=== PATIENT | male | born 1950 | race Two or more races ===

== ENCOUNTER 2017-09-12 08:19 | Inpatient (IN) | payer MEDICAID ==
[~2017-09-12] VITALS: Ht 172.7 cm; Wt 79.4 kg
[~2017-09-12 08:19] MED LIST: ATO40T; HYDR12.56 PO; LISI10TA6; METF-370 PO
[2017-09-12 09:20] LABS: Basophils # (auto) 0 uL; Eosinophils # (auto) 0 uL; Hematocrit 20.3 % (41.0-53.0); Mean Corpuscular Hgb Conc. 33.1 g/dL (32.0-36.0); Monocytes # (auto) 0.3 uL; Red Blood Cells 2.27 10^6/uL (4.5-5.90)
[2017-09-12 09:22] LABS: Basophils % (auto) 0.2 % (0.0-2.0); Lymphocytes # (auto) 0.4 uL; Lymphocytes % (auto) 6.1 % (10.0-50.0); Mean Corpuscular Hemoglobin 29.6 pg (28.0-32.0); Mean Corpuscular Volume 89.5 fL (80.0-100.0); Monocytes % (auto) 4.7 % (0.0-12.0); Neutrophils # (auto) 6.5 uL; Platelet Count (auto) 272 10^3/uL (140-450); Red Cell Distribution Width 15.9 % (11.8-14.3); White Blood Cell 7.3 10^3/uL (4.4-10.8)
[2017-09-12 09:43] LABS: Hemoglobin 6.7 g/dL (13.5-17.5)
[2017-09-12 09:50] LABS: Albumin 1.8 g/dL (3.4-5.0); BUN/Creatinine Ratio 17.2; Bilirubin, Total 0.2 mg/dL (0.2-1.0); Calcium 7.7 mg/dL (8.5-10.1); Magnesium 2.4 mg/dL (1.6-2.6); Potassium 3.9 mmol/L (3.5-5.1); Total Protein 6.3 g/dL (6.4-8.2)
[2017-09-12] MEDS ORDERED: ENOXAPARIN SOD 80 MG/0.8ML SYRINGE SC ONE (11:45)
[2017-09-12] MEDS ORDERED: AZITHROMYCIN 500MG/ 250ML 250 ML IV ONE (11:45)
[2017-09-12] MEDS ORDERED: cefTRIAXone 1GM/10ml IVPUSH 10 ML IV ONE (11:45)
[2017-09-12] MEDS ORDERED: DEXTROSE (50%) 50ML SYRG IV PRN (12:30)
[2017-09-12] MEDS ORDERED: FUROSEMIDE 40 MG TAB PO ONE (12:30)
[2017-09-12] MEDS ORDERED: MORPHINE SULFATE 10 MG/ML INJ 1ML SDV IV PRN ×2 (12:30)
[2017-09-12] MEDS ORDERED: LOSARTAN POTASSIUM 50 MG TAB PO ONE (12:30)
[2017-09-12] MEDS ORDERED: DOCUSATE SOD 100 MG CAP PO PRN (12:30)
[2017-09-12] MEDS ORDERED: NITROGLYCERIN 0.4 MG SL TAB SL PRN (12:30)
[2017-09-12] MEDS ORDERED: HCTZ 25 MG TAB PO ONE (12:30)
[2017-09-12] MEDS ORDERED: ONDANSETRON HCL 4 MG/2 ML VIAL IV PRN (12:30)
[2017-09-12] MEDS ORDERED: B-COMPLEX W/ C & FOLIC ACID(NEPHROVITE TAB) PO ONE (12:30)
[2017-09-12] MEDS ORDERED: ACETAMINOPHEN 325 MG TAB PO PRN (12:30)
[2017-09-12] MEDS ORDERED: OSELTAMIVIR 75 MG CAP PO ONE (12:30)
[2017-09-12] MEDS ORDERED: TEMAZEPAM 15 MG CAP PO PRN (12:30)
[2017-09-12] MEDS: SODIUM CHLORIDE 0.9% 1,000 ML IV SCH (13:10)
[2017-09-12 13:13] LABS: INR 1.02 (0.9-1.15); Prothrombin Time 11.1 sec (9.37-12.3)
[2017-09-12 13:40] VITALS: BP 142/72
[2017-09-12 13:48] LABS: Urine Bacteria FEW /hpf (None Seen); Urine Blood 2+ /uL (Negative); Urine Mucus FEW (None Seen); Urine Specific Gravity 1.014 (1.001-1.035); Urine WBC 1 /hpf (0 - 3)
[2017-09-12 13:55] VITALS: BP 136/79
[2017-09-12 14:30] VITALS: BP 108/65
[2017-09-12 15:14] VITALS: BP 137/83
[2017-09-12 15:30] VITALS: BP 121/68
[2017-09-12 15:55] LABS: Protein, Urine 726.6 mg/dL (0.0-11.9)
[2017-09-12] MEDS: FAMOTIDINE 20 MG TAB PO SCH (15:59)
[2017-09-12] MEDS: InsuLIN REG 1unit/0.01ml Soln (100units/ml) SC SCH ×2 (17:00→22:00)
[2017-09-12] MEDS: ACCU-CHEK COMFORT CURVE STRIP VI SCH ×2 (17:15→22:00)
[2017-09-12] MEDS: Boost Glucose Control 8 Ounces PO SCH ×2 (18:00→22:49)
[2017-09-12] MEDS: FERROUS SULFATE 325 MG TAB PO SCH (18:41)
[2017-09-12 22:00] VITALS: BP 133/73
[2017-09-12] MEDS: ATORVASTATIN 20 MG TAB PO SCH (22:49)
[2017-09-13] VITALS (9 sets, daily range): BP systolic 90–136; BP diastolic 50–65
[2017-09-13] MEDS ORDERED: LOSA50TA6 PO (03:24)
[2017-09-13] MEDS ORDERED: FURO40TA4 PO (03:24)
[2017-09-13] MEDS: SODIUM CHLORIDE 0.9% 1,000 ML IV SCH (05:03)
[2017-09-13] MEDS: HYDROcodone-ACET 5/325MG TAB PO PRN ×2 (06:04→16:28)
[2017-09-13] MEDS: Boost Glucose Control 8 Ounces PO SCH ×3 (06:10→18:14)
[2017-09-13 06:42] LABS: White Blood Cell 5.1 10^3/uL (4.4-10.8)
[2017-09-13 06:44] LABS: Hematocrit 19.9 % (41.0-53.0); Mean Corpuscular Hemoglobin 30.1 pg (28.0-32.0); Mean Corpuscular Hgb Conc. 34.3 g/dL (32.0-36.0); Platelet Count (auto) 192 10^3/uL (140-450); Red Blood Cells 2.27 10^6/uL (4.5-5.90); Red Cell Distribution Width 15.3 % (11.8-14.3)
[2017-09-13] MEDS: ACCU-CHEK COMFORT CURVE STRIP VI SCH ×4 (06:50→22:15)
[2017-09-13] MEDS: InsuLIN REG 1unit/0.01ml Soln (100units/ml) SC SCH ×4 (06:50→22:00)
[2017-09-13 06:53] LABS: Hemoglobin 6.8 g/dL (13.5-17.5)
[2017-09-13 06:55] LABS: Band Neutrophils % (manual) 0; Basophils % (manual) 0 (0.0-2.0); Blast Cells 0; Eosinophils % (manual) 0 (0-7); Metamyelocytes % 0; Myelocytes % 0; Promyelocytes % 0; Reactive Lymphocytes 0
[2017-09-13 07:06] LABS: Lymphocytes % (manual) 6 (10.0-50.0); Monocytes % (manual) 3 (0-12)
[2017-09-13 07:21] LABS: Albumin 1.3 g/dL (3.4-5.0); BUN/Creatinine Ratio 17.2; Bilirubin, Total 0.2 mg/dL (0.2-1.0); Calcium 7.2 mg/dL (8.5-10.1); Potassium 3.4 mmol/L (3.5-5.1); Total Protein 5.1 g/dL (6.4-8.2)
[2017-09-13] MEDS: FERROUS SULFATE 325 MG TAB PO SCH ×2 (08:21→18:14)
[2017-09-13] MEDS ORDERED: HCTZ 25 MG TAB PO SCH (10:00)
[2017-09-13] MEDS: LOSARTAN POTASSIUM 50 MG TAB PO SCH (10:00)
[2017-09-13] MEDS: FUROSEMIDE 40 MG TAB PO SCH (10:00)
[2017-09-13] MEDS ORDERED: OSELTAMIVIR 30 MG CAP PO SCH (10:00)
[2017-09-13] MEDS: MULTIPLE VITAMIN TAB PO SCH (10:04)
[2017-09-13] MEDS: FAMOTIDINE 20 MG TAB PO SCH (10:04)
[2017-09-13] MEDS: cefTRIAXone 1GM/10ml IVPUSH 10 ML IV SCH (10:04)
[2017-09-13] MEDS: B-COMPLEX W/ C & FOLIC ACID(NEPHROVITE TAB) PO SCH (10:05)
[2017-09-13] MEDS: AZITHROMYCIN 500MG/ 250ML 250 ML IV SCH (10:05)
[2017-09-13] MEDS ORDERED: LORazepam 2MG/ML-1ML VIAL IV PRN (19:00)
[2017-09-13] MEDS: ATORVASTATIN 20 MG TAB PO SCH (22:15)
[2017-09-13 22:17] LABS: Basophils # (auto) 0 uL; Eosinophils # (auto) 0 uL; Monocytes # (auto) 0.2 uL; Neutrophils # (auto) 2.7 uL; Red Cell Distribution Width 15.2 % (11.8-14.3); White Blood Cell 3.3 10^3/uL (4.4-10.8)
[2017-09-13 22:18] LABS: Basophils % (auto) 0.4 % (0.0-2.0); Eosinophils % (auto) 0.6 % (0.0-7.0); Hematocrit 18.3 % (41.0-53.0); Lymphocytes # (auto) 0.4 uL; Lymphocytes % (auto) 12.7 % (10.0-50.0); Mean Corpuscular Hemoglobin 30.2 pg (28.0-32.0); Mean Corpuscular Hgb Conc. 34.3 g/dL (32.0-36.0); Mean Corpuscular Volume 88.2 fL (80.0-100.0); Monocytes % (auto) 5.6 % (0.0-12.0); Neutrophils % (auto) 80.7 % (37.0-80.0); Nucleated Red Blood Cells % 0.1 %; Platelet Count (auto) 161 10^3/uL (140-450); Red Blood Cells 2.07 10^6/uL (4.5-5.90)
[2017-09-13 22:25] LABS: Hemoglobin 6.3 g/dL (13.5-17.5)
[2017-09-14] VITALS (14 sets, daily range): BP systolic 96–127; BP diastolic 53–62
[2017-09-14] MEDS: Boost Glucose Control 8 Ounces PO SCH ×5 (00:03→21:51)
[2017-09-14] MEDS: ACCU-CHEK COMFORT CURVE STRIP VI SCH ×4 (06:12→21:50)
[2017-09-14] MEDS: InsuLIN REG 1unit/0.01ml Soln (100units/ml) SC SCH ×4 (06:12→21:50)
[2017-09-14] MEDS: FERROUS SULFATE 325 MG TAB PO SCH ×2 (08:00→18:21)
[2017-09-14 09:10] LABS: Basophils # (auto) 0 uL; Basophils % (auto) 0.4 % (0.0-2.0); Eosinophils # (auto) 0.1 uL; Hematocrit 25.8 % (41.0-53.0); Hemoglobin 8.6 g/dL (13.5-17.5); Lymphocytes # (auto) 0.4 uL; Lymphocytes % (auto) 9.5 % (10.0-50.0); Mean Corpuscular Hemoglobin 29.4 pg (28.0-32.0); Mean Corpuscular Hgb Conc. 33.5 g/dL (32.0-36.0); Mean Corpuscular Volume 87.9 fL (80.0-100.0); Monocytes # (auto) 0.2 uL; Monocytes % (auto) 5.4 % (0.0-12.0); Neutrophils # (auto) 3.8 uL; Neutrophils % (auto) 82.7 % (37.0-80.0); Nucleated Red Blood Cells % 0.1 %; Platelet Count (auto) 168 10^3/uL (140-450); Red Blood Cells 2.93 10^6/uL (4.5-5.90); Red Cell Distribution Width 14.9 % (11.8-14.3); White Blood Cell 4.6 10^3/uL (4.4-10.8)
[2017-09-14 09:12] LABS: BUN/Creatinine Ratio 16.9; Calcium 7.3 mg/dL (8.5-10.1); Phosphorus 4.5 mg/dL (2.5-4.90); Potassium 3.2 mmol/L (3.5-5.1)
[2017-09-14] MEDS: cefTRIAXone 1GM/10ml IVPUSH 10 ML IV SCH (09:58)
[2017-09-14] MEDS: MULTIPLE VITAMIN TAB PO SCH (09:58)
[2017-09-14] MEDS: AZITHROMYCIN 500MG/ 250ML 250 ML IV SCH (09:58)
[2017-09-14] MEDS: FAMOTIDINE 20 MG TAB PO SCH (09:59)
[2017-09-14] MEDS: FUROSEMIDE 40 MG TAB PO SCH (09:59)
[2017-09-14] MEDS: LOSARTAN POTASSIUM 50 MG TAB PO SCH (09:59)
[2017-09-14] MEDS ORDERED: PANTOPRAZOLE 40 MG/10 ML VIAL IV ONE (10:15)
[2017-09-14] MEDS ORDERED: PROMETHAZINE-DM 5 ML ORAL SYRUP PO PRN (10:15)
[2017-09-14] MEDS: B-COMPLEX W/ C & FOLIC ACID(NEPHROVITE TAB) PO SCH (10:21)
[2017-09-14] MEDS ORDERED: SODIUM BICARBONATE 650 MG TAB PO ONE (14:15)
[2017-09-14] MEDS ORDERED: POTASSIUM CHL 20 Meq TABLET PO ONE (14:15)
[2017-09-14] MEDS: SODIUM BICARBONATE 650 MG TAB PO SCH (21:49)
[2017-09-14] MEDS: ATORVASTATIN 20 MG TAB PO SCH (21:49)
[2017-09-15 05:00] VITALS: BP 135/63
[2017-09-15] MEDS: InsuLIN REG 1unit/0.01ml Soln (100units/ml) SC SCH ×4 (06:40→21:35)
[2017-09-15] MEDS: ACCU-CHEK COMFORT CURVE STRIP VI SCH ×4 (06:41→21:35)
[2017-09-15 07:07] LABS: BUN/Creatinine Ratio 19.4; Calcium 8.1 mg/dL (8.5-10.1); Potassium 3.7 mmol/L (3.5-5.1)
[2017-09-15] MEDS: FERROUS SULFATE 325 MG TAB PO SCH ×2 (08:00→17:36)
[2017-09-15 08:01] VITALS: BP 130/60
[2017-09-15] MEDS ORDERED: PANTOPRAZOLE 40 MG/10 ML VIAL IV SCH (10:00)
[2017-09-15] MEDS ORDERED: ADENOSINE 69 MG in GIVE UN-DILUTED 0 ML IV ONE (11:00)
[2017-09-15 11:20] VITALS: BP 109/58
[2017-09-15 13:30] VITALS: BP 129/64
[2017-09-15] MEDS: cefTRIAXone 1GM/10ml IVPUSH 10 ML IV SCH (13:31)
[2017-09-15] MEDS: SODIUM BICARBONATE 650 MG TAB PO SCH ×2 (13:31→21:34)
[2017-09-15] MEDS: FUROSEMIDE 40 MG TAB PO SCH (13:32)
[2017-09-15] MEDS: B-COMPLEX W/ C & FOLIC ACID(NEPHROVITE TAB) PO SCH (13:33)
[2017-09-15] MEDS: MULTIPLE VITAMIN TAB PO SCH (13:33)
[2017-09-15] MEDS: Boost Glucose Control 8 Ounces PO SCH ×4 (13:33→21:36)
[2017-09-15 16:04] VITALS: BP 131/64
[2017-09-15] MEDS ORDERED: GOLYTELY 4L KIT PO ONE (16:45)
[2017-09-15] MEDS: ATORVASTATIN 20 MG TAB PO SCH (21:34)
[2017-09-15 22:00] VITALS: BP 128/84
[2017-09-16 05:00] VITALS: BP 120/66
[2017-09-16] MEDS: ACCU-CHEK COMFORT CURVE STRIP VI SCH ×3 (06:57→17:00)
[2017-09-16] MEDS: InsuLIN REG 1unit/0.01ml Soln (100units/ml) SC SCH ×3 (07:00→17:00)
[2017-09-16] MEDS: FERROUS SULFATE 325 MG TAB PO SCH ×2 (08:00→18:00)
[2017-09-16] MEDS ORDERED: diphenhdrAMINE HCL 50 MG/1 ML VL ONE (08:04)
[2017-09-16] MEDS ORDERED: SODIUM CHLORIDE LOCK 10 ML ONE (08:04)
[2017-09-16] MEDS ORDERED: LIDOCAINE VISCOUS 2% 15ML UD ONE (08:04)
[2017-09-16] MEDS ORDERED: MIDAZOLAM HCL 5 MG/ML-1ML VIAL ONE (08:04)
[2017-09-16 08:46] VITALS: BP 88/54
[2017-09-16] MEDS: cefTRIAXone 1GM/10ml IVPUSH 10 ML IV SCH (09:00)
[2017-09-16] MEDS: MULTIPLE VITAMIN TAB PO SCH (10:00)
[2017-09-16] MEDS ORDERED: AZITHROMYCIN 250 MG TAB PO SCH (10:00)
[2017-09-16] MEDS: SODIUM BICARBONATE 650 MG TAB PO SCH (10:00)
[2017-09-16] MEDS: B-COMPLEX W/ C & FOLIC ACID(NEPHROVITE TAB) PO SCH (10:00)
[2017-09-16] MEDS: FUROSEMIDE 40 MG TAB PO SCH (10:00)
[2017-09-16 10:11] LABS: Hematocrit 31.2 % (41.0-53.0); Hemoglobin 10.5 g/dL (13.5-17.5); Mean Corpuscular Hemoglobin 29.3 pg (28.0-32.0); Mean Corpuscular Hgb Conc. 33.5 g/dL (32.0-36.0); Mean Corpuscular Volume 87.6 fL (80.0-100.0); Platelet Count (auto) 235 10^3/uL (140-450); Red Blood Cells 3.57 10^6/uL (4.5-5.90); White Blood Cell 4.4 10^3/uL (4.4-10.8)
[2017-09-16 10:20] LABS: Basophils % (manual) 0 (0.0-2.0); Blast Cells 0; Metamyelocytes % 0; Myelocytes % 0; Promyelocytes % 0; Reactive Lymphocytes 0
[2017-09-16 10:31] LABS: Band Neutrophils % (manual) 1; Lymphocytes % (manual) 11 (10.0-50.0); Monocytes % (manual) 4 (0-12)
[2017-09-16 10:32] LABS: Eosinophils % (manual) 19 (0-7)
[2017-09-16] MEDS: fentaNYL CITRATE 100 MCG/2 ML VL ONE ×2 (11:38→11:47)
[2017-09-16] MEDS: Boost Glucose Control 8 Ounces PO SCH ×2 (16:18→18:00)
[2017-09-16 16:59] VITALS: BP 115/62
== END 2017-09-16 19:00 | disposition home or self-care (01) | DRG 720 ==
LOC: ER 08:19 → TELE 08:20 → TELE-WESTW 21:49
PROVIDERS: ADMIT Internal Medicine; ATTEND Internal Medicine
PROC: 30233N1 Transfusion of Nonautologous Red Blood Cells into Peripheral Vein, Percutaneous Approach (ICD-10-PCS; principal; 2017-09-12)
PROC: 0DJ08ZZ Inspection of Upper Intestinal Tract, Via Natural or Artificial Opening Endoscopic (ICD-10-PCS; 2017-09-16)
PROC: 0DJD8ZZ Inspection of Lower Intestinal Tract, Via Natural or Artificial Opening Endoscopic (ICD-10-PCS; 2017-09-16 11:35)
DX: A41.9 Sepsis, unspecified organism (principal); E43 Unspecified severe protein-calorie malnutrition; N17.9 Acute kidney failure, unspecified; I13.2 Hypertensive heart and chronic kidney disease with heart failure and with stage 5 chronic kidney disease, or end stage renal disease; E87.2 Acidosis; J18.9 Pneumonia, unspecified organism; N18.5 Chronic kidney disease, stage 5; J45.901 Unspecified asthma with (acute) exacerbation; I08.1 Rheumatic disorders of both mitral and tricuspid valves; E11.21 Type 2 diabetes mellitus with diabetic nephropathy; E11.51 Type 2 diabetes mellitus with diabetic peripheral angiopathy without gangrene; I50.9 Heart failure, unspecified; E87.1 Hypo-osmolality and hyponatremia; E83.51 Hypocalcemia; D63.8 Anemia in other chronic diseases classified elsewhere; E11.22 Type 2 diabetes mellitus with diabetic chronic kidney disease; E78.5 Hyperlipidemia, unspecified; I25.10 Atherosclerotic heart disease of native coronary artery without angina pectoris; K08.9 Disorder of teeth and supporting structures, unspecified; K40.90 Unilateral inguinal hernia, without obstruction or gangrene, not specified as recurrent; N13.30 Unspecified hydronephrosis; N28.1 Cyst of kidney, acquired; N40.0 Benign prostatic hyperplasia without lower urinary tract symptoms; Z82.3 Family history of stroke; Z82.49 Family history of ischemic heart disease and other diseases of the circulatory system; Z83.3 Family history of diabetes mellitus; Z79.899 Other long term (current) drug therapy; Z68.26 Body mass index [BMI] 26.0-26.9, adult
CPT/HCPCS: 36415; 36430; 43235; 45378; 70450; 70551; 71046; 74176; 76775; 80048; 80053; 81001; 82570; 82962; 83036; 83605; 83735; 84100; 84156; 84484; 85007; 85025; 85027; 85610; 86850; 86900; 86901; 86920; 87040; 87400; 93005; 93017; 93306; 96372; 96374; 96375; 97116; 97163; 97530; 99291; C9113; G9035; J0153; J1815; J2250

== ENCOUNTER 2017-09-28 01:33 | Emergency (ER) | payer MEDICAID ==
[~2017-09-28] VITALS: Ht 177.8 cm; Wt 81.6 kg
[~2017-09-28 01:33] MED LIST changes: +FURO40TA4 PO; +LOSA50TA6 PO
[2017-09-28] MEDS ORDERED: SODIUM CHLORIDE 0.9% 1,000 ML IV ONE (07:47)
[2017-09-28 08:09] LABS: Basophils # (auto) 0.1 uL; Basophils % (auto) 0.8 % (0.0-2.0); Eosinophils # (auto) 0.5 uL; Eosinophils % (auto) 5.4 % (0.0-7.0); Hematocrit 27.3 % (41.0-53.0); Lymphocytes # (auto) 0.9 uL; Lymphocytes % (auto) 9.1 % (10.0-50.0); Mean Corpuscular Hemoglobin 29.1 pg (28.0-32.0); Mean Corpuscular Hgb Conc. 32.9 g/dL (32.0-36.0); Mean Corpuscular Volume 88.3 fL (80.0-100.0); Monocytes # (auto) 0.5 uL; Monocytes % (auto) 4.8 % (0.0-12.0); Neutrophils # (auto) 7.6 uL; Neutrophils % (auto) 79.9 % (37.0-80.0); Nucleated Red Blood Cells % 0.1 %; Platelet Count (auto) 263 10^3/uL (140-450); Red Blood Cells 3.09 10^6/uL (4.5-5.90); Red Cell Distribution Width 15.4 % (11.8-14.3); White Blood Cell 9.6 10^3/uL (4.4-10.8)
[2017-09-28 08:23] LABS: Calcium 8.8 mg/dL (8.5-10.1); Magnesium 2.6 mg/dL (1.6-2.6)
[2017-09-28 08:27] LABS: BUN/Creatinine Ratio 19.5; Bilirubin, Total 0.2 mg/dL (0.2-1.0)
[2017-09-28 08:28] LABS: INR 1.02 (0.9-1.15); Partial Thromboplastin Time 27.1 sec (22.64-33.71); Prothrombin Time 11.1 sec (9.37-12.3)
[2017-09-28] MEDS ORDERED: DEXTROSE 50% SYRINGE 50 ML IV ONE (08:37)
[2017-09-28] MEDS ORDERED: DEXTROSE (50%) 50ML SYRG IV ONE (08:45)
[2017-09-28] MEDS ORDERED: DEXAMETHASONE SOD PHOS 4 MG/1ML SDV INJ IV ONE (13:15)
[2017-09-28 15:21] VITALS: BP 189/70
== END 2017-09-28 15:31 | disposition short-term general hospital (02) ==
LOC: EDBD 01:33 → ER 01:33
DX: S00.83XA Contusion of other part of head, initial encounter (principal); S40.011A Contusion of right shoulder, initial encounter; S14.126A Central cord syndrome at C6 level of cervical spinal cord, initial encounter; R55 Syncope and collapse; E11.65 Type 2 diabetes mellitus with hyperglycemia; E03.9 Hypothyroidism, unspecified; E46 Unspecified protein-calorie malnutrition; R41.82 Altered mental status, unspecified; I12.9 Hypertensive chronic kidney disease with stage 1 through stage 4 chronic kidney disease, or unspecified chronic kidney disease; E11.22 Type 2 diabetes mellitus with diabetic chronic kidney disease; N18.9 Chronic kidney disease, unspecified; E78.5 Hyperlipidemia, unspecified; W19.XXXA Unspecified fall, initial encounter; Y93.89 Activity, other specified; Y99.8 Other external cause status; Y92.89 Other specified places as the place of occurrence of the external cause
CPT/HCPCS: 36415; 70450; 70486; 71045; 72125; 73030; 80053; 82962; 83735; 84443; 84484; 85025; 85379; 85610; 85730; 93005; 94761; 96361; 96374; 99285; J7030; J7042; L0120

== ENCOUNTER 2017-11-03 21:21 | Inpatient (IN) | payer MEDICAID ==
[~2017-11-03] VITALS: Ht 172.7 cm; Wt 73.5 kg
[2017-11-03 22:28] LABS: Hemoglobin 8.1 g/dL (13.5-17.5); White Blood Cell 8.7 10^3/uL (4.4-10.8)
[2017-11-03 22:30] LABS: Hematocrit 24.2 % (41.0-53.0); Mean Corpuscular Hemoglobin 31.3 pg (28.0-32.0); Mean Corpuscular Hgb Conc. 33.4 g/dL (32.0-36.0); Mean Corpuscular Volume 93.6 fL (80.0-100.0); Platelet Count (auto) 182 10^3/uL (140-450); Red Blood Cells 2.59 10^6/uL (4.5-5.90)
[2017-11-03 22:35] LABS: Albumin 2.4 g/dL (3.4-5.0); BUN/Creatinine Ratio 28.6; Calcium 8.6 mg/dL (8.5-10.1); Potassium 5.5 mmol/L (3.5-5.1)
[2017-11-03 22:37] LABS: Bilirubin, Total 0.2 mg/dL (0.2-1.0); Red Cell Distribution Width 20.5 % (11.8-14.3); Total Protein 6.3 g/dL (6.4-8.2)
[2017-11-03 22:41] LABS: Basophils % (manual) 0 (0.0-2.0)
[2017-11-03 22:42] LABS: Blast Cells 0; Metamyelocytes % 0; Myelocytes % 0; Promyelocytes % 0; Reactive Lymphocytes 0
[2017-11-03 23:39] LABS: Band Neutrophils % (manual) 1; Eosinophils % (manual) 15 (0-7); Lymphocytes % (manual) 9 (10.0-50.0); Monocytes % (manual) 1 (0-12)
[2017-11-03 23:44] LABS: Magnesium 2.6 mg/dL (1.6-2.6)
[2017-11-04] MEDS ORDERED: SODIUM BICARBONATE 8.4 % INJ 50ML VIAL IV ONE (00:30)
[2017-11-04] MEDS ORDERED: DEXTROSE (50%) 50ML SYRG IV ONE (00:30)
[2017-11-04] MEDS ORDERED: InsuLIN REG 1unit/0.01ml Soln (100units/ml) IV ONE (00:30)
[2017-11-04] MEDS ORDERED: SODIUM CHLORIDE 0.9% 1,000 ML IV ONE (00:30)
[2017-11-04] MEDS ORDERED: CALCIUM GLUC 4.65meq/50ml D5AE 50 ML IV ONE (00:30)
[2017-11-04] MEDS ORDERED: SODIUM CHLORIDE 0.9% 1,000 ML IV SCH (03:45)
[2017-11-04] MEDS ORDERED: ACETAMINOPHEN 325 MG TAB PO PRN (03:45)
[2017-11-04] MEDS ORDERED: DEXTROSE (50%) 50ML SYRG IV PRN (03:45)
[2017-11-04] MEDS ORDERED: NITROGLYCERIN 0.4 MG SL TAB SL PRN (03:45)
[2017-11-04] MEDS ORDERED: PANTOPRAZOLE 40 MG/10 ML VIAL IV ONE (03:45)
[2017-11-04] MEDS ORDERED: TEMAZEPAM 15 MG CAP PO PRN (03:45)
[2017-11-04] MEDS ORDERED: ONDANSETRON HCL 4 MG/2 ML VIAL IV PRN (03:45)
[2017-11-04] MEDS ORDERED: MORPHINE SULFATE 4 MG/ML SYR/VIAL IV PRN (03:45)
[2017-11-04] MEDS ORDERED: HYDROcodone-ACET 5/325MG TAB PO PRN (03:45)
[2017-11-04] MEDS ORDERED: SODIUM CHLORIDE 0.9% 500 ML IV ONE (03:45)
[2017-11-04 04:13] LABS: Hematocrit 23.8 % (41.0-53.0)
[2017-11-04] MEDS: metroNIDAZOLE 500MG/100ML 100 ML IV SCH ×3 (05:31→21:57)
[2017-11-04] MEDS: InsuLIN REG 1unit/0.01ml Soln (100units/ml) SC SCH ×3 (06:00→18:00)
[2017-11-04] MEDS: ACCU-CHEK COMFORT CURVE STRIP VI SCH ×3 (06:20→18:02)
[2017-11-04] MEDS: PANTOPRAZOLE 40 MG/10 ML VIAL IV SCH ×2 (09:54→21:56)
[2017-11-04] MEDS ORDERED: FUROSEMIDE 40 MG TAB PO SCH (10:00)
[2017-11-04] MEDS ORDERED: LISINOPRIL 10 MG TAB PO SCH (10:00)
[2017-11-04 12:00] VITALS: BP 146/65
[2017-11-04] MEDS: SODIUM BICARBONATE 50ML VIAL 50 ML in SOD CHL 0.45% 1,000 ML IV SCH ×2 (12:03→20:36)
[2017-11-04 12:35] LABS: Protein, Urine 406.2 mg/dL (0.0-11.9)
[2017-11-04 12:38] LABS: % Iron Saturation 12.5 % (20-55)
[2017-11-04 12:53] LABS: Urine Amorphous Crystal FEW /hpf (None Seen); Urine Bacteria FEW /hpf (None Seen); Urine Blood TRACE /uL (Negative); Urine Mucus FEW (None Seen); Urine Specific Gravity 1.012 (1.001-1.035); Urine WBC 1 /hpf (0 - 3)
[2017-11-04 14:21] VITALS: BP 146/65
[2017-11-04 16:00] VITALS: BP 130/64
[2017-11-04 18:30] LABS: Hemoglobin 7.3 g/dL (13.5-17.5)
[2017-11-04 18:32] LABS: Hematocrit 21.9 % (41.0-53.0)
[2017-11-04 20:00] VITALS: BP 135/61
[2017-11-04 21:56] VITALS: BP 135/61
[2017-11-04] MEDS: ATORVASTATIN 20 MG TAB PO SCH (21:57)
[2017-11-04 23:47] VITALS: BP 132/62
[2017-11-05] VITALS (17 sets, daily range): BP systolic 126–151; BP diastolic 60–77
[2017-11-05] MEDS: ACCU-CHEK COMFORT CURVE STRIP VI SCH ×5 (00:25→23:42)
[2017-11-05] MEDS: SODIUM BICARBONATE 50ML VIAL 50 ML in SOD CHL 0.45% 1,000 ML IV SCH ×3 (04:07→21:06)
[2017-11-05] MEDS: InsuLIN REG 1unit/0.01ml Soln (100units/ml) SC SCH ×5 (05:44→23:42)
[2017-11-05] MEDS: metroNIDAZOLE 500MG/100ML 100 ML IV SCH ×3 (06:00→21:38)
[2017-11-05 09:56] LABS: Hematocrit 26.1 % (41.0-53.0); Hemoglobin 8.8 g/dL (13.5-17.5); Mean Corpuscular Hemoglobin 31.4 pg (28.0-32.0); Mean Corpuscular Hgb Conc. 33.6 g/dL (32.0-36.0); Mean Corpuscular Volume 93.6 fL (80.0-100.0); Platelet Count (auto) 148 10^3/uL (140-450); Red Blood Cells 2.79 10^6/uL (4.5-5.90); Red Cell Distribution Width 18.9 % (11.8-14.3); White Blood Cell 6.5 10^3/uL (4.4-10.8)
[2017-11-05 10:07] LABS: Band Neutrophils % (manual) 0
[2017-11-05 10:08] LABS: Basophils % (manual) 0 (0.0-2.0); Blast Cells 0; Metamyelocytes % 0; Myelocytes % 0; Promyelocytes % 0; Reactive Lymphocytes 0
[2017-11-05 10:11] LABS: Albumin 2.2 g/dL (3.4-5.0); Calcium 8.7 mg/dL (8.5-10.1); Potassium 4.4 mmol/L (3.5-5.1)
[2017-11-05 10:16] LABS: BUN/Creatinine Ratio 27.9; Bilirubin, Total 0.3 mg/dL (0.2-1.0); Phosphorus 3.6 mg/dL (2.5-4.90); Total Protein 5.6 g/dL (6.4-8.2)
[2017-11-05] MEDS: amLODIPine BESYLATE 5 MG TAB PO SCH (10:34)
[2017-11-05] MEDS: PANTOPRAZOLE 40 MG/10 ML VIAL IV SCH ×2 (10:35→21:37)
[2017-11-05 14:53] LABS: Eosinophils % (manual) 36 (0-7); Lymphocytes % (manual) 13 (10.0-50.0); Monocytes % (manual) 1 (0-12)
[2017-11-05] MEDS: TAMSULOSIN HYDROCHLORIDE 0.4 MG CAP PO SCH (17:44)
[2017-11-05 20:37] LABS: Urine Bacteria NONE SEEN /hpf (None Seen); Urine Blood Negative /uL (Negative); Urine Specific Gravity 1.011 (1.001-1.035); Urine WBC 1 /hpf (0 - 3)
[2017-11-05] MEDS: ATORVASTATIN 20 MG TAB PO SCH (21:38)
[2017-11-06] MEDS: SODIUM BICARBONATE 50ML VIAL 50 ML in SOD CHL 0.45% 1,000 ML IV SCH ×3 (04:10→22:18)
[2017-11-06] MEDS: metroNIDAZOLE 500MG/100ML 100 ML IV SCH ×3 (04:11→22:13)
[2017-11-06 05:00] VITALS: BP 114/60
[2017-11-06] MEDS: InsuLIN REG 1unit/0.01ml Soln (100units/ml) SC SCH ×3 (06:00→17:46)
[2017-11-06] MEDS: ACCU-CHEK COMFORT CURVE STRIP VI SCH ×3 (06:00→17:47)
[2017-11-06 08:00] VITALS: BP 101/54
[2017-11-06 09:00] VITALS: BP 101/54
[2017-11-06] MEDS: PANTOPRAZOLE 40 MG/10 ML VIAL IV SCH ×2 (10:35→22:13)
[2017-11-06] MEDS: amLODIPine BESYLATE 5 MG TAB PO SCH (10:36)
[2017-11-06 10:58] LABS: INR 1.07 (0.9-1.15); Prothrombin Time 11.7 sec (9.37-12.3)
[2017-11-06 13:00] VITALS: BP 130/63
[2017-11-06 17:00] VITALS: BP 123/78
[2017-11-06] MEDS: TAMSULOSIN HYDROCHLORIDE 0.4 MG CAP PO SCH (17:46)
[2017-11-06 21:57] VITALS: BP 142/76
[2017-11-06] MEDS: ATORVASTATIN 20 MG TAB PO SCH (22:13)
[2017-11-07] MEDS: InsuLIN REG 1unit/0.01ml Soln (100units/ml) SC SCH ×4 (00:05→17:44)
[2017-11-07] MEDS: ACCU-CHEK COMFORT CURVE STRIP VI SCH ×4 (00:05→17:43)
[2017-11-07 05:38] VITALS: BP 143/60
[2017-11-07] MEDS: metroNIDAZOLE 500MG/100ML 100 ML IV SCH ×2 (06:00→14:24)
[2017-11-07 07:03] LABS: INR 1.09 (0.9-1.15); Partial Thromboplastin Time 28.7 sec (22.64-33.71); Prothrombin Time 11.9 sec (9.37-12.3)
[2017-11-07] MEDS ORDERED: MIDAZOLAM HCL 5 MG/ML-1ML VIAL ONE (07:53)
[2017-11-07] MEDS ORDERED: diphenhdrAMINE HCL 50 MG/1 ML VL ONE (07:53)
[2017-11-07] MEDS ORDERED: LIDOCAINE VISCOUS 2% 15ML UD ONE (07:53)
[2017-11-07] MEDS ORDERED: fentaNYL CITRATE 100 MCG/2 ML VL ONE (07:54)
[2017-11-07 08:00] VITALS: BP 140/74
[2017-11-07 09:00] VITALS: BP 140/74
[2017-11-07] MEDS ORDERED: SODIUM BICARBONATE 50ML VIAL 50 ML in SOD CHL 0.45% 1,000 ML IV SCH (09:30)
[2017-11-07] MEDS ORDERED: FLUDROCORTISONE ACETATE 0.1 MG TAB PO SCH (10:00)
[2017-11-07] MEDS ORDERED: EPOETIN ALFA 10,000 UNIT/1 ML VIAL SC ONE (10:00)
[2017-11-07] MEDS: amLODIPine BESYLATE 5 MG TAB PO SCH (10:00)
[2017-11-07 17:00] VITALS: BP 130/69
[2017-11-07] MEDS: TAMSULOSIN HYDROCHLORIDE 0.4 MG CAP PO SCH (17:43)
[2017-11-07 18:35] VITALS: BP 130/69
== END 2017-11-07 18:35 | disposition home or self-care (01) | DRG 469 ==
LOC: EDBD 21:21 → ER 21:26 → TELE 21:27 → TELE-WESTW 11-04 12:31
PROVIDERS: ADMIT Nurse Practitioner; ATTEND Internal Medicine
PROC: 30233N1 Transfusion of Nonautologous Red Blood Cells into Peripheral Vein, Percutaneous Approach (ICD-10-PCS; 2017-11-04)
PROC: 0DB68ZZ Excision of Stomach, Via Natural or Artificial Opening Endoscopic (ICD-10-PCS; principal; 2017-11-07 10:43)
DX: N17.0 Acute kidney failure with tubular necrosis (principal); E43 Unspecified severe protein-calorie malnutrition; I13.2 Hypertensive heart and chronic kidney disease with heart failure and with stage 5 chronic kidney disease, or end stage renal disease; E87.2 Acidosis; E11.22 Type 2 diabetes mellitus with diabetic chronic kidney disease; E11.51 Type 2 diabetes mellitus with diabetic peripheral angiopathy without gangrene; E86.0 Dehydration; K52.9 Noninfective gastroenteritis and colitis, unspecified; N18.6 End stage renal disease; D63.8 Anemia in other chronic diseases classified elsewhere; E78.5 Hyperlipidemia, unspecified; D50.0 Iron deficiency anemia secondary to blood loss (chronic); R00.1 Bradycardia, unspecified; R41.3 Other amnesia; E78.00 Pure hypercholesterolemia, unspecified; E87.5 Hyperkalemia; G47.00 Insomnia, unspecified; N13.30 Unspecified hydronephrosis; I25.119 Atherosclerotic heart disease of native coronary artery with unspecified angina pectoris; I50.9 Heart failure, unspecified; K31.7 Polyp of stomach and duodenum; N40.0 Benign prostatic hyperplasia without lower urinary tract symptoms; Z82.3 Family history of stroke; Z82.49 Family history of ischemic heart disease and other diseases of the circulatory system; Z83.3 Family history of diabetes mellitus; Z89.422 Acquired absence of other left toe(s); Z88.6 Allergy status to analgesic agent; Z88.0 Allergy status to penicillin; Z79.899 Other long term (current) drug therapy; Z71.89 Other specified counseling
CPT/HCPCS: 36415; 43250; 51702; 70450; 71045; 73020; 74176; 76775; 80053; 81001; 82570; 82728; 82962; 83540; 83550; 83735; 83880; 84100; 84132; 84154; 84156; 84300; 84484; 85007; 85014; 85018; 85025; 85027; 85610; 85730; 86850; 86900; 86901; 86920; 87493; 93005; 94761; 96361; 96365; 96375; C9113; J0610; J0885; J1815; J2250; J3490

== ENCOUNTER 2021-10-16 13:52 | Emergency (ER) | payer MEDICAID ==
[~2021-10-16] VITALS: Ht 175.3 cm; Wt 68.0 kg
[~2021-10-16 13:52] MED LIST changes: +B CO PO; -HYDR12.56 PO; +LEV50T PO; -LISI10TA6; -LOSA50TA6 PO; -METF-370 PO; +SODIGRA3 OR; +SODIPOW
[2021-10-16] MEDS ORDERED: ONDANSETRON HCL 4 MG/2 ML VIAL IV ONE (14:15)
[2021-10-16] MEDS ORDERED: SODIUM CHLORIDE 0.9% 500 ML IV ONE ×2 (14:15→15:30)
[2021-10-16] MEDS ORDERED: ACETAMINOPHEN 325 MG TAB PO ONE (14:15)
[2021-10-16] MEDS ORDERED: FAMOTIDINE (10MG/ML) 2ML VL IV ONE (14:15)
[2021-10-16 14:37] LABS: Basophils # (auto) 0 10 ^3/uL (0-0.2); Basophils % (auto) 0.1 % (0.0-2.0); Eosinophils # (auto) 0 10 ^3/uL (0-0.8); Monocytes # (auto) 0.1 10 ^3/uL (0-1.3); Monocytes % (auto) 0.8 % (0.0-12.0); Nucleated Red Blood Cells % 0.1 %
[2021-10-16 14:39] LABS: Hematocrit 35.5 % (41.0-53.0); Hemoglobin 12.4 g/dL (13.5-17.5); Lymphocytes # (auto) 0.1 10 ^3/uL (0.4-5.4); Lymphocytes % (auto) 0.6 % (10.0-50.0); Mean Corpuscular Hemoglobin 36.5 pg (28.0-32.0); Mean Corpuscular Hgb Conc. 34.9 g/dL (32.0-36.0); Mean Corpuscular Volume 104.6 fL (80.0-100.0); Neutrophils # (auto) 9.2 10 ^3/uL (1.6-8.6); Neutrophils % (auto) 98.5 % (37.0-80.0); Red Blood Cells 3.39 10^6/uL (4.5-5.90); Red Cell Distribution Width 13.9 % (11.8-14.3); White Blood Cell 9.3 10^3/uL (4.4-10.8)
[2021-10-16 15:06] LABS: Albumin 3.7 g/dL (3.4-5.0); BUN/Creatinine Ratio 11.2; Calcium 9.1 mg/dL (8.5-10.1); Magnesium 2.2 mg/dL (1.6-2.6); Potassium 3.3 mmol/L (3.5-5.1)
[2021-10-16 15:08] LABS: Bilirubin, Total 0.8 mg/dL (0.2-1.0); Total Protein 7.8 g/dL (6.4-8.2)
[2021-10-16 15:11] LABS: Lactic Acid w/Reflex 10.9 mmol/L (0.4-2.0)
[2021-10-16] MEDS ORDERED: VANCOMYCIN 1,500 MG in D5W 5% 250 ML IV STA (16:01)
[2021-10-16] MEDS ORDERED: metroNIDAZOLE 500MG/100ML 100 ML IV ONE (16:15)
[2021-10-16] MEDS ORDERED: CEFEPIME 2 GM in SODIUM CHL 0.9% 50 ML IV ONE ×2 (16:15→22:30)
[2021-10-16] MEDS ORDERED: D5W/SOD CHLO 0.9% 1,000 ML IV ONE (16:45)
[2021-10-16] MEDS ORDERED: HYDROCORTISONE SOD SUCC 100 MG/2ML INJ VIAL ONE (16:54)
[2021-10-16] MEDS ORDERED: CLINDAMYCIN 600MG IV 50 ML IV ONE (17:00)
[2021-10-16] MEDS ORDERED: SODIUM CHLORIDE 0.9% 1,000 ML IV ONE (17:00)
[2021-10-16] MEDS ORDERED: HYDROCORTISONE SOD SUCC 100 MG/2ML INJ VIAL IV ONE (17:00)
[2021-10-16 17:48] LABS: Urine Bacteria FEW /hpf (None Seen); Urine Blood 1+ /uL (Negative); Urine Budding Yeast MODERATE /hpf (None Seen); Urine Specific Gravity 1.016 (1.001-1.035); Urine WBC 11 /hpf (0 - 3)
[2021-10-16] MEDS ORDERED: D5W/LACTATED RINGERS 1,000 ML IV ONE (18:00)
[2021-10-16] MEDS: NOREPINEPHRINE 8 MG/250ML KIT 250 ML IV SCH (21:07)
[2021-10-16] MEDS ORDERED: MORPHINE SULFATE INJECTION 2 MG/ML SYRG IV ONE (21:30)
[2021-10-16] MEDS ORDERED: HYDROmorphone HCL 2 MG/ML VL IV ONE (21:45)
[2021-10-16] MEDS ORDERED: LORazepam 2MG/ML-1ML VIAL IV ONE (21:45)
[2021-10-16] MEDS: POTASSIUM CHL 10MEQ/50ML 50 ML IV SCH (22:38)
[2021-10-17] MEDS ORDERED: MORPHINE SULFATE INJECTION 2 MG/ML SYRG IV PRN (00:30)
[2021-10-17] MEDS: POTASSIUM CHL 10MEQ/50ML 50 ML IV SCH (00:45)
[2021-10-17 01:35] LABS: CSF White Blood Cells 2.78 CUMM (0-5)
[2021-10-17] MEDS ORDERED: ONDANSETRON HCL 4 MG/2 ML VIAL IV PRN (05:45)
[2021-10-17] MEDS ORDERED: ACETAMINOPHEN 650 MG RECT SUPP PR PRN (05:45)
[2021-10-17] MEDS ORDERED: metroNIDAZOLE 500MG/100ML 100 ML IV SCH (06:00)
[2021-10-17] MEDS ORDERED: ONDANSETRON HCL 4 MG/2 ML VIAL IV SCH (06:00)
[2021-10-17] MEDS: SODIUM CHLORIDE 0.9% 1,000 ML IV SCH ×2 (06:47→19:05)
[2021-10-17 06:53] LABS: Basophils # (auto) 0 10 ^3/uL (0-0.2); Eosinophils # (auto) 0 10 ^3/uL (0-0.8); Hemoglobin 11.4 g/dL (13.5-17.5); Lymphocytes # (auto) 0.1 10 ^3/uL (0.4-5.4); Lymphocytes % (auto) 0.7 % (10.0-50.0); Monocytes # (auto) 0.2 10 ^3/uL (0-1.3)
[2021-10-17 06:56] LABS: Basophils % (auto) 0.3 % (0.0-2.0); Eosinophils % (auto) 0.1 % (0.0-7.0); Hematocrit 31.8 % (41.0-53.0); Mean Corpuscular Hemoglobin 37.1 pg (28.0-32.0); Mean Corpuscular Hgb Conc. 35.8 g/dL (32.0-36.0); Mean Corpuscular Volume 103.8 fL (80.0-100.0); Monocytes % (auto) 2.1 % (0.0-12.0); Neutrophils # (auto) 10.6 10 ^3/uL (1.6-8.6); Neutrophils % (auto) 96.8 % (37.0-80.0); Red Blood Cells 3.06 10^6/uL (4.5-5.90); Red Cell Distribution Width 13.9 % (11.8-14.3); White Blood Cell 10.9 10^3/uL (4.4-10.8)
[2021-10-17 07:07] LABS: BUN/Creatinine Ratio 12.3; Calcium 7.9 mg/dL (8.5-10.1); Potassium 3.9 mmol/L (3.5-5.1)
[2021-10-17 07:09] LABS: Lactic Acid w/Reflex 3.1 mmol/L (0.4-2.0)
[2021-10-17 07:23] LABS: Protein, CSF 71.2 mg/dL (15-45)
[2021-10-17] MEDS: NOREPINEPHRINE 8 MG/250ML KIT 250 ML IV SCH ×2 (09:11→18:40)
[2021-10-17 09:17] LABS: INR 1.69 (0.9-1.15); Partial Thromboplastin Time 45.7 sec (23.6-33.0)
[2021-10-17] MEDS ORDERED: levoFLOXacin 250MG 50 ML IV SCH (10:00)
[2021-10-17] MEDS ORDERED: SODIUM CHL 0.9% 1000 ML BAG XX ONE (10:30)
[2021-10-17] MEDS ORDERED: LEVOTHYROXINE SODIUM 100 MCG/5 ML INJ IV SCH (11:45)
[2021-10-17] MEDS ORDERED: VANCOMYCIN PER PHARMACY 0 MG IV SCH (11:45)
[2021-10-17] MEDS ORDERED: IOHEXOL 300 MG/ML 100ML BOTTLE IJ ONE (12:04)
[2021-10-17] MEDS ORDERED: SEVE800T8 PO (12:51)
[2021-10-17 15:26] LABS: Amylase 134 U/L (25-115); Lipase 69 U/L (73-393)
[2021-10-17] MEDS ORDERED: VANCOMYCIN 500 MG in D5W 5% 100 ML IV ONE (17:00)
[2021-10-17 21:19] VITALS: BP 114/60
[2021-10-18] MEDS ORDERED: CEFEPIME 0.5 GM in SODIUM CHL 0.9% 50 ML IV SCH (10:00)
== END 2021-10-17 22:10 | disposition short-term general hospital (02) ==
LOC: EDBD 13:52 → EDUNIT# 13:52 → ER 13:52
DX: A41.9 Sepsis, unspecified organism (principal); I95.9 Hypotension, unspecified; I27.20 Pulmonary hypertension, unspecified; D69.6 Thrombocytopenia, unspecified; E11.22 Type 2 diabetes mellitus with diabetic chronic kidney disease; I12.0 Hypertensive chronic kidney disease with stage 5 chronic kidney disease or end stage renal disease; N18.6 End stage renal disease; J10.1 Influenza due to other identified influenza virus with other respiratory manifestations; K29.80 Duodenitis without bleeding; K83.09 Other cholangitis; K82.9 Disease of gallbladder, unspecified; Z95.0 Presence of cardiac pacemaker; Z20.822 Contact with and (suspected) exposure to COVID-19
CPT/HCPCS: 36415; 36556; 62270; 71045; 71250; 74176; 80048; 80053; 81001; 82150; 82945; 82962; 83605; 83690; 83735; 84157; 84484; 85025; 85610; 85730; 87040; 87070; 87077; 87086; 87186; 87205; 87426; 87804; 89051; 93005; 96361; 96365; 96366; 96367; 96368; 96375; 99291; C9803; J0692; J1170; J1720; J2060; J2405; J3370; J3480; J3490; J7060; U0003

== ENCOUNTER 2022-06-07 16:57 | Emergency (ER) | payer MEDICAID ==
[~2022-06-07] VITALS: Ht 172.7 cm; Wt 64.5 kg
[~2022-06-07 16:57] MED LIST changes: -FURO40TA4 PO; +SEVE800T8 PO; -SODIPOW
[2022-06-07 20:40] LABS: Basophils # (auto) 0 10 ^3/uL (0-0.2); Eosinophils # (auto) 0.1 10 ^3/uL (0-0.8); Hematocrit 34.4 % (41.0-53.0); Lymphocytes # (auto) 0.6 10 ^3/uL (0.4-5.4); Monocytes # (auto) 0.5 10 ^3/uL (0-1.3); Neutrophils # (auto) 3.7 10 ^3/uL (1.6-8.6); White Blood Cell 4.9 10^3/uL (4.4-10.8)
[2022-06-07 20:41] LABS: Basophils % (auto) 0.4 % (0.0-2.0); Eosinophils % (auto) 2.3 % (0.0-7.0); Hemoglobin 11.3 g/dL (13.5-17.5); Lymphocytes % (auto) 12.9 % (10.0-50.0); Mean Corpuscular Hemoglobin 34.2 pg (28.0-32.0); Mean Corpuscular Hgb Conc. 32.7 g/dL (32.0-36.0); Mean Corpuscular Volume 104.5 fL (80.0-100.0); Monocytes % (auto) 9.8 % (0.0-12.0); Neutrophils % (auto) 74.6 % (37.0-80.0); Red Cell Distribution Width 14.4 % (11.8-14.3)
[2022-06-07 20:57] LABS: BUN/Creatinine Ratio 10.5; Calcium 8.6 mg/dL (8.5-10.1); Magnesium 3.2 mg/dL (1.6-2.6)
[2022-06-07 21:00] LABS: Total Protein 8.1 g/dL (6.4-8.2)
[2022-06-07 21:08] LABS: Potassium 4.6 mmol/L (3.5-5.1)
[2022-06-08 01:55] LABS: Urine Bacteria MANY /hpf (None Seen); Urine Blood 2+ /uL (Negative); Urine Specific Gravity 1.014 (1.001-1.035); Urine Sperm PRESENT /hpf (None Seen); Urine WBC 356 /hpf (0 - 3); Urine WBC Clumps PRESENT /hpf (None Seen)
[2022-06-08 02:01] VITALS: BP 159/59
[2022-06-08] MEDS ORDERED: LACT10SO70 PO (02:05)
== END 2022-06-08 02:30 | disposition home or self-care (01) ==
LOC: EDUNIT# 16:57 → ER 16:57 → EDBD 16:57 → ER 06-08 02:29
DX: N32.0 Bladder-neck obstruction (principal)
CPT/HCPCS: 36415; 51702; 71045; 71250; 74176; 80053; 81001; 83735; 84484; 85025; 93005

== ENCOUNTER 2023-08-04 11:19 | Inpatient (IN) | payer MEDICAID ==
[~2023-08-04] VITALS: Ht 170.2 cm; Wt 69.3 kg
[~2023-08-04 11:19] MED LIST changes: +LACT10SO70 PO
[2023-08-04 12:22] LABS: Basophils # (auto) 0 10 ^3/uL (0-0.2); Basophils % (auto) 0.1 % (0.0-2.0); Eosinophils # (auto) 0 10 ^3/uL (0-0.8); Eosinophils % (auto) 0.2 % (0.0-7.0); Hemoglobin 9.6 g/dL (13.5-17.5); Lymphocytes # (auto) 0.2 10 ^3/uL (0.4-5.4); Monocytes # (auto) 0.2 10 ^3/uL (0-1.3); Nucleated Red Blood Cells % 0.1 %; White Blood Cell 5.2 10^3/uL (4.4-10.8)
[2023-08-04 12:24] LABS: Lymphocytes % (auto) 2.9 % (10.0-50.0); Mean Corpuscular Hemoglobin 35.6 pg (28.0-32.0); Mean Corpuscular Hgb Conc. 34.3 g/dL (32.0-36.0); Mean Corpuscular Volume 103.8 fL (80.0-100.0); Monocytes % (auto) 3.9 % (0.0-12.0); Neutrophils # (auto) 4.8 10 ^3/uL (1.6-8.6); Neutrophils % (auto) 92.9 % (37.0-80.0); Red Cell Distribution Width 14.9 % (11.8-14.3)
[2023-08-04 12:52] LABS: Alanine Aminotransferase 31 U/L (7-40); Albumin 4.4 g/dL (3.2-4.8); Alkaline Phosphatase 81 U/L (46-116); Anion Gap 16 (5-15); Aspartate Aminotransferase 51 U/L (13-40); BUN/Creatinine Ratio 18.6 (10.0-20.0); Calcium 10.1 mg/dL (8.5-10.1); Carbon Dioxide 21 mmol/L (20-30); Chloride 101 mmol/L (98-107); Glucose 118 mg/dL (74-106); Potassium 3.5 mmol/L (3.5-5.1); Sodium 138 mmol/L (136-145)
[2023-08-04 12:53] LABS: Bilirubin, Total 0.6 mg/dL (0.2-1.0); Total Protein 7.3 g/dL (5.7-8.2)
[2023-08-04 13:39] LABS: Blood Urea Nitrogen 117 mg/dL (9-23)
[2023-08-04] MEDS ORDERED: ONDANSETRON HCL 4 MG/2 ML VIAL IV PRN (17:30)
[2023-08-04] MEDS ORDERED: NITROGLYCERIN 0.4 MG SL TAB SL PRN (17:30)
[2023-08-04] MEDS ORDERED: ACETAMINOPHEN 325 MG TAB PO PRN (17:30)
[2023-08-04] MEDS ORDERED: MORPHINE SULFATE INJ 2 MG/ml SYRG IV PRN (17:30)
[2023-08-04] MEDS ORDERED: DOCUSATE SOD 100 MG CAP PO PRN (17:30)
[2023-08-04] MEDS ORDERED: DEXTROSE (50%) 50ML SYRG IV PRN (18:00)
[2023-08-04] MEDS ORDERED: TAMS0.4C36 PO (18:05)
[2023-08-04] MEDS ORDERED: FIN5T PO (18:05)
[2023-08-04] MEDS ORDERED: cefTRIAXone 1GM/50ML D5W 50 ML IV ONE ×3 (18:30→20:17)
[2023-08-04 19:40] VITALS: PULSE 60; RESP 11; O2SAT 99
[2023-08-04] MEDS ORDERED: hydrALAZINE HCL 20 MG/ML VL ONE (19:53)
[2023-08-04] MEDS: hydrALAZINE HCL 20 MG/ML VL IV PRN (19:55)
[2023-08-04] MEDS ORDERED: FUROSEMIDE 40 MG/4 ML VIAL ONE (20:10)
[2023-08-04] MEDS ORDERED: ASPirin-EC 325mg tab PO ONE ×2 (20:10→20:15)
[2023-08-04] MEDS ORDERED: SEVELAMER 800 MG TAB PO ONE (20:14)
[2023-08-04] MEDS ORDERED: FUROSEMIDE 40 MG/4 ML VIAL IV ONE (20:15)
[2023-08-04] MEDS: SEVELAMER 800 MG TAB PO SCH (20:15)
[2023-08-04] MEDS ORDERED: ONDANSETRON HCL 4 MG/2 ML VIAL ONE (20:20)
[2023-08-04] MEDS: ACCU-CHEK COMFORT CURVE STRIP VI SCH (22:30)
[2023-08-04] MEDS: InsuLIN REG 1unit/0.01ml Soln (100units/ml) SC SCH (22:30)
[2023-08-04] MEDS ORDERED: InsuLIN REG 1unit/0.01ml Soln (100units/ml) ONE (22:34)
[2023-08-04] MEDS: HEPARIN SODIUM (PORCINE) 5000 UNITS/ML 1ML VIAL SC SCH (22:35)
[2023-08-04] MEDS: ATORVASTATIN 20 MG TAB PO SCH (22:35)
[2023-08-05] VITALS (9 sets, daily range): BP systolic 118–170; BP diastolic 45–85; PULSE 60–75; RESP 14–22; TEMP 98–99.1; O2SAT 98–100
[2023-08-05 04:54] LABS: COVID19 ANTIGEN SOFIA FIA NEGATIVE (NEGATIVE)
[2023-08-05] MEDS: LEVOTHYROXINE SODIUM 50 MCG TAB PO SCH (05:41)
[2023-08-05] MEDS: ACCU-CHEK COMFORT CURVE STRIP VI SCH ×4 (05:44→22:00)
[2023-08-05] MEDS: InsuLIN REG 1unit/0.01ml Soln (100units/ml) SC SCH ×4 (05:44→22:00)
[2023-08-05 06:07] LABS: Basophils # (auto) 0 10 ^3/uL (0-0.2); Hemoglobin 8.9 g/dL (13.5-17.5); Lymphocytes # (auto) 0.6 10 ^3/uL (0.4-5.4); Monocytes # (auto) 0.3 10 ^3/uL (0-1.3)
[2023-08-05 06:10] LABS: Basophils % (auto) 0.1 % (0.0-2.0); Eosinophils # (auto) 0 10 ^3/uL (0-0.8); Hematocrit 25.7 % (41.0-53.0); Mean Corpuscular Hemoglobin 35.7 pg (28.0-32.0); Mean Corpuscular Hgb Conc. 34.8 g/dL (32.0-36.0); Mean Corpuscular Volume 102.6 fL (80.0-100.0); Monocytes % (auto) 6.6 % (0.0-12.0); Neutrophils # (auto) 3.7 10 ^3/uL (1.6-8.6); Neutrophils % (auto) 80.3 % (37.0-80.0); Nucleated Red Blood Cells % 0.1 %; Red Cell Distribution Width 14.7 % (11.8-14.3); White Blood Cell 4.6 10^3/uL (4.4-10.8)
[2023-08-05 06:26] LABS: Alanine Aminotransferase 21 U/L (7-40); Albumin 4.1 g/dL (3.2-4.8); Alkaline Phosphatase 74 U/L (46-116); Anion Gap 16 (5-15); Aspartate Aminotransferase 35 U/L (13-40); BUN/Creatinine Ratio 12.8 (10.0-20.0); Calcium 10.2 mg/dL (8.5-10.1); Carbon Dioxide 21 mmol/L (20-30); Chloride 102 mmol/L (98-107); Glucose 75 mg/dL (74-106); Potassium 3.4 mmol/L (3.5-5.1); Sodium 139 mmol/L (136-145)
[2023-08-05 06:27] LABS: Bilirubin, Total 0.7 mg/dL (0.2-1.0)
[2023-08-05 06:37] LABS: Blood Urea Nitrogen 105 mg/dL (9-23)
[2023-08-05] MEDS: SEVELAMER 800 MG TAB PO SCH ×3 (08:09→19:37)
[2023-08-05 08:15] LABS: Hemoglobin 9.1 g/dL (13.5-17.5)
[2023-08-05 08:17] LABS: Hematocrit 26.3 % (41.0-53.0)
[2023-08-05] MEDS ORDERED: cefTRIAXone 1GM/50ML D5W 50 ML IV SCH (09:00)
[2023-08-05] MEDS: FINASTERIDE 5 MG TAB PO SCH (09:03)
[2023-08-05] MEDS: HEPARIN SODIUM (PORCINE) 5000 UNITS/ML 1ML VIAL SC SCH ×2 (09:03→22:00)
[2023-08-05] MEDS: B-COMPLEX W/ C & FOLIC ACID(NEPHROVITE TAB) PO SCH (09:03)
[2023-08-05] MEDS: FUROSEMIDE 20 MG/2 ML VIAL IV SCH (09:03)
[2023-08-05] MEDS ORDERED: POTASSIUM EFFERVESENT TAB 25 MEQ PO ONE (10:45)
[2023-08-05 11:19] LABS: Urine Amorphous Crystal FEW /hpf (None Seen); Urine Bacteria NONE SEEN /hpf (None Seen); Urine Blood 1+ /uL (Negative); Urine Clarity Clear (Clear); Urine Color Yellow (Yellow); Urine Hyaline Cast FEW /lpf (0 - 2); Urine Protein, UAD 2+ (Negative); Urine Specific Gravity 1.012 (1.001-1.035); Urine Urobilinogen Normal (Negative); Urine WBC 4 /hpf (0 - 3); Urine pH 5.5 (5.0-8.0)
[2023-08-05] MEDS ORDERED: POTASSIUM EFFERVESENT TAB 25 MEQ ONE (11:33)
[2023-08-05 11:45] LABS: INR 1.19 (0.9-1.15); Prothrombin Time 12.4 sec (9.3-11.8)
[2023-08-05] MEDS: hydrALAZINE HCL 20 MG/ML VL IV PRN (16:46)
[2023-08-05] MEDS: TAMSULOSIN HYDROCHLORIDE 0.4 MG CAP PO SCH (19:37)
[2023-08-05] MEDS: ATORVASTATIN 20 MG TAB PO SCH (21:40)
[2023-08-06] VITALS (8 sets, daily range): BP systolic 145–207; BP diastolic 55–106; PULSE 60; RESP 16–20; TEMP 97.8–99; O2SAT 98–99
[2023-08-06] MEDS: hydrALAZINE HCL 20 MG/ML VL IV PRN (01:56)
[2023-08-06] MEDS ORDERED: SODIUM CHL 0.9% 1000 ML BAG XX ONE (07:00)
[2023-08-06] MEDS: InsuLIN REG 1unit/0.01ml Soln (100units/ml) SC SCH ×4 (07:00→22:00)
[2023-08-06] MEDS ORDERED: LEVOTHYROXINE SODIUM 25 MCG TAB ONE (07:00)
[2023-08-06] MEDS ORDERED: LEVOTHYROXINE SODIUM 50 MCG TAB ONE (07:01)
[2023-08-06] MEDS: LEVOTHYROXINE SODIUM 50 MCG TAB PO SCH (07:02)
[2023-08-06] MEDS: ACCU-CHEK COMFORT CURVE STRIP VI SCH ×4 (07:02→23:00)
[2023-08-06 07:17] LABS: Basophils # (auto) 0 10 ^3/uL (0-0.2); Eosinophils # (auto) 0.1 10 ^3/uL (0-0.8); Hemoglobin 8.5 g/dL (13.5-17.5); Lymphocytes # (auto) 0.7 10 ^3/uL (0.4-5.4); Mean Corpuscular Hemoglobin 35.5 pg (28.0-32.0); Monocytes # (auto) 0.3 10 ^3/uL (0-1.3); White Blood Cell 3.8 10^3/uL (4.4-10.8)
[2023-08-06 07:19] LABS: Basophils % (auto) 0.3 % (0.0-2.0); Eosinophils % (auto) 2.1 % (0.0-7.0); Hematocrit 24.7 % (41.0-53.0); Lymphocytes % (auto) 18.3 % (10.0-50.0); Mean Corpuscular Hgb Conc. 34.5 g/dL (32.0-36.0); Mean Corpuscular Volume 103.2 fL (80.0-100.0); Monocytes % (auto) 7.5 % (0.0-12.0); Neutrophils # (auto) 2.8 10 ^3/uL (1.6-8.6); Neutrophils % (auto) 71.8 % (37.0-80.0); Red Blood Cells 2.39 10^6/uL (4.5-5.90); Red Cell Distribution Width 14.5 % (11.8-14.3)
[2023-08-06 07:35] LABS: Alanine Aminotransferase 22 U/L (7-40); Albumin 4.2 g/dL (3.2-4.8); Alkaline Phosphatase 72 U/L (46-116); Anion Gap 13 (5-15); Aspartate Aminotransferase 31 U/L (13-40); Bilirubin, Total 0.5 mg/dL (0.2-1.0); CRP High Sensitivity 0.46 mg/dL (<1.0); Calcium 10.2 mg/dL (8.5-10.1); Carbon Dioxide 23 mmol/L (20-30); Chloride 102 mmol/L (98-107); Cholesterol 58 mg/dL (< 200); Glucose 95 mg/dL (74-106); HDL Cholesterol 34 mg/dL (40-59); LDL Cholesterol 9 mg/dL (< 100); Potassium 4.1 mmol/L (3.5-5.1); Sodium 138 mmol/L (136-145); Triglycerides 80 mg/dL (< 150)
[2023-08-06 07:42] LABS: Blood Urea Nitrogen 124 mg/dL (9-23)
[2023-08-06 07:51] LABS: % Iron Saturation 84.3 % (20-55)
[2023-08-06 07:53] LABS: Magnesium 2.3 mg/dL (1.6-2.6)
[2023-08-06] MEDS ORDERED: SEVELAMER 800 MG TAB PO ONE (09:43)
[2023-08-06] MEDS: FUROSEMIDE 20 MG/2 ML VIAL IV SCH (09:46)
[2023-08-06] MEDS: FINASTERIDE 5 MG TAB PO SCH (09:47)
[2023-08-06] MEDS: SEVELAMER 800 MG TAB PO SCH ×3 (09:47→19:00)
[2023-08-06] MEDS: B-COMPLEX W/ C & FOLIC ACID(NEPHROVITE TAB) PO SCH (09:47)
[2023-08-06] MEDS: TAMSULOSIN HYDROCHLORIDE 0.4 MG CAP PO SCH (19:01)
[2023-08-06] MEDS ORDERED: EPOETIN ALFA-EPBX 10,000 UNIT/1ML VIAL SC ONE (21:00)
[2023-08-06] MEDS: HEPARIN SODIUM (PORCINE) 5000 UNITS/ML 1ML VIAL SC SCH (22:00)
[2023-08-06] MEDS: ATORVASTATIN 20 MG TAB PO SCH (22:55)
[2023-08-07] MEDS: hydrALAZINE HCL 20 MG/ML VL IV PRN (00:34)
[2023-08-07] MEDS: HEPARIN SODIUM (PORCINE) 5000 UNITS/ML 1ML VIAL SC SCH ×2 (00:37→09:38)
[2023-08-07 05:00] VITALS: BP 105/54; PULSE 60; RESP 16; TEMP 98.2; O2SAT 99
[2023-08-07] MEDS: ACCU-CHEK COMFORT CURVE STRIP VI SCH ×2 (06:08→11:30)
[2023-08-07] MEDS: InsuLIN REG 1unit/0.01ml Soln (100units/ml) SC SCH ×2 (06:09→11:30)
[2023-08-07] MEDS ORDERED: SODIUM CHL 0.9% 1000 ML BAG XX ONE (07:00)
[2023-08-07] MEDS: LEVOTHYROXINE SODIUM 50 MCG TAB PO SCH (07:00)
[2023-08-07 07:39] LABS: Basophils # (auto) 0 10 ^3/uL (0-0.2); Eosinophils # (auto) 0.1 10 ^3/uL (0-0.8); Hematocrit 22.4 % (41.0-53.0); Hemoglobin 7.7 g/dL (13.5-17.5); Monocytes # (auto) 0.3 10 ^3/uL (0-1.3); White Blood Cell 3.5 10^3/uL (4.4-10.8)
[2023-08-07 07:41] LABS: Basophils % (auto) 0.4 % (0.0-2.0); Eosinophils % (auto) 3.1 % (0.0-7.0); Lymphocytes # (auto) 0.6 10 ^3/uL (0.4-5.4); Lymphocytes % (auto) 18.2 % (10.0-50.0); Mean Corpuscular Hemoglobin 35.4 pg (28.0-32.0); Mean Corpuscular Hgb Conc. 34.2 g/dL (32.0-36.0); Mean Corpuscular Volume 103.5 fL (80.0-100.0); Monocytes % (auto) 8.6 % (0.0-12.0); Neutrophils # (auto) 2.5 10 ^3/uL (1.6-8.6); Neutrophils % (auto) 69.7 % (37.0-80.0); Red Blood Cells 2.16 10^6/uL (4.5-5.90); Red Cell Distribution Width 14.4 % (11.8-14.3)
[2023-08-07 07:53] LABS: Alanine Aminotransferase 17 U/L (7-40); Albumin 3.8 g/dL (3.2-4.8); Alkaline Phosphatase 68 U/L (46-116); Anion Gap 14 (5-15); Aspartate Aminotransferase 26 U/L (13-40); BUN/Creatinine Ratio 11.9 (10.0-20.0); Calcium 9.7 mg/dL (8.5-10.1); Carbon Dioxide 23 mmol/L (20-30); Chloride 102 mmol/L (98-107); Glucose 98 mg/dL (74-106); Potassium 3.9 mmol/L (3.5-5.1); Sodium 139 mmol/L (136-145)
[2023-08-07 07:54] LABS: Bilirubin, Total 0.5 mg/dL (0.2-1.0); Total Protein 6.4 g/dL (5.7-8.2)
[2023-08-07 08:00] LABS: Blood Urea Nitrogen 127 mg/dL (9-23)
[2023-08-07 09:00] VITALS: BP 126/54; PULSE 59; RESP 17; TEMP 97.5; O2SAT 96
[2023-08-07] MEDS: SEVELAMER 800 MG TAB PO SCH ×2 (09:37→12:00)
[2023-08-07] MEDS: FINASTERIDE 5 MG TAB PO SCH (09:37)
[2023-08-07] MEDS: B-COMPLEX W/ C & FOLIC ACID(NEPHROVITE TAB) PO SCH (09:37)
[2023-08-07] MEDS: FUROSEMIDE 20 MG/2 ML VIAL IV SCH (09:38)
[2023-08-07 13:00] VITALS: BP_SYST 145; BP_SYST 163; BP_DIAS 70; BP_DIAS 87; PULSE 60; RESP 17; TEMP 98.9; O2SAT 96
[2023-08-07 13:10] VITALS: BP 126/54
[2023-08-08 10:25] LABS: Folate (Folic Acid) 16.73 ng/mL (>5.38)
== END 2023-08-07 13:57 | disposition home or self-care (01) | DRG 194 ==
LOC: EDBD 11:19 → EDUNIT# 11:19 → ER 11:19 → TELE 17:52 → TELE-EAST 23:52
PROVIDERS: ADMIT Internal Medicine Pulmonary Disease; ATTEND Internal Medicine Pulmonary Disease
PROC: 5A1D70Z Performance of Urinary Filtration, Intermittent, Less than 6 Hours Per Day (ICD-10-PCS; principal; 2023-08-07)
DX: I13.2 Hypertensive heart and chronic kidney disease with heart failure and with stage 5 chronic kidney disease, or end stage renal disease (principal); I21.A1 Myocardial infarction type 2; N18.6 End stage renal disease; I95.9 Hypotension, unspecified; D63.1 Anemia in chronic kidney disease; D63.8 Anemia in other chronic diseases classified elsewhere; D72.0 Genetic anomalies of leukocytes; E11.22 Type 2 diabetes mellitus with diabetic chronic kidney disease; I50.23 Acute on chronic systolic (congestive) heart failure; N25.81 Secondary hyperparathyroidism of renal origin; K52.9 Noninfective gastroenteritis and colitis, unspecified; E87.6 Hypokalemia; E78.5 Hyperlipidemia, unspecified; R55 Syncope and collapse; E03.9 Hypothyroidism, unspecified; Z20.822 Contact with and (suspected) exposure to COVID-19; Z95.0 Presence of cardiac pacemaker; Z99.2 Dependence on renal dialysis; Z82.3 Family history of stroke; Z82.49 Family history of ischemic heart disease and other diseases of the circulatory system; Z83.3 Family history of diabetes mellitus; Z88.0 Allergy status to penicillin; Z88.6 Allergy status to analgesic agent; Z90.49 Acquired absence of other specified parts of digestive tract
CPT/HCPCS: 36415; 70450; 71045; 80053; 80061; 81001; 82533; 82607; 82746; 82962; 83540; 83550; 83735; 83880; 84443; 84484; 85014; 85018; 85025; 85610; 86141; 87040; 87070; 87081; 87205; 87340; 87426; 90935; 93005; 93306; 93886; G0378; J1642; J1815; J2405

== ENCOUNTER 2023-09-27 09:26 | Inpatient (IN) | payer MEDICAID ==
[~2023-09-27] VITALS: Ht 170.2 cm; Wt 68.3 kg
[~2023-09-27 09:26] MED LIST changes: -ATO40T; +ATO40T PO; +FIN5T PO; +TAMS0.4C36 PO
[2023-09-27 09:30] VITALS: PULSE 79; RESP 15; O2SAT 100
[2023-09-27] MEDS: ETOMIDATE (2MG/ML) 20ML VIAL IV ONE ×2 (09:56→09:57)
[2023-09-27] MEDS: ROCURONIUM 10MG/ML 10ML VIAL IV ONE ×2 (09:57→10:01)
[2023-09-27] MEDS: SUCCINYLCHOLINE CHLORIDE 20 MG/ML 10ML VIAL IV ONE (10:00)
[2023-09-27] MEDS: CALCIUM GLUC 1,000mg/50ml-NS 50 ML IV ONE ×2 (10:00→11:49)
[2023-09-27] MEDS: MIDAZOLAM DRIP 50 mg/50mL 50 ML IV ONE (10:00)
[2023-09-27] MEDS: SODIUM BICARB 8.4% 50Meq/50ml SYR INJ ONE (10:01)
[2023-09-27 10:13] LABS: Basophils # (auto) 0 10 ^3/uL (0-0.2); Eosinophils # (auto) 0 10 ^3/uL (0-0.8); Hemoglobin 9.9 g/dL (13.5-17.5); Monocytes # (auto) 0.2 10 ^3/uL (0-1.3); Neutrophils # (auto) 1.9 10 ^3/uL (1.6-8.6); White Blood Cell 4.2 10^3/uL (4.4-10.8)
[2023-09-27 10:15] LABS: Basophils % (auto) 0.5 % (0.0-2.0); Eosinophils % (auto) 0.9 % (0.0-7.0); Hematocrit 28.2 % (41.0-53.0); Lymphocytes # (auto) 2.1 10 ^3/uL (0.4-5.4); Lymphocytes % (auto) 49.2 % (10.0-50.0); Mean Corpuscular Hemoglobin 36.7 pg (28.0-32.0); Mean Corpuscular Hgb Conc. 35.2 g/dL (32.0-36.0); Mean Corpuscular Volume 104.4 fL (80.0-100.0); Monocytes % (auto) 4.3 % (0.0-12.0); Neutrophils % (auto) 45.1 % (37.0-80.0); Nucleated Red Blood Cells % 0.2 %; Red Cell Distribution Width 12.8 % (11.8-14.3)
[2023-09-27 10:20] LABS: Albumin 4.2 g/dL (3.2-4.8); Alkaline Phosphatase 101 U/L (46-116); Anion Gap 12 (5-15); Aspartate Aminotransferase 556 U/L (13-40); BUN/Creatinine Ratio 10.3 (10.0-20.0); Blood Alcohol < 3.0 mg/dL (<10); Blood Urea Nitrogen 59 mg/dL (9-23); Calcium 9.5 mg/dL (8.5-10.1); Carbon Dioxide 24 mmol/L (20-30); Chloride 101 mmol/L (98-107); Glucose 136 mg/dL (74-106); Sodium 137 mmol/L (136-145)
[2023-09-27 10:21] LABS: Bilirubin, Total 1.2 mg/dL (0.2-1.0)
[2023-09-27] MEDS: MIDAZOLAM DRIP 50 mg/50mL 50 ML IV SCH (11:43)
[2023-09-27] MEDS: SODIUM BICARB 8.4% 50Meq/50ml SYR Vial IV ONE (11:49)
[2023-09-27 11:50] LABS: Urine Bacteria NONE SEEN /hpf (None Seen); Urine Blood 3+ /uL (Negative); Urine Clarity Clear (Clear); Urine Color Colorless (Yellow); Urine Hyaline Cast FEW /lpf (0 - 2); Urine Protein, UAD 2+ (Negative); Urine Specific Gravity 1.011 (1.001-1.035); Urine Urobilinogen Normal (Negative); Urine WBC 4 /hpf (0 - 3)
[2023-09-27 11:56] LABS: Base Excess -4.1 mmol/L (-2.0-2.0)
[2023-09-27 11:58] LABS: Alanine Aminotransferase 483 U/L (7-40)
[2023-09-27] MEDS: ENOXAPARIN SOD 80 MG/0.8ML SYRINGE SC ONE (12:47)
[2023-09-27] MEDS ORDERED: ONDANSETRON HCL 4 MG/2 ML VIAL IV PRN (14:30)
[2023-09-27] MEDS: POTASSIUM CHL 20MEQ/100ML 100 ML IV ONE (15:33)
[2023-09-27] MEDS: AMIODARONE HCL (50 MG/ ML) 3 ML VIAL IV ONE (15:33)
[2023-09-27 15:40] LABS: INR 1.18 (0.9-1.15); Magnesium 2.1 mg/dL (1.6-2.6); Prothrombin Time 12.3 sec (9.3-11.8)
[2023-09-27 15:42] LABS: Free T3 2.61 pg/mL (2.3-4.2); Free T4 (Free Thyroxine) 1.02 ng/dL (0.89-1.76); Phosphorus 4.6 mg/dL (2.4-5.1)
[2023-09-27] MEDS: AMIODARONE 450mg/250ml AE 250 ML IV SCH ×2 (15:45→21:45)
[2023-09-27] MEDS: AMIODARONE BOLUS KIT 100 ML IV ONE (15:45)
[2023-09-27] MEDS: EPINEPHrine HCL 250 ML IV ONE (16:24)
[2023-09-27] MEDS: EPINEPHrine HCL 250 ML IV SCH (16:30)
[2023-09-27] MEDS: NOREPINEPHRINE 8 MG/250ML KIT 250 ML IV SCH (17:12)
[2023-09-27] MEDS: ACCU-CHEK COMFORT CURVE STRIP VI SCH (18:00)
[2023-09-27] MEDS: InsuLIN REG 1unit/0.01ml Soln (100units/ml) SC SCH (18:00)
[2023-09-27 19:30] VITALS: PULSE 60; RESP 20; O2SAT 100
[2023-09-27 22:10] VITALS: BP 96/35; PULSE 67; RESP 24; O2SAT 100
[2023-09-28] VITALS (34 sets, daily range): BP systolic 96–142; BP diastolic 44–68; PULSE 56–60; RESP 18–28; TEMP 97.4–100.2; O2SAT 100
[2023-09-28 06:08] LABS: Cholesterol 61 mg/dL (< 200); Triglycerides 80 mg/dL (< 150)
[2023-09-28 06:09] LABS: LDL Cholesterol 7 mg/dL (< 100)
[2023-09-28 06:10] LABS: HDL Cholesterol 39 mg/dL (40-59)
[2023-09-28 07:03] LABS: Base Excess 3.2 mmol/L (-2.0-2.0)
[2023-09-28 07:11] LABS: Basophils # (auto) 0 10 ^3/uL (0-0.2); Eosinophils # (auto) 0 10 ^3/uL (0-0.8); Eosinophils % (auto) 0.2 % (0.0-7.0); Hemoglobin 9.4 g/dL (13.5-17.5); Monocytes # (auto) 0.4 10 ^3/uL (0-1.3); Nucleated Red Blood Cells % 0.1 %; White Blood Cell 6.4 10^3/uL (4.4-10.8)
[2023-09-28 07:13] LABS: Basophils % (auto) 0.3 % (0.0-2.0); Hematocrit 27.4 % (41.0-53.0); Lymphocytes # (auto) 0.7 10 ^3/uL (0.4-5.4); Lymphocytes % (auto) 11.6 % (10.0-50.0); Mean Corpuscular Hemoglobin 36.1 pg (28.0-32.0); Mean Corpuscular Hgb Conc. 34.3 g/dL (32.0-36.0); Mean Corpuscular Volume 105.3 fL (80.0-100.0); Neutrophils # (auto) 5.2 10 ^3/uL (1.6-8.6); Neutrophils % (auto) 80.9 % (37.0-80.0); Red Blood Cells 2.61 10^6/uL (4.5-5.90); Red Cell Distribution Width 13.2 % (11.8-14.3)
[2023-09-28 07:42] LABS: Alanine Aminotransferase 384 U/L (7-40); Albumin 3.9 g/dL (3.2-4.8); Alkaline Phosphatase 109 U/L (46-116); Anion Gap 13 (5-15); Aspartate Aminotransferase 437 U/L (13-40); BUN/Creatinine Ratio 9.1 (10.0-20.0); Calcium 9.3 mg/dL (8.7-10.4); Carbon Dioxide 25 mmol/L (20-30); Chloride 100 mmol/L (98-107); Glucose 133 mg/dL (74-106); Potassium 3.8 mmol/L (3.5-5.1); Sodium 138 mmol/L (136-145)
[2023-09-28 07:43] LABS: Bilirubin, Total 0.9 mg/dL (0.2-1.0); Total Protein 6.5 g/dL (5.7-8.2)
[2023-09-28 08:09] LABS: Blood Urea Nitrogen 71 mg/dL (9-23)
[2023-09-28] MEDS: ASPirin 81 mg TAB NG SCH (10:54)
[2023-09-28] MEDS: LEVOTHYROXINE SODIUM 100 MCG/5 ML INJ IV SCH (10:55)
[2023-09-28] MEDS ORDERED: AMIODARONE HCL (50 MG/ ML) 3 ML VIAL IV ONE (12:37)
[2023-09-28] MEDS ORDERED: CALCIUM CHLOR(10%) 100MG/ML 10ML SYRINGE IV ONE (12:38)
[2023-09-28] MEDS: PANTOPRAZOLE 40 MG/10 ML VIAL INJ IV ONE (15:04)
[2023-09-28] MEDS ORDERED: VANCOMYCIN PER PHARMACY 0 MG IV SCH (15:15)
[2023-09-28] MEDS: ENOXAPARIN SOD 30 MG/0.3 ML SYRINGE SC SCH (15:45)
[2023-09-28] MEDS: VANCOMYCIN 1GM/200ML 200 ML IV ONE (16:14)
[2023-09-29] VITALS (77 sets, daily range): BP systolic 91–151; BP diastolic 37–69; PULSE 60; RESP 13–23; TEMP 96.6–97.7; O2SAT 99–100
[2023-09-29 05:03] LABS: Basophils # (auto) 0 10 ^3/uL (0-0.2); Eosinophils # (auto) 0 10 ^3/uL (0-0.8); Eosinophils % (auto) 0.1 % (0.0-7.0); Lymphocytes # (auto) 0.3 10 ^3/uL (0.4-5.4); Mean Corpuscular Volume 106.8 fL (80.0-100.0); Monocytes # (auto) 0.2 10 ^3/uL (0-1.3)
[2023-09-29 05:06] LABS: Basophils % (auto) 0.2 % (0.0-2.0); Hematocrit 24.3 % (41.0-53.0); Hemoglobin 8.4 g/dL (13.5-17.5); Mean Corpuscular Hemoglobin 36.8 pg (28.0-32.0); Mean Corpuscular Hgb Conc. 34.4 g/dL (32.0-36.0); Monocytes % (auto) 5.7 % (0.0-12.0); Neutrophils # (auto) 3.5 10 ^3/uL (1.6-8.6); Red Blood Cells 2.28 10^6/uL (4.5-5.90); Red Cell Distribution Width 12.9 % (11.8-14.3)
[2023-09-29 05:13] LABS: Anion Gap 13 (5-15); Carbon Dioxide 23 mmol/L (20-30); Chloride 100 mmol/L (98-107); Sodium 136 mmol/L (136-145)
[2023-09-29 05:14] LABS: Calcium 9.1 mg/dL (8.7-10.4)
[2023-09-29 05:19] LABS: BUN/Creatinine Ratio 10.3 (10.0-20.0); Glucose 125 mg/dL (74-106)
[2023-09-29 05:46] LABS: Blood Urea Nitrogen 97 mg/dL (9-23)
[2023-09-29] MEDS: SODIUM CHL 0.9% 1000 ML BAG XX ONE (07:00)
[2023-09-29 07:12] LABS: Macrocytosis Moderate; Platelet Estimate Decreased
[2023-09-29 07:23] LABS: Base Excess -3.3 mmol/L (-2.0-2.0)
[2023-09-29 08:48] LABS: Hepatitis B Surface Antigen Negative (Negative)
[2023-09-29 09:08] LABS: Hepatitis A Ab IgM Negative
[2023-09-29 09:09] LABS: Hepatitis B Core IgM Negative; Hepatitis C Antibody Negative (Negative)
[2023-09-29] MEDS: cefTRIAXone 1GM/50ML D5W 50 ML IV SCH (11:18)
[2023-09-29] MEDS: PANTOPRAZOLE 40 MG/10 ML VIAL INJ IV SCH (11:18)
[2023-09-29] MEDS: prednisoLONE ACETATE 1% OPTH SUSP 5ML RIGHTEYE SCH (12:40)
[2023-09-29] MEDS: KETOROLAC OPTH 0.5% RIGHTEYE SCH (12:45)
[2023-09-29] MEDS ORDERED: KETO0.5S31 RIGHTEYE (15:24)
[2023-09-29] MEDS ORDERED: PRED1SUS4 RIGHTEYE (15:24)
[2023-09-29] MEDS ORDERED: FURO40TA4 PO (15:24)
[2023-09-29] MEDS ORDERED: FOLI-119 PO (15:24)
[2023-09-29] MEDS: VANCOMYCIN 1GM/200ML 200 ML IV ONE (17:38)
[2023-09-29] MEDS: ALBUMIN 25% 100 ML IV ONE (19:00)
[2023-09-29] MEDS: EPOETIN ALFA-EPBX 4,000 UNIT/ML VIAL SC ONE (22:08)
[2023-09-30] VITALS (101 sets, daily range): BP systolic 92–158; BP diastolic 41–71; PULSE 60–61; RESP 12–29; TEMP 97.2–99.1; O2SAT 98–100
[2023-09-30 04:26] LABS: Basophils # (auto) 0 10 ^3/uL (0-0.2); Hemoglobin 7.8 g/dL (13.5-17.5); Lymphocytes # (auto) 0.1 10 ^3/uL (0.4-5.4); Lymphocytes % (auto) 5.3 % (10.0-50.0); Neutrophils # (auto) 2.4 10 ^3/uL (1.6-8.6); Red Cell Distribution Width 13.1 % (11.8-14.3); White Blood Cell 2.8 10^3/uL (4.4-10.8)
[2023-09-30 04:30] LABS: Basophils % (auto) 0.2 % (0.0-2.0); Eosinophils # (auto) 0 10 ^3/uL (0-0.8); Eosinophils % (auto) 1.5 % (0.0-7.0); Hematocrit 22.8 % (41.0-53.0); Mean Corpuscular Hemoglobin 36.4 pg (28.0-32.0); Mean Corpuscular Hgb Conc. 34.3 g/dL (32.0-36.0); Monocytes # (auto) 0.2 10 ^3/uL (0-1.3); Monocytes % (auto) 5.9 % (0.0-12.0); Neutrophils % (auto) 87.1 % (37.0-80.0); Nucleated Red Blood Cells % 0.1 %; Red Blood Cells 2.15 10^6/uL (4.5-5.90)
[2023-09-30 04:33] LABS: Alanine Aminotransferase 202 U/L (7-40); Albumin 4.4 g/dL (3.2-4.8); Alkaline Phosphatase 81 U/L (46-116); Anion Gap 12 (5-15); Aspartate Aminotransferase 220 U/L (13-40); BUN/Creatinine Ratio 8.3 (10.0-20.0); Calcium 9.5 mg/dL (8.7-10.4); Carbon Dioxide 27 mmol/L (20-30); Chloride 99 mmol/L (98-107); Glucose 106 mg/dL (74-106); Potassium 3.9 mmol/L (3.5-5.1); Sodium 138 mmol/L (136-145)
[2023-09-30 04:34] LABS: Bilirubin, Total 0.9 mg/dL (0.2-1.0)
[2023-09-30 05:11] LABS: Blood Urea Nitrogen 53 mg/dL (9-23)
[2023-09-30 09:21] LABS: Base Excess 1.6 mmol/L (-2.0-2.0)
[2023-09-30] MEDS: CEFEPIME 1GM/ 50ML 50 ML IV ONE (13:15)
[2023-09-30] MEDS: PROPOFOL 100 ML IV SCH (13:30)
[2023-09-30] MEDS: fentaNYL Drip 2500mCg/250mlNS 250 ML IV ONE (14:11)
[2023-09-30] MEDS: fentaNYL Drip 2500mCg/250mlNS 250 ML IV SCH (14:14)
[2023-10-01] VITALS (103 sets, daily range): BP systolic 82–141; BP diastolic 37–69; PULSE 60; RESP 13–25; TEMP 97.9–100.6; O2SAT 90–100
[2023-10-01 04:29] LABS: Basophils # (auto) 0 10 ^3/uL (0-0.2); Basophils % (auto) 0.5 % (0.0-2.0); Eosinophils # (auto) 0.1 10 ^3/uL (0-0.8); Lymphocytes # (auto) 0.3 10 ^3/uL (0.4-5.4); Monocytes # (auto) 0.2 10 ^3/uL (0-1.3); Neutrophils # (auto) 2.1 10 ^3/uL (1.6-8.6)
[2023-10-01 04:32] LABS: Eosinophils % (auto) 2.5 % (0.0-7.0); Hematocrit 21.4 % (41.0-53.0); Hemoglobin 7.3 g/dL (13.5-17.5); Lymphocytes % (auto) 12.5 % (10.0-50.0); Mean Corpuscular Hemoglobin 36.7 pg (28.0-32.0); Mean Corpuscular Volume 107.9 fL (80.0-100.0); Monocytes % (auto) 7.4 % (0.0-12.0); Neutrophils % (auto) 77.1 % (37.0-80.0); Red Blood Cells 1.98 10^6/uL (4.5-5.90); Red Cell Distribution Width 13.2 % (11.8-14.3); White Blood Cell 2.8 10^3/uL (4.4-10.8)
[2023-10-01 04:50] LABS: Anion Gap 12 (5-15); Calcium 9.2 mg/dL (8.7-10.4); Carbon Dioxide 26 mmol/L (20-30); Chloride 98 mmol/L (98-107); Potassium 4.5 mmol/L (3.5-5.1); Sodium 136 mmol/L (136-145)
[2023-10-01 04:56] LABS: BUN/Creatinine Ratio 9.4 (10.0-20.0); Glucose 86 mg/dL (74-106)
[2023-10-01 05:12] LABS: Blood Urea Nitrogen 76 mg/dL (9-23)
[2023-10-01] MEDS: CEFEPIME 1GM/ 50ML 50 ML IV SCH (09:59)
[2023-10-01] MEDS ORDERED: VANCOMYCIN PER PHARMACY 0 MG IV SCH (12:00)
[2023-10-01] MEDS: SODIUM CHL 0.9% 1000 ML BAG XX ONE (13:02)
[2023-10-01 15:15] LABS: Base Excess 1.8 mmol/L (-2.0-2.0)
[2023-10-01] MEDS: LACTULOSE 20Gm/30ML SOLN PO PRN (17:26)
[2023-10-01] MEDS ORDERED: MORPHINE SULFATE INJ 2 MG/ml SYRG IV PRN (18:00)
[2023-10-01] MEDS: EPOETIN ALFA-EPBX 10,000 UNIT/1ML VIAL SC ONE (23:13)
[2023-10-01] MEDS: AMIODARONE HCL 200 MG TAB PO SCH (23:14)
[2023-10-02] VITALS (105 sets, daily range): BP systolic 77–142; BP diastolic 32–55; PULSE 60–66; RESP 10–25; TEMP 98.2–99.7; O2SAT 95–100
[2023-10-02 04:15] LABS: Basophils # (auto) 0 10 ^3/uL (0-0.2); Basophils % (auto) 0.4 % (0.0-2.0); Eosinophils # (auto) 0.1 10 ^3/uL (0-0.8); Hemoglobin 8.2 g/dL (13.5-17.5); Lymphocytes # (auto) 0.5 10 ^3/uL (0.4-5.4); Monocytes # (auto) 0.5 10 ^3/uL (0-1.3); Neutrophils # (auto) 3.7 10 ^3/uL (1.6-8.6); Nucleated Red Blood Cells % 0.1 %; White Blood Cell 4.8 10^3/uL (4.4-10.8)
[2023-10-02 04:18] LABS: Eosinophils % (auto) 1.5 % (0.0-7.0); Hematocrit 24.2 % (41.0-53.0); Mean Corpuscular Hemoglobin 36.3 pg (28.0-32.0); Mean Corpuscular Hgb Conc. 33.9 g/dL (32.0-36.0); Mean Corpuscular Volume 107.1 fL (80.0-100.0); Monocytes % (auto) 11.1 % (0.0-12.0); Red Blood Cells 2.26 10^6/uL (4.5-5.90); Red Cell Distribution Width 13.2 % (11.8-14.3)
[2023-10-02 04:32] LABS: Anion Gap 11 (5-15); Calcium 9.4 mg/dL (8.7-10.4); Carbon Dioxide 27 mmol/L (20-30); Chloride 99 mmol/L (98-107); Potassium 4.2 mmol/L (3.5-5.1); Sodium 137 mmol/L (136-145)
[2023-10-02 04:38] LABS: BUN/Creatinine Ratio 8.6 (10.0-20.0); Glucose 76 mg/dL (74-106)
[2023-10-02 04:47] LABS: Blood Urea Nitrogen 60 mg/dL (9-23)
[2023-10-02] MEDS: VANCOMYCIN 500 MG in D5W 5% 100 ML IV ONE (12:45)
[2023-10-02] MEDS: NOREPINEPHRINE 8 MG/250ML KIT 250 ML IV SCH (17:00)
[2023-10-03] VITALS (100 sets, daily range): BP systolic 79–159; BP diastolic 32–61; PULSE 60; RESP 11–29; TEMP 97.2–99.5; O2SAT 75–100
[2023-10-03 04:32] LABS: Basophils # (auto) 0 10 ^3/uL (0-0.2); Eosinophils # (auto) 0.1 10 ^3/uL (0-0.8); Eosinophils % (auto) 1.7 % (0.0-7.0); Lymphocytes # (auto) 0.4 10 ^3/uL (0.4-5.4); Monocytes # (auto) 0.5 10 ^3/uL (0-1.3); Neutrophils # (auto) 3.7 10 ^3/uL (1.6-8.6); Red Blood Cells 2.21 10^6/uL (4.5-5.90)
[2023-10-03 04:34] LABS: Basophils % (auto) 0.3 % (0.0-2.0); Hematocrit 23.5 % (41.0-53.0); Hemoglobin 7.8 g/dL (13.5-17.5); Lymphocytes % (auto) 8.3 % (10.0-50.0); Mean Corpuscular Hemoglobin 35.5 pg (28.0-32.0); Mean Corpuscular Hgb Conc. 33.3 g/dL (32.0-36.0); Mean Corpuscular Volume 106.5 fL (80.0-100.0); Monocytes % (auto) 10.3 % (0.0-12.0); Neutrophils % (auto) 79.4 % (37.0-80.0); Nucleated Red Blood Cells % 0.1 %; Red Cell Distribution Width 13.3 % (11.8-14.3); White Blood Cell 4.6 10^3/uL (4.4-10.8)
[2023-10-03 04:35] LABS: Chloride 99 mmol/L (98-107); Potassium 4.1 mmol/L (3.5-5.1); Sodium 137 mmol/L (136-145)
[2023-10-03 04:36] LABS: Anion Gap 15 (5-15); Carbon Dioxide 23 mmol/L (20-30)
[2023-10-03 04:37] LABS: Calcium 9.4 mg/dL (8.7-10.4)
[2023-10-03 04:42] LABS: Albumin 3.9 g/dL (3.2-4.8); BUN/Creatinine Ratio 9.8 (10.0-20.0); Glucose 68 mg/dL (74-106)
[2023-10-03 04:44] LABS: Phosphorus 6.4 mg/dL (2.4-5.1)
[2023-10-03 04:58] LABS: Blood Urea Nitrogen 84 mg/dL (9-23)
[2023-10-03] MEDS: SODIUM CHL 0.9% 1000 ML BAG XX ONE (07:00)
[2023-10-03] MEDS: DEXTROSE (50%) 50ML SYRG IV PRN (07:21)
[2023-10-03] MEDS: LIDOCAINE 2%HCL (LOCAL ANESTH.) INJ 10ml MDV ONE (07:52)
[2023-10-03] MEDS: IOHEXOL 350 MG/ML 100ML IJ ONE (07:53)
[2023-10-03] MEDS: IODIXANOL 320MG/ML 100ML BTL IV ONE (08:00)
[2023-10-03] MEDS: VERAPAMIL 2.5MG/ML INJ 2ML VIAL IV ONE (08:02)
[2023-10-03] MEDS: SODIUM CHL 0.9% 0 ML ONE (08:02)
[2023-10-03] MEDS: ANGIOMAX 250 MG VIAL IV ONE (08:02)
[2023-10-03] MEDS: MIDAZOLAM HCL 2MG/2ML 2ml VIAL (1mg/ml) ONE (08:42)
[2023-10-03] MEDS: fentaNYL CITRATE 100 MCG/2 ML VL ONE (08:42)
[2023-10-03 10:23] LABS: Base Excess -3.4 mmol/L (-2.0-2.0)
[2023-10-03] MEDS: HEPARIN 1,000 UNITS/ml 1ML VIAL IV ONE ×2 (14:30→14:45)
[2023-10-03] MEDS: VANCOMYCIN 1GM/200ML 200 ML IV ONE (16:47)
[2023-10-03] MEDS: EPOETIN ALFA-EPBX 10,000 UNIT/1ML VIAL SC ONE (20:58)
[2023-10-04] VITALS (108 sets, daily range): BP systolic 74–147; BP diastolic 29–57; PULSE 60; RESP 18; TEMP 99.7–100.2; O2SAT 97–100
[2023-10-04 04:15] LABS: Basophils # (auto) 0 10 ^3/uL (0-0.2); Eosinophils # (auto) 0.1 10 ^3/uL (0-0.8); Eosinophils % (auto) 1.2 % (0.0-7.0); Lymphocytes # (auto) 0.3 10 ^3/uL (0.4-5.4); Monocytes # (auto) 0.6 10 ^3/uL (0-1.3)
[2023-10-04 04:18] LABS: Basophils % (auto) 0.4 % (0.0-2.0); Hematocrit 25.4 % (41.0-53.0); Hemoglobin 8.7 g/dL (13.5-17.5); Lymphocytes % (auto) 5.8 % (10.0-50.0); Mean Corpuscular Hemoglobin 36.7 pg (28.0-32.0); Mean Corpuscular Hgb Conc. 34.4 g/dL (32.0-36.0); Mean Corpuscular Volume 106.7 fL (80.0-100.0); Monocytes % (auto) 11.8 % (0.0-12.0); Neutrophils # (auto) 3.9 10 ^3/uL (1.6-8.6); Neutrophils % (auto) 80.8 % (37.0-80.0); Nucleated Red Blood Cells % 0.1 %; Red Blood Cells 2.38 10^6/uL (4.5-5.90); White Blood Cell 4.8 10^3/uL (4.4-10.8)
[2023-10-04 04:22] LABS: Chloride 99 mmol/L (98-107); Potassium 3.8 mmol/L (3.5-5.1); Sodium 139 mmol/L (136-145)
[2023-10-04 04:23] LABS: Anion Gap 12 (5-15); Carbon Dioxide 28 mmol/L (20-30)
[2023-10-04 04:24] LABS: Calcium 9.9 mg/dL (8.5-10.1)
[2023-10-04 04:28] LABS: BUN/Creatinine Ratio 8.5 (10.0-20.0); Glucose 119 mg/dL (74-106)
[2023-10-04 04:50] LABS: Blood Urea Nitrogen 49 mg/dL (9-23)
[2023-10-04 06:23] LABS: Base Excess 1.3 mmol/L (-2.0-2.0)
[2023-10-04] MEDS: ACETAMINOPHEN 325 MG TAB PO PRN (17:19)
[2023-10-05] VITALS (105 sets, daily range): BP systolic 71–161; BP diastolic 31–123; PULSE 60–62; RESP 10–26; TEMP 87–99.7; O2SAT 98–100
[2023-10-05 04:25] LABS: Basophils # (auto) 0 10 ^3/uL (0-0.2); Basophils % (auto) 0.5 % (0.0-2.0); Eosinophils # (auto) 0.1 10 ^3/uL (0-0.8); Hematocrit 25.2 % (41.0-53.0); Hemoglobin 8.5 g/dL (13.5-17.5); Lymphocytes # (auto) 0.4 10 ^3/uL (0.4-5.4); Monocytes # (auto) 0.5 10 ^3/uL (0-1.3); Neutrophils # (auto) 3.2 10 ^3/uL (1.6-8.6); Red Cell Distribution Width 12.9 % (11.8-14.3); White Blood Cell 4.3 10^3/uL (4.4-10.8)
[2023-10-05 04:27] LABS: Eosinophils % (auto) 2.5 % (0.0-7.0); Lymphocytes % (auto) 9.9 % (10.0-50.0); Mean Corpuscular Hemoglobin 35.7 pg (28.0-32.0); Mean Corpuscular Hgb Conc. 33.6 g/dL (32.0-36.0); Mean Corpuscular Volume 106.2 fL (80.0-100.0); Monocytes % (auto) 12.6 % (0.0-12.0); Neutrophils % (auto) 74.5 % (37.0-80.0); Nucleated Red Blood Cells % 0.1 %; Red Blood Cells 2.37 10^6/uL (4.5-5.90)
[2023-10-05 04:46] LABS: Alanine Aminotransferase 64 U/L (7-40); Albumin 3.8 g/dL (3.2-4.8); Alkaline Phosphatase 89 U/L (46-116); Anion Gap 11 (5-15); Aspartate Aminotransferase 40 U/L (13-40); BUN/Creatinine Ratio 9.2 (10.0-20.0); Bilirubin, Total 0.6 mg/dL (0.2-1.0); Calcium 9.7 mg/dL (8.7-10.4); Carbon Dioxide 26 mmol/L (20-30); Chloride 101 mmol/L (98-107); Glucose 93 mg/dL (74-106); Potassium 3.9 mmol/L (3.5-5.1); Sodium 138 mmol/L (136-145); Total Protein 6.7 g/dL (5.7-8.2)
[2023-10-05 04:57] LABS: Blood Urea Nitrogen 70 mg/dL (9-23)
[2023-10-05] MEDS: Nepro With Carb Steady 1 Liter Bottle GT SCH (05:53)
[2023-10-05] MEDS: ALBUMIN 25% 100 ML IV ONE (10:42)
[2023-10-05] MEDS: SODIUM CHL 0.9% 1000 ML BAG XX ONE (10:55)
[2023-10-05] MEDS: HEPARIN SODIUM (PORCINE) 5000 UNITS/ML 1ML VIAL SC SCH (14:01)
[2023-10-05 15:08] LABS: Base Excess 3.1 mmol/L (-2.0-2.0)
[2023-10-05] MEDS ORDERED: [UNRECOGNIZED DRUG - OTHER] NEB PRN (15:45)
[2023-10-05] MEDS ORDERED: EPINEPHrine HCL 0.5 ML NEB NEB PRN (17:45)
[2023-10-05] MEDS: EPOETIN ALFA-EPBX 10,000 UNIT/1ML VIAL SC ONE (20:58)
[2023-10-06] VITALS (101 sets, daily range): BP systolic 74–147; BP diastolic 24–77; PULSE 60–62; RESP 7–25; TEMP 98.2–99.9; O2SAT 60–100
[2023-10-06 03:57] LABS: Basophils # (auto) 0 10 ^3/uL (0-0.2); Eosinophils # (auto) 0.1 10 ^3/uL (0-0.8); Hemoglobin 8.6 g/dL (13.5-17.5); Lymphocytes # (auto) 0.4 10 ^3/uL (0.4-5.4); Neutrophils # (auto) 3.3 10 ^3/uL (1.6-8.6)
[2023-10-06 04:00] LABS: Basophils % (auto) 0.7 % (0.0-2.0); Eosinophils % (auto) 2.4 % (0.0-7.0); Lymphocytes % (auto) 9.2 % (10.0-50.0); Mean Corpuscular Hemoglobin 36.4 pg (28.0-32.0); Mean Corpuscular Hgb Conc. 34.4 g/dL (32.0-36.0); Mean Corpuscular Volume 105.9 fL (80.0-100.0); Monocytes # (auto) 0.4 10 ^3/uL (0-1.3); Monocytes % (auto) 10.2 % (0.0-12.0); Neutrophils % (auto) 77.5 % (37.0-80.0); Nucleated Red Blood Cells % 0.5 %; Red Blood Cells 2.36 10^6/uL (4.5-5.90); Red Cell Distribution Width 12.8 % (11.8-14.3); White Blood Cell 4.3 10^3/uL (4.4-10.8)
[2023-10-06 04:17] LABS: Chloride 98 mmol/L (98-107); Potassium 4.3 mmol/L (3.5-5.1); Sodium 139 mmol/L (136-145)
[2023-10-06 04:18] LABS: Anion Gap 12 (5-15); Carbon Dioxide 29 mmol/L (20-30)
[2023-10-06 04:23] LABS: BUN/Creatinine Ratio 7.9 (10.0-20.0); Glucose 86 mg/dL (74-106)
[2023-10-06 04:32] LABS: Blood Urea Nitrogen 48 mg/dL (9-23)
[2023-10-07] VITALS (94 sets, daily range): BP systolic 72–130; BP diastolic 24–60; PULSE 54–61; RESP 4–23; TEMP 98.3–99; O2SAT 86–100
[2023-10-07 04:04] LABS: Eosinophils # (auto) 0.1 10 ^3/uL (0-0.8); Hemoglobin 8.1 g/dL (13.5-17.5); Lymphocytes # (auto) 0.7 10 ^3/uL (0.4-5.4); Neutrophils # (auto) 3.4 10 ^3/uL (1.6-8.6); Nucleated Red Blood Cells % 0.3 %; White Blood Cell 4.8 10^3/uL (4.4-10.8)
[2023-10-07 04:07] LABS: Basophils # (auto) 0 10 ^3/uL (0-0.2); Basophils % (auto) 0.5 % (0.0-2.0); Eosinophils % (auto) 2.8 % (0.0-7.0); Hematocrit 23.7 % (41.0-53.0); Lymphocytes % (auto) 14.1 % (10.0-50.0); Mean Corpuscular Hemoglobin 35.9 pg (28.0-32.0); Mean Corpuscular Hgb Conc. 34.1 g/dL (32.0-36.0); Mean Corpuscular Volume 105.2 fL (80.0-100.0); Monocytes # (auto) 0.5 10 ^3/uL (0-1.3); Neutrophils % (auto) 71.6 % (37.0-80.0); Red Blood Cells 2.26 10^6/uL (4.5-5.90); Red Cell Distribution Width 12.8 % (11.8-14.3)
[2023-10-07 04:17] LABS: Anion Gap 9 (5-15); Carbon Dioxide 29 mmol/L (20-30); Chloride 97 mmol/L (98-107); Potassium 4.1 mmol/L (3.5-5.1); Sodium 135 mmol/L (136-145)
[2023-10-07 04:19] LABS: Calcium 9.1 mg/dL (8.7-10.4)
[2023-10-07 04:23] LABS: BUN/Creatinine Ratio 8.8 (10.0-20.0); Glucose 90 mg/dL (74-106)
[2023-10-07 04:29] LABS: Blood Urea Nitrogen 66 mg/dL (9-23)
[2023-10-07] MEDS: SODIUM CHL 0.9% 1000 ML BAG XX ONE (07:00)
[2023-10-07] MEDS: MIDODRINE HCL 10 MG TAB PO SCH (18:48)
[2023-10-07] MEDS: VANCOMYCIN 500 MG in D5W 5% 100 ML IV ONE (19:01)
[2023-10-07] MEDS: EPOETIN ALFA-EPBX 10,000 UNIT/1ML VIAL SC ONE (21:22)
[2023-10-08] VITALS (84 sets, daily range): BP systolic 75–178; BP diastolic 27–80; PULSE 57–62; RESP 6–25; TEMP 97–98.3; O2SAT 96–100
[2023-10-08 03:58] LABS: Basophils # (auto) 0 10 ^3/uL (0-0.2); Basophils % (auto) 0.5 % (0.0-2.0); Eosinophils # (auto) 0.1 10 ^3/uL (0-0.8); Eosinophils % (auto) 1.8 % (0.0-7.0); Lymphocytes # (auto) 0.7 10 ^3/uL (0.4-5.4); Lymphocytes % (auto) 14.9 % (10.0-50.0); Mean Corpuscular Hemoglobin 35.1 pg (28.0-32.0); Mean Corpuscular Hgb Conc. 33.2 g/dL (32.0-36.0); Mean Corpuscular Volume 105.9 fL (80.0-100.0); Monocytes # (auto) 0.5 10 ^3/uL (0-1.3); Monocytes % (auto) 9.8 % (0.0-12.0); Neutrophils # (auto) 3.4 10 ^3/uL (1.6-8.6); Nucleated Red Blood Cells % 0.4 %; Red Blood Cells 2.26 10^6/uL (4.5-5.90); Red Cell Distribution Width 12.6 % (11.8-14.3); White Blood Cell 4.7 10^3/uL (4.4-10.8)
[2023-10-08 04:04] LABS: Anion Gap 7 (5-15); Carbon Dioxide 30 mmol/L (20-30); Chloride 98 mmol/L (98-107); Potassium 4.6 mmol/L (3.5-5.1); Sodium 135 mmol/L (136-145)
[2023-10-08 04:10] LABS: BUN/Creatinine Ratio 7.2 (10.0-20.0); Glucose 104 mg/dL (74-106)
[2023-10-08 04:17] LABS: Blood Urea Nitrogen 39 mg/dL (9-23)
[2023-10-08] MEDS: MIDODRINE HCL 10 MG TAB PO SCH (10:00)
[2023-10-08] MEDS: NOREPINEPHRINE 8 MG/250ML KIT 250 ML IV SCH (16:00)
[2023-10-09] VITALS (25 sets, daily range): BP systolic 82–136; BP diastolic 36–65; PULSE 59–62; RESP 12–19; TEMP 97.8–98.6; O2SAT 96–100
[2023-10-09 04:29] LABS: Alanine Aminotransferase 32 U/L (7-40); Albumin 3.4 g/dL (3.2-4.8); Alkaline Phosphatase 77 U/L (46-116); Anion Gap 10 (5-15); Aspartate Aminotransferase 22 U/L (13-40); BUN/Creatinine Ratio 8.1 (10.0-20.0); Bilirubin, Total 0.4 mg/dL (0.2-1.0); Calcium 8.7 mg/dL (8.7-10.4); Carbon Dioxide 27 mmol/L (20-30); Chloride 94 mmol/L (98-107); Glucose 86 mg/dL (74-106); Potassium 4.8 mmol/L (3.5-5.1); Sodium 131 mmol/L (136-145); Total Protein 6.1 g/dL (5.7-8.2)
[2023-10-09 04:40] LABS: Basophils # (auto) 0 10 ^3/uL (0-0.2); Eosinophils # (auto) 0.1 10 ^3/uL (0-0.8); Hemoglobin 7.4 g/dL (13.5-17.5); Lymphocytes # (auto) 0.8 10 ^3/uL (0.4-5.4); Neutrophils # (auto) 3.3 10 ^3/uL (1.6-8.6); White Blood Cell 4.7 10^3/uL (4.4-10.8)
[2023-10-09 04:42] LABS: Basophils % (auto) 0.7 % (0.0-2.0); Eosinophils % (auto) 1.9 % (0.0-7.0); Hematocrit 21.7 % (41.0-53.0); Lymphocytes % (auto) 16.7 % (10.0-50.0); Mean Corpuscular Hemoglobin 36.2 pg (28.0-32.0); Mean Corpuscular Hgb Conc. 34.1 g/dL (32.0-36.0); Mean Corpuscular Volume 106.1 fL (80.0-100.0); Monocytes # (auto) 0.5 10 ^3/uL (0-1.3); Monocytes % (auto) 9.7 % (0.0-12.0); Nucleated Red Blood Cells % 0.2 %; Red Blood Cells 2.05 10^6/uL (4.5-5.90); Red Cell Distribution Width 13.2 % (11.8-14.3)
[2023-10-09 05:08] LABS: Blood Urea Nitrogen 54 mg/dL (9-23)
[2023-10-09 10:56] LABS: Hematocrit 22.9 % (41.0-53.0); Hemoglobin 7.7 g/dL (13.5-17.5)
[2023-10-09] MEDS: MIDODRINE HCL 10 MG TAB PO SCH (18:19)
[2023-10-10] VITALS (7 sets, daily range): BP systolic 91–129; BP diastolic 50–81; PULSE 60–78; RESP 16–18; TEMP 98.3–98.7; O2SAT 95–100
[2023-10-10] MEDS ORDERED: SODIUM CHL 0.9% 1000 ML BAG XX ONE (07:00)
[2023-10-10] MEDS: AMIODARONE HCL 200 MG TAB PO SCH (10:00)
[2023-10-10] MEDS: LEVOTHYROXINE SODIUM 100 MCG/5 ML INJ IV SCH (12:03)
[2023-10-10] MEDS ORDERED: ALBUMIN 25% 100 ML IV SCH ×2 (14:00)
[2023-10-10 14:03] LABS: Potassium 4.9 mmol/L (3.5-5.1)
[2023-10-10 14:05] LABS: Calcium 8.7 mg/dL (8.5-10.1)
[2023-10-10 14:09] LABS: BUN/Creatinine Ratio 7.7 (10.0-20.0)
[2023-10-10 14:11] LABS: Albumin 3.5 g/dL (3.2-4.8)
[2023-10-10 14:12] LABS: Phosphorus 2.9 mg/dL (2.4-5.1)
[2023-10-10] MEDS: EPOETIN ALFA-EPBX 10,000 UNIT/1ML VIAL SC ONE (21:55)
[2023-10-11 05:00] VITALS: BP 113/48; PULSE 60; RESP 17; TEMP 98.2; O2SAT 96
[2023-10-11 08:00] VITALS: PULSE 60; RESP 17; O2SAT 98
[2023-10-11 09:00] VITALS: BP 123/53; PULSE 60; RESP 17; TEMP 98.5; O2SAT 99
[2023-10-11 13:00] VITALS: BP 148/54; PULSE 60; RESP 16; TEMP 97.8; O2SAT 100
[2023-10-11] MEDS ORDERED: AMIO200T33 PO (14:23)
[2023-10-11 16:51] VITALS: BP 113/48; PULSE 62; RESP 18; TEMP 36.6; O2SAT 100
[2023-10-11 17:00] VITALS: BP 113/36; PULSE 60; RESP 20; TEMP 97.9; O2SAT 100
== END 2023-10-11 19:00 | disposition home health service (06) | DRG 720 ==
LOC: ER 09:26 → EDBD 09:26 → TELE 14:49 → ICU WEST 09-29 14:53 → TELE-EAST 10-09 18:45
PROVIDERS: ADMIT Nurse Practitioner Family; ATTEND Nurse Practitioner Acute Care
PROC: 5A1955Z Respiratory Ventilation, Greater than 96 Consecutive Hours (ICD-10-PCS; principal; 2023-09-27)
PROC: 0BH17EZ Insertion of Endotracheal Airway into Trachea, Via Natural or Artificial Opening (ICD-10-PCS; 2023-09-27)
PROC: 5A12012 Performance of Cardiac Output, Single, Manual (ICD-10-PCS; 2023-09-27)
PROC: 4A023N7 Measurement of Cardiac Sampling and Pressure, Left Heart, Percutaneous Approach (ICD-10-PCS; 2023-10-03)
PROC: B211YZZ Fluoroscopy of Multiple Coronary Arteries using Other Contrast (ICD-10-PCS; 2023-10-03)
PROC: B215YZZ Fluoroscopy of Left Heart using Other Contrast (ICD-10-PCS; 2023-10-03)
PROC: B41GYZZ Fluoroscopy of Left Lower Extremity Arteries using Other Contrast (ICD-10-PCS; 2023-10-03)
DX: A41.1 Sepsis due to other specified staphylococcus (principal); J96.01 Acute respiratory failure with hypoxia; I46.2 Cardiac arrest due to underlying cardiac condition; K72.00 Acute and subacute hepatic failure without coma; R65.21 Severe sepsis with septic shock; J15.61 Pneumonia due to Acinetobacter baumannii; E87.20 Acidosis, unspecified; D69.6 Thrombocytopenia, unspecified; D63.1 Anemia in chronic kidney disease; N18.6 End stage renal disease; E78.5 Hyperlipidemia, unspecified; I13.2 Hypertensive heart and chronic kidney disease with heart failure and with stage 5 chronic kidney disease, or end stage renal disease; E11.51 Type 2 diabetes mellitus with diabetic peripheral angiopathy without gangrene; E87.6 Hypokalemia; N32.0 Bladder-neck obstruction; E03.9 Hypothyroidism, unspecified; K83.09 Other cholangitis; E11.65 Type 2 diabetes mellitus with hyperglycemia; G93.89 Other specified disorders of brain; E11.22 Type 2 diabetes mellitus with diabetic chronic kidney disease; I50.9 Heart failure, unspecified; I95.3 Hypotension of hemodialysis; I47.20 Ventricular tachycardia, unspecified; G93.1 Anoxic brain damage, not elsewhere classified; Z98.49 Cataract extraction status, unspecified eye; Z95.0 Presence of cardiac pacemaker; Z88.0 Allergy status to penicillin; Z88.6 Allergy status to analgesic agent; Z99.2 Dependence on renal dialysis; Z82.3 Family history of stroke; Z83.3 Family history of diabetes mellitus; Z82.49 Family history of ischemic heart disease and other diseases of the circulatory system; Z79.82 Long term (current) use of aspirin; Z79.899 Other long term (current) drug therapy
CPT/HCPCS: 36415; 36600; 70450; 71045; 75710; 80048; 80053; 80061; 80069; 80074; 80202; 80320; 81001; 82040; 82805; 82962; 83735; 84100; 84132; 84439; 84443; 84481; 84484; 85014; 85018; 85025; 85610; 87040; 87070; 87077; 87081; 87086; 87186; 87205; 90935; 92610; 93005; 93306; 93458; 93971; 94002; 94003; 94640; 95819; 97110; 97116; 97163; 99152; 99291; C9113; G0378; J0171; J0330; J1642; J1815; J2001; J2250; J3480; J3490; J7060; P9047; Q9967

== ENCOUNTER 2024-07-24 14:05 | Inpatient (IN) | payer MEDICAID ==
[~2024-07-24] VITALS: Ht 177.8 cm; Wt 69.5 kg
[~2024-07-24 14:05] MED LIST changes: +AMIO200T33 PO; -ATO40T PO; +ATOR-507 PO; +FOLI-119 PO; +FURO40TA4 PO; +KETO0.5S31 RIGHTEYE; -LEV50T PO; +LEVO-848 PO; +PRED1SUS4 RIGHTEYE; -TAMS0.4C36 PO; +TAMS0.4C39 PO
--- NOTE | 2024-07-24 14:30 | ED.PDOC ---
Altered Mental Status HPI Comments 73 year old male URSULA presents to the ED with chief complaint of ALOC and weakness. EMS reports patient came home from Dialysis today around 1pm, noted by family to start to act different with noted confusion and generalized weakness. EMS relays that the patient's BG was 105 and HR in the 80s. Patient states he d oes not remember why he is here today and is not able to recall the date or location where he is right now. Patient denies any N/V/D, chest pain, SOB, dizziness, headache, or fever. Chief Complaint: ALOC Time Seen by MD: 14:25 Primary Care Provider: UNKNOWN Reviewed Notes: Nurses Notes, Fire Control Technician Notes, Medications, Allergies Allergies: Coded Allergies: Ibuprofen (Verified Allergy, Unknown, 09/12/17) Penicillins (Verified Allergy, Unknown, 04/13/16) Home Meds Active Scripts Amiodarone Hcl (Amiodarone Hcl) 200 Mg Tab, 1 TAB PO DAILY for 60 Days, #60 TAB 1 Refill Prov:MARYBETH NASSAR NP 10/11/23 Lactulose (Lactulose) 10 Gm/15 Ml Daya, 10 GM PO DAILY for 5 Days, #75 ML Prov:CM BOUDREAUX MD 06/08/22 Reported Medications Ketorolac Tromethamine (Ophth) (Ketorolac Tromethamine) 0.5 % Daya, 1 DROP RIGHTEYE QID 09/29/23 Prednisolone Acetate (Ophth) (Pred Forte) 1 % Quynh, 1 DROP RIGHTEYE QID 09/29/23 Folic Acid (Folic Acid) 1 Mg Tab, 1 TAB PO DAILY, MG 09/29/23 Furosemide (Furosemide) 40 Mg Tab, 1 TAB PO DAILY 09/29/23 Finasteride (Finasteride) 5 Mg Tab, 1 TAB PO DAILY 08/04/23 Tamsulosin Hcl (Tamsulosin Hcl) 0.4 Mg Cap, 1 CAP PO DAILY 08/04/23 Sevelamer Carbonate (Renvela) 800 Mg Tab, 3 TAB PO TID, #810 TAB 3 Refills 10/17/21 Levothyroxine Sodium (SYNTHROID TABLET) 50 Mcg Tb, 1 TAB PO DAILY, TAB 07/28/18 Sodium Bicarb-Citric Acid W/ S (E-Z-Gas Ii) Gra, 1 OR, GRA 07/28/18 B-Complex W/ C & Folic Acid (Aircraft General Repair Mechanic-Natanael Rx 1 mg) 1 Tab Tab, 1 TAB PO, TAB 07/28/18 Atorvastatin Calcium (Lipitor) 40 Mg Tab, 1 TAB PO DAILY 02/18/16 Information Source: Patient, Emergency Med Personnel Mode of Arrival: EMS Severity: Moderate Timing: Hours Duration: Since onset Prehospital treatment: None Quality: None Recent: None History of: None Associated Signs and Symptoms: None Past Medical History PAST MEDICAL HISTORY: DM, ESRD, High Lipids, HTN, ME, PAD Surgical History: Denies all surgeries Family History Family History: No family hx of DM, No family hx of HTN, Unobtainable Social History Smoker: Non-Smoker Alcohol: Denies ETOH Use Drugs: Denies Drug Use Lives In: Home Constitutional: reports: weakness; denies: chills, diaphoresis, fatigue, fever, malaise, sweats, others EENTM: denies: blurred vision, double vision, ear bleeding, ear discharge, ear drainage, ear pain, ear ringing, eye pain, eye redness, hearing loss, mouth pain, mouth swelling, nasal discharge, nose bleeding, nose congestion, nose pain, photophobia, tearing, throat pain, throat swelling, voice changes, others Respiratory: denies: cough, hemoptysis, orthopnea, SOB at rest, shortness of b reath, SOB with excertion, stridor, wheezing, others Cardiovascular: denies: chest pain, dizzy spells, diaphoresis, Dyspnea on exertion, edema, irregular heart beat, left arm pain, lightheadedness, palpitations, PND, syncope, others Gastrointestinal: denies: abdomen distended, abdominal pain, blood streaked bowels, constipated, diarrhea, dysphagia, difficulty swallowing, hematemesis, melena, nausea, poor appetite, poor fluid intake, rectal bleeding, rectal pain, vomiting, others Genitourinary: denies: burning, dysuria, flank pain, frequency, hematuria, incontinence, penile discharge, penile sore, pain, testicle pain, testicle swelling, urgency, others Neurological: denies: dizziness, fainting, headache, left sided numbness, left sided weakness, numbness, paresthesia, pre-existing deficit, right sided numbness, right sided weakness, seizure, speech problems, tingling, tremors, weakness, others Musculoskeletal: denies: back pain, gout, joint pain, joint swelling, muscle pain, muscle stiffness, neck pain, others Integumetry: denies: bruises, change in color, change in hair/nails, dryness, laceration, lesions, lumps, rash, wounds, others Allergic/Immunocompromised: denies: Difficulty Healing, Frequent Infections, Hives, Itching, others Hematologic/Lymphatic: denies: anemia, blood clots, easy bleeding, easy bruising, swollen glands, others Endocrine: denies: excessive hunger, excessive sweating, excessive thirst, excessive urination, flushing, intolerance to cold, intolerance to heat, unexplained weight gain, unexplained weight loss, others Psychiatric: denies: anxiety, bipolar disorder, depression, hopeless, panic disorder, schizophrenia, sleepless, suicidal, others Unable to Obtain due to: Altered Mental Status All Other Systems: Reviewed and Negative Physical Exam General Appearance: No Apparent Distress, Normal, Other (Patient follows commands and is able to respond.) HEENT: Normal ENT Inspection, PERRL/EOMI Neck: Full Range of Motion, Non-Tender, Normal, Normal Inspection Respiratory: Chest Non-Tender, Lungs Clear, No Accessory Muscle Use, No Respiratory Distress, Normal Breath Sounds Cardiovascular: No Edema, No JVD, No Murmur, No Gallop, Normal Peripheral Pulses, Regular Rate/Rhythm Breast Exam: Deferred Gastrointestinal: No Organomegaly, Non Tender, No Pulsatile Mass, Normal Bowel Sounds, Soft Genitalia: Deferred Pelvic: Deferred Rectal: Deferred Extremities: No calf tenderness, Normal capillary refill, Normal inspection, Normal range of motion, Non-tender, No pedal edema Musculoskeletal : Apperance: Normal Neurologic: Alert, flying shear operator II-XII nml as Tested, No Motor Deficits, Normal Affect, Normal Mood, No Sensory Deficits Cerebellar Function: Normal Reflexes: Normal Skin: Dry, Normal Color, Warm Lymphatic: No Adenopathy Was a procedure done? Was a procedure done?: No Differential Diagnosis (ALOC) Differential Diagnosis: Dehydration, Hypoglycemia, Sepsis, Renal Failure X-Ray, Labs, Meds, VS Vital Signs Date Time Temp Pulse Resp B/P (MAP) Pulse Ox O2 Delivery O2 Flow Rate FiO2 07/24/24 16:34 67 19 98 Room Air* 0 21 07/24/24 16:00 67 07/24/24 16:00 67 18 129/46 (73) 98 07/24/24 14:17 68 07/24/24 14:10 98.9 80 18 123/55 (77) 97 Lab Test 07/24/24 16:52 07/24/24 16:45 07/24/24 15:37 07/24/24 15:31 Range/Units Troponin I High Sensitivity Pending 202 *H </=54 ng/L POC Glucose 129 H 70-106 mg/dl White Blood Count 5.5 4.4-10.8 10^3/uL Red Blood Count 3.49 L 4.5-5.90 10^6/uL Hemoglobin 11.1 L 13.5-17.5 g/dL Hematocrit 33.1 L 41.0-53.0 % Mean Corpuscular Volume 94.7 80.0-100.0 fL Mean Corpuscular Hemoglobin 31.7 28.0-32.0 pg Mean Corpuscular Hemoglobin Concent 33.5 32.0-36.0 g/dL Red Cell Distribution Width 14.5 H 11.8-14.3 % Platelet Count 56 L 140-450 10^3/uL Mean Platelet Volume 8.8 6.9-10.8 fL Neutrophils (%) (Auto) 88.3 H 37.0-80.0 % Lymphocytes (%) (Auto) 3.1 L 10.0-50.0 % Monocytes (%) (Auto) 8.2 0.0-12.0 % Eosinophils (%) (Auto) 0.1 0.0-7.0 % Basophils (%) (Auto) 0.3 0.0-2.0 % Neutrophils # (Auto) 4.8 1.6-8.6 10 ^3/uL Lymphocytes # (Auto) 0.2 L 0.4-5.4 10 ^3/uL Monocytes # (Auto) 0.4 0-1.3 10 ^3/uL Eosinophils # (Auto) 0 0-0.8 10 ^3/uL Basophils # (Auto) 0 0-0.2 10 ^3/uL Nucleated Red Blood Cells 0.0 % Platelet Estimate Pending Sodium Level 138 136-145 mmol/L Potassium Level 3.5 3.5-5.1 mmol/L Chloride Level 98 98-107 mmol/L Carbon Dioxide Level 31 20-31 mmol/L Anion Gap 9 5-15 Blood Urea Nitrogen 56 H 9-23 mg/dL Creatinine 5.13 H 0.700-1.30 mg/dL Glomerular Filtration Rate Calc 11 >90 mL/min BUN/Creatinine Ratio 10.9 10.0-20.0 Serum Glucose 119 H 74-106 mg/dL Calcium Level 10.2 8.7-10.4 mg/dL Total Bilirubin 0.8 0.2-1.0 mg/dL Aspartate Amino Transferase (AST) 43 H 13-40 U/L Alanine Aminotransferase (ALT) 18 7-40 U/L Alkaline Phosphatase 97 46-116 U/L Ammonia 10 L 11-32 umol/L Total Protein 6.8 5.7-8.2 g/dL Albumin 3.9 3.2-4.8 g/dL Current Medications Medications (Trade) Dose Ordered Sig/Melva Route Start Time Stop Time Status Last Admin Aspirin 325 mg ONCE ONCE PO 07/24/24 17:00 07/24/24 17:02 DC 07/24/24 17:05 Chest XR: FINDINGS: Lines and tubes: There is a cardiac pacer. Cardiomediastinal silhouette: normal Pulmonary vasculature: Prominent Lung expansion: normal Lung airspace: normal Lung interstitium: normal Pleura: normal Pneumothorax: no Bones: Unremarkable Other: A vascular stent is visualized. IMPRESSION: Mild pulmonary congestion. CT Head: Findings: Moderate diffuse brain atrophy. Mild chronic small vessel ischemic changes. No hemorrhages, masses, mass effect, midline shift, herniation or cytotoxic edema following a large vascular territory. No intra-axial or extra-axial fluid collections. No evidence of hydrocephalus. The basal cisterns are patent. The pituitary gland, sella and parasellar regions are unremarkable. The cerebellar tonsils are in normal position. The cerebellum is unremarkable. The orbits and globes are unremarkable. There is pansinus mucoperiosteal thickening. The mastoids are clear. There are no worrisome calvarial lesions. Impression: No evidence of acute intracranial abnormality. Pansinus disease. X-Ray, Labs, Meds, VS Comment Pt is here with gen weakness and elevated troponin. Pt does not have chest pain Pt was treated with full dose aspirin. Images Reviewed?: Images reviewed and evaluated by me Time of 1ST Reevaluation: 15:25 Reevaluation 1ST: Unchanged Patient Education/Counseling: Diagnosis, Treatment Family Education/Counseling: No Family Present Departure 1 Departure Time of Disposition: 17:21 Impression: Primary Impression: Generalized weakness Additional Impression: Elevated troponin Disposition: 30 STILL A PATIENT Admit to: Tele Condition: Guarded Critical Care Note Critical Care Time?: Yes (35 min-critical care time only) Critical care comment: CRITICAL CARE TIME: *35 minutes Treatments/Evaluations: Close monitoring and treatment of unstable vital signs, cardiorespiratory, and neurologic status, while maintaining tight balance of fluid, respiratory, and cardiac interventions. This time includes discussing the case with the patient and the patients family. This time does not include all procedures stated elsewhere in this record. This time also includes reviewing old records, labs and radiological studies. This time includes examining and re- examining the patient. Additionally, this time also includes arranging care with admitting and consulting physicians. Stability Stability form required: No Heart Score Heart Score: Heart Score Response (Comments) Value History N/A 0 EKG N/A 0 Age N/A 0 Risk Factors N/A 0 Troponin N/A 0 Total 0 I personally scribed for LULA RICO MD ([email or web address]) on 07/24/24 at 14:30. Electronically submitted by Josh Pederson ([email or web address]). I personally scribed for LULA RICO MD ([email or web address]) on 07/24/24 at 15:25. Electronically submitted by Josh Pederson ([email or web address]). I personally scribed for LULA RICO MD ([email or web address]) on 07/24/24 at 15:33. Electronically submitted by Josh Pederson ([email or web address]). LULA RICO MD Jul 24, 2024 14:30
--- NOTE | 2024-07-24 15:07 | DVH ---
XY CHEST PORTABLE, HISTORY: cp COMPARISON: XY CHEST PORTABLE on DOS: 10/09/23, XY CHEST PORTABLE on DOS: 10/06/23, XY CHEST PORTABLE o n DOS: 10/04/23 XY CHEST PORTABLE on DOS: 10/09/23, XY CHEST PORTABLE on DOS: 10/06/23, XY CHEST PORTABLE on DOS: TECHNICAL DATA: 1 view of the chest was obtained. FINDINGS: Lines and tubes: There is a cardiac pacer. Cardiomediastinal silhouette: normal Pulmonary vasculature: Prominent Lung expansion: normal Lung airspace: normal Lung interstitium: normal Pleura: normal Pneumothorax: no Bones: Unremarkable Other: A vascular stent is visualized. IMPRESSION: Mild pulmonary congestion.
--- NOTE | 2024-07-24 15:30 | DVH ---
Procedure: CT HEAD WITHOUT CONTRAST Study Date and Requested Time: 07/24/2024 02:57 PM History: ams Comparison: CT HEAD WITHOUT CONTRAST on DOS: 09/27/23, CT HEAD WITHOUT CONTRAST on DOS: 08/04/23, CT CH EST ABD PELVIS WO CONTRAS on DOS: 06/07/22 Dose: CTDI: 64.86 mGy DLP: 1277.89 mGycm Technique: Multiplanar images obtained through the brain without intravenous contrast. Findings: Moderate diffuse brain atrophy. Mild chronic small vessel ischemic changes. No hemorrhages, masses, mass effect, midline shift, herniation or cytotoxic edema following a large v ascular territory. No intra-axial or extra-axial fluid collections. No evidence of hydrocephalus. The basal cisterns are patent. The pituitary gland, sella and parasellar regions are unremarkable. The cerebellar tonsils are in nor mal position. The cerebellum is unremarkable. The orbits and globes are unremarkable. There is pansinus mucoperiosteal thickening. The mastoids ar e clear. There are no worrisome calvarial lesions. Impression: No evidence of acute intracranial abnormality. Pansinus disease.
[2024-07-24] MEDS ORDERED: LACTULOSE 20Gm/30ML SOLN PO ONE (16:00)
[2024-07-24 16:03] LABS: Basophils # (auto) 0 10 ^3/uL (0-0.2); Basophils % (auto) 0.3 % (0.0-2.0); Eosinophils # (auto) 0 10 ^3/uL (0-0.8); Eosinophils % (auto) 0.1 % (0.0-7.0); Hematocrit 33.1 % (41.0-53.0); Hemoglobin 11.1 g/dL (13.5-17.5); Lymphocytes # (auto) 0.2 10 ^3/uL (0.4-5.4); Lymphocytes % (auto) 3.1 % (10.0-50.0); Mean Corpuscular Hemoglobin 31.7 pg (28.0-32.0); Mean Corpuscular Hgb Conc. 33.5 g/dL (32.0-36.0); Mean Corpuscular Volume 94.7 fL (80.0-100.0); Monocytes # (auto) 0.4 10 ^3/uL (0-1.3); Monocytes % (auto) 8.2 % (0.0-12.0); Neutrophils # (auto) 4.8 10 ^3/uL (1.6-8.6); Neutrophils % (auto) 88.3 % (37.0-80.0); Red Blood Cells 3.49 10^6/uL (4.5-5.90); Red Cell Distribution Width 14.5 % (11.8-14.3); White Blood Cell 5.5 10^3/uL (4.4-10.8)
[2024-07-24 16:20] LABS: Alanine Aminotransferase 18 U/L (7-40); Albumin 3.9 g/dL (3.2-4.8); Alkaline Phosphatase 97 U/L (46-116); Anion Gap 9 (5-15); BUN/Creatinine Ratio 10.9 (10.0-20.0); Calcium 10.2 mg/dL (8.7-10.4); Carbon Dioxide 31 mmol/L (20-31); Chloride 98 mmol/L (98-107); Sodium 138 mmol/L (136-145)
[2024-07-24 16:21] LABS: Bilirubin, Total 0.8 mg/dL (0.2-1.0); Total Protein 6.8 g/dL (5.7-8.2)
[2024-07-24 16:22] LABS: Aspartate Aminotransferase 43 U/L (13-40); Blood Urea Nitrogen 56 mg/dL (9-23); Glucose 119 mg/dL (74-106); Potassium 3.5 mmol/L (3.5-5.1)
[2024-07-24 16:34] VITALS: PULSE 67; RESP 19; O2SAT 98
[2024-07-24 16:58] LABS: Platelet Count (auto) 56 10^3/uL (140-450)
[2024-07-24] MEDS: ASPirin 325 MG TAB PO ONE (17:05)
--- NOTE | 2024-07-24 18:08 | ECG ---
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
[2024-07-24 18:16] LABS: Platelet Estimate Decreased
[2024-07-24 19:30] VITALS: PULSE 61; RESP 17; O2SAT 97
[2024-07-24] MEDS ORDERED: ONDANSETRON HCL 4 MG/2 ML VIAL IV PRN (19:45)
[2024-07-24] MEDS ORDERED: NITROGLYCERIN 0.4 MG SL TAB SL PRN (19:45)
[2024-07-24] MEDS: APIXABAN 5 MG TAB PO SCH (22:30)
[2024-07-24] MEDS: ATORVASTATIN 20 MG TAB PO SCH (22:30)
--- NOTE | 2024-07-25 04:39 | DVHHP2 ---
History of Present Illness Reason for Visit: Altered mental status History of Present Illness 73-year-old male presents for evaluation of altered mental status. Patient presents with a one day history of altered mental status. Patient started acting differently/confused after his dialysis session today. Currently he is lethargic A&O x2. No focal deficits noted. No complaints of chest pain or shortness for breath. Past Medical History Dyslipidemia, hypertension,, end-stage renal disease, diabetes mellitus Past Surgical History Dialysis access Family History Noncontributory Smoke: No ALCOHOL: none Drugs: None Lives: with Family Review of Systems Review of Systems Review of systems are currently negative otherwise addressed in HPI. Allergies: Coded Allergies: Ibuprofen (Verified Allergy, Unknown, 09/12/17) Penicillins (Verified Allergy, Unknown, 04/13/16) Medications Current Medications Medications Dose Ordered Sig/Melva Route Start Time Stop Time Status Last Admin Dose Admin Atorvastatin Calcium 40 mg HS PO 07/24/24 22:00 Apixaban 5 mg BID PO 07/24/24 22:00 Furosemide 40 mg DAILY PO 07/25/24 10:00 Sevelamer HCl 800 mg TIDWM PO 07/25/24 08:00 Levothyroxine Sodium 50 mcg QAM@0600 PO 07/25/24 06:00 Amiodarone HCl 200 mg DAILY PO 07/25/24 10:00 Amlodipine Besylate 10 mg DAILY PO 07/25/24 10:00 Tamsulosin HCl 0.4 mg QPM PO 07/25/24 18:00 Aspirin 162 mg DAILY PO 07/25/24 10:00 Ondansetron HCl 4 mg Q4HP PRN IV 07/24/24 19:45 Acetaminophen 650 mg Q6HP PRN PO 07/24/24 19:45 Nitroglycerin 0.4 mg Q5MINP PRN SL 07/24/24 19:45 Morphine Sulfate 2 mg Q30M PRN IV 07/24/24 19:45 Exam Vital Signs Vital Signs Date Time Temp Pulse Resp B/P (MAP) Pulse Ox O2 Delivery O2 Flow Rate FiO2 07/25/24 04:00 60 07/24/24 18:00 13 138/53 (81) 93 07/24/24 16:34 Room Air* 0 21 07/24/24 14:10 98.9 Exam Gen: 73-year-old male in mild distress Skin: Warm, dry, normal color and texture, no rash. HEENT: Normocephalic atraumatic, mucous membranes moist and pink. Neck: Cervical and supraclavicular nodes normal without enlargement, trachea is midline, thyroid gland is normal without masses. Pulmonary: Clear to auscultation and percussion bilaterally. Cardiac: Regular rate and rhythm. No murmur Abdomen: Soft, nontender, nondistended, bowel sounds present all 4 quadrants, no guarding, no rigidity, no organomegaly. Extremities: No cyanosis, clubbing, no edema Neuro: Cranial nerves II through XII grossly intact, normal affect and speech, no focal motor deficits. Labs/Xrays ORDERING PHYSICIAN: OLGA ROWLAND DNP PROCEDURE(s): ECIDC - ECHO 2D MODE CARDIAC DOP REASON: cardiac arrest eval for heart function and ef ORDER NUMBER(s): [id number], ACCESSION NUMBER(s): [id number] APPROVED REPORT EXAM: LIMITED Two-dimensional and M-mode echocardiogram with Doppler and color Doppler. Blood Pressure: 159/74 mmHg INDICATION cardiac arrest Surgery/Intervention Pacemaker: RISK FACTORS Height: 5'7, Weight: 143 DIMENSIONS LVDd 5.2 (3.8-5.7cm) LA (2D) 3.3 (1.9-4.0cm) Aortic Root (2.0-3. 7cm) LVDs 4.3 (2.5-4.0cm) LA (MM) (1.9-4.0cm) Aortic Cusp Exc (1.5- 2.0cm) EF (%) 33.7 (55-70%) Rt. Atrium 5.1 (1.9-4.0cm) Asc. Aorta cm IVSd 1.2 (0.7-1.1cm) RV (D) (1.8-2.4cm) PWd 1.7 (0.7-1.1cm) Mitral Valve Mitral Mitral Stenosis E wave 0.78m/s MV Mean GR. mmHg A wave 0.66m/s MV Peak GR. mmHg E/A ratio 1.2 2D MVA cm2 DECEL Time 245ms PRESS 1/2 Time ms Aortic Valve Aortic Valve Aortic Stenosis LVOT Diameter 2.3 (1.8-2.4cm) Doppler BLAYNE cm2 Tricuspid Valve TR Velocity 1.97m/s RVSP 15mmHg Other Information Quality : Fair Rhythm : Technically limited study due to on vent, and patient coded during exam unable to complete. Conclusion Mildly reduced left ventricular systolic function with estimated ejection fraction of 45% in a global fashion. There is a grade 1 diastolic dysfunction. Normal right ventricular size and dimension. Normal right ventricular systolic function. Normal right ventricular systolic pressure 24 mmHg. Normal biatrial size and dimension. The aortic valve appears normal in structure and function. The mitral valve appears normal in structure and function. The tricuspid valve appears normal in structure and function. The pulmonary valve is grossly normal. No pericardial effusion. ORDERING PHYSICIAN: LULA RICO MD PROCEDURE(s): CXRP - CHEST PORTABLE REASON: cp ORDER NUMBER(s): [id number], ACCESSION NUMBER(s): [id number] XY CHEST PORTABLE, HISTORY: cp COMPARISON: XY CHEST PORTABLE on DOS: 10/09/23, XY CHEST PORTABLE on DOS: 10/06/23, XY CHEST PORTABLE on DOS: 10/04/23 XY CHEST PORTABLE on DOS: 10/09/23, XY CHEST PORTABLE on DOS: 10/06/23, XY CHEST PORTABLE on DOS: 10/04/23 TECHNICAL DATA: 1 view of the chest was obtained. FINDINGS: Lines and tubes: There is a cardiac pacer. Cardiomediastinal silhouette: normal Pulmonary vasculature: Prominent Lung expansion: normal Lung airspace: normal Lung interstitium: normal Pleura: normal Pneumothorax: no Bones: Unremarkable Other: A vascular stent is visualized. IMPRESSION: Mild pulmonary congestion. RING PHYSICIAN: LULA RICO MD PROCEDURE(s): HWOCT - HEAD WITHOUT CONTRAST REASON: ams ORDER NUMBER(s): [id number], ACCESSION NUMBER(s): [id number] Procedure: CT HEAD WITHOUT CONTRAST Study Date and Requested Time: 07/24/2024 02:57 PM History: ams Comparison: CT HEAD WITHOUT CONTRAST on DOS: 09/27/23, CT HEAD WITHOUT CONTRAST on DOS: 08/04/23, CT CHEST ABD PELVIS WO CONTRAS on DOS: 06/07/22 Dose: CTDI: 64.86 mGy DLP: 1277.89 mGycm Technique: Multiplanar images obtained through the brain without intravenous contrast. Findings: Moderate diffuse brain atrophy. Mild chronic small vessel ischemic changes. No hemorrhages, masses, mass effect, midline shift, herniation or cytotoxic edema following a large vascular territory. No intra-axial or extra-axial fluid collections. No evidence of hydrocephalus. The basal cisterns are patent. The pituitary gland, sella and parasellar regions are unremarkable. The cerebellar tonsils are in normal position. The cerebellum is unremarkable. The orbits and globes are unremarkable. There is pansinus mucoperiosteal thickening. The mastoids are clear. There are no worrisome calvarial lesions. Impression: No evidence of acute intracranial abnormality. Pansinus disease. Labs Test 07/24/24 18:01 07/24/24 16:45 07/24/24 15:37 07/24/24 15:31 Range/Units Troponin I High Sensitivity 229 *H </=54 ng/L POC Glucose 129 H 70-106 mg/dl White Blood Count 5.5 4.4-10.8 10^3/uL Red Blood Count 3.49 L 4.5-5.90 10^6/uL Hemoglobin 11.1 L 13.5-17.5 g/dL Hematocrit 33.1 L 41.0-53.0 % Mean Corpuscular Volume 94.7 80.0-100.0 fL Mean Corpuscular Hemoglobin 31.7 28.0-32.0 pg Mean Corpuscular Hemoglobin Concent 33.5 32.0-36.0 g/dL Red Cell Distribution Width 14.5 H 11.8-14.3 % Platelet Count 56 L 140-450 10^3/uL Mean Platelet Volume 8.8 6.9-10.8 fL Neutrophils (%) (Auto) 88.3 H 37.0-80.0 % Lymphocytes (%) (Auto) 3.1 L 10.0-50.0 % Monocytes (%) (Auto) 8.2 0.0-12.0 % Eosinophils (%) (Auto) 0.1 0.0-7.0 % Basophils (%) (Auto) 0.3 0.0-2.0 % Neutrophils # (Auto) 4.8 1.6-8.6 10 ^3/uL Lymphocytes # (Auto) 0.2 L 0.4-5.4 10 ^3/uL Monocytes # (Auto) 0.4 0-1.3 10 ^3/uL Eosinophils # (Auto) 0 0-0.8 10 ^3/uL Basophils # (Auto) 0 0-0.2 10 ^3/uL Nucleated Red Blood Cells 0.0 % Platelet Estimate Decreased Sodium Level 138 136-145 mmol/L Potassium Level 3.5 3.5-5.1 mmol/L Chloride Level 98 98-107 mmol/L Carbon Dioxide Level 31 20-31 mmol/L Anion Gap 9 5-15 Blood Urea Nitrogen 56 H 9-23 mg/dL Creatinine 5.13 H 0.700-1.30 mg/dL Glomerular Filtration Rate Calc 11 >90 mL/min BUN/Creatinine Ratio 10.9 10.0-20.0 Serum Glucose 119 H 74-106 mg/dL Calcium Level 10.2 8.7-10.4 mg/dL Total Bilirubin 0.8 0.2-1.0 mg/dL Aspartate Amino Transferase (AST) 43 H 13-40 U/L Alanine Aminotransferase (ALT) 18 7-40 U/L Alkaline Phosphatase 97 46-116 U/L Ammonia 10 L 11-32 umol/L Total Protein 6.8 5.7-8.2 g/dL Albumin 3.9 3.2-4.8 g/dL Assessment/Plan Assessment/Plan Assessment Elevated troponin rule out NSTEMI Acute encephalopathy End-stage renal disease, dialysis dependent Diabetes mellitus Hypertension Chronic anemia Plan Admit the patient to telemetry to the hospitalist Nephrology consultation Cardiology consult Resume home medications Continue treatment per orders. Plan discussed with: Patient My Orders Orders - KAMERON NICHOLSON Procedure Category Date Status Time * Cardiology Consult CONS 07/24/24 Transmitted 19:39 Atorvastatin (Lipitor) PHA 07/24/24 In Process 22:00 Apixaban (Eliquis) PHA 07/24/24 In Process 22:00 Furosemide Tablet PHA 07/25/24 In Process (Lasix Tablet) 10:00 Sevelamer (Renagel) PHA 07/25/24 In Process 08:00 Amlodipine Tablet PHA 12/4/24 In Process (Norvasc Tablet) 10:00 Tamsulosin PHA 07/25/24 In Process Hydrochloride (Flomax) 18:00 Aspirin Tablet PHA 07/25/24 In Process 10:00 Basic Metabolic Panel LAB 07/25/24 Logged 04:00 Admit ADMIT 07/24/24 Transmitted 19:39 Ondansetron Hcl PHA 07/24/24 In Process (Zofran) 19:45 Complete Blood Count LAB 07/25/24 Logged 04:00 Cardiac DIET 07/25/24 Transmitted Diet-2gna,Lofat,Lochol Breakfast Condition: Fair ALANNA 07/24/24 In Process 19:39 Acetaminophen Tablet PHA 07/24/24 In Process (Tylenol Tablet) 19:45 Bedrest With Bathroom ALANNA 07/24/24 In Process Privileg 19:39 Nitroglycerin PHA 07/24/24 In Process Sublingual (Ntrostat 19:45 Morphine Sulfate PHA 07/24/24 In Process Injection 19:45 Stat Ekg For Chest ALANNA 07/24/24 In Process Pain 19:39 Notify Md Of Changes ALANNA 07/24/24 In Process From Base 19:39 Nutritional Yeast Supervisor For ALANNA 07/24/24 In Process 24 Hours 19:39 Emergency Dysrhythmia ALANNA 07/24/24 In Process Protocol 19:39 Rhythm Strips Once ALANNA 07/24/24 In Process Every Shift 19:39 Oxygen By Nasal RT 07/24/24 Transmitted Cannula 19:39 Levothyroxine Tablet PHA 07/25/24 In Process (Synthroid Tablet) 06:00 Amiodarone Tablet PHA 07/25/24 In Process (Cordarone Tablet) 10:00 Date of Service: Jul 24, 2024 Billing Provider: KAMERON NICHOLSON Common Visit Codes: [id number] INP/OBS CARE (HIGH) KAMERON NICHOLSON Jul 25, 2024 04:39
[2024-07-25 05:32] LABS: Basophils # (auto) 0 10 ^3/uL (0-0.2); Basophils % (auto) 0.1 % (0.0-2.0); Eosinophils # (auto) 0 10 ^3/uL (0-0.8); Eosinophils % (auto) 0.1 % (0.0-7.0); Hematocrit 29.2 % (41.0-53.0); Hemoglobin 9.8 g/dL (13.5-17.5); Lymphocytes # (auto) 0.3 10 ^3/uL (0.4-5.4); Mean Corpuscular Hemoglobin 31.9 pg (28.0-32.0); Mean Corpuscular Hgb Conc. 33.6 g/dL (32.0-36.0); Mean Corpuscular Volume 95.2 fL (80.0-100.0); Monocytes # (auto) 0.5 10 ^3/uL (0-1.3); Monocytes % (auto) 9.7 % (0.0-12.0); Neutrophils # (auto) 4.3 10 ^3/uL (1.6-8.6); Neutrophils % (auto) 84.1 % (37.0-80.0); Platelet Count (auto) 54 10^3/uL (140-450); Red Blood Cells 3.06 10^6/uL (4.5-5.90); Red Cell Distribution Width 14.7 % (11.8-14.3); White Blood Cell 5.1 10^3/uL (4.4-10.8)
[2024-07-25 05:45] LABS: Anion Gap 10 (5-15); Carbon Dioxide 29 mmol/L (20-31); Chloride 99 mmol/L (98-107); Potassium 4.1 mmol/L (3.5-5.1); Sodium 138 mmol/L (136-145)
[2024-07-25 05:47] LABS: Calcium 10.1 mg/dL (8.7-10.4)
[2024-07-25 05:51] LABS: BUN/Creatinine Ratio 10.8 (10.0-20.0); Glucose 88 mg/dL (74-106)
[2024-07-25] MEDS: LEVOTHYROXINE SODIUM 50 MCG TAB PO SCH (06:00)
[2024-07-25 06:16] LABS: Blood Urea Nitrogen 64 mg/dL (9-23)
[2024-07-25 08:45] VITALS: PULSE 65; RESP 19; O2SAT 96
[2024-07-25] MEDS: AMIODARONE HCL 200 MG TAB PO SCH (08:52)
[2024-07-25] MEDS: SEVELAMER 800 MG TAB PO SCH (08:52)
[2024-07-25] MEDS: FUROSEMIDE 40 MG TAB PO SCH (08:53)
[2024-07-25] MEDS: ASPirin 81 mg TAB PO SCH (08:53)
[2024-07-25] MEDS: amLODIPine BESYLATE 5 MG TAB PO SCH (08:54)
[2024-07-25 13:04] LABS: Urine Bacteria None Seen /hpf (None Seen)
[2024-07-25 13:28] LABS: Urine Blood 2+ /uL (Negative); Urine Clarity Turbid (Clear); Urine Color Light-Yellow (Yellow); Urine Protein, UAD 2+ (Negative); Urine Specific Gravity 1.013 (1.001-1.035); Urine Urobilinogen Normal (Negative); Urine WBC 8 /hpf (0 - 3); Urine pH 6.5 (5.0-9.0)
--- NOTE | 2024-07-25 15:09 | DVHPN2 ---
Reviewed: Care Plan, H&P, Labs, Medications, Previous Orders, Radiology Changes from previous H/P or p: No Changes Objective Vitals Vital Signs Date Time Temp Pulse Resp B/P (MAP) Pulse Ox O2 Delivery O2 Flow Rate FiO2 07/25/24 14:00 98.2 63 17 113/54 (73) 100 98.2 07/25/24 08:45 Room Air* 0 21 Medications Current Medications Medications Dose Ordered Sig/Melva Route Start Time Stop Time Status Last Admin Dose Admin Atorvastatin Calcium 40 mg HS PO 07/24/24 22:00 Apixaban 5 mg BID PO 07/24/24 22:00 07/25/24 08:53 5 MG Furosemide 40 mg DAILY PO 07/25/24 10:00 07/25/24 08:53 40 MG Sevelamer HCl 800 mg TIDWM PO 07/25/24 08:00 07/25/24 12:47 800 MG Levothyroxine Sodium 50 mcg QAM@0600 PO 07/25/24 06:00 Amiodarone HCl 200 mg DAILY PO 07/25/24 10:00 07/25/24 08:52 200 MG Amlodipine Besylate 10 mg DAILY PO 07/25/24 10:00 07/25/24 08:54 10 MG Tamsulosin HCl 0.4 mg QPM PO 07/25/24 18:00 Aspirin 162 mg DAILY PO 07/25/24 10:00 07/25/24 08:53 162 MG Ondansetron HCl 4 mg Q4HP PRN IV 07/24/24 19:45 Acetaminophen 650 mg Q6HP PRN PO 07/24/24 19:45 Nitroglycerin 0.4 mg Q5MINP PRN SL 07/24/24 19:45 Morphine Sulfate 2 mg Q30M PRN IV 07/24/24 19:45 Laboratory Results Laboratory Tests 07/25/24 04:06 Chemistry Test 07/24/24 15:31 07/25/24 04:06 Albumin 3.9 g/dL (3.2-4.8) Calcium Level 10.2 mg/dL (8.7-10.4) 10.1 mg/dL (8.7-10.4) Total Protein 6.8 g/dL (5.7-8.2) LFT Test 07/24/24 15:31 Alanine Aminotransferase (ALT) 18 U/L (7-40) Alkaline Phosphatase 97 U/L (46-116) Aspartate Amino Transferase (AST) 43 U/L (13-40) H Total Bilirubin 0.8 mg/dL (0.2-1.0) Urinalysis Test 07/25/24 12:40 Urine Color Light-yellow (Yellow) Urine Clarity Turbid (Clear) H Urine pH 6.5 (5.0-9.0) Urine Specific [place] 1.013 (1.001-1.035) Urine Protein 2+ (Negative) H Urine Ketones Negative (Negative) Urine Blood 2+ /uL (Negative) H Urine Nitrite Negative (Negative) Urine Bilirubin Negative (Negative) Urine Urobilinogen Normal mg/dL (Negative) Urine Leukocyte Esterase Trace /uL (Negative) Urine RBC 1 /hpf (0 - 3) Urine WBC 8 /hpf (0 - 3) Urine Squamous Epithelial Cells None seen /hpf (<5) Urine Bacteria None seen /hpf (None Seen) Urine Glucose 1+ mg/dL (Normal) H Labs and/or images reviewed: Labs reviewed by me, Image(s) reviewed by me Assessment/Plan Assessment/Plan Elevated troponin rule out NSTEMI cardiology consult for Dr. Cano Acute encephalopathy End-stage renal disease, dialysis dependent nephrology consult Diabetes mellitus Hypertension Chronic anemia Time spent 55 minutes Patient is full code Plan discussed with: Patient Date of Service: Jul 25, 2024 Billing Provider: EKATERINA ROBERTSON MD Common Visit Codes: [id number] INP/OBS CARE(HIGH) EKATERINA ROBERTSON MD Jul 25, 2024 15:09
--- NOTE | 2024-07-25 17:50 | DVHINCON2 ---
Date of service: Jul 25, 2024 Referring Physician Piper Reason for Consultation Elevated troponin History of Present Illness This is a 73 year old male with a PMH of DM, ESRD, High Lipids, HTN, [place], PAD who was brought in by EMS due to ALOC and generalized weakness since yesterday afternoon. EMS reports patient came home from Dialysis yesterday around 1pm when the patient's family noticed the patient start to act different with noted confusion and generalized weakness. Chest x-ray showed mild pulmonary congestion. CT head shows no evidence of acute intracranial abnormality. Ammonia 10. Troponin 202 > 206 > 229. Patient was admitted to the hospital. I am asked to consult on this patient. Family History: Cardiovascular disease G8 FATHER Cerebrovascular accident (CVA) G8 FATHER Family history: Diabetes in Family history: Diabetes mellitus G8 MOTHER, Onset:Unknown G8 FATHER, Onset:Unknown Family history: Hypertension G8 MOTHER, Onset:Unknown G8 FATHER, Onset:Unknown Allergies: Coded Allergies: Ibuprofen (Verified Allergy, Unknown, 09/12/17) Penicillins (Verified Allergy, Unknown, 04/13/16) Home Meds Active Scripts Amiodarone Hcl (Amiodarone Hcl) 200 Mg Tab, 1 TAB PO DAILY for 60 Days, #60 TAB 1 Refill Prov:MARYBETH NASSAR NP 10/11/23 Lactulose (Lactulose) 10 Gm/15 Ml Daya, 10 GM PO DAILY for 5 Days, #75 ML Prov:CM BOUDREAUX MD 06/08/22 Reported Medications Ketorolac Tromethamine (Ophth) (Ketorolac Tromethamine) 0.5 % Daya, 1 DROP RIGHTEYE QID 09/29/23 Prednisolone Acetate (Ophth) (Pred Forte) 1 % Quynh, 1 DROP RIGHTEYE QID 09/29/23 Folic Acid (Folic Acid) 1 Mg Tab, 1 TAB PO DAILY, MG 09/29/23 Furosemide (Furosemide) 40 Mg Tab, 1 TAB PO DAILY 09/29/23 Finasteride (Finasteride) 5 Mg Tab, 1 TAB PO DAILY 08/04/23 Tamsulosin Hcl (Tamsulosin Hcl) 0.4 Mg Cap, 1 CAP PO DAILY 08/04/23 Sevelamer Carbonate (Renvela) 800 Mg Tab, 3 TAB PO TID, #810 TAB 3 Refills 10/17/21 Levothyroxine Sodium (SYNTHROID TABLET) 50 Mcg Tb, 1 TAB PO DAILY, TAB 07/28/18 Sodium Bicarb-Citric Acid W/ S (E-Z-Gas Ii) Gra, 1 OR, GRA 07/28/18 B-Complex W/ C & Folic Acid ([employer]-Natanael Rx 1 mg) 1 Tab Tab, 1 TAB PO, TAB 07/28/18 Atorvastatin Calcium (Lipitor) 40 Mg Tab, 1 TAB PO DAILY 02/18/16 Current Medications Current Medications Medications (Trade) Dose Ordered Sig/Melva Route PRN Reason Start Time Stop Time Status Last Admin Atorvastatin Calcium (Lipitor) 40 mg HS PO 07/24/24 22:00 Apixaban (Eliquis) 5 mg BID PO 07/24/24 22:00 07/25/24 08:53 Furosemide (Lasix Tablet) 40 mg DAILY PO 07/25/24 10:00 07/25/24 08:53 Sevelamer HCl (Renagel) 800 mg TIDWM PO 07/25/24 08:00 07/25/24 12:47 Levothyroxine Sodium (Synthroid Tablet) 50 mcg QAM@0600 PO 07/25/24 06:00 Amiodarone HCl (Cordarone Tablet) 200 mg DAILY PO 07/25/24 10:00 07/25/24 08:52 Amlodipine Besylate (Norvasc Tablet) 10 mg DAILY PO 07/25/24 10:00 07/25/24 08:54 Tamsulosin HCl (Flomax) 0.4 mg QPM PO 07/25/24 18:00 Aspirin 162 mg DAILY PO 07/25/24 10:00 07/25/24 08:53 Ondansetron HCl (Zofran) 4 mg Q4HP PRN IV NAUSEA / VOMITING 07/24/24 19:45 Acetaminophen (Tylenol Tablet) 650 mg Q6HP PRN PO PAIN SCALE 1-3 OR TEMP>100.4 07/24/24 19:45 Nitroglycerin (Ntrostat Sublingual) 0.4 mg Q5MINP PRN SL FOR CHEST PAIN 07/24/24 19:45 Morphine Sulfate 2 mg Q30M PRN IV FOR CHEST PAIN 07/24/24 19:45 Review of Systems Constitutional: reports: weakness; denies: chills, diaphoresis, fatigue, fever, malaise, sweats, others EENTM: denies: blurred vision, double vision, ear bleeding, ear discharge, ear drainage, ear pain, ear ringing, eye pain, eye redness, hearing loss, mouth pain, mouth swelling, nasal discharge, nose bleeding, nose congestion, nose pain, photophobia, tearing, throat pain, throat swelling, voice changes, others Respiratory: denies: cough, hemoptysis, orthopnea, SOB at rest, shortness of breath, SOB with excertion, stridor, wheezing, others Cardiovascular: denies: chest pain, dizzy spells, diaphoresis, Dyspnea on exertion, edema, irregular heart beat, left arm pain, lightheadedness, palpitations, PND, syncope, others Gastrointestinal: denies: abdomen distended, abdominal pain, blood streaked bowels, constipated, diarrhea, dysphagia, difficulty swallowing, hematemesis, melena, nausea, poor appetite, poor fluid intake, rectal bleeding, rectal pain, vomiting, others Genitourinary: denies: burning, dysuria, flank pain, frequency, hematuria, incontinence, penile discharge, penile sore, pain, testicle pain, testicle swelling, urgency, others Neurological: denies: dizziness, fainting, headache, left sided numbness, left sided weakness, numbness, paresthesia, pre-existing deficit, right sided numbness, right sided weakness, seizure, speech problems, tingling, tremors, weakness, others Musculoskeletal: denies: back pain, gout, joint pain, joint swelling, muscle pain, muscle stiffness, neck pain, others Integumetry: denies: bruises, change in color, change in hair/nails, dryness, laceration, lesions, lumps, rash, wounds, others Allergic/Immunocompromised: denies: Difficulty Healing, Frequent Infections, Hives, Itching, others Hematologic/Lymphatic: denies: anemia, blood clots, easy bleeding, easy bruising, swollen glands, others Endocrine: denies: excessive hunger, excessive sweating, excessive thirst, excessive urination, flushing, intolerance to cold, intolerance to heat, unexplained weight gain, unexplained weight loss, others Psychiatric: denies: anxiety, bipolar disorder, depression, hopeless, panic disorder, schizophrenia, sleepless, suicidal, others Unable to Obtain due to: Altered Mental Status All Other Systems: Reviewed and Negative Vital Signs Vital Signs Date Time Temp Pulse Resp B/P (MAP) Pulse Ox O2 Delivery O2 Flow Rate FiO2 07/25/24 14:00 98.2 63 17 113/54 (73) 100 98.2 07/25/24 08:45 Room Air* 0 21 Physical Exam GENERAL: Awake, alert, oriented. LUNGS: Clear. CARDIOVASCULAR: Heart sounds are good. ABDOMEN: Soft. Labs/Diagnostic Data Labs Test 07/25/24 12:40 07/25/24 04:06 07/24/24 18:01 07/24/24 16:45 Range/Units Urine Color Light-yellow Yellow Urine Clarity Turbid H Clear Urine pH 6.5 5.0-9.0 Urine Specific [place] 1.013 1.001-1.035 Urine Protein 2+ H Negative Urine Ketones Negative Negative Urine Blood 2+ H Negative /uL Urine Nitrite Negative Negative Urine Bilirubin Negative Negative Urine Urobilinogen Normal Negative mg/dL Urine Leukocyte Esterase Trace Negative /uL Urine RBC 1 0 - 3 /hpf Urine WBC 8 0 - 3 /hpf Urine Squamous Epithelial Cells None seen <5 /hpf Urine Bacteria None seen None Seen /hpf Urine Glucose 1+ H Normal mg/dL White Blood Count 5.1 4.4-10.8 10^3/uL Red Blood Count 3.06 L 4.5-5.90 10^6/uL Hemoglobin 9.8 L 13.5-17.5 g/dL Hematocrit 29.2 #L 41.0-53.0 % Mean Corpuscular Volume 95.2 80.0-100.0 fL Mean Corpuscular Hemoglobin 31.9 28.0-32.0 pg Mean Corpuscular Hemoglobin Concent 33.6 32.0-36.0 g/dL Red Cell Distribution Width 14.7 H 11.8-14.3 % Platelet Count 54 L 140-450 10^3/uL Mean Platelet Volume 9.0 6.9-10.8 fL Neutrophils (%) (Auto) 84.1 H 37.0-80.0 % Lymphocytes (%) (Auto) 6.0 L 10.0-50.0 % Monocytes (%) (Auto) 9.7 0.0-12.0 % Eosinophils (%) (Auto) 0.1 0.0-7.0 % Basophils (%) (Auto) 0.1 0.0-2.0 % Neutrophils # (Auto) 4.3 1.6-8.6 10 ^3/uL Lymphocytes # (Auto) 0.3 L 0.4-5.4 10 ^3/uL Monocytes # (Auto) 0.5 0-1.3 10 ^3/uL Eosinophils # (Auto) 0 0-0.8 10 ^3/uL Basophils # (Auto) 0 0-0.2 10 ^3/uL Nucleated Red Blood Cells 0.0 % Sodium Level 138 136-145 mmol/L Potassium Level 4.1 3.5-5.1 mmol/L Chloride Level 99 98-107 mmol/L Carbon Dioxide Level 29 20-31 mmol/L Anion Gap 10 5-15 Blood Urea Nitrogen 64 H 9-23 mg/dL Creatinine 5.93 H 0.700-1.30 mg/dL Glomerular Filtration Rate Calc 9 >90 mL/min BUN/Creatinine Ratio 10.8 10.0-20.0 Serum Glucose 88 74-106 mg/dL Calcium Level 10.1 8.7-10.4 mg/dL Troponin I High Sensitivity 229 *H </=54 ng/L POC Glucose 129 H 70-106 mg/dl Test 07/24/24 15:37 07/24/24 15:31 Range/Units Platelet Estimate Decreased Total Bilirubin 0.8 0.2-1.0 mg/dL Aspartate Amino Transferase (AST) 43 H 13-40 U/L Alanine Aminotransferase (ALT) 18 7-40 U/L Alkaline Phosphatase 97 46-116 U/L Ammonia 10 L 11-32 umol/L Total Protein 6.8 5.7-8.2 g/dL Albumin 3.9 3.2-4.8 g/dL Assessment Elevated troponin. Acute encephalopathy. End-stage renal disease, dialysis dependent. Diabetes mellitus. Hypertension. Chronic anemia. Plan/Recommendation I agree with your ongoing assessment and care of plan. Amiodarone. Amlodipine. Eliquis. Aspirin, Lipitor. Diuretics with Lasix. Morphine for pain management. Additional plan as per the hospital course. A total of 45 minutes was spent reviewing the patient record, examining the patient, making a diagnostic and therapeutic plan, discussing this plan with medical personnel, following up on diagnostic studies and following the patient for clinical stability excluding any and all procedures. At least 50% of this ti me was spent in direct, [id number] contact. Plan discussed with: Patient ROSARIO BRAUN MD Jul 25, 2024 15:09
[2024-07-25] MEDS: TAMSULOSIN HYDROCHLORIDE 0.4 MG CAP PO SCH (18:12)
[2024-07-25 19:30] VITALS: PULSE 61; RESP 15; O2SAT 98
--- NOTE | 2024-07-25 19:30 | DVHINCON2 ---
Date of service: Jul 25, [address] Jennings Reason for Consultation Dialysis History of Present Illness 73-year-old male with history of ESRD on HD via right forearm AV graft, diabetes, hypertension, hyperlipidemia, hypophosphatemia presented he was found to be confused by his family members. Yesterday patient was at the [facility] for his scheduled dialysis, he was found to have fever, and chills. Apparently his AV graft was warmth to touch when palpated thigh dialysis nurses. Therefore blood cultures were obtained which is now growing Gram-positive cocci in clusters. 1 g vancomycin IV was given at the end dialysis treatment [facility] on 07/24/2024. In the ER patient was hemodynamically stable, afebrile, and no leukocytosis on labs. In the ER patient was troponin is elevated, repeat is about the same. Cardiology has been consulted. Labs from this morning shows potassium of 4.1 mmol/l. with the most per L. Past Medical History End-stage renal disease on hemodialysis Diabetes Hypertension Hyperlipidemia Hypophosphatemia Past Surgical History AV graft insertion Allergies: Coded Allergies: Ibuprofen (Verified Allergy, Unknown, 09/12/17) Penicillins (Verified Allergy, Unknown, 04/13/16) Home Meds Active Scripts Amiodarone Hcl (Amiodarone Hcl) 200 Mg Tab, 1 TAB PO DAILY for 60 Days, #60 TAB 1 Refill Prov:MARYBETH NASSAR NP 10/11/23 Lactulose (Lactulose) 10 Gm/15 Ml Daya, 10 GM PO DAILY for 5 Days, #75 ML Prov:CM BOUDREAUX MD 06/08/22 Reported Medications Ketorolac Tromethamine (Ophth) (Ketorolac Tromethamine) 0.5 % Daya, 1 DROP RIGHTEYE QID 09/29/23 Prednisolone Acetate (Ophth) (Pred Forte) 1 % Quynh, 1 DROP RIGHTEYE QID 09/29/23 Folic Acid (Folic Acid) 1 Mg Tab, 1 TAB PO DAILY, MG 09/29/23 Furosemide (Furosemide) 40 Mg Tab, 1 TAB PO DAILY 09/29/23 Finasteride (Finasteride) 5 Mg Tab, 1 TAB PO DAILY 08/04/23 Tamsulosin Hcl (Tamsulosin Hcl) 0.4 Mg Cap, 1 CAP PO DAILY 08/04/23 Sevelamer Carbonate (Renvela) 800 Mg Tab, 3 TAB PO TID, #810 TAB 3 Refills 10/17/21 Levothyroxine Sodium (SYNTHROID TABLET) 50 Mcg Tb, 1 TAB PO DAILY, TAB 07/28/18 Sodium Bicarb-Citric Acid W/ S (E-Z-Gas Ii) Gra, 1 OR, GRA 07/28/18 B-Complex W/ C & Folic Acid ([employer] Programmer-Natanael Rx 1 mg) 1 Tab Tab, 1 TAB PO, TAB 07/28/18 Atorvastatin Calcium (Lipitor) 40 Mg Tab, 1 TAB PO DAILY 02/18/16 Current Medications Current Medications Medications (Trade) Dose Ordered Sig/Melva Route PRN Reason Start Time Stop Time Status Last Admin Atorvastatin Calcium (Lipitor) 40 mg HS PO 07/24/24 22:00 Apixaban (Eliquis) 5 mg BID PO 07/24/24 22:00 07/25/24 08:53 Furosemide (Lasix Tablet) 40 mg DAILY PO 07/25/24 10:00 07/25/24 08:53 Sevelamer HCl (Renagel) 800 mg TIDWM PO 07/25/24 08:00 07/25/24 18:12 Levothyroxine Sodium (Synthroid Tablet) 50 mcg QAM@0600 PO 07/25/24 06:00 Amiodarone HCl (Cordarone Tablet) 200 mg DAILY PO 07/25/24 10:00 07/25/24 08:52 Amlodipine Besylate (Norvasc Tablet) 10 mg DAILY PO 07/25/24 10:00 07/25/24 08:54 Tamsulosin HCl (Flomax) 0.4 mg QPM PO 07/25/24 18:00 07/25/24 18:12 Aspirin 162 mg DAILY PO 07/25/24 10:00 07/25/24 08:53 Family History: Cardiovascular disease G8 FATHER Cerebrovascular accident (CVA) G8 FATHER Family history: Diabetes in Family history: Diabetes mellitus G8 MOTHER, Onset:Unknown G8 FATHER, Onset:Unknown Family history: Hypertension G8 MOTHER, Onset:Unknown G8 FATHER, Onset:Unknown Review of Systems As per HPI all other symptoms were reviewed and are negative. H&P Exam Vital Signs/I&O Vital Sign Date Time Temp Pulse Resp B/P (MAP) Pulse Ox O2 Delivery O2 Flow Rate FiO2 12/4/24 18:00 81 15 132/60 (84) 99 07/25/24 14:00 98.2 98.2 07/25/24 08:45 Room Air* 0 21 Physical Exam General: No acute distress HEENT: Normocephalic, atraumatic Lungs: Clear to auscultation bilaterally Cardiac: RRR, no murmur Abdomen: Soft, no tenderness Extremities: No edema + Right forearm AVG Labs/Diagnostic Data Labs/Diagnostic Data Laboratory Tests Test 07/25/24 12:40 07/25/24 04:06 07/24/24 18:01 07/24/24 16:52 Range/Units Urine Color Light-yellow Yellow Urine Clarity Turbid H Clear Urine pH 6.5 5.0-9.0 Urine Specific [place] 1.013 1.001-1.035 Urine Protein 2+ H Negative Urine Ketones Negative Negative Urine Blood 2+ H Negative /uL Urine Nitrite Negative Negative Urine Bilirubin Negative Negative Urine Urobilinogen Normal Negative mg/dL Urine Leukocyte Esterase Trace Negative /uL Urine RBC 1 0 - 3 /hpf Urine WBC 8 0 - 3 /hpf Urine Squamous Epithelial Cells None seen <5 /hpf Urine Bacteria None seen None Seen /hpf Urine Glucose 1+ H Normal mg/dL White Blood Count 5.1 4.4-10.8 10^3/uL Red Blood Count 3.06 L 4.5-5.90 10^6/uL Hemoglobin 9.8 L 13.5-17.5 g/dL Hematocrit 29.2 #L 41.0-53.0 % Mean Corpuscular Volume 95.2 80.0-100.0 fL Mean Corpuscular Hemoglobin 31.9 28.0-32.0 pg Mean Corpuscular Hemoglobin Concent 33.6 32.0-36.0 g/dL Red Cell Distribution Width 14.7 H 11.8-14.3 % Platelet Count 54 L 140-450 10^3/uL Mean Platelet Volume 9.0 6.9-10.8 fL Neutrophils (%) (Auto) 84.1 H 37.0-80.0 % Lymphocytes (%) (Auto) 6.0 L 10.0-50.0 % Monocytes (%) (Auto) 9.7 0.0-12.0 % Eosinophils (%) (Auto) 0.1 0.0-7.0 % Basophils (%) (Auto) 0.1 0.0-2.0 % Neutrophils # (Auto) 4.3 1.6-8.6 10 ^3/uL Lymphocytes # (Auto) 0.3 L 0.4-5.4 10 ^3/uL Monocytes # (Auto) 0.5 0-1.3 10 ^3/uL Eosinophils # (Auto) 0 0-0.8 10 ^3/uL Basophils # (Auto) 0 0-0.2 10 ^3/uL Nucleated Red Blood Cells 0.0 % Sodium Level 138 136-145 mmol/L Potassium Level 4.1 3.5-5.1 mmol/L Chloride Level 99 98-107 mmol/L Carbon Dioxide Level 29 20-31 mmol/L Anion Gap 10 5-15 Blood Urea Nitrogen 64 H 9-23 mg/dL Creatinine 5.93 H 0.700-1.30 mg/dL Glomerular Filtration Rate Calc 9 >90 mL/min BUN/Creatinine Ratio 10.8 10.0-20.0 Serum Glucose 88 74-106 mg/dL Calcium Level 10.1 8.7-10.4 mg/dL Troponin I High Sensitivity 229 *H 206 *H </=54 ng/L Test 07/24/24 16:45 07/24/24 15:37 07/24/24 15:31 Range/Units POC Glucose 129 H 70-106 mg/dl White Blood Count 5.5 4.4-10.8 10^3/uL Red Blood Count 3.49 L 4.5-5.90 10^6/uL Hemoglobin 11.1 L 13.5-17.5 g/dL Hematocrit 33.1 L 41.0-53.0 % Mean Corpuscular Volume 94.7 80.0-100.0 fL Mean Corpuscular Hemoglobin 31.7 28.0-32.0 pg Mean Corpuscular Hemoglobin Concent 33.5 32.0-36.0 g/dL Red Cell Distribution Width 14.5 H 11.8-14.3 % Platelet Count 56 L 140-450 10^3/uL Mean Platelet Volume 8.8 6.9-10.8 fL Neutrophils (%) (Auto) 88.3 H 37.0-80.0 % Lymphocytes (%) (Auto) 3.1 L 10.0-50.0 % Monocytes (%) (Auto) 8.2 0.0-12.0 % Eosinophils (%) (Auto) 0.1 0.0-7.0 % Basophils (%) (Auto) 0.3 0.0-2.0 % Neutrophils # (Auto) 4.8 1.6-8.6 10 ^3/uL Lymphocytes # (Auto) 0.2 L 0.4-5.4 10 ^3/uL Monocytes # (Auto) 0.4 0-1.3 10 ^3/uL Eosinophils # (Auto) 0 0-0.8 10 ^3/uL Basophils # (Auto) 0 0-0.2 10 ^3/uL Nucleated Red Blood Cells 0.0 % Platelet Estimate Decreased Sodium Level 138 136-145 mmol/L Potassium Level 3.5 3.5-5.1 mmol/L Chloride Level 98 98-107 mmol/L Carbon Dioxide Level 31 20-31 mmol/L Anion Gap 9 5-15 Blood Urea Nitrogen 56 H 9-23 mg/dL Creatinine 5.13 H 0.700-1.30 mg/dL Glomerular Filtration Rate Calc 11 >90 mL/min BUN/Creatinine Ratio 10.9 10.0-20.0 Serum Glucose 119 H 74-106 mg/dL Calcium Level 10.2 8.7-10.4 mg/dL Total Bilirubin 0.8 0.2-1.0 mg/dL Aspartate Amino Transferase (AST) 43 H 13-40 U/L Alanine Aminotransferase (ALT) 18 7-40 U/L Alkaline Phosphatase 97 46-116 U/L Ammonia 10 L 11-32 umol/L Troponin I High Sensitivity 202 *H </=54 ng/L Total Protein 6.8 5.7-8.2 g/dL Albumin 3.9 3.2-4.8 g/dL Assessment Assessment: ESRD and HD via right arm AV graft Gram-positive cocci in clusters bacteremia. This was obtained at [facility]. Source likely from cellulitis overlying distal portion of right arm AVG Diabetes Hypertension Hyperlipidemia Hypophosphatemia Secondary hyperparathyroidism Metabolic acidosis Elevated troponin Anemia of CKD Plan: Next hemodialysis treatment on . will discuss with HD RN to cannulate distantly from overlying cellulitis Patient was seen 1 g IV vancomycin on 07/24/2024. Next vancomycin dose should ideally be given after his dialysis treatment tomorrow. Repeat blood cultures will Follow up on blood cultures from [facility]. Sevelamer 800 mg p.o. t.i.d. with meals Scott post HD to maintain hemoglobin 10 - 11 g/dl Plan discussed with: Patient, Other ADOLPH BETTS MD Jul 25, 2024 19:30
[2024-07-25 22:41] VITALS: BP 138/53; PULSE 66; RESP 18; TEMP 98.8; O2SAT 96
[2024-07-25 22:59] VITALS: BP 138/53; PULSE 66; RESP 18; TEMP 98.8; O2SAT 96
[2024-07-26] VITALS (8 sets, daily range): BP systolic 120–144; BP diastolic 40–54; PULSE 60–75; RESP 18; TEMP 98–98.8; O2SAT 94–98
--- NOTE | 2024-07-26 08:23 | DVHPN2 ---
Reviewed: Care Plan, H&P, Labs, Medications, Previous Orders, Radiology Changes from previous H/P or p: No Changes Objective Vitals Vital Signs Date Time Temp Pulse Resp B/P (MAP) Pulse Ox O2 Delivery O2 Flow Rate FiO2 07/26/24 05:00 98.6 75 18 122/45 (70) 94 98.6 07/25/24 22:59 Room Air* 0 21 Intake/Output Intake and Output 07/26/24 07:00 Intake Total 0 ml Output Total 0 ml Balance 0 ml Intake Oral 0 ml Output Urine Total 0 ml Medications Current Medications Medications Dose Ordered Sig/Melva Route Start Time Stop Time Status Last Admin Dose Admin Atorvastatin Calcium 40 mg HS PO 07/24/24 22:00 07/25/24 22:16 40 MG Apixaban 5 mg BID PO 07/24/24 22:00 07/25/24 22:16 5 MG Furosemide 40 mg DAILY PO 07/25/24 10:00 07/25/24 08:53 40 MG Sevelamer HCl 800 mg TIDWM PO 07/25/24 08:00 07/25/24 18:12 800 MG Levothyroxine Sodium 50 mcg QAM@0600 PO 07/25/24 06:00 07/26/24 06:14 50 MCG Amiodarone HCl 200 mg DAILY PO 07/25/24 10:00 07/25/24 08:52 200 MG Amlodipine Besylate 10 mg DAILY PO 07/25/24 10:00 07/25/24 08:54 10 MG Tamsulosin HCl 0.4 mg QPM PO 07/25/24 18:00 07/25/24 18:12 0.4 MG Aspirin 162 mg DAILY PO 07/25/24 10:00 07/25/24 08:53 162 MG Ondansetron HCl 4 mg Q4HP PRN IV 07/24/24 19:45 Acetaminophen 650 mg Q6HP PRN PO 07/24/24 19:45 Nitroglycerin 0.4 mg Q5MINP PRN SL 07/24/24 19:45 Morphine Sulfate 2 mg Q30M PRN IV 07/24/24 19:45 Laboratory Results Laboratory Tests 07/25/24 04:06 Urinalysis Test 07/25/24 12:40 Urine Color Light-yellow (Yellow) Urine Clarity Turbid (Clear) H Urine pH 6.5 (5.0-9.0) Urine Specific [place] 1.013 (1.001-1.035) Urine Protein 2+ (Negative) H Urine Ketones Negative (Negative) Urine Blood 2+ /uL (Negative) H Urine Nitrite Negative (Negative) Urine Bilirubin Negative (Negative) Urine Urobilinogen Normal mg/dL (Negative) Urine Leukocyte Esterase Trace /uL (Negative) Urine RBC 1 /hpf (0 - 3) Urine WBC 8 /hpf (0 - 3) Urine Squamous Epithelial Cells None seen /hpf (<5) Urine Bacteria None seen /hpf (None Seen) Urine Glucose 1+ mg/dL (Normal) H Labs and/or images reviewed: Labs reviewed by me, Image(s) reviewed by me Assessment/Plan Assessment/Plan Elevated troponin rule out NSTEMI cardiology consult for Dr. Cano appreciated, no further cardiac workup Acute encephalopathy resolving End-stage renal disease, dialysis dependent nephrology consult for Dr. Anderson Diabetes mellitus Hypertension Chronic anemia Time spent 55 minutes Patient is full code Patient feels better Dialysis today We will DC tomorrow Plan discussed with: Patient My Orders Orders - EKATERINA ROBERTSON MD Procedure Category Date Status Time *Consult CONS 07/25/[address]Mukeshchandra Menard 15:07 Mrsa Screen [place] 07/26/24 In Process 06:04 Date of Service: Jul 26, 2024 Billing Provider: EKATERINA ROBERTSON MD Common Visit Codes: [id number] INP/OBS CARE(HIGH) EKATERINA ROBERTSON MD Jul 26, 2024 08:23
--- NOTE | 2024-07-26 14:00 | DVHPN2 ---
Progress Note - Dictate Date Seen: Jul 26, 2024 Medical Necessity Reason Pt with a Central, PICC or Fol: No Subjective Patient was seen and evaluated in follow up. Patient denies any new complaints. Patient had swallow eval yesterday afternoon and is able to tolerate thin liquids. vital signs Vital Sign Date Time Temp Pulse Resp B/P (MAP) Pulse Ox O2 Delivery O2 Flow Rate FiO2 07/26/24 09:00 98.5 71 18 135/54 (81) 96 98.5 07/26/24 08:00 Room Air* 0 21 Total Intake and Output 07/25/24 07/25/24 07/26/24 15:00 23:00 07:00 Intake Total 0 ml Output Total 0 ml Balance 0 ml medications Current Medications Medications Dose Ordered Sig/Melva Route Start Time Stop Time Status Last Admin Dose Admin Atorvastatin Calcium 40 mg HS PO 07/24/24 22:00 07/25/24 22:16 40 MG Apixaban 5 mg BID PO 07/24/24 22:00 07/26/24 08:40 5 MG Furosemide 40 mg DAILY PO 07/25/24 10:00 07/26/24 08:40 40 MG Sevelamer HCl 800 mg TIDWM PO 07/25/24 08:00 07/26/24 08:39 800 MG Levothyroxine Sodium 50 mcg QAM@0600 PO 07/25/24 06:00 07/26/24 06:14 50 MCG Amiodarone HCl 200 mg DAILY PO 07/25/24 10:00 07/26/24 08:39 200 MG Amlodipine Besylate 10 mg DAILY PO 07/25/24 10:00 07/26/24 08:44 10 MG Tamsulosin HCl 0.4 mg QPM PO 07/25/24 18:00 07/25/24 18:12 0.4 MG Aspirin 162 mg DAILY PO 07/25/24 10:00 07/25/24 08:53 162 MG Ondansetron HCl 4 mg Q4HP PRN IV 07/24/24 19:45 Acetaminophen 650 mg Q6HP PRN PO 07/24/24 19:45 Nitroglycerin 0.4 mg Q5MINP PRN SL 07/24/24 19:45 Morphine Sulfate 2 mg Q30M PRN IV 07/24/24 19:45 objective GENERAL: Awake, alert, oriented. LUNGS: Clear. CARDIOVASCULAR: Heart sounds are good. ABDOMEN: Soft. laboratory and microbiology Laboratory Tests 07/25/24 04:06 Test 07/25/24 04:06 Range/Units Serum Glucose 88 74-106 mg/dL Problem List Elevated troponin. Acute encephalopathy. End-stage renal disease, dialysis dependent. Diabetes mellitus. Hypertension. Chronic anemia. Assessment/Plan Continued all current supportive medical care. Amiodarone. Amlodipine. Eliquis. Aspirin, Lipitor. Diuretics with Lasix. Morphine for pain management. Additional plan as per the hospital course. Plan discussed with: Patient ROSARIO BRAUN MD Jul 26, 2024 12:07
--- NOTE | 2024-07-26 18:33 | DVHPN2 ---
Progress Note - Dictate Date Seen: Jul 26, 2024 Medical Necessity Reason Pt with a Central, PICC or Fol: No Subjective no new symptoms vital signs Vital Sign Date Time Temp Pulse Resp B/P (MAP) Pulse Ox O2 Delivery O2 Flow Rate FiO2 07/26/24 17:00 98.0 64 18 144/54 (84) 97 98.0 07/26/24 08:00 Room Air* 0 21 Total Intake and Output 07/25/24 07/25/24 07/26/24 15:00 23:00 07:00 Intake Total 0 ml Output Total 0 ml Balance 0 ml medications Current Medications Medications Dose Ordered Sig/Melva Route Start Time Stop Time Status Last Admin Dose Admin Atorvastatin Calcium 40 mg HS PO 07/24/24 22:00 07/25/24 22:16 40 MG Apixaban 5 mg BID PO 07/24/24 22:00 07/26/24 08:40 5 MG Furosemide 40 mg DAILY PO 07/25/24 10:00 07/26/24 08:40 40 MG Sevelamer HCl 800 mg TIDWM PO 07/25/24 08:00 07/26/24 18:11 800 MG Levothyroxine Sodium 50 mcg QAM@0600 PO 07/25/24 06:00 07/26/24 06:14 50 MCG Amiodarone HCl 200 mg DAILY PO 07/25/24 10:00 07/26/24 08:39 200 MG Amlodipine Besylate 10 mg DAILY PO 07/25/24 10:00 07/26/24 08:44 10 MG Tamsulosin HCl 0.4 mg QPM PO 07/25/24 18:00 07/26/24 18:11 0.4 MG Aspirin 162 mg DAILY PO 07/25/24 10:00 07/25/24 08:53 162 MG Ondansetron HCl 4 mg Q4HP PRN IV 07/24/24 19:45 Acetaminophen 650 mg Q6HP PRN PO 07/24/24 19:45 Nitroglycerin 0.4 mg Q5MINP PRN SL 07/24/24 19:45 Morphine Sulfate 2 mg Q30M PRN IV 07/24/24 19:45 objective Gen: NAD HEENT: NC,AT Cardiac: RRR, no murmur Lungs: CTA b/l Abd: Soft, non-tender Ext: no edema b/l legs + Rt arm AVG, with overlying erythema at the distal end laboratory and microbiology Laboratory Tests 07/25/24 04:06 Test 07/25/24 04:06 Range/Units Serum Glucose 88 74-106 mg/dL Assessment/Plan Assessment: ESRD and HD via right arm AV graft Gram-positive cocci in clusters bacteremia. Source likely from cellulitis overlying distal portion of right arm AVG Diabetes Hypertension Hyperlipidemia Hypophosphatemia Secondary hyperparathyroidism Metabolic acidosis Elevated troponin Anemia of CKD Plan: Unable to accommodate patient for HD today. patient will be done early AM. Discussed with HD RN to cannulate distantly from overlying cellulitis Vancomycin per pharmacy s/p 1 g IV vancomycin on 07/24/[address] [facility]. Repeat blood cultures on 07/25 positive for gram positive cocci in clusters repeat blood cultures again will Follow up on blood cultures from [facility]. Sevelamer 800 mg p.o. t.i.d. with meals Scott post HD to maintain hemoglobin 10 - 11 g/dl Plan discussed with: Patient ADOLPH BETTS MD Jul 26, 2024 18:33
[2024-07-26] MEDS ORDERED: VANCOMYCIN PER PHARMACY 0 MG IV SCH (20:00)
[2024-07-26] MEDS: VANCOMYCIN 1.25GM/250ML 250 ML IV ONE (21:26)
[2024-07-27] VITALS (8 sets, daily range): BP systolic 114–142; BP diastolic 20–64; PULSE 61–78; RESP 18–20; TEMP 98.2–99; O2SAT 94–99
--- NOTE | 2024-07-27 06:20 | DVHPN2 ---
Progress Note - Dictate Date Seen: Jul 27, 2024 Medical Necessity Reason Pt with a Central, PICC or Fol: No Subjective no new symptoms vital signs Vital Sign Date Time Temp Pulse Resp B/P (MAP) Pulse Ox O2 Delivery O2 Flow Rate FiO2 07/27/24 01:00 98.6 78 18 126/46 (72) 96 98.6 07/26/24 20:00 Room Air* 0 21 Total Intake and Output 07/26/24 07/26/24 07/27/24 15:00 23:00 07:00 Intake Total 820 ml Balance 820 ml medications Current Medications Medications Dose Ordered Sig/Melva Route Start Time Stop Time Status Last Admin Dose Admin Atorvastatin Calcium 40 mg HS PO 07/24/24 22:00 07/26/24 21:27 40 MG Apixaban 5 mg BID PO 07/24/24 22:00 07/26/24 21:26 5 MG Furosemide 40 mg DAILY PO 07/25/24 10:00 07/26/24 08:40 40 MG Sevelamer HCl 800 mg TIDWM PO 07/25/24 08:00 07/26/24 18:11 800 MG Levothyroxine Sodium 50 mcg QAM@0600 PO 07/25/24 06:00 07/27/24 05:28 50 MCG Amiodarone HCl 200 mg DAILY PO 07/25/24 10:00 07/26/24 08:39 200 MG Amlodipine Besylate 10 mg DAILY PO 07/25/24 10:00 07/26/24 08:44 10 MG Tamsulosin HCl 0.4 mg QPM PO 07/25/24 18:00 07/26/24 18:11 0.4 MG Aspirin 162 mg DAILY PO 07/25/24 10:00 07/25/24 08:53 162 MG Ondansetron HCl 4 mg Q4HP PRN IV 07/24/24 19:45 Acetaminophen 650 mg Q6HP PRN PO 07/24/24 19:45 Nitroglycerin 0.4 mg Q5MINP PRN SL 07/24/24 19:45 Morphine Sulfate 2 mg Q30M PRN IV 07/24/24 19:45 Vancomycin HCl 0 ml @ 0 mls/hr UD IV 07/26/24 20:00 objective Gen: NAD HEENT: NC,AT Cardiac: RRR, no murmur Lungs: CTA b/l Abd: Soft, non-tender Ext: no edema b/l legs + Rt arm AVG, with overlying erythema at the distal end laboratory and microbiology Laboratory Tests 07/25/24 04:06 Test 07/25/24 04:06 Range/Units Serum Glucose 88 74-106 mg/dL Assessment/Plan Assessment: ESRD and HD via right arm AV graft Gram-positive cocci in clusters bacteremia. Source likely from cellulitis overlying distal portion of right arm AVG Diabetes Hypertension Hyperlipidemia Hypophosphatemia Secondary hyperparathyroidism Metabolic acidosis Elevated troponin Anemia of CKD Plan: Patient ended up having his dialysis yesterday (). net UF 2 L Next HD on Tuesday Discussed with HD RN to cannulate distantly from overlying cellulitis Vancomycin per pharmacy s/p 1 g IV vancomycin on 07/24/2024 at [facility]. Repeat blood cultures on 07/25 positive for gram positive cocci in clusters Repeat blood cultures again will Follow up on blood cultures from [facility]. Sevelamer 800 mg p.o. t.i.d. with meals Scott post HD to maintain hemoglobin 10 - 11 g/dl Plan discussed with: Patient ADOLPH BETTS MD Jul 27, 2024 06:20
[2024-07-27 06:47] LABS: Anion Gap 10 (5-15); Carbon Dioxide 27 mmol/L (20-31); Potassium 4.1 mmol/L (3.5-5.1)
[2024-07-27 06:48] LABS: Calcium 9.3 mg/dL (8.7-10.4)
[2024-07-27 06:49] LABS: Chloride 98 mmol/L (98-107); Sodium 135 mmol/L (136-145)
[2024-07-27 06:53] LABS: BUN/Creatinine Ratio 11.4 (10.0-20.0)
[2024-07-27 06:58] LABS: Blood Urea Nitrogen 77 mg/dL (9-23); Glucose 108 mg/dL (74-106)
--- NOTE | 2024-07-27 09:54 | DVHPN2 ---
Reviewed: Care Plan, H&P, Labs, Medications, Previous Orders, Radiology Changes from previous H/P or p: No Changes Objective Vitals Vital Signs Date Time Temp Pulse Resp B/P (MAP) Pulse Ox O2 Delivery O2 Flow Rate FiO2 07/27/24 05:00 98.2 74 18 114/40 (64) 94 98.2 07/26/24 20:00 Room Air* 0 21 Intake/Output Intake and Output 07/27/24 07:00 Intake Total 1070 ml Balance 1070 ml Intake Oral 820 ml IV Total 250 ml # Voids 2 # Bowel Movements 1 Medications Current Medications Medications Dose Ordered Sig/Melva Route Start Time Stop Time Status Last Admin Dose Admin Atorvastatin Calcium 40 mg HS PO 07/24/24 22:00 07/26/24 21:27 40 MG Apixaban 5 mg BID PO 07/24/24 22:00 07/26/24 21:26 5 MG Furosemide 40 mg DAILY PO 07/25/24 10:00 07/26/24 08:40 40 MG Sevelamer HCl 800 mg TIDWM PO 07/25/24 08:00 07/27/24 08:54 800 MG Levothyroxine Sodium 50 mcg QAM@0600 PO 07/25/24 06:00 07/27/24 05:28 50 MCG Amiodarone HCl 200 mg DAILY PO 07/25/24 10:00 07/26/24 08:39 200 MG Amlodipine Besylate 10 mg DAILY PO 07/25/24 10:00 07/26/24 08:44 10 MG Tamsulosin HCl 0.4 mg QPM PO 07/25/24 18:00 07/26/24 18:11 0.4 MG Aspirin 162 mg DAILY PO 07/25/24 10:00 07/25/24 08:53 162 MG Ondansetron HCl 4 mg Q4HP PRN IV 07/24/24 19:45 Acetaminophen 650 mg Q6HP PRN PO 07/24/24 19:45 Nitroglycerin 0.4 mg Q5MINP PRN SL 07/24/24 19:45 Morphine Sulfate 2 mg Q30M PRN IV 07/24/24 19:45 Vancomycin HCl 0 ml @ 0 mls/hr UD IV 07/26/24 20:00 Laboratory Results Laboratory Tests 07/25/24 04:06 07/27/24 06:01 Chemistry Test 07/27/24 06:01 Calcium Level 9.3 mg/dL (8.7-10.4) Urinalysis Test 07/25/24 12:40 Urine Color Light-yellow (Yellow) Urine Clarity Turbid (Clear) H Urine pH 6.5 (5.0-9.0) Urine Specific [place] 1.013 (1.001-1.035) Urine Protein 2+ (Negative) H Urine Ketones Negative (Negative) Urine Blood 2+ /uL (Negative) H Urine Nitrite Negative (Negative) Urine Bilirubin Negative (Negative) Urine Urobilinogen Normal mg/dL (Negative) Urine Leukocyte Esterase Trace /uL (Negative) Urine RBC 1 /hpf (0 - 3) Urine WBC 8 /hpf (0 - 3) Urine Squamous Epithelial Cells None seen /hpf (<5) Urine Bacteria None seen /hpf (None Seen) Urine Glucose 1+ mg/dL (Normal) H Microbiology Microbiology Date/Time Source Procedure Growth Status 07/26/24 06:00 Nose MRSA Screen - Final Complete 07/25/24 21:27 Blood Blood Culture - Preliminary Resulted Labs and/or images reviewed: Labs reviewed by me, Image(s) reviewed by me Assessment/Plan Assessment/Plan Elevated troponin rule out NSTEMI cardiology consult for Dr. Cano appreciated, no further cardiac workup Acute encephalopathy resolving Bacteremia with Gram-positive cocci in clusters: Vancomycin during dialysis End-stage renal disease, dialysis dependent nephrology consult for Dr. Anderson appreciated Diabetes mellitus Hypertension Chronic anemia Time spent 55 minutes Patient is full code Patient feels better Dialysis today Plan discussed with: Patient Date of Service: Jul 27, 2024 Billing Provider: EKATERINA ROBERTSON MD Common Visit Codes: [id number] INP/OBS CARE(HIGH) EKATERINA ROBERTSON MD Jul 27, 2024 09:54
[2024-07-27] MEDS ORDERED: ASPI-543 PO (10:28)
[2024-07-27] MEDS ORDERED: APIX5TAB PO (10:28)
[2024-07-27] MEDS ORDERED: NIFE1TAB31 PO (10:28)
[2024-07-27] MEDS ORDERED: PANT40TA2 PO (10:28)
[2024-07-27] MEDS ORDERED: ALBU108A5 IN (10:28)
--- NOTE | 2024-07-27 21:05 | DVHPN2 ---
Progress Note - Dictate Date Seen: Jul 27, 2024 Medical Necessity Reason Pt with a Central, PICC or Fol: No Subjective Patient was seen and evaluated in follow up. Family at bedside. Patient denies any new complaints. BUN 78, [employer] 6.78. Blood cultures are growing Gram Positive Cocci in clusters. vital signs Vital Sign Date Time Temp Pulse Resp B/P (MAP) Pulse Ox O2 Delivery O2 Flow Rate FiO2 07/27/24 10:24 124/62 07/27/24 09:00 98.2 64 18 98 98.2 07/26/24 20:00 Room Air* 0 21 Total Intake and Output 07/26/24 07/26/24 07/27/24 15:00 23:00 07:00 Intake Total 1070 ml Balance 1070 ml medications Current Medications Medications Dose Ordered Sig/Melva Route Start Time Stop Time Status Last Admin Dose Admin Atorvastatin Calcium 40 mg HS PO 07/24/24 22:00 07/26/24 21:27 40 MG Apixaban 5 mg BID PO 07/24/24 22:00 07/26/24 21:26 5 MG Furosemide 40 mg DAILY PO 07/25/24 10:00 07/27/24 10:24 40 MG Sevelamer HCl 800 mg TIDWM PO 07/25/24 08:00 07/27/24 08:54 800 MG Levothyroxine Sodium 50 mcg QAM@0600 PO 07/25/24 06:00 07/27/24 05:28 50 MCG Amiodarone HCl 200 mg DAILY PO 07/25/24 10:00 07/27/24 10:22 200 MG Amlodipine Besylate 10 mg DAILY PO 07/25/24 10:00 07/27/24 10:23 10 MG Tamsulosin HCl 0.4 mg QPM PO 07/25/24 18:00 07/27/24 10:22 0.4 MG Aspirin 162 mg DAILY PO 07/25/24 10:00 07/25/24 08:53 162 MG Ondansetron HCl 4 mg Q4HP PRN IV 07/24/24 19:45 Acetaminophen 650 mg Q6HP PRN PO 07/24/24 19:45 Nitroglycerin 0.4 mg Q5MINP PRN SL 07/24/24 19:45 Morphine Sulfate 2 mg Q30M PRN IV 07/24/24 19:45 Vancomycin HCl 0 ml @ 0 mls/hr UD IV 07/26/24 20:00 objective GENERAL: Awake, alert, oriented. LUNGS: Clear. CARDIOVASCULAR: Heart sounds are good. ABDOMEN: Soft. laboratory and microbiology Laboratory Tests 07/27/24 06:01 07/25/24 04:06 Test 07/27/24 06:01 Range/Units Serum Glucose 108 H 74-106 mg/dL Problem List Elevated troponin. Acute encephalopathy. End-stage renal disease, dialysis dependent. Diabetes mellitus. Hypertension. Chronic anemia. Assessment/Plan Continued all current supportive medical care. Amiodarone. Amlodipine. Eliquis. Aspirin, Lipitor. Diuretics with Lasix. Morphine for pain management. Additional plan as per the hospital course. Plan discussed with: Patient ROSARIO BRAUN MD Jul 27, 2024 11:58
[2024-07-28] VITALS (7 sets, daily range): BP systolic 131–145; BP diastolic 48–61; PULSE 60–68; RESP 18; TEMP 97.6–99.5; O2SAT 95–99
[2024-07-28] MEDS: MORPHINE SULFATE INJ 2 MG/ml SYRG IV PRN (00:16)
[2024-07-28] MEDS ORDERED: SODIUM CHL 0.9% 1000 ML BAG XX ONE (07:00)
--- NOTE | 2024-07-28 08:43 | DVHPN2 ---
Reviewed: Care Plan, H&P, Labs, Medications, Previous Orders, Radiology Changes from previous H/P or p: No Changes Objective Vitals Vital Signs Date Time Temp Pulse Resp B/P (MAP) Pulse Ox O2 Delivery O2 Flow Rate FiO2 07/28/24 06:12 99.5 64 18 132/61 (84) 97 99.5 07/27/24 20:00 Room Air* 0 21 Intake/Output Intake and Output 07/28/24 07:00 Intake Total 980 ml Balance 980 ml Intake Oral 980 ml Medications Current Medications Medications Dose Ordered Sig/Melva Route Start Time Stop Time Status Last Admin Dose Admin Atorvastatin Calcium 40 mg HS PO 07/24/24 22:00 07/27/24 22:00 40 MG Apixaban 5 mg BID PO 07/24/24 22:00 07/27/24 21:59 5 MG Furosemide 40 mg DAILY PO 07/25/24 10:00 07/27/24 10:24 40 MG Sevelamer HCl 800 mg TIDWM PO 07/25/24 08:00 07/27/24 17:08 800 MG Levothyroxine Sodium 50 mcg QAM@0600 PO 07/25/24 06:00 07/28/24 06:15 50 MCG Amiodarone HCl 200 mg DAILY PO 07/25/24 10:00 07/27/24 10:22 200 MG Amlodipine Besylate 10 mg DAILY PO 07/25/24 10:00 07/27/24 10:23 10 MG Tamsulosin HCl 0.4 mg QPM PO 07/25/24 18:00 07/27/24 10:22 0.4 MG Aspirin 162 mg DAILY PO 07/25/24 10:00 07/25/24 08:53 162 MG Ondansetron HCl 4 mg Q4HP PRN IV 07/24/24 19:45 Acetaminophen 650 mg Q6HP PRN PO 07/24/24 19:45 Nitroglycerin 0.4 mg Q5MINP PRN SL 07/24/24 19:45 Morphine Sulfate 2 mg Q30M PRN IV 07/24/24 19:45 07/28/24 00:16 2 MG Vancomycin HCl 0 ml @ 0 mls/hr UD IV 07/26/24 20:00 Laboratory Results Laboratory Tests 07/25/24 04:06 07/27/24 06:01 Urinalysis Test 07/25/24 12:40 Urine Color Light-yellow (Yellow) Urine Clarity Turbid (Clear) H Urine pH 6.5 (5.0-9.0) Urine Specific [place] 1.013 (1.001-1.035) Urine Protein 2+ (Negative) H Urine Ketones Negative (Negative) Urine Blood 2+ /uL (Negative) H Urine Nitrite Negative (Negative) Urine Bilirubin Negative (Negative) Urine Urobilinogen Normal mg/dL (Negative) Urine Leukocyte Esterase Trace /uL (Negative) Urine RBC 1 /hpf (0 - 3) Urine WBC 8 /hpf (0 - 3) Urine Squamous Epithelial Cells None seen /hpf (<5) Urine Bacteria None seen /hpf (None Seen) Urine Glucose 1+ mg/dL (Normal) H Microbiology Microbiology Date/Time Source Procedure Growth Status 07/26/24 19:35 Blood Blood Culture - Preliminary Resulted 07/26/24 06:00 Nose MRSA Screen - Final Complete Labs and/or images reviewed: Labs reviewed by me, Image(s) reviewed by me Assessment/Plan Assessment/Plan Elevated troponin rule out NSTEMI cardiology consult for Dr. Cano appreciated, no further cardiac workup Acute encephalopathy resolving Bacteremia with Gram-positive cocci in clusters: Vancomycin during dialysis, repeat blood cultures 07/26/2024 showing Gram-positive cocci in clusters End-stage renal disease, dialysis dependent nephrology consult for Dr. Anderson appreciated Diabetes mellitus Hypertension Chronic anemia Time spent 45 minutes Patient is full code Patient feels better Dialysis today Plan discussed with: Patient Date of Service: Jul 28, 2024 Billing Provider: EKATERINA ROBETRSON MD Common Visit Codes: [id number] INP/OBS CARE(HIGH) EKATERINA ROBERTSON MD Jul 28, 2024 08:43
--- NOTE | 2024-07-28 13:03 | DVHPN2 ---
Progress Note - Dictate Date Seen: Jul 28, 2024 Medical Necessity Reason Pt with a Central, PICC or Fol: No Subjective Patient was seen and evaluated in follow up. Patient complains of generalized pain. Patient's daughter/power of defense attorney Cortney at bedside. Gram stain is growing staphylococcus aureus. vital signs Vital Sign Date Time Temp Pulse Resp B/P (MAP) Pulse Ox O2 Delivery O2 Flow Rate FiO2 07/28/24 10:25 145/60 07/28/24 09:00 98.3 63 18 99 98.3 07/27/24 20:00 Room Air* 0 21 Total Intake and Output 07/27/24 07/27/24 07/28/24 15:00 23:00 07:00 Intake Total 360 ml 620 ml Balance 360 ml 620 ml medications Current Medications Medications Dose Ordered Sig/Melva Route Start Time Stop Time Status Last Admin Dose Admin Atorvastatin Calcium 40 mg HS PO 07/24/24 22:00 07/27/24 22:00 40 MG Apixaban 5 mg BID PO 07/24/24 22:00 07/27/24 21:59 5 MG Furosemide 40 mg DAILY PO 07/25/24 10:00 07/28/24 10:24 40 MG Sevelamer HCl 800 mg TIDWM PO 07/25/24 08:00 07/28/24 09:23 800 MG Levothyroxine Sodium 50 mcg QAM@0600 PO 07/25/24 06:00 07/28/24 06:15 50 MCG Amiodarone HCl 200 mg DAILY PO 07/25/24 10:00 07/28/24 10:23 200 MG Amlodipine Besylate 10 mg DAILY PO 07/25/24 10:00 07/28/24 10:25 10 MG Tamsulosin HCl 0.4 mg QPM PO 07/25/24 18:00 07/27/24 10:22 0.4 MG Aspirin 162 mg DAILY PO 07/25/24 10:00 07/25/24 08:53 162 MG Ondansetron HCl 4 mg Q4HP PRN IV 07/24/24 19:45 Acetaminophen 650 mg Q6HP PRN PO 07/24/24 19:45 Nitroglycerin 0.4 mg Q5MINP PRN SL 07/24/24 19:45 Morphine Sulfate 2 mg Q30M PRN IV 07/24/24 19:45 07/28/24 00:16 2 MG Vancomycin HCl 0 ml @ 0 mls/hr UD IV 07/26/24 20:00 objective GENERAL: Awake, alert, oriented. LUNGS: Clear. CARDIOVASCULAR: Heart sounds are good. ABDOMEN: Soft. laboratory and microbiology Laboratory Tests 07/27/24 06:01 07/25/24 04:06 Test 07/27/24 06:01 Range/Units Serum Glucose 108 H 74-106 mg/dL Problem List Elevated troponin. Acute encephalopathy. End-stage renal disease, dialysis dependent. Diabetes mellitus. Hypertension. Chronic anemia. Assessment/Plan Continued all current supportive medical care. Amiodarone. Amlodipine. Eliquis. Aspirin, Lipitor. Diuretics with Lasix. Morphine for pain management. Additional plan as per the hospital course. Plan discussed with: Patient ROSARIO BRAUN MD Jul 28, 2024 12:07
--- NOTE | 2024-07-28 13:37 | DVHPN2 ---
Progress Note - Dictate Date Seen: Jul 28, 2024 Medical Necessity Reason Pt with a Central, PICC or Fol: No Subjective no new symptoms vital signs Vital Sign Date Time Temp Pulse Resp B/P (MAP) Pulse Ox O2 Delivery O2 Flow Rate FiO2 07/28/24 10:25 145/60 07/28/24 09:00 98.3 63 18 99 98.3 07/28/24 08:00 Room Air* 0 21 Total Intake and Output 07/27/24 07/27/24 07/28/24 15:00 23:00 07:00 Intake Total 360 ml 620 ml Balance 360 ml 620 ml medications Current Medications Medications Dose Ordered Sig/Melva Route Start Time Stop Time Status Last Admin Dose Admin Atorvastatin Calcium 40 mg HS PO 07/24/24 22:00 07/27/24 22:00 40 MG Apixaban 5 mg BID PO 07/24/24 22:00 07/27/24 21:59 5 MG Furosemide 40 mg DAILY PO 07/25/24 10:00 07/28/24 10:24 40 MG Sevelamer HCl 800 mg TIDWM PO 07/25/24 08:00 07/28/24 13:10 800 MG Levothyroxine Sodium 50 mcg QAM@0600 PO 07/25/24 06:00 07/28/24 06:15 50 MCG Amiodarone HCl 200 mg DAILY PO 07/25/24 10:00 07/28/24 10:23 200 MG Amlodipine Besylate 10 mg DAILY PO 07/25/24 10:00 07/28/24 10:25 10 MG Tamsulosin HCl 0.4 mg QPM PO 07/25/24 18:00 07/27/24 10:22 0.4 MG Aspirin 162 mg DAILY PO 07/25/24 10:00 07/25/24 08:53 162 MG Ondansetron HCl 4 mg Q4HP PRN IV 07/24/24 19:45 Acetaminophen 650 mg Q6HP PRN PO 07/24/24 19:45 Nitroglycerin 0.4 mg Q5MINP PRN SL 07/24/24 19:45 Morphine Sulfate 2 mg Q30M PRN IV 07/24/24 19:45 07/28/24 00:16 2 MG Vancomycin HCl 0 ml @ 0 mls/hr UD IV 07/26/24 20:00 objective Gen: NAD HEENT: NC,AT Cardiac: RRR, no murmur Lungs: CTA b/l Abd: Soft, non-tender Ext: no edema b/l legs + Rt arm AVG, with overlying erythema at the distal end laboratory and microbiology Laboratory Tests 07/27/24 06:01 07/25/24 04:06 Test 07/27/24 06:01 Range/Units Serum Glucose 108 H 74-106 mg/dL Assessment/Plan Assessment: ESRD and HD via right arm AV graft MSSA bacteremia. Source likely from cellulitis overlying distal portion of right arm AVG Diabetes Hypertension Hyperlipidemia Hypophosphatemia Secondary hyperparathyroidism Metabolic acidosis Elevated troponin Anemia of CKD Plan: s/p HD on . Next HD today - Tuesday Discussed with HD RN to cannulate distantly from overlying cellulitis Vancomycin per pharmacy Blood cultures from on 07/24 from [facility], and on 07/25, and 07/26 are positive for staph aureus. obtain repeat blood cultures. if positive then will need to obtain ID consult, and evaluation for possible endocarditis Sevelamer 800 mg p.o. t.i.d. with meals Scott post HD to maintain hemoglobin 10 - 11 g/dl Plan discussed with: Patient ADOLPH BETTS MD Jul 28, 2024 13:37
[2024-07-28 14:06] LABS: Basophils # (auto) 0 10 ^3/uL (0-0.2); Basophils % (auto) 0.3 % (0.0-2.0); Eosinophils # (auto) 0.1 10 ^3/uL (0-0.8); Eosinophils % (auto) 2.4 % (0.0-7.0); Hematocrit 27.5 % (41.0-53.0); Hemoglobin 9.2 g/dL (13.5-17.5); Lymphocytes # (auto) 0.4 10 ^3/uL (0.4-5.4); Lymphocytes % (auto) 7.2 % (10.0-50.0); Mean Corpuscular Hemoglobin 32.2 pg (28.0-32.0); Mean Corpuscular Hgb Conc. 33.5 g/dL (32.0-36.0); Mean Corpuscular Volume 96.1 fL (80.0-100.0); Monocytes # (auto) 0.5 10 ^3/uL (0-1.3); Monocytes % (auto) 10.3 % (0.0-12.0); Neutrophils # (auto) 4.1 10 ^3/uL (1.6-8.6); Neutrophils % (auto) 79.8 % (37.0-80.0); Platelet Count (auto) 84 10^3/uL (140-450); Red Blood Cells 2.87 10^6/uL (4.5-5.90); Red Cell Distribution Width 14.8 % (11.8-14.3); White Blood Cell 5.1 10^3/uL (4.4-10.8)
[2024-07-28] MEDS: ACETAMINOPHEN 325 MG TAB PO PRN (17:44)
[2024-07-28] MEDS: EPOETIN ALFA-EPBX 4,000 UNIT/ML VIAL SC ONE (21:34)
[2024-07-29] VITALS (8 sets, daily range): BP systolic 105–134; BP diastolic 45–72; PULSE 59–102; RESP 18–20; TEMP 97.7–98.7; O2SAT 95–100
[2024-07-29 07:05] LABS: Basophils # (auto) 0 10 ^3/uL (0-0.2); Basophils % (auto) 0.4 % (0.0-2.0); Eosinophils # (auto) 0.1 10 ^3/uL (0-0.8); Eosinophils % (auto) 3.4 % (0.0-7.0); Hematocrit 27.5 % (41.0-53.0); Hemoglobin 9.3 g/dL (13.5-17.5); Lymphocytes # (auto) 0.5 10 ^3/uL (0.4-5.4); Lymphocytes % (auto) 12.6 % (10.0-50.0); Mean Corpuscular Hemoglobin 32.4 pg (28.0-32.0); Mean Corpuscular Hgb Conc. 33.7 g/dL (32.0-36.0); Mean Corpuscular Volume 96.1 fL (80.0-100.0); Monocytes # (auto) 0.5 10 ^3/uL (0-1.3); Monocytes % (auto) 13.4 % (0.0-12.0); Neutrophils # (auto) 2.8 10 ^3/uL (1.6-8.6); Neutrophils % (auto) 70.2 % (37.0-80.0); Nucleated Red Blood Cells % 0.1 %; Platelet Count (auto) 98 10^3/uL (140-450); Red Blood Cells 2.87 10^6/uL (4.5-5.90); Red Cell Distribution Width 14.5 % (11.8-14.3)
--- NOTE | 2024-07-29 09:42 | DVHPN2 ---
Reviewed: Care Plan, H&P, Labs, Medications, Previous Orders, Radiology Changes from previous H/P or p: No Changes Objective Vitals Vital Signs Date Time Temp Pulse Resp B/P (MAP) Pulse Ox O2 Delivery O2 Flow Rate FiO2 07/29/24 08:34 98.1 62 18 133/53 (79) 95 98.1 07/28/24 20:00 Room Air* 0 21 Intake/Output Intake and Output 07/29/24 07:00 Intake Total 640 ml Output Total 300 ml Balance 340 ml Intake Oral 640 ml Output Urine Total 300 ml # Bowel Movements 2 Medications Current Medications Medications Dose Ordered Sig/Melva Route Start Time Stop Time Status Last Admin Dose Admin Atorvastatin Calcium 40 mg HS PO 07/24/24 22:00 07/28/24 21:34 40 MG Apixaban 5 mg BID PO 07/24/24 22:00 07/28/24 21:33 5 MG Furosemide 40 mg DAILY PO 07/25/24 10:00 07/28/24 10:24 40 MG Sevelamer HCl 800 mg TIDWM PO 07/25/24 08:00 07/28/24 17:36 800 MG Levothyroxine Sodium 50 mcg QAM@0600 PO 07/25/24 06:00 07/29/24 06:01 50 MCG Amiodarone HCl 200 mg DAILY PO 07/25/24 10:00 07/28/24 10:23 200 MG Amlodipine Besylate 10 mg DAILY PO 07/25/24 10:00 07/28/24 10:25 10 MG Tamsulosin HCl 0.4 mg QPM PO 07/25/24 18:00 07/28/24 17:36 0.4 MG Aspirin 162 mg DAILY PO 07/25/24 10:00 07/25/24 08:53 162 MG Ondansetron HCl 4 mg Q4HP PRN IV 07/24/24 19:45 Acetaminophen 650 mg Q6HP PRN PO 07/24/24 19:45 07/28/24 17:44 650 MG Nitroglycerin 0.4 mg Q5MINP PRN SL 07/24/24 19:45 Morphine Sulfate 2 mg Q30M PRN IV 07/24/24 19:45 07/28/24 00:16 2 MG Vancomycin HCl 0 ml @ 0 mls/hr UD IV 07/26/24 20:00 Laboratory Results Laboratory Tests 07/27/24 06:01 07/29/24 06:05 Urinalysis Test 07/25/24 12:40 Urine Color Light-yellow (Yellow) Urine Clarity Turbid (Clear) H Urine pH 6.5 (5.0-9.0) Urine Specific [place] 1.013 (1.001-1.035) Urine Protein 2+ (Negative) H Urine Ketones Negative (Negative) Urine Blood 2+ /uL (Negative) H Urine Nitrite Negative (Negative) Urine Bilirubin Negative (Negative) Urine Urobilinogen Normal mg/dL (Negative) Urine Leukocyte Esterase Trace /uL (Negative) Urine RBC 1 /hpf (0 - 3) Urine WBC 8 /hpf (0 - 3) Urine Squamous Epithelial Cells None seen /hpf (<5) Urine Bacteria None seen /hpf (None Seen) Urine Glucose 1+ mg/dL (Normal) H Microbiology Microbiology Date/Time Source Procedure Growth Status 07/26/24 19:35 Blood Blood Culture - Preliminary Staphylococcus aureus Resulted 07/26/24 06:00 Nose MRSA Screen - Final Complete Labs and/or images reviewed: Labs reviewed by me, Image(s) reviewed by me Assessment/Plan Assessment/Plan Elevated troponin rule out NSTEMI cardiology consult for Dr. Cano appreciated, no further cardiac workup Acute encephalopathy resolving Bacteremia with MSSA: Vancomycin during dialysis, repeat blood cultures 07/26/2024 showing Gram-positive cocci in clusters final result pending End-stage renal disease, dialysis dependent nephrology consult for Dr. Anderson appreciated Diabetes mellitus Hypertension Chronic anemia Time spent 45 minutes Patient is full code Patient feels better Dialysis today Plan discussed with: Patient Date of Service: Jul 29, 2024 Billing Provider: EKATERINA ROBERTSON MD Common Visit Codes: [id number] INP/OBS CARE(HIGH) EKATERINA ROBERTSON MD Jul 29, 2024 09:42
--- NOTE | 2024-07-29 12:30 | DVHPN2 ---
Progress Note - Dictate Date Seen: Jul 29, 2024 Medical Necessity Reason Pt with a Central, PICC or Fol: No Subjective no new symptoms vital signs Vital Sign Date Time Temp Pulse Resp B/P (MAP) Pulse Ox O2 Delivery O2 Flow Rate FiO2 07/29/24 10:10 133/53 07/29/24 08:34 98.1 62 18 95 98.1 07/29/24 08:00 Room Air* 0 21 Total Intake and Output 07/28/24 07/28/24 07/29/24 15:00 23:00 07:00 Intake Total 240 ml 400 ml Output Total 300 ml Balance 240 ml 100 ml medications Current Medications Medications Dose Ordered Sig/Melva Route Start Time Stop Time Status Last Admin Dose Admin Atorvastatin Calcium 40 mg HS PO 07/24/24 22:00 07/28/24 21:34 40 MG Apixaban 5 mg BID PO 07/24/24 22:00 07/29/24 10:09 5 MG Furosemide 40 mg DAILY PO 07/25/24 10:00 07/29/24 10:09 40 MG Sevelamer HCl 800 mg TIDWM PO 07/25/24 08:00 07/29/24 12:22 800 MG Levothyroxine Sodium 50 mcg QAM@0600 PO 07/25/24 06:00 07/29/24 06:01 50 MCG Amiodarone HCl 200 mg DAILY PO 07/25/24 10:00 07/29/24 10:09 200 MG Amlodipine Besylate 10 mg DAILY PO 07/25/24 10:00 07/29/24 10:10 10 MG Tamsulosin HCl 0.4 mg QPM PO 07/25/24 18:00 07/28/24 17:36 0.4 MG Aspirin 162 mg DAILY PO 07/25/24 10:00 07/29/24 10:10 162 MG Ondansetron HCl 4 mg Q4HP PRN IV 07/24/24 19:45 Acetaminophen 650 mg Q6HP PRN PO 07/24/24 19:45 07/28/24 17:44 650 MG Nitroglycerin 0.4 mg Q5MINP PRN SL 07/24/24 19:45 Morphine Sulfate 2 mg Q30M PRN IV 07/24/24 19:45 07/28/24 00:16 2 MG Vancomycin HCl 0 ml @ 0 mls/hr UD IV 07/26/24 20:00 objective Gen: NAD HEENT: NC,AT Cardiac: RRR, no murmur Lungs: CTA b/l Abd: Soft, non-tender Ext: no edema b/l legs + Rt arm AVG, with overlying erythema at the distal end laboratory and microbiology Laboratory Tests 07/29/24 06:05 07/27/24 06:01 Test 07/27/24 06:01 Range/Units Serum Glucose 108 H 74-106 mg/dL Assessment/Plan Assessment: ESRD and HD via right arm AV graft MSSA bacteremia. Source likely from cellulitis overlying distal portion of right arm AVG Diabetes Hypertension Hyperlipidemia Hypophosphatemia Secondary hyperparathyroidism Metabolic acidosis Elevated troponin Anemia of CKD Plan: s/p HD on Tuesday Next HD Tuesday Discussed with HD RN to cannulate distantly from overlying cellulitis Vancomycin per pharmacy Blood cultures from on 07/24 from [facility], and on 07/25, and 07/26 are positive for staph aureus. obtain repeat blood cultures. if positive then will need to obtain ID consult, and evaluation for possible endocarditis Sevelamer 800 mg p.o. t.i.d. with meals Scott post HD to maintain hemoglobin 10 - 11 g/dl Plan discussed with: Patient ADOLPH BETTS MD Jul 29, 2024 12:30
--- NOTE | 2024-07-29 13:25 | DVH ---
RIGHT Upper Extremity Venous Duplex Clinical History: RIGHT ARM PAIN Comparison: US LT UPPER DVT on DOS: 09/30/23 Findings: Duplex Doppler evaluation of the venous system of the RIGHT lower neck and upper extremity including color Doppler and spectral/pulsed waveform analysis was performed. The internal jugular vein demonstrates appropriate compressibility and waveform variability . The subclavian vein is patent on color Doppler evaluation without intraluminal thrombus and demonstra shaunna waveform variability . The visualized portion of the brachiocephalic vein is patent on color Doppler evaluation without intr aluminal thrombus and demonstrates waveform variability . The axillary vein demonstrates appropriate compressibility and waveform variability . The brachial veins demonstrate appropriate compressibility and patency on Doppler evaluation. The basilic vein demonstrates appropriate compressibility and patency on Doppler evaluation. The cephalic vein demonstrates appropriate compressibility and patency on Doppler evaluation. Impression: No venous thrombus identified in the RIGHT upper extremity vessels evaluated above. Possible pseudoaneurysms seen involving the right brachial artery. Dedicated arterial ultrasound is recommended. If clinical concern/symptoms persist or worsen, short-interval follow-up study is suggested.
[2024-07-29] MEDS: VANCOMYCIN 500mg/100mL 100 ML IV ONE (13:50)
--- NOTE | 2024-07-29 15:18 | DVHPN2 ---
Progress Note - Dictate Date Seen: Jul 29, 2024 Medical Necessity Reason Pt with a Central, PICC or Fol: No Subjective Patient was seen and evaluated in follow up. Patient complains of generalized pain. 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 RUE venous duplex shows a possible pseudoaneurysms seen involving the right brachial artery. Patients discharge is being held until blood cultures return negative. vital signs Vital Sign Date Time Temp Pulse Resp B/P (MAP) Pulse Ox O2 Delivery O2 Flow Rate FiO2 07/29/24 12:35 97.9 102 18 134/72 (92) 96 97.9 07/29/24 08:00 Room Air* 0 21 Total Intake and Output 07/28/24 07/28/24 07/29/24 15:00 23:00 07:00 Intake Total 240 ml 400 ml Output Total 300 ml Balance 240 ml 100 ml medications Current Medications Medications Dose Ordered Sig/Melva Route Start Time Stop Time Status Last Admin Dose Admin Atorvastatin Calcium 40 mg HS PO 07/24/24 22:00 07/28/24 21:34 40 MG Apixaban 5 mg BID PO 07/24/24 22:00 07/29/24 10:09 5 MG Furosemide 40 mg DAILY PO 07/25/24 10:00 07/29/24 10:09 40 MG Sevelamer HCl 800 mg TIDWM PO 07/25/24 08:00 07/29/24 12:22 800 MG Levothyroxine Sodium 50 mcg QAM@0600 PO 07/25/24 06:00 07/29/24 06:01 50 MCG Amiodarone HCl 200 mg DAILY PO 07/25/24 10:00 07/29/24 10:09 200 MG Amlodipine Besylate 10 mg DAILY PO 07/25/24 10:00 07/29/24 10:10 10 MG Tamsulosin HCl 0.4 mg QPM PO 07/25/24 18:00 07/28/24 17:36 0.4 MG Aspirin 162 mg DAILY PO 07/25/24 10:00 07/29/24 10:10 162 MG Ondansetron HCl 4 mg Q4HP PRN IV 07/24/24 19:45 Acetaminophen 650 mg Q6HP PRN PO 07/24/24 19:45 07/28/24 17:44 650 MG Nitroglycerin 0.4 mg Q5MINP PRN SL 07/24/24 19:45 Morphine Sulfate 2 mg Q30M PRN IV 07/24/24 19:45 07/28/24 00:16 2 MG Vancomycin HCl 0 ml @ 0 mls/hr UD IV 07/26/24 20:00 objective GENERAL: Awake, alert, oriented. LUNGS: Clear. CARDIOVASCULAR: Heart sounds are good. ABDOMEN: Soft. laboratory and microbiology Laboratory Tests 07/29/24 06:05 07/27/24 06:01 Test 07/27/24 06:01 Range/Units Serum Glucose 108 H 74-106 mg/dL Problem List Elevated troponin. Acute encephalopathy. End-stage renal disease, dialysis dependent. Diabetes mellitus. Hypertension. Chronic anemia. Assessment/Plan Continued all current supportive medical care. Amiodarone. Amlodipine. Eliquis. Aspirin, Lipitor. Diuretics with Lasix. Morphine for pain management. Additional plan as per the hospital course. Plan discussed with: Patient ROSARIO BRAUN MD Jul 29, 2024 14:19
[2024-07-30 01:00] VITALS: BP 102/39; PULSE 61; RESP 18; TEMP 98.8; O2SAT 99
[2024-07-30 05:00] VITALS: BP 106/43; PULSE 66; RESP 18; TEMP 98.2; O2SAT 99
[2024-07-30 06:31] LABS: Basophils # (auto) 0 10 ^3/uL (0-0.2); Basophils % (auto) 0.6 % (0.0-2.0); Eosinophils # (auto) 0.1 10 ^3/uL (0-0.8); Eosinophils % (auto) 4.7 % (0.0-7.0); Hematocrit 27.5 % (41.0-53.0); Hemoglobin 9.3 g/dL (13.5-17.5); Lymphocytes # (auto) 0.4 10 ^3/uL (0.4-5.4); Lymphocytes % (auto) 16.2 % (10.0-50.0); Mean Corpuscular Hemoglobin 32.4 pg (28.0-32.0); Mean Corpuscular Hgb Conc. 33.9 g/dL (32.0-36.0); Mean Corpuscular Volume 95.5 fL (80.0-100.0); Monocytes # (auto) 0.3 10 ^3/uL (0-1.3); Monocytes % (auto) 13.3 % (0.0-12.0); Neutrophils # (auto) 1.6 10 ^3/uL (1.6-8.6); Neutrophils % (auto) 65.2 % (37.0-80.0); Platelet Count (auto) 123 10^3/uL (140-450); Red Blood Cells 2.88 10^6/uL (4.5-5.90); Red Cell Distribution Width 14.4 % (11.8-14.3); White Blood Cell 2.5 10^3/uL (4.4-10.8)
[2024-07-30 08:00] VITALS: PULSE 60
[2024-07-30 08:30] VITALS: BP 118/49; PULSE 64; RESP 17; TEMP 97.6; O2SAT 99
[2024-07-30] MEDS ORDERED: LEVO500T91 PO (10:16)
--- NOTE | 2024-07-30 10:19 | DVHPN2 ---
Reviewed: Care Plan, H&P, Labs, Medications, Previous Orders, Radiology Changes from previous H/P or p: No Changes Objective Vitals Vital Signs Date Time Temp Pulse Resp B/P (MAP) Pulse Ox O2 Delivery O2 Flow Rate FiO2 07/30/24 08:52 118/49 07/30/24 05:00 98.2 66 18 99 98.2 07/29/24 20:00 Room Air* 0 21 Intake/Output Intake and Output 07/30/24 07:00 Intake Total 620 ml Balance 620 ml Intake Oral 520 ml IV Total 100 ml Medications Current Medications Medications Dose Ordered Sig/Melva Route Start Time Stop Time Status Last Admin Dose Admin Atorvastatin Calcium 40 mg HS PO 07/24/24 22:00 07/29/24 21:11 40 MG Apixaban 5 mg BID PO 07/24/24 22:00 07/30/24 08:51 5 MG Furosemide 40 mg DAILY PO 07/25/24 10:00 07/30/24 08:52 40 MG Sevelamer HCl 800 mg TIDWM PO 07/25/24 08:00 07/30/24 08:50 800 MG Levothyroxine Sodium 50 mcg QAM@0600 PO 07/25/24 06:00 07/30/24 06:22 50 MCG Amiodarone HCl 200 mg DAILY PO 07/25/24 10:00 07/30/24 08:50 200 MG Amlodipine Besylate 10 mg DAILY PO 07/25/24 10:00 07/30/24 08:51 10 MG Tamsulosin HCl 0.4 mg QPM PO 07/25/24 18:00 07/29/24 17:59 0.4 MG Aspirin 162 mg DAILY PO 07/25/24 10:00 07/30/24 08:51 162 MG Ondansetron HCl 4 mg Q4HP PRN IV 07/24/24 19:45 Acetaminophen 650 mg Q6HP PRN PO 07/24/24 19:45 07/29/24 20:16 650 MG Nitroglycerin 0.4 mg Q5MINP PRN SL 07/24/24 19:45 Morphine Sulfate 2 mg Q30M PRN IV 07/24/24 19:45 07/28/24 00:16 2 MG Vancomycin HCl 0 ml @ 0 mls/hr UD IV 07/26/24 20:00 Laboratory Results Laboratory Tests 07/27/24 06:01 07/30/24 05:51 Urinalysis Test 07/25/24 12:40 Urine Color Light-yellow (Yellow) Urine Clarity Turbid (Clear) H Urine pH 6.5 (5.0-9.0) Urine Specific [place] 1.013 (1.001-1.035) Urine Protein 2+ (Negative) H Urine Ketones Negative (Negative) Urine Blood 2+ /uL (Negative) H Urine Nitrite Negative (Negative) Urine Bilirubin Negative (Negative) Urine Urobilinogen Normal mg/dL (Negative) Urine Leukocyte Esterase Trace /uL (Negative) Urine RBC 1 /hpf (0 - 3) Urine WBC 8 /hpf (0 - 3) Urine Squamous Epithelial Cells None seen /hpf (<5) Urine Bacteria None seen /hpf (None Seen) Urine Glucose 1+ mg/dL (Normal) H Microbiology Microbiology Date/Time Source Procedure Growth Status 07/28/24 16:00 Blood Blood Culture - Preliminary NO GROWTH AFTER 24 HOURS OF INCUBATION. Resulted 07/26/24 06:00 Nose MRSA Screen - Final Complete Labs and/or images reviewed: Labs reviewed by me, Image(s) reviewed by me Assessment/Plan Assessment/Plan Non ST-elevation [place] type [address] Cano appreciated, no further cardiac workup Acute encephalopathy resolving Bacteremia with MSSA: Vancomycin during dialysis, repeat blood cultures 07/28/2024 negative we will DC home on p.o. Levaquin End-stage renal disease, dialysis dependent nephrology consult for Dr. Anderson appreciated Diabetes mellitus Hypertension Chronic anemia Time spent 45 minutes Patient is full code Patient feels better Dialysis today Plan discussed with: Patient My Orders Orders - EKATERINA ROBERTSON MD Procedure Category Date Status Time Rt Upper Dvt US 07/29/24 Resulted 10:49 Date of Service: Jul 30, 2024 Billing Provider: EKATERINA ROBERTSON MD Common Visit Codes: [id number] INP/OBS CARE(HIGH) EKATERINA ROBERTSON MD Jul 30, 2024 10:18
--- NOTE | 2024-07-30 10:44 | DVHDS2 ---
Discharge Summary Date of Admission Jul 24, 2024 at 19:39 Date of Discharge: Jul 30, 2024 Admitting Diagnosis Generalized weakness Wounds: None Labs/Diagnostic Data: Laboratory Results Test 07/30/24 05:51 07/27/24 06:01 07/25/24 12:40 07/24/24 18:01 White Blood Count 2.5 10^3/uL (4.4-10.8) Red Blood Count 2.88 10^6/uL (4.5-5.90) Hemoglobin 9.3 g/dL (13.5-17.5) Hematocrit 27.5 % (41.0-53.0) Mean Corpuscular Volume 95.5 fL (80.0-100.0) Mean Corpuscular Hemoglobin 32.4 pg (28.0-32.0) Mean Corpuscular Hemoglobin Concent 33.9 g/dL (32.0-36.0) Red Cell Distribution Width 14.4 % (11.8-14.3) Platelet Count 123 10^3/uL (140-450) Mean Platelet Volume 9.0 fL (6.9-10.8) Neutrophils (%) (Auto) 65.2 % (37.0-80.0) Lymphocytes (%) (Auto) 16.2 % (10.0-50.0) Monocytes (%) (Auto) 13.3 % (0.0-12.0) Eosinophils (%) (Auto) 4.7 % (0.0-7.0) Basophils (%) (Auto) 0.6 % (0.0-2.0) Neutrophils # (Auto) 1.6 10 ^3/uL (1.6-8.6) Lymphocytes # (Auto) 0.4 10 ^3/uL (0.4-5.4) Monocytes # (Auto) 0.3 10 ^3/uL (0-1.3) Eosinophils # (Auto) 0.1 10 ^3/uL (0-0.8) Basophils # (Auto) 0 10 ^3/uL (0-0.2) Nucleated Red Blood Cells 0.0 % Creatinine 8.20 mg/dL (0.700-1.30) Glomerular Filtration Rate Calc 6 mL/min (>90) Random Vancomycin Level 18.4 ug/mL (5-10) Sodium Level 135 mmol/L (136-145) Potassium Level 4.1 mmol/L (3.5-5.1) Chloride Level 98 mmol/L (98-107) Carbon Dioxide Level 27 mmol/L (20-31) Anion Gap 10 (5-15) Blood Urea Nitrogen 77 mg/dL (9-23) BUN/Creatinine Ratio 11.4 (10.0-20.0) Serum Glucose 108 mg/dL (74-106) Calcium Level 9.3 mg/dL (8.7-10.4) Urine Color Light-yellow (Yellow) Urine Clarity Turbid (Clear) Urine pH 6.5 (5.0-9.0) Urine Specific [place] 1.013 (1.001-1.035) Urine Protein 2+ (Negative) Urine Ketones Negative (Negative) Urine Blood 2+ /uL (Negative) Urine Nitrite Negative (Negative) Urine Bilirubin Negative (Negative) Urine Urobilinogen Normal mg/dL (Negative) Urine Leukocyte Esterase Trace /uL (Negative) Urine RBC 1 /hpf (0 - 3) Urine WBC 8 /hpf (0 - 3) Urine Squamous Epithelial Cells None seen /hpf (<5) Urine Bacteria None seen /hpf (None Seen) Urine Glucose 1+ mg/dL (Normal) Troponin I High Sensitivity 229 ng/L (</=54) Test 07/24/24 16:45 07/24/24 15:37 07/24/24 15:31 POC Glucose 129 mg/dl (70-106) Platelet Estimate Decreased Total Bilirubin 0.8 mg/dL (0.2-1.0) Aspartate Amino Transferase (AST) 43 U/L (13-40) Alanine Aminotransferase (ALT) 18 U/L (7-40) Alkaline Phosphatase 97 U/L (46-116) Ammonia 10 umol/L (11-32) Total Protein 6.8 g/dL (5.7-8.2) Albumin 3.9 g/dL (3.2-4.8) Other Laboratory Tests 07/30/24 05:51 07/27/24 06:01 Brief Hx & Hospital Course: 73-year-old male with a ESRD on dialysis by Dr. Anderson group diabetes hypertension chronic anemia came in for chest pain and generalized weakness. Seen by Cardiology Dr. Cano non ST elevation type 2 [place] no further cardiac workup blood cultures grew MSSA treated with the vancomycin during dialysis the repeat blood cultures came negative MSSA is also sensitive to Levaquin patient feels better and being discharged home on p.o. Levaquin for 10 days. He will follow up with Dr. Anderson for regular dialysis. Consults/Reason for consult Dr. Anderson Operations or Procedures Hemodialysis by Dr. Anderson group Condition at Discharge: Fair Final Diagnosis/Problems List Non ST-elevation [place] type [address] Cano appreciated, no further cardiac workup Acute encephalopathy resolving Bacteremia with MSSA: Vancomycin during dialysis, repeat blood cultures 07/28/2024 negative we will DC home on p.o. Levaquin End-stage renal disease, dialysis dependent nephrology consult for Dr. 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 daily #10 36 (Time Taken for discharge summary 36 minutes) Discharge Statement: "Patient was advised to return to the ER or call 911 if any headaches, dizziness, shortness of breath, chest pain, abdominal pain, bleeding, fevers, or worsening of medical condition. Patient was counseled about treatment plan, medications, possible side effects, patientverbalized understanding. All questions were answered to the best of my ability. This discharge took greater then 30 minutes in planning, reviewing documentation, counseling the patient, and discussing with other team members." ASSESSMENT ASSESSMENT Hospital Course Improved Assessment Non ST-elevation [place] type [address] Cano appreciated, no further cardiac workup Acute encephalopathy resolving Bacteremia with MSSA: Vancomycin during dialysis, repeat blood cultures 07/28/2024 negative we will DC home on p.o. Levaquin End-stage renal disease, dialysis dependent nephrology consult for Dr. Anderson appreciated Diabetes mellitus Hypertension Chronic anemia Date of Service: Jul 30, 2024 Billing Provider: EKATERINA ROBERTSON MD Common Visit Codes: [id number] DISCH DAY >30min EKATERINA ROBERTSON MD Jul 30, 2024 10:44
[2024-07-30 12:13] VITALS: BP 118/49; PULSE 64; RESP 17; TEMP 97.6; O2SAT 99
--- NOTE | 2024-07-30 12:50 | DVHPN2 ---
Progress Note - Dictate Date Seen: Jul 30, 2024 Medical Necessity Reason Pt with a Central, PICC or Fol: No Subjective Repeat blood culture done on the have been negative. vital signs Vital Sign Date Time Temp Pulse Resp B/P (MAP) Pulse Ox O2 Delivery O2 Flow Rate FiO2 07/30/24 12:13 97.6 64 17 99 07/30/24 08:52 118/49 07/29/24 20:00 Room Air* 0 21 Total Intake and Output 07/29/24 07/29/24 07/30/24 15:00 23:00 07:00 Intake Total 100 ml 520 ml Balance 100 ml 520 ml medications Current Medications Medications Dose Ordered Sig/Melva Route Start Time Stop Time Status Last Admin Dose Admin Atorvastatin Calcium 40 mg HS PO 07/24/24 22:00 07/29/24 21:11 40 MG Apixaban 5 mg BID PO 07/24/24 22:00 07/30/24 08:51 5 MG Furosemide 40 mg DAILY PO 07/25/24 10:00 07/30/24 08:52 40 MG Sevelamer HCl 800 mg TIDWM PO 07/25/24 08:00 07/30/24 08:50 800 MG Levothyroxine Sodium 50 mcg QAM@0600 PO 07/25/24 06:00 07/30/24 06:22 50 MCG Amiodarone HCl 200 mg DAILY PO 07/25/24 10:00 07/30/24 08:50 200 MG Amlodipine Besylate 10 mg DAILY PO 07/25/24 10:00 07/30/24 08:51 10 MG Tamsulosin HCl 0.4 mg QPM PO 07/25/24 18:00 07/29/24 17:59 0.4 MG Aspirin 162 mg DAILY PO 07/25/24 10:00 07/30/24 08:51 162 MG Ondansetron HCl 4 mg Q4HP PRN IV 07/24/24 19:45 Acetaminophen 650 mg Q6HP PRN PO 07/24/24 19:45 07/29/24 20:16 650 MG Nitroglycerin 0.4 mg Q5MINP PRN SL 07/24/24 19:45 Morphine Sulfate 2 mg Q30M PRN IV 07/24/24 19:45 07/28/24 00:16 2 MG Vancomycin HCl 0 ml @ 0 mls/hr UD IV 07/26/24 20:00 objective Gen: NAD HEENT: NC,AT Cardiac: RRR, no murmur Lungs: CTA b/l Abd: Soft, non-tender Ext: no edema b/l legs + Rt arm AVG, with overlying erythema at the distal end laboratory and microbiology Laboratory Tests 07/30/24 05:51 07/27/24 06:01 Test 07/27/24 06:01 Range/Units Serum Glucose 108 H 74-106 mg/dL Problem List ESRD on HD via right arm AV graft MSSA bacteremia. Source likely from cellulitis overlying distal portion of right arm AVG Diabetes Hypertension Hyperlipidemia Hypophosphatemia Secondary hyperparathyroidism Metabolic acidosis Elevated troponin Anemia of CKD Assessment/Plan Plan: Continue dialysis on TTS schedule. Repeat blood cultures on the was negative. Patient being discharged on p.o. Levaquin We will continue vancomycin in the dialysis unit. Plan discussed with: Other TOM SMITH MD Jul 30, 2024 12:50
--- NOTE | 2024-07-30 23:10 | DVHPN2 ---
Progress Note - Dictate Date Seen: Jul 30, 2024 Medical Necessity Reason Pt with a Central, PICC or Fol: No Subjective Patient was seen and evaluated in follow up. Patient has no new complaints at this time. Patient denies any cardiac symptoms. Patient is cardiac stable for discharge. vital signs Vital Sign Date Time Temp Pulse Resp B/P (MAP) Pulse Ox O2 Delivery O2 Flow Rate FiO2 07/30/24 12:13 97.6 64 17 99 07/30/24 08:52 118/49 07/30/24 08:00 Room Air* 0 21 Total Intake and Output 07/29/24 07/29/24 07/30/24 15:00 23:00 07:00 Intake Total 100 ml 520 ml Balance 100 ml 520 ml objective GENERAL: Awake, alert, oriented. LUNGS: Clear. CARDIOVASCULAR: Heart sounds are good. ABDOMEN: Soft. laboratory and microbiology Laboratory Tests 07/30/24 05:51 07/27/24 06:01 Test 07/27/24 06:01 Range/Units Serum Glucose 108 H 74-106 mg/dL Problem List Elevated troponin. Acute encephalopathy. End-stage renal disease, dialysis dependent. Diabetes mellitus. Hypertension. Chronic anemia. Assessment/Plan Continued all current supportive medical care. Amiodarone. Amlodipine. Eliquis. Aspirin, Lipitor. Diuretics with Lasix. Morphine for pain management. Additional plan as per the hospital course. Plan discussed with: Patient ROSARIO BRAUN MD Jul 30, 2024 23:10
== END 2024-07-30 12:50 | disposition home or self-care (01) | DRG 52 ==
LOC: ER 14:05 → EDBD 14:05 → TELE 19:39 → TELE-EAST 07-25 22:41
PROVIDERS: ADMIT Nurse Practitioner; ATTEND Family Medicine
PROC: 5A1D70Z Performance of Urinary Filtration, Intermittent, Less than 6 Hours Per Day (ICD-10-PCS; principal; 2024-07-26)
DX: G93.41 Metabolic encephalopathy (principal); I21.A1 Myocardial infarction type 2; E87.20 Acidosis, unspecified; R78.81 Bacteremia; D63.1 Anemia in chronic kidney disease; E83.39 Other disorders of phosphorus metabolism; I12.0 Hypertensive chronic kidney disease with stage 5 chronic kidney disease or end stage renal disease; L03.113 Cellulitis of right upper limb; N18.6 End stage renal disease; E11.22 Type 2 diabetes mellitus with diabetic chronic kidney disease; N25.81 Secondary hyperparathyroidism of renal origin; E78.5 Hyperlipidemia, unspecified; B95.61 Methicillin susceptible Staphylococcus aureus infection as the cause of diseases classified elsewhere; Z99.2 Dependence on renal dialysis; Z88.0 Allergy status to penicillin; Z88.6 Allergy status to analgesic agent; Z83.3 Family history of diabetes mellitus; Z82.49 Family history of ischemic heart disease and other diseases of the circulatory system; Z82.3 Family history of stroke; Z86.73 Personal history of transient ischemic attack (TIA), and cerebral infarction without residual deficits
CPT/HCPCS: 36415; 70450; 71045; 80048; 80053; 80202; 81001; 82140; 82565; 82962; 84484; 85025; 87040; 87077; 87081; 87186; 90935; 92610; 93005; 93971; 99291; G0378

== ENCOUNTER 2024-09-03 10:53 | Inpatient (IN) | payer MEDICAID ==
[~2024-09-03] VITALS: Ht 172.7 cm; Wt 73.9 kg
[2024-09-03] VITALS (10 sets, daily range): BP systolic 106–132; BP diastolic 40–68; PULSE 60–110; RESP 13–18; TEMP 97.7–98.1; O2SAT 100
[~2024-09-03 10:53] MED LIST changes: +ALBU108A5 IN; +APIX5TAB PO; +ASPI-543 PO; -KETO0.5S31 RIGHTEYE; -LACT10SO70 PO; +LEVO500T91 PO; +NIFE1TAB31 PO; +PANT40TA2 PO; -PRED1SUS4 RIGHTEYE; -SODIGRA3 OR
--- NOTE | 2024-09-03 11:10 | ECG ---
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
--- NOTE | 2024-09-03 11:56 | ED.PDOC ---
SOB-HPI HPI Comments 73 y.o male with PMHx of VA x5, HTN, hyperlipidemia, ESRD, Dialysis M,W,F, anemia, pacemaker, hypothyroidism, and anemia, presents to the ED via EMS for a chief complaint of SOB associated with generalized weakness, posterior headache, nausea, vomiting, hemoptysis and nose bleeds that presented x 1 week ago. Patient reports no recent illness or contact exposure. Patient reports missing dialysis today and also states recent infection to the right AVG, was placed on Vancomycin and had surgery x 15 days ago. Patient mentions coughing up large amount of blood clots as well with nose bleeds. No active bleeding at this time. Patient denies any chest pain, fever, chills. Chief Complaint: General Weakness Time Seen by MD: 11:15 Primary Care Provider: unknown Reviewed notes: Nurses Notes, Hardware Assembler Notes, Medications, Allergies Information Source: Patient Mode of Arrival: EMS Severity: Moderate Timing: Weeks (1) Duration: Since onset Context: At Rest PE Risk Factors: Other Modifying Factors: Nothing Associated Signs and Symptoms: Other Past Medical History PAST MEDICAL HISTORY: DM, ESRD, High Lipids, HTN, VA (5), PAD Surgical History: Cholecystectomy, Pacemaker Surgical History (Other): cataracts Family History Family History: No family hx of DM, No family hx of HTN, Unobtainable Social History Smoker: Non-Smoker Alcohol: Denies ETOH Use Drugs: Denies Drug Use Lives In: Home Constitutional: reports: weakness; denies: chills, diaphoresis, fatigue, fever, malaise, sweats, others EENTM: reports: nose bleeding; denies: blurred vision, double vision, ear bleeding, ear discharge, ear drainage, ear pain, ear ringing, eye pain, eye redness, hearing loss, mouth pain, mouth swelling, nasal discharge, nose congestion, nose pain, photophobia, tearing, throat pain, throat swelling, voice changes, others Respiratory: reports: cough, hemoptysis, SOB at rest, shortness of breath, SOB with excertion; denies: orthopnea, stridor, wheezing, others Cardiovascular: denies: chest pain, dizzy spells, diaphoresis, Dyspnea on exertion, edema, irregular heart beat, left arm pain, lightheadedness, palpitations, PND, syncope, others Gastrointestinal: reports: nausea, vomiting; denies: abdomen distended, abdominal pain, blood streaked bowels, constipated, diarrhea, dysphagia, difficulty swallowing, hematemesis, melena, poor appetite, poor fluid intake, rectal bleeding, rectal pain, others Genitourinary: denies: burning, dysuria, flank pain, frequency, hematuria, incontinence, penile discharge, penile sore, pain, testicle pain, testicle swelling, urgency, others Neurological: denies: dizziness, fainting, headache, left sided numbness, left sided weakness, numbness, paresthesia, pre-existing deficit, right sided numbness, right sided weakness, seizure, speech problems, tingling, tremors, weakness, others Musculoskeletal: denies: back pain, gout, joint pain, joint swelling, muscle pain, muscle stiffness, neck pain, others Integumetry: denies: bruises, change in color, change in hair/nails, dryness, laceration, lesions, lumps, rash, wounds, others Allergic/Immunocompromised: denies: Difficulty Healing, Frequent Infections, Hives, Itching, others Hematologic/Lymphatic: denies: anemia, blood clots, easy bleeding, easy bruising, swollen glands, others Endocrine: denies: excessive hunger, excessive sweating, excessive thirst, excessive urination, flushing, intolerance to cold, intolerance to heat, unexplained weight gain, unexplained weight loss, others Psychiatric: denies: anxiety, bipolar disorder, depression, hopeless, panic disorder, schizophrenia, sleepless, suicidal, others All Other Systems: Reviewed and Negative Physical Exam General Appearance: No Apparent Distress, Thin HEENT: Other (Pupils symmetric. No facial asymmetry.) Neck: Full Range of Motion, Normal Inspection Respiratory: No Accessory Muscle Use, No Respiratory Distress, Wheezing (Audible), Other (Right chest hemodialysis catheter in place) Cardiovascular: No Edema, No JVD, Regular Rate/Rhythm Breast Exam: Deferred Gastrointestinal: Non Tender, Soft Genitalia: Deferred Pelvic: Deferred Rectal: Deferred Extremities: Normal inspection, Normal range of motion, Non-tender, No pedal edema Neurologic: Alert (Oriented x4), Normal Affect, Normal Mood, Other (No gross focal deficit) Cerebellar Function: NOT DONE Reflexes: NOT DONE Skin: Dry, Pallor, Warm Lymphatic: NOT DONE EKG EKG : Comments Atrial paced rhythm, rate 70, SD 239, QRS 132, QTC 506, left axis deviation, nonspecific intraventricular conduction delay no ST/T changes. Was a procedure done? Was a procedure done?: No Differential Dx Differential Diagnosis: Bronchitis, CHF, COPD, Myocardial infarction, Pneumonia, Pulmonary Embolism, Respiratory Distress, URI Comments Fluid overload/CHF, anemia, coagulopathy, among others X-Ray, Labs, Meds, VS Vital Signs Date Time Temp Pulse Resp B/P (MAP) Pulse Ox O2 Delivery O2 Flow Rate FiO2 09/03/24 14:01 97.6 09/03/24 14:00 60 14 167/65 (99) 100 09/03/24 13:10 69 19 120/56 (77) 98 09/03/24 13:00 60 16 162/62 (95) 100 09/03/24 12:15 12 98 Room Air* 0 21 09/03/24 12:00 62 14 161/67 (98) 100 09/03/24 11:07 110 16 165/76 (105) 100 09/03/24 11:07 110 16 100 Room Air* 0 21 09/03/24 11:02 97.6 110 14 165/76 (105) 100 09/03/24 11:00 70 Lab Test 09/03/24 14:46 09/03/24 12:48 09/03/24 12:00 Range/Units Troponin I High Sensitivity Pending 68 *H 65 *H </=54 ng/L White Blood Count 3.4 L 4.4-10.8 10^3/uL Red Blood Count 1.30 L 4.5-5.90 10^6/uL Hemoglobin 4.3 *L 13.5-17.5 g/dL Hematocrit 13.8 L 41.0-53.0 % Mean Corpuscular Volume 105.8 H 80.0-100.0 fL Mean Corpuscular Hemoglobin 32.9 H 28.0-32.0 pg Mean Corpuscular Hemoglobin Concent 31.1 L 32.0-36.0 g/dL Red Cell Distribution Width 19.7 H 11.8-14.3 % Platelet Count 67 L 140-450 10^3/uL Mean Platelet Volume 8.9 6.9-10.8 fL Neutrophils (%) (Auto) 78.7 37.0-80.0 % Lymphocytes (%) (Auto) 11.0 10.0-50.0 % Monocytes (%) (Auto) 7.0 0.0-12.0 % Eosinophils (%) (Auto) 2.9 0.0-7.0 % Basophils (%) (Auto) 0.4 0.0-2.0 % Neutrophils # (Auto) 2.6 1.6-8.6 10 ^3/uL Lymphocytes # (Auto) 0.4 0.4-5.4 10 ^3/uL Monocytes # (Auto) 0.2 0-1.3 10 ^3/uL Eosinophils # (Auto) 0.1 0-0.8 10 ^3/uL Basophils # (Auto) 0 0-0.2 10 ^3/uL Nucleated Red Blood Cells 0.1 % Sodium Level 142 136-145 mmol/L Potassium Level 4.0 3.5-5.1 mmol/L Chloride Level 108 H 98-107 mmol/L Carbon Dioxide Level 16 L 20-31 mmol/L Anion Gap 18 H 5-15 Blood Urea Nitrogen > 150 *H 9-23 mg/dL Creatinine 10.62 *H 0.700-1.30 mg/dL Glomerular Filtration Rate Calc 5 >90 mL/min BUN/Creatinine Ratio 14.1 10.0-20.0 Serum Glucose 105 74-106 mg/dL Lactic Acid Level 0.6 0.4-2.0 mmol/L Calcium Level 9.4 8.7-10.4 mg/dL Total Bilirubin 0.2 0.2-1.0 mg/dL Aspartate Amino Transferase (AST) 18 13-40 U/L Alanine Aminotransferase (ALT) 13 7-40 U/L Alkaline Phosphatase 79 46-116 U/L B-Type Natriuretic Peptide 754.57 0-100 pg/mL Total Protein 5.6 L 5.7-8.2 g/dL Albumin 3.2 3.2-4.8 g/dL Current Medications Medications (Trade) Dose Ordered Sig/Melva Route Start Time Stop Time Status Last Admin Acetaminophen (Tylenol Tablet) 650 mg ONCE ONCE PO 09/03/24 12:00 09/03/24 12:09 DC 09/03/24 14:01 Albuterol (Ventolin Medneb) 2.5 mg ONCE ONCE NEB 09/03/24 12:15 09/03/24 12:16 DC 09/03/24 12:15 Ipratropium [place] (Atrovent Medneb) 0.5 mg ONCE ONCE NEB 09/03/24 12:15 09/03/24 12:16 DC 09/03/24 12:15 X-Ray, Labs, Meds, VS Comment 73 y.o male with PMHx of VA x5, HTN, hyperlipidemia, ESRD, Dialysis M,W,F, anemia, pacemaker, hypothyroidism, and anemia, presents to the ED via EMS for a chief complaint of SOB associated with generalized weakness, posterior headache, nausea, vomiting, hemoptysis and nose bleeds that presented x 1 week ago. Vitals remarkable for BP 161/67 Exam remarkable for pallor Rhythm strip independently interpreted by me: Atrial paced rhythm, rate [address] IMPRESSION: 1. No evidence of acute intracranial abnormality. Chest x-ray IMPRESSION: Mild pulmonary congestion. CBC remarkable for WBC 3.4, hemoglobin 4.3, hematocrit 13.8, platelets 67, metabolic panel remarkable for chloride 108, CO2 16, BUN greater than 150, creatinine 10.62, serial troponins 65 and 68 Patient treated with the following in the ED Tylenol 650 mg p.o. for headache, albuterol 2.5 mg/Atrovent 0.5 mg nebulized, Typed and crossed for 2 units of packed red cells and transfusion ordered Patient was resting comfortably with normal oxygen saturation on re-evaluation. Headache had improved. Plan is to admit the patient for transfusion, Heme-Onc evaluation and Cardiology evaluation. Patient will also require hemodialysis tomorrow. Time of 1ST Reevaluation: 11:42 Reevaluation 1ST: Unchanged Patient Education/Counseling: Diagnosis, Treatment, Prognosis Family Education/Counseling: No Family Present Departure 1 Departure Time of Disposition: 15:00 Impression: Primary Impression: Symptomatic anemia Additional Impressions: Pancytopenia Elevated troponin Disposition: ADMITTED INPATIENT Admit to: [facility] Condition: Guarded Critical Care Note Critical Care Time?: Yes Critical care comment: Critical care time including multiple bedside re-evaluations, review of lab and imaging studies, and discussion of the case with the admitting provider. Patient is high risk for hemodynamic and/or respiratory decompensation. Stability Stability form required: No Heart Score Heart Score: Heart Score Response (Comments) Value History N/A 0 EKG N/A 0 Age N/A 0 Risk Factors N/A 0 Troponin N/A 0 Total 0 I personally scribed for HENRRY JANSEN MD ([email or web address]) on 09/03/24 at 11:56. Electronically submitted by Any Perez ([facility]). HENRRY JANSEN MD Sep 03, 2024 11:56
[2024-09-03] MEDS: ALBUTEROL SULF 2.5 MG/0.5ML(0.5%) NEB SOLN NEB ONE (12:15)
[2024-09-03] MEDS: IPRATROPIUM BROM 0.5 MG/2.5ML INH SOL NEB ONE (12:15)
[2024-09-03 12:36] LABS: Basophils # (auto) 0 10 ^3/uL (0-0.2); Basophils % (auto) 0.4 % (0.0-2.0); Eosinophils # (auto) 0.1 10 ^3/uL (0-0.8); Eosinophils % (auto) 2.9 % (0.0-7.0); Hematocrit 13.8 % (41.0-53.0); Lymphocytes # (auto) 0.4 10 ^3/uL (0.4-5.4); Mean Corpuscular Hemoglobin 32.9 pg (28.0-32.0); Mean Corpuscular Hgb Conc. 31.1 g/dL (32.0-36.0); Mean Corpuscular Volume 105.8 fL (80.0-100.0); Monocytes # (auto) 0.2 10 ^3/uL (0-1.3); Neutrophils # (auto) 2.6 10 ^3/uL (1.6-8.6); Neutrophils % (auto) 78.7 % (37.0-80.0); Nucleated Red Blood Cells % 0.1 %; Platelet Count (auto) 67 10^3/uL (140-450); Red Cell Distribution Width 19.7 % (11.8-14.3); White Blood Cell 3.4 10^3/uL (4.4-10.8)
[2024-09-03 12:41] LABS: Hemoglobin 4.3 g/dL (13.5-17.5)
--- NOTE | 2024-09-03 12:51 | DVH ---
EXAM: CT HEAD WITHOUT CONTRAST INDICATION: gen weak, headache TECHNIQUE: CT of the head without intravenous contrast. Coronal and sagittal reformatted images are submitted. Radiation Dose : 1. Head: CT Dose: CTDI volume is 53.8 mGy. Dose-length product is 971 0.3 mGy*cm The dose indicators for CT are the volume Computed Tomography (CT) Dose Index (CTDIvol) and the Dose Length Product (DLP), and are measured in units of mGy and mGy-cm, respectively. These indicators are not patient dose, but values generated from the CT scanner acquisition factors. The report includes radiation exposure data for exposures received during this examination. All CT scans at this medical facility are performed using dose modulation techniques as appropriate to a performed exam including the following: Automated exposure control was utilized; adjustment of the MA and/or KV according to patient size; and use of iterative reconstruction technique. COMPARISON: CT HEAD WITHOUT CONTRAST on DOS: 07/24/24 FINDINGS: There is no evidence of acute intracranial hemorrhage, extra-axial collection, mass effect, midline s hift, herniation or hydrocephalus. The ventricles, sulci and cisterns are age appropriate. The rehman-white differentiation is intact. The mastoid air cells are clear. There is mucosal thickening in the bilateral maxillary sinuses. No depressed calvarial fracture. The surrounding soft tissues are unremarkable. IMPRESSION: 1. No evidence of acute intracranial abnormality.
--- NOTE | 2024-09-03 12:53 | DVH ---
CHEST RADIOGRAPH Indication: sob, hemoptysis Technique: Single frontal view of the chest was obtained Comparison: XY CHEST PORTABLE on DOS: 07/24/24, XY CHEST PORTABLE on DOS: 10/09/23, XY CHEST PORTABLE o n DOS: 10/06/23, XY CHEST PORTABLE on DOS: 10/04/23, XY CHEST XRAY 1 VIEW on DOS: 10/03/23, XY CHEST POR TABLE on DOS: 07/24/24 FINDINGS: Lines and tubes: There is a cardiac pacer. Left hemodialysis catheter with tip in the cavoatrial junc tion. Right axillary venous stent. Cardiomediastinal silhouette: normal Pulmonary vasculature: Prominent Lung expansion: normal Lung airspace: normal Lung interstitium: normal Pleura: normal Pneumothorax: no Bones: Unremarkable Other: A vascular stent is visualized. IMPRESSION: Mild pulmonary congestion.
[2024-09-03] MEDS: ACETAMINOPHEN 325 MG TAB PO ONE (14:01)
[2024-09-03 14:15] LABS: Anion Gap 18 (5-15); BUN/Creatinine Ratio 14.1 (10.0-20.0)
[2024-09-03 14:16] LABS: Alanine Aminotransferase 13 U/L (7-40); Albumin 3.2 g/dL (3.2-4.8); Alkaline Phosphatase 79 U/L (46-116); Aspartate Aminotransferase 18 U/L (13-40); Bilirubin, Total 0.2 mg/dL (0.2-1.0); Calcium 9.4 mg/dL (8.7-10.4); Carbon Dioxide 16 mmol/L (20-31); Chloride 108 mmol/L (98-107); Glucose 105 mg/dL (74-106); Sodium 142 mmol/L (136-145); Total Protein 5.6 g/dL (5.7-8.2)
[2024-09-03 14:18] LABS: Blood Urea Nitrogen > 150 mg/dL (9-23)
--- NOTE | 2024-09-03 15:59 | DVHINCON2 ---
Date of service: Sep 03, [address] Reagan. Reason for Consultation End-stage renal disease management. History of Present Illness 73-year-old patient with significant history of end-stage renal disease on hemodialysis pacemaker placement, hypothyroidism, hypertension, [place], history of cardiac arrest who presents to the hospital with shortness of breath associated with generalized weakness upon exertion as well as posterior headache nausea and vomiting. Patient also endorses hemoptysis and epistaxis epistaxis which is sig nificant. He is on hemodialysis TTS. Evaluation in the emergency room revealed severe anemia with hemoglobin around four. Patient denies fever chills Patient completed IV vancomycin at the dialysis unit and currently on Levaquin 500 mg daily for a right AV graft infection. Past Medical History CAD, end-stage renal disease, hypertension, hyperlipidemia. Past Surgical History Av graft creation Pacemaker placement. Allergies: Coded Allergies: Ibuprofen (Verified Allergy, Unknown, 09/12/17) Penicillins (Verified Allergy, Unknown, 04/13/16) Home Meds Active Scripts Levofloxacin Hemihydrate (LEVAQUIN 500 MG) 500 Mg Tab, 1 TAB PO DAILY, #10 TAB Prov:EKATEIRNA ROBERTSON MD 07/30/24 Amiodarone Hcl (Amiodarone Hcl) 200 Mg Tab, 1 TAB PO DAILY for 60 Days, #60 TAB 1 Refill Prov:MARYBETH NASSAR NP 10/11/23 Reported Medications Aspirin (Aspir-Low) 81 Mg Tab, 81 MG PO DAILY, MG 07/27/24 Nifedipine (Nifedipine Er) 30 Mg Tab, 30 MG PO DAILY, TAB 07/27/24 Pantoprazole Sodium Sesquihydr (Protonix) 40 Mg Tab, 40 MG PO DAILY, TAB 07/27/24 Albuterol Sulfate (Albuterol Sulfate Hfa) 108 Mcg/Act Aer, 108 MCG IN Q6H PRN for SHORTNESS OF BREATH, AER 07/27/24 Apixaban Base (ELIQUIS) 5 Mg Tab, 5 MG PO BID, TAB 07/27/24 Folic Acid (Folic Acid) 1 Mg Tab, 1 TAB PO DAILY, MG 09/29/23 Furosemide (Furosemide) 40 Mg Tab, 1 TAB PO DAILY 09/29/23 Finasteride (Finasteride) 5 Mg Tab, 1 TAB PO DAILY 08/04/23 Tamsulosin Hcl (Tamsulosin Hcl) 0.4 Mg Cap, 1 CAP PO DAILY 08/04/23 Sevelamer Carbonate (Renvela) 800 Mg Tab, 3 TAB PO TID, #810 TAB 3 Refills 10/17/21 Levothyroxine Sodium (SYNTHROID TABLET) 50 Mcg Tb, 1 TAB PO QAM, TAB 07/28/18 B-Complex W/ C & Folic Acid (Alternative Education Teacher-Natanael Rx 1 mg) 1 Tab Tab, 1 TAB PO, TAB 07/28/18 Atorvastatin Calcium (Lipitor) 40 Mg Tab, 1 TAB PO DAILY 02/18/16 Current Medications Current Medications Medications (Trade) Dose Ordered Sig/Melva Route PRN Reason Start Time Stop Time Status Last Admin Famotidine (Pepcid Injection) 20 mg Q12HR IV 09/03/24 22:00 UNV Aspirin 81 mg DAILY PO 09/04/24 10:00 UNV Albuterol (Ventolin Medneb) 2.5 mg Q4HPRN PRN NEB SHORTNESS OF BREATH 09/03/24 16:00 UNV Ipratropium [place] (Atrovent Medneb) 0.5 mg Q4HPRN PRN NEB SHORTNESS OF BREATH 09/03/24 16:00 UNV Sevelamer HCl (Renagel) 800 mg TIDWM PO 09/03/24 18:00 UNV Multivit/Ca Carb/ B Cmplx/FA/Prenat (Nephro-Natanael Tablet) 1 tab DAILY PO 09/04/24 10:00 UNV Atorvastatin Calcium (Lipitor) 20 mg HS PO 09/03/24 22:00 UNV Apixaban (Eliquis) 5 mg BID PO 09/03/24 22:00 UNV Diagnostic Test (Pha) (Accu-Chek Comfort Curve T) 1 strip ACHS 09/03/24 17:00 UNV Insulin Human Regular (InsuLIN R) ACHS SC 09/03/24 17:00 UNV Dextrose 50 ml UD PRN IV Blood Sugar LESS THAN 60 09/03/24 16:00 UNV Sodium Chloride (Saline Lock Ns) 10 ml Q8HR IV 09/03/24 22:00 UNV Acetaminophen/ Hydrocodone Bitart ([place] 5/325MG Tab) 1 tab Q4HP PRN PO MODERATE PAIN (4-6 PAIN SCALE) 09/03/24 16:00 UNV Ondansetron HCl (Zofran) 4 mg Q4HP PRN IV NAUSEA / VOMITING 09/03/24 16:00 UNV Docusate Sodium (Colace Capsule) 100 mg BIDPRN PRN PO FOR CONSTIPATION 09/03/24 16:00 UNV Acetaminophen (Tylenol Tablet) 650 mg Q6HP PRN PO PAIN SCALE 1-3 OR TEMP>100.4 09/03/24 16:00 UNV Levothyroxine Sodium (Synthroid Tablet) 50 mcg QAM@0600 PO 09/04/24 06:00 UNV Family History: Cardiovascular disease G8 FATHER Cerebrovascular accident (CVA) G8 FATHER Family history: Diabetes in Family history: Diabetes mellitus G8 MOTHER, Onset:Unknown G8 FATHER, Onset:Unknown Family history: Hypertension G8 MOTHER, Onset:Unknown G8 FATHER, Onset:Unknown Social History He denies smoking alcohol or drug abuse. Review of Systems HEENT: Pale oral mucosa, epistaxis Neck no JVD Cardiovascular: Denies for chest pain denies orthopnea or PND Respiratory: Dyspnea on exertion Gastrointestinal: Denies for nausea vomiting Musculoskeletal: Denies myalgias Neurological: Generalized weakness Dermatological: Denies any rash The rest of the review of systems were reviewed pertinent positives and pertinent negatives are as per HPI up to 12 points review of systems H&P Exam Vital Signs/I&O Vital Sign Date Time Temp Pulse Resp B/P (MAP) Pulse Ox O2 Delivery O2 Flow Rate FiO2 09/03/24 14:01 97.6 09/03/24 14:00 60 14 167/65 (99) 100 09/03/24 12:15 Room Air* 0 21 Physical Exam HEENT: No evidence of JVD, no oral ulcers. Pale oral mucosa Pulmonary: Lungs are clear on auscultation bilaterally Cardiovascular S1-S2, no S3 or S4 Abdomen: Bowel sounds positive, soft no rebound tenderness Skin: No rash Neurological: Alert, oriented, no focal weakness Right upper extremity AV graft with no evidence of active bleeding, dressed Labs/Diagnostic Data Labs/Diagnostic Data Laboratory Tests Test 09/03/24 14:46 09/03/24 12:48 09/03/24 12:00 Range/Units Troponin I High Sensitivity 63 *H 68 *H 65 *H </=54 ng/L White Blood Count 3.4 L 4.4-10.8 10^3/uL Red Blood Count 1.30 L 4.5-5.90 10^6/uL Hemoglobin 4.3 *L 13.5-17.5 g/dL Hematocrit 13.8 L 41.0-53.0 % Mean Corpuscular Volume 105.8 H 80.0-100.0 fL Mean Corpuscular Hemoglobin 32.9 H 28.0-32.0 pg Mean Corpuscular Hemoglobin Concent 31.1 L 32.0-36.0 g/dL Red Cell Distribution Width 19.7 H 11.8-14.3 % Platelet Count 67 L 140-450 10^3/uL Mean Platelet Volume 8.9 6.9-10.8 fL Neutrophils (%) (Auto) 78.7 37.0-80.0 % Lymphocytes (%) (Auto) 11.0 10.0-50.0 % Monocytes (%) (Auto) 7.0 0.0-12.0 % Eosinophils (%) (Auto) 2.9 0.0-7.0 % Basophils (%) (Auto) 0.4 0.0-2.0 % Neutrophils # (Auto) 2.6 1.6-8.6 10 ^3/uL Lymphocytes # (Auto) 0.4 0.4-5.4 10 ^3/uL Monocytes # (Auto) 0.2 0-1.3 10 ^3/uL Eosinophils # (Auto) 0.1 0-0.8 10 ^3/uL Basophils # (Auto) 0 0-0.2 10 ^3/uL Nucleated Red Blood Cells 0.1 % Sodium Level 142 136-145 mmol/L Potassium Level 4.0 3.5-5.1 mmol/L Chloride Level 108 H 98-107 mmol/L Carbon Dioxide Level 16 L 20-31 mmol/L Anion Gap 18 H 5-15 Blood Urea Nitrogen > 150 *H 9-23 mg/dL Creatinine 10.62 *H 0.700-1.30 mg/dL Glomerular Filtration Rate Calc 5 >90 mL/min BUN/Creatinine Ratio 14.1 10.0-20.0 Serum Glucose 105 74-106 mg/dL Lactic Acid Level 0.6 0.4-2.0 mmol/L Calcium Level 9.4 8.7-10.4 mg/dL Total Bilirubin 0.2 0.2-1.0 mg/dL Aspartate Amino Transferase (AST) 18 13-40 U/L Alanine Aminotransferase (ALT) 13 7-40 U/L Alkaline Phosphatase 79 46-116 U/L B-Type Natriuretic Peptide 754.57 0-100 pg/mL Total Protein 5.6 L 5.7-8.2 g/dL Albumin 3.2 3.2-4.8 g/dL Imaging studies reviewed by myself Assessment Assessment: 1. End-stage renal disease on hemodialysis via right IJ tunneled line 2. Epistaxis 3. Rule out GI bleed 4. Anemia of acute blood loss and end-stage renal disease. 5. Hypertension 6. CAD 7. Status post pacemaker placement Plan and recommendations: Hemodialysis in a.m. Transfuse PRBC if hemoglobin least 7 grams/deciliter Oxygen supplementation keep pulse ox more than 90% High doses of OSMEL Would hold off on antihypertensive meds until blood pressure more than 150 then resume PPI GI consult Monitor H&H and transfuse as needed Plan of care was discussed with the daughter and the patient in detail Thank you very much for allowing us to participate in the care of this patient Plan discussed with: Patient, Daughter MELQUIADES REYES MD Sep 03, 2024 15:59
[2024-09-03] MEDS ORDERED: DEXTROSE (50%) 50ML SYRG IV PRN (16:00)
[2024-09-03] MEDS ORDERED: IPRATROPIUM BROM 0.5 MG/2.5ML INH SOL NEB PRN (16:00)
[2024-09-03] MEDS ORDERED: ONDANSETRON HCL 4 MG/2 ML VIAL IV PRN (16:00)
[2024-09-03] MEDS ORDERED: ALBUTEROL SULF 2.5 MG/0.5ML(0.5%) NEB SOLN NEB PRN (16:00)
[2024-09-03] MEDS ORDERED: HYDROcodone-ACET 5/325MG TAB PO PRN (16:00)
[2024-09-03] MEDS ORDERED: DOCUSATE SOD 100 MG CAP PO PRN (16:00)
--- NOTE | 2024-09-03 17:18 | DVHHP2 ---
History of Present Illness Reason for Visit: Symptomatic anemia History of Present Illness The patient is a 73-year-old male with past medical history of ESRD on dialysis, DM, hypertension, MO, PAD, and hyperlipidemia who presented to [facility] ED with complaint of generalized weakness. Patient reports symptoms pro gressively get worse with shortness a breath, headache, nausea, vomiting, hemoptysis, nosebleed, getting worse that prompted this visit. Patient reports missing dialysis today and also states recent infection to the right upper AV graft, was placed on Vancomycin and had surgery x 15 days prior. Patient was seen and evaluated in the ED, laboratory data shows WBC 3.4, hemoglobin 4.3, hematocrit 13.8, platelets 10709, sodium 142, potassium 4.0, BUN 150, creatinine 10.62, GFR 5, glucose 105, anion gap 18, troponin 68, blood pressure 167/65, heart rate 62, temperature 97.6 F, O2 saturation 99% on oxygen. Chest x-ray revealing mild pulmonary congestion. Please see medication orders section in the computer. On my assessment, patient denied chest pain, no headache, no dizziness, no diaphoresis, no palpitation, currently on oxygen, no abdominal pain, no diarrhea, no nausea, no vomiting, no fever, no chills. Patient was admitted for further evaluation and medical management. Past Medical History DM, ESRD, High Lipids, HTN, MO (5), PAD Past Surgical History Cholecystectomy, Pacemaker, cataracts Family History Reviewed, noncontributory to the management of this case. Past Social History The patient lives at home, denies smoking, alcohol or illicit drugs abuse. Review of Systems Constitutional: Yes: Weakness; No: Fever, Chills, Sweats, Malaise, Other Eyes: No: Pain, Vision change, Conjunctivae inflammation, Eyelid inflammation, Other, Redness ENT: Other (Nose bleeding); No: Ear pain, Ear discharge, Nose pain, Nose discharge, Nose congestion, Mouth pain, Mouth swelling, Throat pain, Throat swelling Respiratory: Cough, Shortness of breath, SOB with excertion, Hemoptysis, Other (SOB at rest); No: Dry, Wheezing, Pleuritic Pain, Sputum, Wheezing Cardiovascular: No: Chest Pain, Palpitations, Orthopnea, Paroxysmal Noc. Dyspnea, Edema, Lt Headedness, Other Gastrointestinal: No: Nausea, Vomiting, Abdominal Pain, Diarrhea, Constipation, Melena, Hematochezia, Other Genitourinary: No Dysuria, No Frequency, No Incontinence, No Hematuria, No Retention, No Other Musculoskeletal: No: other, neck pain, shoulder pain, arm pain, back pain, hand pain, leg pain, foot pain Skin: No: Rash, Lesions, Jaundice, Bruising, Other Neurological: No: Weakness, Numbness, Incoordination, Change in speech, Confusion, Seizures, Other Allergies: Coded Allergies: Ibuprofen (Verified Allergy, Unknown, 09/12/17) Penicillins (Verified Allergy, Unknown, 04/13/16) Medications Current Medications Medications Dose Ordered Sig/Melva Route Start Time Stop Time Status Last Admin Dose Admin Famotidine 10 mg DAILY IV 09/03/24 22:00 Aspirin 81 mg DAILY PO 09/04/24 10:00 Albuterol 2.5 mg Q4HPRN PRN NEB 09/03/24 16:00 Ipratropium [place] 0.5 mg Q4HPRN PRN NEB 09/03/24 16:00 Sevelamer HCl 800 mg TIDWM PO 09/03/24 18:00 Multivit/Ca Carb/ B Cmplx/FA/Prenat 1 tab DAILY PO 09/04/24 10:00 Atorvastatin Calcium 20 mg HS PO 09/03/24 22:00 UNV Apixaban 5 mg BID PO 09/03/24 22:00 Diagnostic Test (Pha) 1 strip ACHS 09/03/24 17:00 Insulin Human Regular ACHS SC 09/03/24 17:00 Dextrose 50 ml UD PRN IV 09/03/24 16:00 Sodium Chloride 10 ml Q8HR IV 09/03/24 22:00 Acetaminophen/ Hydrocodone Bitart 1 tab Q4HP PRN PO 09/03/24 16:00 Ondansetron HCl 4 mg Q4HP PRN IV 09/03/24 16:00 UNV Docusate Sodium 100 mg BIDPRN PRN PO 09/03/24 16:00 Acetaminophen 650 mg Q6HP PRN PO 09/03/24 16:00 Levothyroxine Sodium 50 mcg QAM@0600 PO 09/04/24 06:00 Exam Vital Signs Vital Signs Date Time Temp Pulse Resp B/P (MAP) Pulse Ox O2 Delivery O2 Flow Rate FiO2 09/03/24 16:29 60 09/03/24 14:01 97.6 09/03/24 14:00 14 167/65 (99) 100 09/03/24 12:15 Room Air* 0 21 General Appearance: Alert, Oriented X3, Cooperative, No acute distress HEENT: Atraumatic, PERRLA, EOMI, Mucous membr. moist/pink Respiratory: Normal air movement, Other (Diminished breath sounds) Cardiovascular: Regular rate, Normal S1, Normal S2, No murmurs Abdominal: Normal bowel sounds, Soft, No tenderness, No hepatospenomegaly, No masses Extremities: No clubbing, No cyanosis, No edema, Normal pulses, No tenderness/swelling Skin: No rashes, No breakdown, No significant lesion Neuro: Normal speech, Normal tone, Sensation intact, Cranial nerves 3-12 NL, Reflexes 2+, Other (Generalized weakness) Psych/Mental Status: Mental status NL, Mood NL Labs/Xrays Labs Test 09/03/24 14:46 09/03/24 12:00 Range/Units Troponin I High Sensitivity 63 *H </=54 ng/L White Blood Count 3.4 L 4.4-10.8 10^3/uL Red Blood Count 1.30 L 4.5-5.90 10^6/uL Hemoglobin 4.3 *L 13.5-17.5 g/dL Hematocrit 13.8 L 41.0-53.0 % Mean Corpuscular Volume 105.8 H 80.0-100.0 fL Mean Corpuscular Hemoglobin 32.9 H 28.0-32.0 pg Mean Corpuscular Hemoglobin Concent 31.1 L 32.0-36.0 g/dL Red Cell Distribution Width 19.7 H 11.8-14.3 % Platelet Count 67 L 140-450 10^3/uL Mean Platelet Volume 8.9 6.9-10.8 fL Neutrophils (%) (Auto) 78.7 37.0-80.0 % Lymphocytes (%) (Auto) 11.0 10.0-50.0 % Monocytes (%) (Auto) 7.0 0.0-12.0 % Eosinophils (%) (Auto) 2.9 0.0-7.0 % Basophils (%) (Auto) 0.4 0.0-2.0 % Neutrophils # (Auto) 2.6 1.6-8.6 10 ^3/uL Lymphocytes # (Auto) 0.4 0.4-5.4 10 ^3/uL Monocytes # (Auto) 0.2 0-1.3 10 ^3/uL Eosinophils # (Auto) 0.1 0-0.8 10 ^3/uL Basophils # (Auto) 0 0-0.2 10 ^3/uL Nucleated Red Blood Cells 0.1 % Sodium Level 142 136-145 mmol/L Potassium Level 4.0 3.5-5.1 mmol/L Chloride Level 108 H 98-107 mmol/L Carbon Dioxide Level 16 L 20-31 mmol/L Anion Gap 18 H 5-15 Blood Urea Nitrogen > 150 *H 9-23 mg/dL Creatinine 10.62 *H 0.700-1.30 mg/dL Glomerular Filtration Rate Calc 5 >90 mL/min BUN/Creatinine Ratio 14.1 10.0-20.0 Serum Glucose 105 74-106 mg/dL Lactic Acid Level 0.6 0.4-2.0 mmol/L Calcium Level 9.4 8.7-10.4 mg/dL Total Bilirubin 0.2 0.2-1.0 mg/dL Aspartate Amino Transferase (AST) 18 13-40 U/L Alanine Aminotransferase (ALT) 13 7-40 U/L Alkaline Phosphatase 79 46-116 U/L B-Type Natriuretic Peptide 754.57 0-100 pg/mL Total Protein 5.6 L 5.7-8.2 g/dL Albumin 3.2 3.2-4.8 g/dL PATIENT: JUSTINE MATHEW ACCT: [id number] UNIT: [id number] : 1950 LOC: ER ROOM / BED: / AGE / SEX: 73 / M ADM STATUS: REG ER SERVICE 1148 ORDERING PHYSICIAN: HENRRY JANSEN MD PROCEDURE(s): HWOCT - HEAD WITHOUT CONTRAST REASON: gen weak, headache ORDER NUMBER(s): [id number], ACCESSION NUMBER(s): [id number] EXAM: CT HEAD WITHOUT CONTRAST INDICATION: gen weak, headache TECHNIQUE: CT of the head without intravenous contrast. Coronal and sagittal reformatted images are submitted. Radiation Dose : 1. Head: CT Dose: CTDI volume is 53.8 mGy. Dose-length product is 971 0.3 mGy*cm The dose indicators for CT are the volume Computed Tomography (CT) Dose Index (CTDIvol) and the Dose Length Product (DLP), and are measured in units of mGy and mGy-cm, respectively. These indicators are not patient dose, but values generated from the CT scanner acquisition factors. The report includes radiation exposure data for exposures received during this examination. All CT scans at this medical facility are performed using dose modulation techniques as appropriate to a performed exam including the following: Automated exposure control was utilized; adjustment of the MA and/or KV according to patient size; and use of iterative reconstruction technique. COMPARISON: CT HEAD WITHOUT CONTRAST on DOS: 07/24/24 FINDINGS: There is no evidence of acute intracranial hemorrhage, extra-axial collection, mass effect, midline shift, herniation or hydrocephalus. The ventricles, sulci and cisterns are age appropriate. The rehman-white differentiation is intact. The mastoid air cells are clear. There is mucosal thickening in the bilateral maxillary sinuses. No depressed calvarial fracture. The surrounding soft tissues are unremarkable. IMPRESSION: 1. No evidence of acute intracranial abnormality. ORDERING PHYSICIAN: HENRRY JANSEN MD PROCEDURE(s): CXRP - CHEST PORTABLE REASON: sob, hemoptysis ORDER NUMBER(s): [id number], ACCESSION NUMBER(s): [id number] CHEST RADIOGRAPH Indication: sob, hemoptysis Technique: Single frontal view of the chest was obtained Comparison: XY CHEST PORTABLE on DOS: 07/24/24, XY CHEST PORTABLE on DOS: 10/09/23, XY CHEST PORTABLE on DOS: 10/06/23, XY CHEST PORTABLE on DOS: 10/04/23, XY CHEST XRAY 1 VIEW on DOS: 10/03/23, XY CHEST PORTABLE on DOS: 07/24/24 FINDINGS: Lines and tubes: There is a cardiac pacer. Left hemodialysis catheter with tip in the cavoatrial junction. Right axillary venous stent. Cardiomediastinal silhouette: normal Pulmonary vasculature: Prominent Lung expansion: normal Lung airspace: normal Lung interstitium: normal Pleura: normal Pneumothorax: no Bones: Unremarkable Other: A vascular stent is visualized. IMPRESSION: Mild pulmonary congestion. Assessment/Plan Assessment/Plan Symptomatic anemia Pancytopenia Elevated troponin Generalized weakness End-stage renal disease on hemodialysis Plan 1. Admit to telemetry unit 2. Breathing treatment 3. Pain control management 4. Management of fluids and electrolytes 5. Consultation for Hematology/nephrology 6. Diagnostic tests chest x-ray 7. DVT prophylaxis-on SCDs 8. Repeat labs CBC, CMP in a.m. 9. Continue with current medical management 10. Treatment plan discussed with patient and RN. Patient verbalized understanding. Plan discussed with: Patient, Other (RN) My Orders Orders - ROBERTO ZENG DNP Procedure Category Date Status Time Consistent DIET 09/03/24 Transmitted Carb(Ccho)Diabetes Dinner Famotidine Injection PHA 09/03/24 In Process (Pepcid Injection) 22:00 Aspirin Tablet PHA 09/04/24 In Process 10:00 Albuterol Medneb PHA 09/03/24 In Process (Ventolin Medneb) 16:00 Ipratropium Medneb PHA 09/03/24 In Process (Atrovent Medneb) 16:00 Sevelamer (Renagel) PHA 09/03/24 In Process 18:00 B-Complex W/ C & PHA 09/04/24 In Process Folic Tablet 10:00 Atorvastatin (Lipitor) PHA 09/03/24 Logged 22:00 *Dr. Delgadillo [facility] CONS 09/03/24 Transmitted -[place] 15:59 * Hematology/Oncology CONS 09/03/24 Transmitted Consult 15:59 Apixaban (Eliquis) PHA 09/03/24 In Process 22:00 Glucose Blood PHA 09/03/24 In Process (Accu-Chek Comfort 17:00 Insulin R (Human) PHA 09/03/24 In Process (Insulin R) 17:00 Dextrose 50% Syringe PHA 09/03/24 In Process 16:00 Allergies ALANNA 09/03/24 In Process 15:59 Code Status CODE 09/03/24 Transmitted 15:59 Renal DIET 09/03/24 Transmitted Standard(2gna,3gk,Lopho) Dinner Sodium Chloride Lock PHA 09/03/24 In Process (Saline Lock Ns) 22:00 Oxygen Per Hour RT 09/03/24 Transmitted 15:59 Hydrocodone-Acet PHA 09/03/24 In Process 5/325mg Tab ([place] 16:00 Ondansetron Hcl PHA 09/03/24 Logged (Zofran) 16:00 Docusate Sodium PHA 09/03/24 In Process Capsule (Colace 16:00 Complete Blood Count LAB 09/04/24 Verified 04:00 Comprehensive LAB 09/04/24 Verified Metabolic Panel 04:00 Condition: Serious ALANNA 09/03/24 In Process 15:59 Acetaminophen Tablet [facility] 09/03/24 In Process (Tylenol Tablet) 16:00 Bedrest With Bathroom ALANNA 09/03/24 In Process Privileg 15:59 Sequential ALANNA 09/03/24 In Process Compression Device Thyroid Stimulating LAB 09/03/24 In Process Hormone 16:07 Levothyroxine Tablet [facility] 09/04/24 In Process (Synthroid Tablet) 06:00 Admit ADMIT 09/03/24 Verified 17:17 Nitroglycerin [facility] 09/03/24 Verified Sublingual (Ntrostat 17:30 Morphine Sulfate [facility] 09/03/24 Verified Injection 17:30 Notify Of Changes [facility] 09/03/24 Verified From Base 17:17 Punch Molder For [facility] 09/03/24 Verified 24 Hours 17:17 Emergency Dysrhythmia [facility] 09/03/24 Verified Protocol 17:17 Rhythm Strips Once [facility] 09/03/24 Verified Every Shift 17:17 Oxygen By Nasal RT 09/03/24 Verified Cannula 17:17 Problem List: (1) Symptomatic anemia (2) Pancytopenia (3) Elevated troponin (4) Generalized weakness (5) End stage renal failure on dialysis Date of Service: Sep 03, 2024 Billing Provider: ROBERTO ZENG DNP Common Visit Codes: [id number] INP/OBS CARE (HIGH) ORBERTO ZENG DNP Sep 03, 2024 17:18
[2024-09-03] MEDS ORDERED: MORPHINE SULFATE INJ 2 MG/ml SYRG IV PRN (17:30)
[2024-09-03] MEDS ORDERED: NITROGLYCERIN 0.4 MG SL TAB SL PRN (17:30)
[2024-09-03] MEDS: ACCU-CHEK COMFORT CURVE STRIP VI SCH (18:44)
[2024-09-03] MEDS: SEVELAMER 800 MG TAB PO SCH (18:44)
[2024-09-03] MEDS: InsuLIN REG 1unit/0.01ml Soln (100units/ml) SC SCH (18:44)
[2024-09-03] MEDS: FAMOTIDINE (10MG/ML) 2ML VL IV SCH (22:00)
[2024-09-03] MEDS: APIXABAN 5 MG TAB PO SCH (22:25)
[2024-09-03] MEDS: ATORVASTATIN 20 MG TAB PO SCH (22:25)
[2024-09-03] MEDS: SODIUM CHLOR 0.9% PF (SALINE LOCK) 10ML VIAL/SYR IV SCH (22:25)
[2024-09-03] MEDS ORDERED: CIPR500T4 PO (23:10)
[2024-09-03] MEDS ORDERED: TORS20TA19 PO (23:10)
[2024-09-04] VITALS (19 sets, daily range): BP systolic 126–183; BP diastolic 46–88; PULSE 57–74; RESP 10–18; TEMP 97.7–99.4; O2SAT 98–100
[2024-09-04] MEDS: LEVOTHYROXINE SODIUM 50 MCG TAB PO SCH (06:12)
[2024-09-04 06:55] LABS: Basophils # (auto) 0 10 ^3/uL (0-0.2); Eosinophils # (auto) 0.2 10 ^3/uL (0-0.8); Monocytes # (auto) 0.3 10 ^3/uL (0-1.3); Neutrophils # (auto) 2.7 10 ^3/uL (1.6-8.6); Neutrophils % (auto) 73.8 % (37.0-80.0)
[2024-09-04 07:01] LABS: Basophils % (auto) 0.4 % (0.0-2.0); Eosinophils % (auto) 5.5 % (0.0-7.0); Hematocrit 17.6 % (41.0-53.0); Lymphocytes # (auto) 0.4 10 ^3/uL (0.4-5.4); Mean Corpuscular Hemoglobin 31.4 pg (28.0-32.0); Mean Corpuscular Hgb Conc. 34.1 g/dL (32.0-36.0); Mean Corpuscular Volume 92.1 fL (80.0-100.0); Monocytes % (auto) 8.3 % (0.0-12.0); Platelet Count (auto) 69 10^3/uL (140-450); Red Blood Cells 1.91 10^6/uL (4.5-5.90); White Blood Cell 3.7 10^3/uL (4.4-10.8)
[2024-09-04 07:18] LABS: Alanine Aminotransferase 13 U/L (7-40); Alkaline Phosphatase 69 U/L (46-116); Anion Gap 17 (5-15); Calcium 9.5 mg/dL (8.7-10.4); Chloride 106 mmol/L (98-107); Glucose 94 mg/dL (74-106); Potassium 4.5 mmol/L (3.5-5.1); Sodium 139 mmol/L (136-145)
[2024-09-04 07:19] LABS: Aspartate Aminotransferase 19 U/L (13-40); Bilirubin, Total 0.4 mg/dL (0.2-1.0)
[2024-09-04 07:28] LABS: Albumin 3.2 g/dL (3.2-4.8); BUN/Creatinine Ratio 17.2 (10.0-20.0); Carbon Dioxide 16 mmol/L (20-31); Total Protein 5.5 g/dL (5.7-8.2)
[2024-09-04 07:30] LABS: Blood Urea Nitrogen 202 mg/dL (9-23)
[2024-09-04] MEDS: ASPirin 81 mg TAB PO SCH (09:32)
[2024-09-04] MEDS: B-COMPLEX W/ C & FOLIC ACID(NEPHROVITE TAB) PO SCH (09:32)
--- NOTE | 2024-09-04 13:33 | DVHPN2 ---
Reviewed: Care Plan, H&P, Labs, Medications, Previous Orders, Radiology Changes from previous H/P or p: No Changes Eyes: No Pain, No Vision change, No Conjunctivae inflammation, No Eyelid inflammation, No Other, No Redness ENT: No Ear pain, No Ear discharge, No Nose pain, No Nose discharge, No Nose congestion, No Mouth pain, No Mouth swelling, No Throat pain, No Throat swelling; Other (Nose bleeding) Cardiovascular: No Chest Pain, No Palpitations, No Orthopnea, No Paroxysmal Noc. Dyspnea, No Edema, No Lt Headedness, No Other Respiratory: Cough; No Dry; Shortness of breath, SOB with excertion; No Wheezing; Hemoptysis; No Pleuritic Pain, No Sputum; Other (SOB at rest) Gastrointestinal: No Nausea, No Vomiting, No Abdominal Pain, No Diarrhea, No Constipation, No Melena, No Hematochezia, No Other Genitourinary: No Dysuria, No Frequency, No Incontinence, No Hematuria, No Retention, No Other Musculoskeletal: No other, No neck pain, No shoulder pain, No arm pain, No back pain, No hand pain, No leg pain, No foot pain Skin: No Rash, No Lesions, No Jaundice, No Bruising, No Other Objective Vitals Vital Signs Date Time Temp Pulse Resp B/P (MAP) Pulse Ox O2 Delivery O2 Flow Rate FiO2 09/04/24 12:42 98.1 59 16 166/71 (102) 98 98.1 09/04/24 12:32 Room Air* 0 21 Intake/Output Intake and Output 09/04/24 07:00 Intake Total 1350 ml Output Total 180 ml Balance 1170 ml Intake Oral 750 ml Blood Product 600 ml Output Urine Total 180 ml Medications Current Medications Medications Dose Ordered Sig/Melva Route Start Time Stop Time Status Last Admin Dose Admin Famotidine 10 mg DAILY IV 09/03/24 22:00 09/04/24 09:32 10 MG Aspirin 81 mg DAILY PO 09/04/24 10:00 09/04/24 09:32 81 MG Albuterol 2.5 mg Q4HPRN PRN NEB 09/03/24 16:00 Ipratropium [place] 0.5 mg Q4HPRN PRN NEB 09/03/24 16:00 Sevelamer HCl 800 mg TIDWM PO 09/03/24 18:00 09/04/24 12:39 800 MG Multivit/Ca Carb/ B Cmplx/FA/Prenat 1 tab DAILY PO 09/04/24 10:00 09/04/24 09:32 1 TAB Atorvastatin Calcium 20 mg HS PO 09/03/24 22:00 09/03/24 22:25 20 MG Apixaban 5 mg BID PO 09/03/24 22:00 09/04/24 09:32 5 MG Diagnostic Test (Pha) 1 strip ACHS 09/03/24 17:00 09/04/24 12:40 1 STRIP Insulin Human Regular ACHS SC 09/03/24 17:00 Dextrose 50 ml UD PRN IV 09/03/24 16:00 Sodium Chloride 10 ml Q8HR IV 09/03/24 22:00 09/04/24 12:40 10 ML Acetaminophen/ Hydrocodone Bitart 1 tab Q4HP PRN PO 09/03/24 16:00 Ondansetron HCl 4 mg Q4HP PRN IV 09/03/24 16:00 Docusate Sodium 100 mg BIDPRN PRN PO 09/03/24 16:00 Acetaminophen 650 mg Q6HP PRN PO 09/03/24 16:00 Levothyroxine Sodium 50 mcg QAM@0600 PO 09/04/24 06:00 09/04/24 06:12 50 MCG Nitroglycerin 0.4 mg Q5MINP PRN SL 09/03/24 17:30 Morphine Sulfate 2 mg Q30M PRN IV 09/03/24 17:30 Laboratory Results Laboratory Tests 09/04/24 05:38 Chemistry Test 09/04/24 05:38 Albumin 3.2 g/dL (3.2-4.8) Calcium Level 9.5 mg/dL (8.7-10.4) Total Protein 5.5 g/dL (5.7-8.2) L LFT Test 09/04/24 05:38 Alanine Aminotransferase (ALT) 13 U/L (7-40) Alkaline Phosphatase 69 U/L (46-116) Aspartate Amino Transferase (AST) 19 U/L (13-40) Total Bilirubin 0.4 mg/dL (0.2-1.0) Microbiology Microbiology Date/Time Source Procedure Growth Status 09/03/24 12:00 Blood Blood Culture - Preliminary NO GROWTH AFTER 24 HOURS OF INCUBATION. Resulted Labs and/or images reviewed: Labs reviewed by me, Image(s) reviewed by me Assessment/Plan Assessment/Plan Symptomatic anemia hemoglobin 4.3 improved to 6.0 after 3 units RBC transfusion Pancytopenia: Consult for Dr. Michelle Elevated Troponin consult for Dr. Ni Acute Generalized weakness ESRD on hemodialysis consult by Dr. Delgadillo Diabetes Hypertension Hypercholesterolemia History of [place] Peripheral arterial disease History of pacemaker Anemia of Chronic disease Time spent 65 minutes Patient is full code Advanced care planning time 20 minutes Plan discussed with: Patient Date of Service: Sep 04, 2024 Billing Provider: EKATERINA ROBERTSON MD Common Visit Codes: [id number] CARE 30-74 MIN EKATERINA ROBERTSON MD Sep 04, 2024 13:33
--- NOTE | 2024-09-04 14:51 | DVH ---
Exam: US LEFT UPPER EXT Date: 09/04/2024 01:20 PM Clinical History: left hand Comparison: US LT UPPER DVT on DOS: 09/30/23 Findings: Targeted sonographic evaluation of the soft tissues of the left hand was obtained utilizing grayscale and color Doppler imaging. Heterogeneous mass measuring 1.5 cm within the left hand. MRI is suggested IMPRESSION: Heterogeneous mass measuring 1.5 cm within the left hand. MRI is suggested END IMPRESSION:
--- NOTE | 2024-09-04 14:59 | DVHPN2 ---
Progress Note - Dictate Date Seen: Sep 04, 2024 Has the PT tested + for MRSA If YES, has PT been informed?: Yes Medical Necessity Reason Pt with a Central, PICC or Fol: Yes Subjective Today feeling better after blood transfusion. He has epistaxis slowing down as well. He complains of a dorsal aspect of the left hand the lump that appeared about a week two ago overnight. Denies any trauma to the area. vital signs Vital Sign Date Time Temp Pulse Resp B/P (MAP) Pulse Ox O2 Delivery O2 Flow Rate FiO2 09/04/24 12:42 98.1 59 16 166/71 (102) 98 98.1 09/04/24 12:32 Room Air* 0 21 Total Intake and Output 09/03/24 09/03/24 09/04/24 15:00 23:00 07:00 Intake Total 1350 ml Output Total 180 ml Balance 1170 ml medications Current Medications Medications Dose Ordered Sig/Melva Route Start Time Stop Time Status Last Admin Dose Admin Famotidine 10 mg DAILY IV 09/03/24 22:00 09/04/24 09:32 10 MG Aspirin 81 mg DAILY PO 09/04/24 10:00 09/04/24 09:32 81 MG Albuterol 2.5 mg Q4HPRN PRN NEB 09/03/24 16:00 Ipratropium [place] 0.5 mg Q4HPRN PRN NEB 09/03/24 16:00 Sevelamer HCl 800 mg TIDWM PO 09/03/24 18:00 09/04/24 12:39 800 MG Multivit/Ca Carb/ B Cmplx/FA/Prenat 1 tab DAILY PO 09/04/24 10:00 09/04/24 09:32 1 TAB Atorvastatin Calcium 20 mg HS PO 09/03/24 22:00 09/03/24 22:25 20 MG Apixaban 5 mg BID PO 09/03/24 22:00 09/04/24 09:32 5 MG Diagnostic Test (Pha) 1 strip ACHS 09/03/24 17:00 09/04/24 12:40 1 STRIP Insulin Human Regular ACHS SC 09/03/24 17:00 Dextrose 50 ml UD PRN IV 09/03/24 16:00 Sodium Chloride 10 ml Q8HR IV 09/03/24 22:00 09/04/24 12:40 10 ML Acetaminophen/ Hydrocodone Bitart 1 tab Q4HP PRN PO 09/03/24 16:00 Ondansetron HCl 4 mg Q4HP PRN IV 09/03/24 16:00 Docusate Sodium 100 mg BIDPRN PRN PO 09/03/24 16:00 Acetaminophen 650 mg Q6HP PRN PO 09/03/24 16:00 Levothyroxine Sodium 50 mcg QAM@0600 PO 09/04/24 06:00 09/04/24 06:12 50 MCG Nitroglycerin 0.4 mg Q5MINP PRN SL 09/03/24 17:30 Morphine Sulfate 2 mg Q30M PRN IV 09/03/24 17:30 objective HEENT: No evidence of JVD, no oral ulcers. Pulmonary: Lungs are clear on auscultation bilaterally Cardiovascular S1-S2, no S3 or S4 Abdomen: Bowel sounds positive, soft no rebound tenderness Skin: No rash Neurological: Alert, oriented, no focal weakness Hemodialysis access right upper chest tunneled line. Extremities left hand dorsal aspect with induration mobile rubbery in texture and about half a cm in diameter nontender. No evidence of skin lesion except for dry skin range of motion of the fingers is complete. laboratory and microbiology Laboratory Tests 09/04/24 05:38 Test 09/04/24 05:38 Range/Units Serum Glucose 94 74-106 mg/dL Assessment/Plan Assessment: 1. End-stage renal disease on hemodialysis via right IJ tunneled line 2. Epistaxis 3. Rule out GI bleed 4. Anemia of acute blood loss and end-stage renal disease. 5. Hypertension 6. CAD 7. Status post pacemaker placement 8. Left-hand subcutaneous lesion Plan and recommendations: Hemodialysis TTS. Transfuse PRBC for goal hemoglobin at least 7 grams/deciliter. Ultrasound soft tissue, x-ray of the left hand. Oxygen supplementation keep pulse ox more than 90% High doses of OSMEL Would hold off on antihypertensive meds until blood pressure more than 150 then resume PPI GI consult Monitor H&H and transfuse as needed Plan of care was discussed with the daughter and the patient in detail Thank you very much for allowing us to participate in the care of this patient Plan discussed with: Patient, Daughter CC Plasma Assessment Blood Product Administration S: [id number] MELQUIADES REYES MD Sep 04, 2024 14:59
--- NOTE | 2024-09-04 21:12 | DVHINCON2 ---
Date of service: Sep 04, 2024 Referring Physician Dick Reason for Consultation Elevated troponin History of Present Illness The patient is a 73-year-old male with past medical history of ESRD on dialysis, DM, hypertension, UT, PAD, and hyperlipidemia who presented with complaints of generalized weakness. Patient reports symptoms progressively get worse with shortness a breath, headache, nausea, vomiting, hemoptysis, nosebleed, getting worse that prompted this visit. Patient reports missing dialysis on 09/03 and also states recent infection to the right upper AV graft. She was placed on Vancomycin and had surgery x 15 days prior. Labs: WBC 3.4, hemoglobin 4.3, hematocrit 13.8, platelets 80309, sodium 142, potassium 4.0, BUN 150, creatinine 10.62, GFR 5, glucose 105, anion gap 18, troponin 68. Chest x-ray shows mild pulmonary congestion. EKG shows atrial paced rhythm, rate 70. Patient was admitted to the hospital. I am asked to consult on this patient. Family History: Cardiovascular disease G8 FATHER Cerebrovascular accident (CVA) G8 FATHER Family history: Diabetes in Family history: Diabetes mellitus G8 MOTHER, Onset:Unknown G8 FATHER, Onset:Unknown Family history: Hypertension G8 MOTHER, Onset:Unknown G8 FATHER, Onset:Unknown Allergies: Coded Allergies: Ibuprofen (Verified Allergy, Unknown, 09/12/17) Penicillins (Verified Allergy, Unknown, 04/13/16) Home Meds Active Scripts Amiodarone Hcl (Amiodarone Hcl) 200 Mg Tab, 1 TAB PO DAILY for 60 Days, #60 TAB 1 Refill Prov:MARYBETH NASSAR CIGAR TOBACCO REHANDLER 10/11/23 Reported Medications Torsemide Injection (Torsemide) 20 Mg Tab, 1 TAB PO MWF 09/03/24 Ciprofloxacin Hcl (Ciprofloxacin Hcl) 500 Mg Tab, 1 TAB PO DAILY 09/03/24 Pantoprazole Sodium Sesquihydr (Protonix) 40 Mg Tab, 40 MG PO DAILY, TAB 07/27/24 Albuterol Sulfate (Albuterol Sulfate Hfa) 108 Mcg/Act Aer, 90 MCG IN Q4HPRN PRN for SHORTNESS OF BREATH, AER 07/27/24 Apixaban Base (ELIQUIS) 5 Mg Tab, 5 MG PO BID, TAB 07/27/24 Folic Acid (Folic Acid) 1 Mg Tab, 1 TAB PO DAILY, MG 09/29/23 Furosemide (Furosemide) 40 Mg Tab, 1 TAB PO DAILY 09/29/23 Finasteride (Finasteride) 5 Mg Tab, 1 TAB PO DAILY 08/04/23 Tamsulosin Hcl (Tamsulosin Hcl) 0.4 Mg Cap, 1 CAP PO DAILY 08/04/23 Sevelamer Carbonate (Renvela) 800 Mg Tab, 3 TAB PO TID, #810 TAB 3 Refills TAKE 3 TABS EACH MEAL AND 1 TAB AT NIGHT. 10/17/21 Levothyroxine Sodium (SYNTHROID TABLET) 50 Mcg Tb, 1 TAB PO QAM, TAB 07/28/18 Atorvastatin Calcium (Lipitor) 40 Mg Tab, 1 TAB PO DAILY 02/18/16 Discontinued Reported Medications Aspirin (Aspir-Low) 81 Mg Tab, 81 MG PO DAILY, MG 07/27/24 Current Medications Current Medications Medications (Trade) Dose Ordered Sig/Melva Route PRN Reason Start Time Stop Time Status Last Admin Famotidine (Pepcid Injection) 10 mg DAILY IV 09/03/24 22:00 09/04/24 09:32 Aspirin 81 mg DAILY PO 09/04/24 10:00 09/04/24 09:32 Multivit/Ca Carb/ B Cmplx/FA/Prenat (Nephro-Natanael Tablet) 1 tab DAILY PO 09/04/24 10:00 09/04/24 09:32 Atorvastatin Calcium (Lipitor) 20 mg HS PO 09/03/24 22:00 09/03/24 22:25 Apixaban (Eliquis) 5 mg BID PO 09/03/24 22:00 09/04/24 09:32 Sodium Chloride (Saline Lock Ns) 10 ml Q8HR IV 09/03/24 22:00 09/04/24 12:40 Levothyroxine Sodium (Synthroid Tablet) 50 mcg QAM@0600 PO 09/04/24 06:00 09/04/24 06:12 Review of Systems Constitutional: reports: weakness; denies: chills, diaphoresis, fatigue, fever, malaise, sweats, others EENTM: reports: nose bleeding; denies: blurred vision, double vision, ear bleeding, ear discharge, ear drainage, ear pain, ear ringing, eye pain, eye redness, hearing loss, mouth pain, mouth swelling, nasal discharge, nose congestion, nose pain, photophobia, tearing, throat pain, throat swelling, voice changes, others Respiratory: reports: cough, hemoptysis, SOB at rest, shortness of breath, SOB with excertion; denies: orthopnea, stridor, wheezing, others Cardiovascular: denies: chest pain, dizzy spells, diaphoresis, Dyspnea on exertion, edema, irregular heart beat, left arm pain, lightheadedness, palpitations, PND, syncope, others Gastrointestinal: reports: nausea, vomiting; denies: abdomen distended, abdominal pain, blood streaked bowels, constipated, diarrhea, dysphagia, diffi culty swallowing, hematemesis, melena, poor appetite, poor fluid intake, rectal bleeding, rectal pain, others Genitourinary: denies: burning, dysuria, flank pain, frequency, hematuria, incontinence, penile discharge, penile sore, pain, testicle pain, testicle swelling, urgency, others Neurological: denies: dizziness, fainting, headache, left sided numbness, left sided weakness, numbness, paresthesia, pre-existing deficit, right sided numbness, right sided weakness, seizure, speech problems, tingling, tremors, weakness, others Musculoskeletal: denies: back pain, gout, joint pain, joint swelling, muscle pain, muscle stiffness, neck pain, others Integumetry: denies: bruises, change in color, change in hair/nails, dryness, laceration, lesions, lumps, rash, wounds, others Allergic/Immunocompromised: denies: Difficulty Healing, Frequent Infections, Hives, Itching, others Hematologic/Lymphatic: denies: anemia, blood clots, easy bleeding, easy bruising, swollen glands, others Endocrine: denies: excessive hunger, excessive sweating, excessive thirst, excessive urination, flushing, intolerance to cold, intolerance to heat, unexplained weight gain, unexplained weight loss, others Psychiatric: denies: anxiety, bipolar disorder, depression, hopeless, panic disorder, schizophrenia, sleepless, suicidal, others All Other Systems: Reviewed and Negative Vital Signs Vital Signs Date Time Temp Pulse Resp B/P (MAP) Pulse Ox O2 Delivery O2 Flow Rate FiO2 09/04/24 19:58 97.8 62 18 126/64 97.8 09/04/24 16:30 100 1/14/25 12:32 Room Air* 0 21 Physical Exam GENERAL: Awake, alert, oriented. LUNGS: Clear. CARDIOVASCULAR: Heart sounds are good. ABDOMEN: Soft. Labs/Diagnostic Data Labs Test 09/04/24 16:46 09/04/24 05:38 09/03/24 14:46 09/03/24 12:00 Range/Units POC Glucose 87 70-106 mg/dl White Blood Count 3.7 L 4.4-10.8 10^3/uL Red Blood Count 1.91 L 4.5-5.90 10^6/uL Hemoglobin 6.0 #*L 13.5-17.5 g/dL Hematocrit 17.6 #L 41.0-53.0 % Mean Corpuscular Volume 92.1 # 80.0-100.0 fL Mean Corpuscular Hemoglobin 31.4 28.0-32.0 pg Mean Corpuscular Hemoglobin Concent 34.1 32.0-36.0 g/dL Red Cell Distribution Width 18.0 H 11.8-14.3 % Platelet Count 69 L 140-450 10^3/uL Mean Platelet Volume 8.7 6.9-10.8 fL Neutrophils (%) (Auto) 73.8 37.0-80.0 % Lymphocytes (%) (Auto) 12.0 10.0-50.0 % Monocytes (%) (Auto) 8.3 0.0-12.0 % Eosinophils (%) (Auto) 5.5 0.0-7.0 % Basophils (%) (Auto) 0.4 0.0-2.0 % Neutrophils # (Auto) 2.7 1.6-8.6 10 ^3/uL Lymphocytes # (Auto) 0.4 0.4-5.4 10 ^3/uL Monocytes # (Auto) 0.3 0-1.3 10 ^3/uL Eosinophils # (Auto) 0.2 0-0.8 10 ^3/uL Basophils # (Auto) 0 0-0.2 10 ^3/uL Nucleated Red Blood Cells 0.0 % Sodium Level 139 136-145 mmol/L Potassium Level 4.5 3.5-5.1 mmol/L Chloride Level 106 98-107 mmol/L Carbon Dioxide Level 16 L 20-31 mmol/L Anion Gap 17 H 5-15 Blood Urea Nitrogen 202 #*H 9-23 mg/dL Creatinine 11.74 *H 0.700-1.30 mg/dL Glomerular Filtration Rate Calc 4 >90 mL/min BUN/Creatinine Ratio 17.2 10.0-20.0 Serum Glucose 94 74-106 mg/dL Calcium Level 9.5 8.7-10.4 mg/dL Total Bilirubin 0.4 0.2-1.0 mg/dL Aspartate Amino Transferase (AST) 19 13-40 U/L Alanine Aminotransferase (ALT) 13 7-40 U/L Alkaline Phosphatase 69 46-116 U/L Total Protein 5.5 L 5.7-8.2 g/dL Albumin 3.2 3.2-4.8 g/dL Troponin I High Sensitivity 63 *H </=54 ng/L Lactic Acid Level 0.6 0.4-2.0 mmol/L B-Type Natriuretic Peptide 754.57 0-100 pg/mL Thyroid Stimulating Hormone (TSH) 14.87 H 0.55-4.78 uIU/mL Microbiology Date/Time Source Procedure Growth Status 09/03/24 23:30 Nose MRSA Screen - Final Complete 09/03/24 12:00 Blood Blood Culture - Preliminary NO GROWTH AFTER 24 HOURS OF INCUBATION. Resulted Assessment Symptomatic anemia. Pancytopenia. Elevated troponin. Acute generalized weakness. ESRD on hemodialysis. Diabetes. Hypertension. Hypercholesterolemia. History of UT. Peripheral arterial disease. History of pacemaker. Anemia of chronic disease. Plan/Recommendation I agree with your ongoing assessment and care of plan. Morphine and [place] for pain management. Eliquis. Aspirin, Lipitor. Nitro SL. Additional plan as per the hospital course. A total of 45 minutes was spent reviewing the patient record, examining the patient, making a diagnostic and therapeutic plan, discussing this plan with medical personnel, following up on diagnostic studies and following the patient for clinical stability excluding any and all procedures. At least 50% of this time was spent in direct, [id number] contact. Plan discussed with: Patient ROSARIO BRAUN MD Sep 04, 2024 20:32
[2024-09-04] MEDS: EPOETIN ALFA-EPBX 10,000 UNIT/1ML VIAL SC ONE (21:43)
[2024-09-05] VITALS (7 sets, daily range): BP systolic 169–196; BP diastolic 70–83; PULSE 59–66; RESP 16–19; TEMP 98.1–98.3; O2SAT 99–100
[2024-09-05 08:25] LABS: Basophils # (auto) 0 10 ^3/uL (0-0.2); Basophils % (auto) 0.4 % (0.0-2.0); Eosinophils # (auto) 0.2 10 ^3/uL (0-0.8); Eosinophils % (auto) 4.6 % (0.0-7.0); Hematocrit 24.2 % (41.0-53.0); Hemoglobin 8.3 g/dL (13.5-17.5); Lymphocytes # (auto) 0.5 10 ^3/uL (0.4-5.4); Lymphocytes % (auto) 12.9 % (10.0-50.0); Mean Corpuscular Hemoglobin 30.9 pg (28.0-32.0); Mean Corpuscular Hgb Conc. 34.3 g/dL (32.0-36.0); Mean Corpuscular Volume 90.2 fL (80.0-100.0); Monocytes # (auto) 0.4 10 ^3/uL (0-1.3); Monocytes % (auto) 9.2 % (0.0-12.0); Neutrophils % (auto) 72.9 % (37.0-80.0); Nucleated Red Blood Cells % 0.1 %; Red Blood Cells 2.68 10^6/uL (4.5-5.90); Red Cell Distribution Width 16.5 % (11.8-14.3); White Blood Cell 4.2 10^3/uL (4.4-10.8)
[2024-09-05 08:28] LABS: Platelet Count (auto) 72 10^3/uL (140-450)
--- NOTE | 2024-09-05 08:28 | DVHPN2 ---
Reviewed: Care Plan, H&P, Labs, Medications, Previous Orders, Radiology Changes from previous H/P or p: No Changes Eyes: No Pain, No Vision change, No Conjunctivae inflammation, No Eyelid inflammation, No Other, No Redness ENT: No Ear pain, No Ear discharge, No Nose pain, No Nose discharge, No Nose congestion, No Mouth pain, No Mouth swelling, No Throat pain, No Throat swelling; Other (Nose bleeding) Cardiovascular: No Chest Pain, No Palpitations, No Orthopnea, No Paroxysmal Noc. Dyspnea, No Edema, No Lt Headedness, No Other Respiratory: Cough; No Dry; Shortness of breath, SOB with excertion; No Wheezing; Hemoptysis; No Pleuritic Pain, No Sputum; Other (SOB at rest) Gastrointestinal: No Nausea, No Vomiting, No Abdominal Pain, No Diarrhea, No Constipation, No Melena, No Hematochezia, No Other Genitourinary: No Dysuria, No Frequency, No Incontinence, No Hematuria, No Retention, No Other Musculoskeletal: No other, No neck pain, No shoulder pain, No arm pain, No back pain, No hand pain, No leg pain, No foot pain Skin: No Rash, No Lesions, No Jaundice, No Bruising, No Other Objective Vitals Vital Signs Date Time Temp Pulse Resp B/P (MAP) Pulse Ox O2 Delivery O2 Flow Rate FiO2 09/04/24 22:10 99.0 62 18 156/68 99.0 09/04/24 21:00 99 09/04/24 20:00 Room Air* 0 21 Intake/Output Intake and Output 09/05/24 07:00 Intake Total 1400 ml Balance 1400 ml Intake Oral 800 ml Blood Product 600 ml # Voids 2 # Bowel Movements 1 Medications Current Medications Medications Dose Ordered Sig/Melva Route Start Time Stop Time Status Last Admin Dose Admin Famotidine 10 mg DAILY IV 09/03/24 22:00 09/04/24 09:32 10 MG Aspirin 81 mg DAILY PO 09/04/24 10:00 09/04/24 09:32 81 MG Albuterol 2.5 mg Q4HPRN PRN NEB 09/03/24 16:00 Ipratropium [place] 0.5 mg Q4HPRN PRN NEB 09/03/24 16:00 Sevelamer HCl 800 mg TIDWM PO 09/03/24 18:00 09/04/24 16:49 800 MG Multivit/Ca Carb/ B Cmplx/FA/Prenat 1 tab DAILY PO 09/04/24 10:00 09/04/24 09:32 1 TAB Atorvastatin Calcium 20 mg HS PO 09/03/24 22:00 09/04/24 21:44 20 MG Apixaban 5 mg BID PO 09/03/24 22:00 09/04/24 21:44 5 MG Diagnostic Test (Pha) 1 strip ACHS 09/03/24 17:00 09/05/24 05:41 1 STRIP Insulin Human Regular ACHS SC 09/03/24 17:00 Dextrose 50 ml UD PRN IV 09/03/24 16:00 Sodium Chloride 10 ml Q8HR IV 09/03/24 22:00 09/04/24 21:44 10 ML Acetaminophen/ Hydrocodone Bitart 1 tab Q4HP PRN PO 09/03/24 16:00 Ondansetron HCl 4 mg Q4HP PRN IV 09/03/24 16:00 Docusate Sodium 100 mg BIDPRN PRN PO 09/03/24 16:00 Acetaminophen 650 mg Q6HP PRN PO 09/03/24 16:00 Levothyroxine Sodium 50 mcg QAM@0600 PO 09/04/24 06:00 09/05/24 05:41 50 MCG Nitroglycerin 0.4 mg Q5MINP PRN SL 09/03/24 17:30 Morphine Sulfate 2 mg Q30M PRN IV 09/03/24 17:30 Laboratory Results Laboratory Tests 09/04/24 05:38 Microbiology Microbiology Date/Time Source Procedure Growth Status 09/03/24 23:30 Nose MRSA Screen - Final Complete 09/03/24 12:00 Blood Blood Culture - Preliminary NO GROWTH AFTER 24 HOURS OF INCUBATION. Resulted Labs and/or images reviewed: Labs reviewed by me, Image(s) reviewed by me Assessment/Plan Assessment/Plan Symptomatic anemia hemoglobin 4.3 improved to 6.0 after 4 units RBC transfusion, hemoglobin from today pending Pancytopenia: Consult for Dr. Michelle Elevated Troponin consult for Dr. Cano appreciated Acute Generalized weakness ESRD on hemodialysis consult by Dr. Delgadillo appreciated Diabetes Hypertension Hypercholesterolemia History of NM Peripheral arterial disease History of pacemaker Anemia of Chronic disease Time spent 55 minutes Patient is full code Advanced care planning time 20 minutes Plan discussed with: Patient My Orders Orders - ROBERTSON,EKATERINA M MD Procedure Category Date Status Time Complete Blood Count LAB 09/05/24 In Process 04:00 Date of Service: Sep 05, 2024 Billing Provider: EKATERINA ROBERTSON MD Common Visit Codes: [id number] CARE 30-74 MIN EKATERINA ROBERTSON MD Sep 05, 2024 08:28
--- NOTE | 2024-09-05 13:25 | DVHINCON2 ---
Date of service: Sep 05, [address] [place] Jennings Reason for Consultation Pancytopenia History of Present Illness 73 years old gentleman who says he was at [facility] nearly month and a half back with the rectal bleeding and had upper lower endoscopes which per patient was unremarkable. He said he needed 17 units of packed red cells. He thinks that he had some blood infection. History of end-stage renal disease patient is on dialysis, history of hypertension, diabetes, history of multiple MIs and stent placement, peripheral arterial disease and hyperlipidemia and neuropathy from diabetes. He is admitted to the hospital with generalized weakness with some shortness of breath and complains of headaches, nausea vomiting hemoptysis nosebleeds On admission his white count was 3.4 hemoglobin 4.3 MCV 105.8 platelets 60434 He is transfuse 4 units of packed red cells and the hemoglobin came up to 8.3 [place] [address] white count is 4.2 today BUN two O2 creatinine about 11.74 AST 19, ALT 13 and alkaline phosphatase 69 total protein 5.5, albumin 3.2 Over the last four years he has lost nearly 40 lb of weight because of some heart issues Past Medical History Diabetes Hypertension Coronary artery disease MIs and stent placement Hyperlipidemia Some surgical procedure for stomach ulcers Forty cystectomy Family History: Cardiovascular disease G8 FATHER Cerebrovascular accident (CVA) G8 FATHER Family history: Diabetes in Family history: Diabetes mellitus G8 MOTHER, Onset:Unknown G8 FATHER, Onset:Unknown Family history: Hypertension G8 MOTHER, Onset:Unknown G8 FATHER, Onset:Unknown Family History Brother had lung cancer Social History No smoking drinking or drugs Allergies: Coded Allergies: Ibuprofen (Verified Allergy, Unknown, 09/12/17) Penicillins (Verified Allergy, Unknown, 04/13/16) Home Meds Active Scripts Amiodarone Hcl (Amiodarone Hcl) 200 Mg Tab, 1 TAB PO DAILY for 60 Days, #60 TAB 1 Refill Prov:MARYBETH NASSAR [employer]BUT[employer] TRANSFORMER ASSEMBLER 10/11/23 Reported Medications Torsemide Injection (Torsemide) 20 Mg Tab, 1 TAB PO MWF 09/03/24 Ciprofloxacin Hcl (Ciprofloxacin Hcl) 500 Mg Tab, 1 TAB PO DAILY 09/03/24 Pantoprazole Sodium Sesquihydr (Protonix) 40 Mg Tab, 40 MG PO DAILY, TAB 07/27/24 Albuterol Sulfate (Albuterol Sulfate Hfa) 108 Mcg/Act Aer, 90 MCG IN Q4HPRN PRN for SHORTNESS OF BREATH, AER 07/27/24 Apixaban Base (ELIQUIS) 5 Mg Tab, 5 MG PO BID, TAB 07/27/24 Folic Acid (Folic Acid) 1 Mg Tab, 1 TAB PO DAILY, MG 09/29/23 Furosemide (Furosemide) 40 Mg Tab, 1 TAB PO DAILY 09/29/23 Finasteride (Finasteride) 5 Mg Tab, 1 TAB PO DAILY 08/04/23 Tamsulosin Hcl (Tamsulosin Hcl) 0.4 Mg Cap, 1 CAP PO DAILY 08/04/23 Sevelamer Carbonate (Renvela) 800 Mg Tab, 3 TAB PO TID, #810 TAB 3 Refills TAKE 3 TABS EACH MEAL AND 1 TAB AT NIGHT. 10/17/21 Levothyroxine Sodium (SYNTHROID TABLET) 50 Mcg Tb, 1 TAB PO QAM, TAB 07/28/18 Atorvastatin Calcium (Lipitor) 40 Mg Tab, 1 TAB PO DAILY 02/18/16 Discontinued Reported Medications Aspirin (Aspir-Low) 81 Mg Tab, 81 MG PO DAILY, MG 07/27/24 Vital Signs Vital Signs Date Time Temp Pulse Resp B/P (MAP) Pulse Ox O2 Delivery O2 Flow Rate FiO2 09/05/24 13:07 98.3 64 18 187/75 (112) 100 98.3 09/05/24 10:00 Room Air 0.0 09/05/24 10:00 21 Physical Exam Moderately built and nourished, in no acute distress, alert and oriented. No jaundice Head and neck: Unremarkable for any masses or neck nodes. No conjunctival or mucosal hemorrhage Lungs: Clear Cardiovascular: S1-S2 heard well Abdomen: No organomegaly, tenderness or ascites. Bowel sounds are present. Extremities: No clubbing edema cyanosis or calf tenderness. Skin: Unremarkable for petechia purpura ecchymosis Lymphadenopathy: None Neurological exam: No focal deficit Labs/Diagnostic Data Labs Test 09/05/24 11:53 09/05/24 07:45 09/04/24 05:38 09/03/24 14:46 Range/Units POC Glucose 92 70-106 mg/dl White Blood Count 4.2 L 4.4-10.8 10^3/uL Red Blood Count 2.68 L 4.5-5.90 10^6/uL Hemoglobin 8.3 #L 13.5-17.5 g/dL Hematocrit 24.2 #L 41.0-53.0 % Mean Corpuscular Volume 90.2 80.0-100.0 fL Mean Corpuscular Hemoglobin 30.9 28.0-32.0 pg Mean Corpuscular Hemoglobin Concent 34.3 32.0-36.0 g/dL Red Cell Distribution Width 16.5 H 11.8-14.3 % Platelet Count 72 L 140-450 10^3/uL Mean Platelet Volume 8.6 6.9-10.8 fL Neutrophils (%) (Auto) 72.9 37.0-80.0 % Lymphocytes (%) (Auto) 12.9 10.0-50.0 % Monocytes (%) (Auto) 9.2 0.0-12.0 % Eosinophils (%) (Auto) 4.6 0.0-7.0 % Basophils (%) (Auto) 0.4 0.0-2.0 % Neutrophils # (Auto) 3.0 1.6-8.6 10 ^3/uL Lymphocytes # (Auto) 0.5 0.4-5.4 10 ^3/uL Monocytes # (Auto) 0.4 0-1.3 10 ^3/uL Eosinophils # (Auto) 0.2 0-0.8 10 ^3/uL Basophils # (Auto) 0 0-0.2 10 ^3/uL Nucleated Red Blood Cells 0.1 % Sodium Level 139 136-145 mmol/L Potassium Level 4.5 3.5-5.1 mmol/L Chloride Level 106 98-107 mmol/L Carbon Dioxide Level 16 L 20-31 mmol/L Anion Gap 17 H 5-15 Blood Urea Nitrogen 202 #*H 9-23 mg/dL Creatinine 11.74 *H 0.700-1.30 mg/dL Glomerular Filtration Rate Calc 4 >90 mL/min BUN/Creatinine Ratio 17.2 10.0-20.0 Serum Glucose 94 74-106 mg/dL Calcium Level 9.5 8.7-10.4 mg/dL Total Bilirubin 0.4 0.2-1.0 mg/dL Aspartate Amino Transferase (AST) 19 13-40 U/L Alanine Aminotransferase (ALT) 13 7-40 U/L Alkaline Phosphatase 69 46-116 U/L Total Protein 5.5 L 5.7-8.2 g/dL Albumin 3.2 3.2-4.8 g/dL Troponin I High Sensitivity 63 *H </=54 ng/L Test 09/03/24 12:00 Range/Units Lactic Acid Level 0.6 0.4-2.0 mmol/L B-Type Natriuretic Peptide 754.57 0-100 pg/mL Thyroid Stimulating Hormone (TSH) 14.87 H 0.55-4.78 uIU/mL Microbiology Date/Time Source Procedure Growth Status 09/03/24 23:30 Nose MRSA Screen - Final Complete 09/03/24 12:00 Blood Blood Culture - Preliminary NO GROWTH AFTER 48 HOURS OF INCUBATION. Resulted Assessment 1. Anemia with a history of rectal bleeding six weeks back and was a [facility] multiple transfusions and per patient upper lobe scope was unremarkable Admitted with severe anemia and vomiting blood and some nosebleeds and needing transfusion of the packed cells 4 units Has leukopenia and thrombocytopenia May need to rule out the possibility of a GI bleeding or liver pathology or rule out autoimmune process or bone marrow pathology To end-stage renal disease on hemodialysis potential diabetes telephone cholesterol six coronary artery disease [place] and stent placement Lumbar spine peripheral arterial disease 8. Pacemaker Plan/Recommendation We will check a blood smear Bone marrow aspiration biopsy and sent for pathology flow cytometry and cytogenetics The patient should get a CT of the abdomen pelvis to evaluate for liver pathology Suggest getting his records from [facility] Check direct Sarai LDH and reticulocyte count and haptoglobin Treat symptomatically in the meantime with the transfusion of the packed cells try to keep the hemoglobin over seven and the platelets over 12983 Plan discussed with: Patient PRIETO PÉREZ MD Sep 05, 2024 13:25
[2024-09-05] MEDS: fentaNYL CITRATE 100 MCG/2 ML VL ONE (14:28)
--- NOTE | 2024-09-05 15:33 | DVH ---
CT PELVIS WO CONTRAST, HISTORY: BONE MARROW BX COMPARISON: CT ABD PELVIS WO CONTRAST on DOS: 10/17/21 PROCEDURE: Informed consent and time-out was performed before the procedure. Conscious sedation was p erformed by the interventional radiology nurse. The right posterior pelvic bone was marked, sterilize d, draped, and locally anesthetized using approximately 8 ml of 1% lidocaine. Axial CT images were us ed for localization. A 11 gauge Hartman Wright Bone Biopsy kit was used to take 15 mL aspirate and 1 core sample. The biopsy needle was then removed. No immediate complications noted. FINDINGS: Axial CT images demonstrates biopsy needle within the right posterior pelvic bone. IMPRESSION: Successful CT-guided biopsy of the right posterior pelvic bone.
--- NOTE | 2024-09-05 15:33 | DVH ---
CT PELVIS WO CONTRAST, HISTORY: BONE MARROW BX COMPARISON: CT ABD PELVIS WO CONTRAST on DOS: 10/17/21 PROCEDURE: Informed consent and time-out was performed before the procedure. Conscious sedation was p erformed by the interventional radiology nurse. The right posterior pelvic bone was marked, sterilize d, draped, and locally anesthetized using approximately 8 ml of 1% lidocaine. Axial CT images were us ed for localization. A 11 gauge [employer] Bone Biopsy kit was used to take 15 mL aspirate and 1 core sample. The biopsy needle was then removed. No immediate complications noted. FINDINGS: Axial CT images demonstrates biopsy needle within the right posterior pelvic bone. IMPRESSION: Successful CT-guided biopsy of the right posterior pelvic bone.
--- NOTE | 2024-09-05 15:52 | DVHPN2 ---
Progress Note - Dictate Date Seen: Sep 05, 2024 Has the PT tested + for MRSA If YES, has PT been informed?: Yes Medical Necessity Reason Pt with a Central, PICC or Fol: Yes Subjective Patient feeling better denies any acute symptoms. vital signs Vital Sign Date Time Temp Pulse Resp B/P (MAP) Pulse Ox O2 Delivery O2 Flow Rate FiO2 09/05/24 14:28 181/74 09/05/24 13:07 98.3 64 18 100 98.3 09/05/24 10:00 Room Air 0.0 09/05/24 10:00 21 Total Intake and Output 09/04/24 09/04/24 09/05/24 15:00 23:00 07:00 Intake Total 300 ml 1100 ml Balance 300 ml 1100 ml medications Current Medications Medications Dose Ordered Sig/Melva Route Start Time Stop Time Status Last Admin Dose Admin Famotidine 10 mg DAILY IV 09/03/24 22:00 09/05/24 09:21 10 MG Aspirin 81 mg DAILY PO 09/04/24 10:00 09/05/24 09:21 81 MG Albuterol 2.5 mg Q4HPRN PRN NEB 09/03/24 16:00 Cancel Ipratropium [place] 0.5 mg Q4HPRN PRN NEB 09/03/24 16:00 Cancel Sevelamer HCl 800 mg TIDWM PO 09/03/24 18:00 09/05/24 11:51 800 MG Multivit/Ca Carb/ B Cmplx/FA/Prenat 1 tab DAILY PO 09/04/24 10:00 09/05/24 09:21 1 TAB Atorvastatin Calcium 20 mg HS PO 09/03/24 22:00 09/04/24 21:44 20 MG Apixaban 5 mg BID PO 09/03/24 22:00 09/05/24 09:21 5 MG Diagnostic Test (Pha) 1 strip ACHS 09/03/24 17:00 09/05/24 11:51 1 STRIP Insulin Human Regular ACHS SC 09/03/24 17:00 Dextrose 50 ml UD PRN IV 09/03/24 16:00 Sodium Chloride 10 ml Q8HR IV 09/03/24 22:00 09/05/24 14:07 10 ML Acetaminophen/ Hydrocodone Bitart 1 tab Q4HP PRN PO 09/03/24 16:00 Ondansetron HCl 4 mg Q4HP PRN IV 09/03/24 16:00 Docusate Sodium 100 mg BIDPRN PRN PO 09/03/24 16:00 Acetaminophen 650 mg Q6HP PRN PO 09/03/24 16:00 Levothyroxine Sodium 50 mcg QAM@0600 PO 09/04/24 06:00 09/05/24 05:41 50 MCG Nitroglycerin 0.4 mg Q5MINP PRN SL 09/03/24 17:30 Morphine Sulfate 2 mg Q30M PRN IV 09/03/24 17:30 objective HEENT: No evidence of JVD, no oral ulcers. Pulmonary: Lungs are clear on auscultation bilaterally Cardiovascular S1-S2, no S3 or S4 Abdomen: Bowel sounds positive, soft no rebound tenderness Skin: No rash Neurological: Alert, oriented, no focal weakness Hemodialysis access right upper chest tunneled line. Extremities left hand dorsal aspect with induration mobile rubbery in texture and about half a cm in diameter nontender. No evidence of skin lesion except for dry skin range of motion of the fingers is complete. laboratory and microbiology Laboratory Tests 09/05/24 07:45 09/04/24 05:38 Test 09/04/24 05:38 Range/Units Serum Glucose 94 74-106 mg/dL Assessment/Plan Assessment: 1. End-stage renal disease on hemodialysis via right IJ tunneled line 2. Epistaxis 3. Rule out GI bleed 4. Anemia of acute blood loss and end-stage renal disease. 5. Hypertension 6. CAD 7. Status post pacemaker placement 8. Left-hand subcutaneous lesion Plan and recommendations: Hemodialysis TTS. Transfuse PRBC for goal hemoglobin at least 7 grams/deciliter. Ultrasound reviewed defer management to primary team. Oxygen supplementation keep pulse ox more than 90% High doses of OSMEL Would hold off on antihypertensive meds until blood pressure more than 150 then resume PPI GI consult Monitor H&H and transfuse as needed Plan of care was discussed with the daughter and the patient in detail Thank you very much for allowing us to participate in the care of this patient Plan discussed with: Patient CC Plasma Assessment Blood Product Administration S: [id number] MELQUIADES REYES MD Sep 05, 2024 15:52
--- NOTE | 2024-09-05 18:51 | DVHPN2 ---
Progress Note - Dictate Date Seen: Sep 05, 2024 Has the PT tested + for MRSA If YES, has PT been informed?: Yes Medical Necessity Reason Pt with a Central, PICC or Fol: Yes Subjective Patient was seen and evaluated in follow up. Patient is complaining of generalized weakness. Patient denies any further N/V, nosebleeds or hemoptysis. WBC 4.2, HGB 8.3, HCT 24.2. Telemetry reviewed. vital signs Vital Sign Date Time Temp Pulse Resp B/P (MAP) Pulse Ox O2 Delivery O2 Flow Rate FiO2 09/05/24 13:07 98.3 64 18 187/75 (112) 100 98.3 09/05/24 10:00 Room Air 0.0 09/05/24 10:00 21 Total Intake and Output 09/04/24 09/04/24 09/05/24 15:00 23:00 07:00 Intake Total 300 ml 1100 ml Balance 300 ml 1100 ml medications Current Medications Medications Dose Ordered Sig/Melva Route Start Time Stop Time Status Last Admin Dose Admin Famotidine 10 mg DAILY IV 09/03/24 22:00 09/05/24 09:21 10 MG Aspirin 81 mg DAILY PO 09/04/24 10:00 09/05/24 09:21 81 MG Albuterol 2.5 mg Q4HPRN PRN NEB 09/03/24 16:00 Cancel Ipratropium [place] 0.5 mg Q4HPRN PRN NEB 09/03/24 16:00 Cancel Sevelamer HCl 800 mg TIDWM PO 09/03/24 18:00 09/05/24 11:51 800 MG Multivit/Ca Carb/ B Cmplx/FA/Prenat 1 tab DAILY PO 09/04/24 10:00 09/05/24 09:21 1 TAB Atorvastatin Calcium 20 mg HS PO 09/03/24 22:00 09/04/24 21:44 20 MG Apixaban 5 mg BID PO 09/03/24 22:00 09/05/24 09:21 5 MG Diagnostic Test (Pha) 1 strip ACHS 09/03/24 17:00 09/05/24 11:51 1 STRIP Insulin Human Regular ACHS SC 09/03/24 17:00 Dextrose 50 ml UD PRN IV 09/03/24 16:00 Sodium Chloride 10 ml Q8HR IV 09/03/24 22:00 09/04/24 21:44 10 ML Acetaminophen/ Hydrocodone Bitart 1 tab Q4HP PRN PO 09/03/24 16:00 Ondansetron HCl 4 mg Q4HP PRN IV 09/03/24 16:00 Docusate Sodium 100 mg BIDPRN PRN PO 09/03/24 16:00 Acetaminophen 650 mg Q6HP PRN PO 09/03/24 16:00 Levothyroxine Sodium 50 mcg QAM@0600 PO 09/04/24 06:00 09/05/24 05:41 50 MCG Nitroglycerin 0.4 mg Q5MINP PRN SL 09/03/24 17:30 Morphine Sulfate 2 mg Q30M PRN IV 09/03/24 17:30 objective GENERAL: Awake, alert, oriented. LUNGS: Clear. CARDIOVASCULAR: Heart sounds are good. ABDOMEN: Soft. laboratory and microbiology Laboratory Tests 09/05/24 07:45 09/04/24 05:38 Test 09/04/24 05:38 Range/Units Serum Glucose 94 74-106 mg/dL Problem List Symptomatic anemia. Pancytopenia. Elevated troponin. Acute generalized weakness. ESRD on hemodialysis. Diabetes. Hypertension. Hypercholesterolemia. History of [place]. Peripheral arterial disease. History of pacemaker. Anemia of chronic disease. Assessment/Plan Continued all current supportive medical care. Morphine and [place] for pain management. Eliquis. Aspirin, Lipitor. Nitro SL. Additional plan as per the hospital course. Plan discussed with: Patient CC Plasma Assessment Blood Product Administration S: [id number] ROSARIO BRAUN MD Sep 05, 2024 14:08
[2024-09-06] VITALS (9 sets, daily range): BP systolic 151–184; BP diastolic 62–78; PULSE 54–74; RESP 16–17; TEMP 98.2–98.6; O2SAT 99–100
[2024-09-06 08:26] LABS: Basophils # (auto) 0 10 ^3/uL (0-0.2); Basophils % (auto) 0.5 % (0.0-2.0); Eosinophils # (auto) 0.2 10 ^3/uL (0-0.8); Eosinophils % (auto) 4.3 % (0.0-7.0); Hematocrit 22.8 % (41.0-53.0); Hemoglobin 7.7 g/dL (13.5-17.5); Lymphocytes # (auto) 0.7 10 ^3/uL (0.4-5.4); Lymphocytes % (auto) 12.5 % (10.0-50.0); Mean Corpuscular Hemoglobin 31.1 pg (28.0-32.0); Mean Corpuscular Hgb Conc. 33.9 g/dL (32.0-36.0); Mean Corpuscular Volume 91.7 fL (80.0-100.0); Monocytes # (auto) 0.5 10 ^3/uL (0-1.3); Monocytes % (auto) 9.2 % (0.0-12.0); Neutrophils % (auto) 73.5 % (37.0-80.0); Platelet Count (auto) 81 10^3/uL (140-450); Red Blood Cells 2.49 10^6/uL (4.5-5.90); Red Cell Distribution Width 16.7 % (11.8-14.3); White Blood Cell 5.5 10^3/uL (4.4-10.8)
--- NOTE | 2024-09-06 08:34 | DVHPN2 ---
Progress Note - Dictate Date Seen: Sep 06, 2024 Has the PT tested + for MRSA If YES, has PT been informed?: Yes Medical Necessity Reason Pt with a Central, PICC or Fol: Yes Subjective The patient is feeling okay. He had a bone marrow aspiration biopsy done yesterday and the report is pending. vital signs Vital Sign Date Time Temp Pulse Resp B/P (MAP) Pulse Ox O2 Delivery O2 Flow Rate FiO2 09/06/24 05:00 98.3 61 17 184/71 (108) 99 98.3 09/05/24 20:00 Room Air* 0 21 Total Intake and Output 09/05/24 09/05/24 09/06/24 14:59 22:59 06:59 Intake Total 664 ml 677 ml 600 ml Output Total 200 ml Balance 664 ml 677 ml 400 ml medications Current Medications Medications Dose Ordered Sig/Melva Route Start Time Stop Time Status Last Admin Dose Admin Famotidine 10 mg DAILY IV 09/03/24 22:00 09/05/24 09:21 Aspirin 81 mg DAILY PO 09/04/24 10:00 09/05/24 09:21 Albuterol 2.5 mg Q4HPRN PRN NEB 09/03/24 16:00 Cancel Ipratropium [place] 0.5 mg Q4HPRN PRN NEB 09/03/24 16:00 Cancel Sevelamer HCl 800 mg TIDWM PO 09/03/24 18:00 09/05/24 16:37 Multivit/Ca Carb/ B Cmplx/FA/Prenat 1 tab DAILY PO 09/04/24 10:00 09/05/24 09:21 Atorvastatin Calcium 20 mg HS PO 09/03/24 22:00 09/05/24 21:21 Apixaban 5 mg BID PO 09/03/24 22:00 09/05/24 21:20 Diagnostic Test (Pha) 1 strip ACHS 09/03/24 17:00 09/06/24 05:00 Insulin Human Regular ACHS SC 09/03/24 17:00 09/05/24 21:13 Dextrose 50 ml UD PRN IV 09/03/24 16:00 Sodium Chloride 10 ml Q8HR IV 09/03/24 22:00 09/06/24 04:47 Acetaminophen/ Hydrocodone Bitart 1 tab Q4HP PRN PO 09/03/24 16:00 Ondansetron HCl 4 mg Q4HP PRN IV 09/03/24 16:00 Docusate Sodium 100 mg BIDPRN PRN PO 09/03/24 16:00 Acetaminophen 650 mg Q6HP PRN PO 09/03/24 16:00 Levothyroxine Sodium 50 mcg QAM@0600 PO 09/04/24 06:00 09/06/24 04:48 Nitroglycerin 0.4 mg Q5MINP PRN SL 09/03/24 17:30 Morphine Sulfate 2 mg Q30M PRN IV 09/03/24 17:30 objective Head and neck: Unremarkable for any masses or neck nodes. Lungs: Clear Cardiovascular: Regular sinus rhythm Abdomen: No organomegaly, tenderness or ascites. Bowel sounds are present. Extremities: No clubbing edema cyanosis or calf tenderness. Skin: Unremarkable for petechia purpura ecchymosis Lymphadenopathy: None On the dorsal surface of the right hand he has a small soft cystic mass measuring around 2 cm laboratory and microbiology Laboratory Tests 09/06/24 05:45 09/04/24 05:38 Test 09/04/24 05:38 Range/Units Serum Glucose 94 74-106 mg/dL Assessment/Plan 1. Anemia with a history of rectal bleeding six weeks back and was a [facility] multiple transfusions and per patient upper lobe scope was unremarkable Admitted with severe anemia and vomiting blood and some nosebleeds and needing transfusion of the packed cells 4 units Has leukopenia and thrombocytopenia May need to rule out the possibility of a GI bleeding or liver pathology or rule out autoimmune process or bone marrow pathology Had a bone marrow aspiration biopsy done on 09/05/2024 and the report is pending CBC from today showed a white count of 5.5 hemoglobin 7.7 MCV 91.7 platelets [id number]. Retic count 4.46 haptoglobin pending. Direct Sarai is negative end-stage renal disease on hemodialysis diabetes cholesterol coronary artery disease [place] and stent placement peripheral arterial disease Pacemaker Mass on the right hand on the dorsal surface Plan: The records from [place] pending MRI of the right hand Wait for the bone marrow biopsy report Treat symptomatically Plan discussed with: Patient, Spouse CC Plasma Assessment Blood Product Administration S: 20:34 PRIETO PÉREZ MD Sep 06, 2024 08:34
--- NOTE | 2024-09-06 10:04 | DVHPN2 ---
Reviewed: Care Plan, H&P, Labs, Medications, Previous Orders, Radiology Changes from previous H/P or p: No Changes Eyes: No Pain, No Vision change, No Conjunctivae inflammation, No Eyelid inflammation, No Other, No Redness ENT: No Ear pain, No Ear discharge, No Nose pain, No Nose discharge, No Nose congestion, No Mouth pain, No Mouth swelling, No Throat pain, No Throat swelling; Other (Nose bleeding) Cardiovascular: No Chest Pain, No Palpitations, No Orthopnea, No Paroxysmal Noc. Dyspnea, No Edema, No Lt Headedness, No Other Respiratory: Cough; No Dry; Shortness of breath, SOB with excertion; No Wheezing; Hemoptysis; No Pleuritic Pain, No Sputum; Other (SOB at rest) Gastrointestinal: No Nausea, No Vomiting, No Abdominal Pain, No Diarrhea, No Constipation, No Melena, No Hematochezia, No Other Genitourinary: No Dysuria, No Frequency, No Incontinence, No Hematuria, No Retention, No Other Musculoskeletal: No other, No neck pain, No shoulder pain, No arm pain, No back pain, No hand pain, No leg pain, No foot pain Skin: No Rash, No Lesions, No Jaundice, No Bruising, No Other Objective Vitals Vital Signs Date Time Temp Pulse Resp B/P (MAP) Pulse Ox O2 Delivery O2 Flow Rate FiO2 09/06/24 05:00 98.3 61 17 184/71 (108) 99 98.3 09/05/24 20:00 Room Air* 0 21 Intake/Output Intake and Output 09/06/24 07:00 Intake Total 1941 ml Output Total 200 ml Balance 1741 ml Intake Oral 1941 ml Output Urine Total 200 ml # Voids 7 # Bowel Movements 2 Medications Current Medications Medications Dose Ordered Sig/Melva Route Start Time Stop Time Status Last Admin Dose Admin Famotidine 10 mg DAILY IV 09/03/24 22:00 09/06/24 08:46 10 MG Aspirin 81 mg DAILY PO 09/04/24 10:00 09/06/24 08:45 81 MG Albuterol 2.5 mg Q4HPRN PRN NEB 09/03/24 16:00 Cancel Ipratropium [place] 0.5 mg Q4HPRN PRN NEB 09/03/24 16:00 Cancel Sevelamer HCl 800 mg TIDWM PO 09/03/24 18:00 09/06/24 08:45 800 MG Multivit/Ca Carb/ B Cmplx/FA/Prenat 1 tab DAILY PO 09/04/24 10:00 09/06/24 08:45 1 TAB Atorvastatin Calcium 20 mg HS PO 09/03/24 22:00 09/05/24 21:21 20 MG Apixaban 5 mg BID PO 09/03/24 22:00 09/06/24 08:45 5 MG Diagnostic Test (Pha) 1 strip ACHS 09/03/24 17:00 09/06/24 05:00 1 STRIP Insulin Human Regular ACHS SC 09/03/24 17:00 09/05/24 21:13 3 UNITS Dextrose 50 ml UD PRN IV 09/03/24 16:00 Sodium Chloride 10 ml Q8HR IV 09/03/24 22:00 09/06/24 04:47 10 ML Acetaminophen/ Hydrocodone Bitart 1 tab Q4HP PRN PO 09/03/24 16:00 Ondansetron HCl 4 mg Q4HP PRN IV 09/03/24 16:00 Docusate Sodium 100 mg BIDPRN PRN PO 09/03/24 16:00 Acetaminophen 650 mg Q6HP PRN PO 09/03/24 16:00 Levothyroxine Sodium 50 mcg QAM@0600 PO 09/04/24 06:00 09/06/24 04:48 50 MCG Nitroglycerin 0.4 mg Q5MINP PRN SL 09/03/24 17:30 Morphine Sulfate 2 mg Q30M PRN IV 09/03/24 17:30 Laboratory Results Laboratory Tests 09/04/24 05:38 09/06/24 05:45 Microbiology Microbiology Date/Time Source Procedure Growth Status 09/03/24 23:30 Nose MRSA Screen - Final Complete 09/03/24 12:00 Blood Blood Culture - Preliminary NO GROWTH AFTER 48 HOURS OF INCUBATION. Resulted Labs and/or images reviewed: Labs reviewed by me, Image(s) reviewed by me Assessment/Plan Assessment/Plan Symptomatic anemia hemoglobin 4.3 improved to 6.0 after 4 units RBC transfusion, hemoglobin from today pending GI consult for Dr. Jason Chin Pancytopenia: Consult for Dr. Michelle appreciated bone marrow biopsy report pending. Elevated Troponin consult for Dr. Cano appreciated Acute Generalized weakness ESRD on hemodialysis consult by Dr. Delgadillo appreciated Diabetes Hypertension Hypercholesterolemia History of [place] Peripheral arterial disease History of pacemaker Anemia of Chronic disease Time spent 55 minutes Patient is full code Advanced care planning time 20 minutes Patient was recently seen in hospital in [facility] Examined through the help of final inspector and tester Daughter at the bedside. Plan discussed with: Patient My Orders Orders - EKATERINA ROBERTSON MD Procedure Category Date Status Time Ct Guidance For CT 09/05/24 Resulted Needle Placeme 14:[address] 09/05/24 Resulted 14:31 Date of Service: Sep 06, 2024 Billing Provider: EKATERINA ROBERTSON MD Common Visit Codes: [id number] INP/OBS CARE(HIGH) EKATERINA ROBERTSON MD Sep 06, 2024 10:04
--- NOTE | 2024-09-06 12:22 | DVHINCON2 ---
GI Consult Consult Note GI consult note Date of Consultation: 09/06/2024 Chief Complaint: Severe anemia Referring Physician: Dr. New Robertson H&P: 73-year-old [place]i-speaking male, Eva guillen, presented to ER with shortness of breath and generalized weakness No abdominal pain. Nausea and vomiting x3 yesterday, no hematemesis. No red blood in stool Patient admits to melena for three months. Patient also having nosebleeds and hemoptysis last eight days MIx5 treated with Eliquis Diagnosed with anemia six years ago, had intestinal bleeding one year ago treated at [facility] Patient recently admitted at [place] six weeks ago, SP EGD/colonoscopy, unremarkable per patient, records pending SP bone marrow aspiration, results pending History of ESRD on dialysis Past Medical History: DM, ESRD, High Lipids, HTN, IN (5), PAD Past Surgical History: Cholecystectomy, Pacemaker, cataracts Social History: NO smoking, drinking ETOH and use of illegal drugs. Family History: Noncontributory Review of Systems: Constitutional: no fever, chill, weight loss HEENT: no eye pain, no hearing loss, no oral lesion, no scleral icterus Heart: no chest pain, no chest pressure Lung: no cough, no dyspnea with exertion Abdomen: see HPI Physical exam: General: NAD, AAOX3 Chest: Labored breathing noted Heart: RRR, no murmur Abdomen: non-distended, no tenderness to palpation, +BS Labs: Test 09/04/24 05:38 Range/Units Serum Glucose 94 74-106 mg/dL Imaging: Assessment: Severe anemia Possible GI bleed Pancytopenia ESRD History of GI bleed in past Plan: Discussed with Dr. Chin Monitor labs, transfuse if hemoglobin less than seven Stool for occult blood CT abdomen pelvis Recommend to hold blood thinners if cleared by Cardiology We will continue to monitor the patient Discussed plan with patient and RN Thank you for the consult Date of Service: Sep 06, 2024 Billing Provider: ADELINA ROBERTSON Common Visit Codes: CONSULT ONLY Consultation Codes: [id number] CONSULT <60MIN ADELINA ROBERTSON Sep 06, 2024 12:22
--- NOTE | 2024-09-06 13:19 | DVH ---
CT ABDOMEN AND PELVIS WITHOUT CONTRAST CLINICAL HISTORY: anemia, possible GIB TECHNIQUE: Multiple contiguous axial images of the abdomen and pelvis without intravenous contrast. The images were reformatted degenerate coronal and sagittal reconstructions. All CT scans at this medical facility are performed using dose modulation techniques as appropriate t o a performed exam including the following:Automated exposure control was utilized; adjustment of the MA and/or KV according to patient size; and use of iterative reconstruction technique. Radiation Dose Information: CT Dose: CTDI volume is 6 mGy. Dose-length product is 304 mGy*cm Comparison: CT ABD PELVIS WO CONTRAST on DOS: 10/17/21 FINDINGS: Evaluation of the abdomen and pelvis is limited without intravenous contrast. There is a 2.6 cm left midpole renal cyst. There is no evidence of nephrolithiasis or hydronephrosis . The gallbladder is surgically absent. The liver, pancreas, adrenal glands, and spleen appear with in normal limits. There is small amount of ascites and edematous changes in the mesentery. There is no free intraperito mariela air. The stomach grossly appears unremarkable. The small and large bowel loops demonstrate normal caliber . Air intermixed with stool is seen throughout the colon. The abdominal aorta and IVC appear within normal limits. There is moderate prostatomegaly. Bladder demonstrates circumferential wall thickening likely related to chronic outlet obstruction. There is no gross evidence of a pelvic mass. There is free fluid in the pelvis. There is a small fat containing left inguinal hernia. There are small bilateral pleural effusions. There is no acute osseous abnormality. IMPRESSION: 1. There is no acute process in the abdomen and pelvis. 2. There is small amount of ascites and edematous changes in the mesentery. 3. Moderate prostatomegaly with likely chronic bladder outlet obstruction. 4. Small bilateral pleural effusions. HS:Y
[2024-09-06] MEDS: EPOETIN ALFA-EPBX 10,000 UNIT/1ML VIAL SC ONE (21:59)
--- NOTE | 2024-09-06 23:17 | DVHPN2 ---
Progress Note - Dictate Date Seen: Sep 06, 2024 Has the PT tested + for MRSA If YES, has PT been informed?: Yes Medical Necessity Reason Pt with a Central, PICC or Fol: Yes Subjective Patient was seen and evaluated in follow up. Patient is complaining of generalized weakness. Patient underwent bone marrow aspiration and biopsy. Patient tolerated the procedure well. HGB 7.7, HCT 22.8. Telemetry reviewed. vital signs Vital Sign Date Time Temp Pulse Resp B/P (MAP) Pulse Ox O2 Delivery O2 Flow Rate FiO2 09/06/24 10:00 100 Room Air 0.0 09/06/24 10:00 21 09/06/24 10:00 71 09/06/24 09:00 98.6 17 162/78 (106) 98.6 Total Intake and Output 09/05/24 09/05/24 09/06/24 15:00 23:00 07:00 Intake Total 664 ml 677 ml 600 ml Output Total 200 ml Balance 664 ml 677 ml 400 ml medications Current Medications Medications Dose Ordered Sig/Melva Route Start Time Stop Time Status Last Admin Dose Admin Famotidine 10 mg DAILY IV 09/03/24 22:00 09/06/24 08:46 10 MG Aspirin 81 mg DAILY PO 09/04/24 10:00 09/06/24 08:45 81 MG Albuterol 2.5 mg Q4HPRN PRN NEB 09/03/24 16:00 Cancel Ipratropium [place] 0.5 mg Q4HPRN PRN NEB 09/03/24 16:00 Cancel Sevelamer HCl 800 mg TIDWM PO 09/03/24 18:00 09/06/24 08:45 800 MG Multivit/Ca Carb/ B Cmplx/FA/Prenat 1 tab DAILY PO 09/04/24 10:00 09/06/24 08:45 1 TAB Atorvastatin Calcium 20 mg HS PO 09/03/24 22:00 09/05/24 21:21 20 MG Apixaban 5 mg BID PO 09/03/24 22:00 09/06/24 08:45 5 MG Diagnostic Test (Pha) 1 strip ACHS 09/03/24 17:00 09/06/24 05:00 1 STRIP Insulin Human Regular ACHS SC 09/03/24 17:00 09/05/24 21:13 3 UNITS Dextrose 50 ml UD PRN IV 09/03/24 16:00 Sodium Chloride 10 ml Q8HR IV 09/03/24 22:00 09/06/24 04:47 10 ML Acetaminophen/ Hydrocodone Bitart 1 tab Q4HP PRN PO 09/03/24 16:00 Ondansetron HCl 4 mg Q4HP PRN IV 09/03/24 16:00 Docusate Sodium 100 mg BIDPRN PRN PO 09/03/24 16:00 Acetaminophen 650 mg Q6HP PRN PO 09/03/24 16:00 Levothyroxine Sodium 50 mcg QAM@0600 PO 09/04/24 06:00 09/06/24 04:48 50 MCG Nitroglycerin 0.4 mg Q5MINP PRN SL 09/03/24 17:30 Morphine Sulfate 2 mg Q30M PRN IV 09/03/24 17:30 objective GENERAL: Awake, alert, oriented. LUNGS: Clear. CARDIOVASCULAR: Heart sounds are good. ABDOMEN: Soft. laboratory and microbiology Laboratory Tests 09/06/24 05:45 09/04/24 05:38 Test 09/04/24 05:38 Range/Units Serum Glucose 94 74-106 mg/dL Problem List Symptomatic anemia. Pancytopenia. Elevated troponin. Acute generalized weakness. ESRD on hemodialysis. Diabetes. Hypertension. Hypercholesterolemia. History of [place]. Peripheral arterial disease. History of pacemaker. Anemia of chronic disease. Assessment/Plan Continued all current supportive medical care. Morphine and [place] for pain management. Eliquis. Aspirin, Lipitor. Nitro SL. Additional plan as per the hospital course. Plan discussed with: Patient CC Plasma Assessment Blood Product Administration S: 20:34 ROSARIO BRAUN MD Sep 06, 2024 12:29
[2024-09-07] VITALS (16 sets, daily range): BP systolic 128–174; BP diastolic 62–74; PULSE 59–74; RESP 12–19; TEMP 97.7–98.9; O2SAT 99–100
[2024-09-07 07:06] LABS: Basophils # (auto) 0 10 ^3/uL (0-0.2); Eosinophils # (auto) 0.2 10 ^3/uL (0-0.8); Monocytes # (auto) 0.3 10 ^3/uL (0-1.3); Neutrophils # (auto) 2.7 10 ^3/uL (1.6-8.6)
[2024-09-07 07:08] LABS: Basophils % (auto) 0.6 % (0.0-2.0); Eosinophils % (auto) 4.9 % (0.0-7.0); Hematocrit 19.8 % (41.0-53.0); Lymphocytes # (auto) 0.7 10 ^3/uL (0.4-5.4); Lymphocytes % (auto) 16.7 % (10.0-50.0); Mean Corpuscular Hemoglobin 31.3 pg (28.0-32.0); Mean Corpuscular Hgb Conc. 33.7 g/dL (32.0-36.0); Mean Corpuscular Volume 92.8 fL (80.0-100.0); Monocytes % (auto) 8.7 % (0.0-12.0); Neutrophils % (auto) 69.1 % (37.0-80.0); Platelet Count (auto) 73 10^3/uL (140-450); Red Blood Cells 2.14 10^6/uL (4.5-5.90); Red Cell Distribution Width 17.4 % (11.8-14.3); White Blood Cell 3.9 10^3/uL (4.4-10.8)
[2024-09-07 07:13] LABS: Hemoglobin 6.7 g/dL (13.5-17.5)
[2024-09-07 07:28] LABS: INR 1.11 (0.9-1.15); Prothrombin Time 11.6 sec (9.3-11.8)
--- NOTE | 2024-09-07 11:07 | DVHPN2 ---
Reviewed: Care Plan, H&P, Labs, Medications, Previous Orders, Radiology Changes from previous H/P or p: No Changes Eyes: No Pain, No Vision change, No Conjunctivae inflammation, No Eyelid inflammation, No Other, No Redness ENT: No Ear pain, No Ear discharge, No Nose pain, No Nose discharge, No Nose congestion, No Mouth pain, No Mouth swelling, No Throat pain, No Throat swelling; Other (Nose bleeding) Cardiovascular: No Chest Pain, No Palpitations, No Orthopnea, No Paroxysmal Noc. Dyspnea, No Edema, No Lt Headedness, No Other Respiratory: Cough; No Dry; Shortness of breath, SOB with excertion; No Wheezing; Hemoptysis; No Pleuritic Pain, No Sputum; Other (SOB at rest) Gastrointestinal: No Nausea, No Vomiting, No Abdominal Pain, No Diarrhea, No Constipation, No Melena, No Hematochezia, No Other Genitourinary: No Dysuria, No Frequency, No Incontinence, No Hematuria, No Retention, No Other Musculoskeletal: No other, No neck pain, No shoulder pain, No arm pain, No back pain, No hand pain, No leg pain, No foot pain Skin: No Rash, No Lesions, No Jaundice, No Bruising, No Other Objective Vitals Vital Signs Date Time Temp Pulse Resp B/P (MAP) Pulse Ox O2 Delivery O2 Flow Rate FiO2 09/07/24 09:00 98.2 63 19 151/63 (92) 100 98.2 09/06/24 20:00 Room Air* 0 21 Intake/Output Intake and Output 09/07/24 07:00 Intake Total 1220 ml Output Total 400 ml Balance 820 ml Intake Oral 1220 ml Output Urine Total 400 ml Medications Current Medications Medications Dose Ordered Sig/Melva Route Start Time Stop Time Status Last Admin Dose Admin Famotidine 10 mg DAILY IV 09/03/24 22:00 09/07/24 08:42 10 MG Aspirin 81 mg DAILY PO 09/04/24 10:00 09/06/24 08:45 81 MG Albuterol 2.5 mg Q4HPRN PRN NEB 09/03/24 16:00 Cancel Ipratropium [place] 0.5 mg Q4HPRN PRN NEB 09/03/24 16:00 Cancel Sevelamer HCl 800 mg TIDWM PO 09/03/24 18:00 09/07/24 08:42 800 MG Multivit/Ca Carb/ B Cmplx/FA/Prenat 1 tab DAILY PO 09/04/24 10:00 09/07/24 08:42 1 TAB Atorvastatin Calcium 20 mg HS PO 09/03/24 22:00 09/06/24 21:57 20 MG Apixaban 5 mg BID PO 09/03/24 22:00 09/06/24 21:57 5 MG Diagnostic Test (Pha) 1 strip ACHS 09/03/24 17:00 09/07/24 06:09 1 STRIP Insulin Human Regular ACHS SC 09/03/24 17:00 09/06/24 22:05 3 UNITS Dextrose 50 ml UD PRN IV 09/03/24 16:00 Sodium Chloride 10 ml Q8HR IV 09/03/24 22:00 09/07/24 06:09 10 ML Acetaminophen/ Hydrocodone Bitart 1 tab Q4HP PRN PO 09/03/24 16:00 Ondansetron HCl 4 mg Q4HP PRN IV 09/03/24 16:00 Docusate Sodium 100 mg BIDPRN PRN PO 09/03/24 16:00 Acetaminophen 650 mg Q6HP PRN PO 09/03/24 16:00 Levothyroxine Sodium 50 mcg QAM@0600 PO 09/04/24 06:00 09/07/24 06:09 50 MCG Nitroglycerin 0.4 mg Q5MINP PRN SL 09/03/24 17:30 Morphine Sulfate 2 mg Q30M PRN IV 09/03/24 17:30 Laboratory Results Laboratory Tests 09/04/24 05:38 09/07/24 06:29 Coagulation Test 09/07/24 06:29 Prothrombin Time 11.6 sec (9.3-11.8) Prothrombin Time INR 1.11 (0.9-1.15) Microbiology Microbiology Date/Time Source Procedure Growth Status 09/03/24 23:30 Nose MRSA Screen - Final Complete 09/03/24 12:00 Blood Blood Culture - Preliminary NO GROWTH AFTER 72 HOURS OF INCUBATION. Resulted Labs and/or images reviewed: Labs reviewed by me, Image(s) reviewed by me Assessment/Plan Assessment/Plan Symptomatic anemia hemoglobin 4.3 improved to 6.0 after 4 units RBC transfusion, hemoglobin fdown to 6.7, we will transfuse one more unitGI consult for Dr. Jason Chin, we will hold aspirin and Eliquis , patient getting endoscopy by GI Dr. Jason Chin Pancytopenia: Consult for Dr. Michelle appreciated bone marrow biopsy report pending. Elevated Troponin consult for Dr. Cano appreciated Acute Generalized weakness ESRD on hemodialysis consult by Dr. Delgadillo appreciated Diabetes Hypertension Hypercholesterolemia History of [place] Peripheral arterial disease History of pacemaker Anemia of Chronic disease Time spent 55 minutes Patient is full code Advanced care planning time 20 minutes Patient was recently seen in hospital in [place] and [facility] Examined through the help of turner machine operator Daughter at the bedside. Plan discussed with: Patient Date of Service: Sep 07, 2024 Billing Provider: EKATERINA ROBERTSON MD Common Visit Codes: [id number] INP/OBS CARE(HIGH) EKATERINA ROBERTSON MD Sep 07, 2024 11:07
--- NOTE | 2024-09-07 13:40 | DVHPN2 ---
Progress Note - Dictate Date Seen: Sep 06, 2024 Has the PT tested + for MRSA If YES, has PT been informed?: Yes Medical Necessity Reason Pt with a Central, PICC or Fol: Yes Subjective Patient feeling better denies any acute symptoms. vital signs Vital Sign Date Time Temp Pulse Resp B/P (MAP) Pulse Ox O2 Delivery O2 Flow Rate FiO2 09/07/24 12:27 98.4 60 19 141/63 (89) 100 98.4 09/06/24 20:00 Room Air* 0 21 Total Intake and Output 09/06/24 09/06/24 09/07/24 15:00 23:00 07:00 Intake Total 720 ml 500 ml Output Total 400 ml 0 ml Balance 320 ml 500 ml medications Current Medications Medications Dose Ordered Sig/Melva Route Start Time Stop Time Status Last Admin Dose Admin Famotidine 10 mg DAILY IV 09/03/24 22:00 09/07/24 08:42 10 MG Albuterol 2.5 mg Q4HPRN PRN NEB 09/03/24 16:00 Cancel Ipratropium [place] 0.5 mg Q4HPRN PRN NEB 09/03/24 16:00 Cancel Sevelamer HCl 800 mg TIDWM PO 09/03/24 18:00 09/07/24 13:00 800 MG Multivit/Ca Carb/ B Cmplx/FA/Prenat 1 tab DAILY PO 09/04/24 10:00 09/07/24 08:42 1 TAB Atorvastatin Calcium 20 mg HS PO 09/03/24 22:00 09/06/24 21:57 20 MG Diagnostic Test (Pha) 1 strip ACHS 09/03/24 17:00 09/07/24 11:30 1 STRIP Insulin Human Regular ACHS SC 09/03/24 17:00 09/06/24 22:05 3 UNITS Dextrose 50 ml UD PRN IV 09/03/24 16:00 Sodium Chloride 10 ml Q8HR IV 09/03/24 22:00 09/07/24 06:09 10 ML Acetaminophen/ Hydrocodone Bitart 1 tab Q4HP PRN PO 09/03/24 16:00 Ondansetron HCl 4 mg Q4HP PRN IV 09/03/24 16:00 Docusate Sodium 100 mg BIDPRN PRN PO 09/03/24 16:00 Acetaminophen 650 mg Q6HP PRN PO 09/03/24 16:00 Levothyroxine Sodium 50 mcg QAM@0600 PO 09/04/24 06:00 09/07/24 06:09 50 MCG Nitroglycerin 0.4 mg Q5MINP PRN SL 09/03/24 17:30 Morphine Sulfate 2 mg Q30M PRN IV 09/03/24 17:30 objective HEENT: No evidence of JVD, no oral ulcers. Pulmonary: Lungs are clear on auscultation bilaterally Cardiovascular S1-S2, no S3 or S4 Abdomen: Bowel sounds positive, soft no rebound tenderness Skin: No rash Neurological: Alert, oriented, no focal weakness Hemodialysis access right upper chest tunneled line. Right upper arm covered with dressing no evidence of active bleeding. Patient is being treated for graft infection as an outpatient. Extremities left hand dorsal aspect with induration mobile rubbery in texture and about half a cm in diameter nontender. No evidence of skin lesion except for dry skin range of motion of the fingers is complete. laboratory and microbiology Laboratory Tests 09/07/24 06:29 09/04/24 05:38 Test 09/04/24 05:38 Range/Units Serum Glucose 94 74-106 mg/dL Assessment/Plan late entry for date of service September 06, 2024 Assessment: 1. End-stage renal disease on hemodialysis via right IJ tunneled line 2. Epistaxis 3. Rule out GI bleed 4. Anemia of acute blood loss and end-stage renal disease. 5. Hypertension 6. CAD 7. Status post pacemaker placement 8. Left-hand subcutaneous lesion Plan and recommendations: Hemodialysis TTS. Transfuse PRBC for goal hemoglobin at least 7 grams/deciliter. Ultrasound reviewed defer management to primary team. Oxygen supplementation keep pulse ox more than 90% High doses of OSMEL Would hold off on antihypertensive meds until blood pressure more than 150 then resume PPI GI consult Monitor H&H and transfuse as needed Thank you very much for allowing us to participate in the care of this patient Dietary Evaluation Review Comments: 1) Advance pt diet when medically feasible to a Renal Standard diet 2) Continue current plan of care Expected Outcomes/Goals: F/U in 2-3 days Plan discussed with: Patient CC Plasma Assessment Blood Product Administration S: 20:34 MELQUIADES REYES MD Sep 07, 2024 13:40
--- NOTE | 2024-09-07 13:41 | DVHPN2 ---
Progress Note - Dictate Date Seen: Sep 07, 2024 Has the PT tested + for MRSA If YES, has PT been informed?: Yes Medical Necessity Reason Pt with a Central, PICC or Fol: Yes Subjective No evidence of bleeding. Patient still feels tired vital signs Vital Sign Date Time Temp Pulse Resp B/P (MAP) Pulse Ox O2 Delivery O2 Flow Rate FiO2 09/07/24 12:27 98.4 60 19 141/63 (89) 100 98.4 09/06/24 20:00 Room Air* 0 21 Total Intake and Output 09/06/24 09/06/24 09/07/24 15:00 23:00 07:00 Intake Total 720 ml 500 ml Output Total 400 ml 0 ml Balance 320 ml 500 ml medications Current Medications Medications Dose Ordered Sig/Melva Route Start Time Stop Time Status Last Admin Dose Admin Famotidine 10 mg DAILY IV 09/03/24 22:00 09/07/24 08:42 10 MG Albuterol 2.5 mg Q4HPRN PRN NEB 09/03/24 16:00 Cancel Ipratropium [place] 0.5 mg Q4HPRN PRN NEB 09/03/24 16:00 Cancel Sevelamer HCl 800 mg TIDWM PO 09/03/24 18:00 09/07/24 13:00 800 MG Multivit/Ca Carb/ B Cmplx/FA/Prenat 1 tab DAILY PO 09/04/24 10:00 09/07/24 08:42 1 TAB Atorvastatin Calcium 20 mg HS PO 09/03/24 22:00 09/06/24 21:57 20 MG Diagnostic Test (Pha) 1 strip ACHS 09/03/24 17:00 09/07/24 11:30 1 STRIP Insulin Human Regular ACHS SC 09/03/24 17:00 09/06/24 22:05 3 UNITS Dextrose 50 ml UD PRN IV 09/03/24 16:00 Sodium Chloride 10 ml Q8HR IV 09/03/24 22:00 09/07/24 06:09 10 ML Acetaminophen/ Hydrocodone Bitart 1 tab Q4HP PRN PO 09/03/24 16:00 Ondansetron HCl 4 mg Q4HP PRN IV 09/03/24 16:00 Docusate Sodium 100 mg BIDPRN PRN PO 09/03/24 16:00 Acetaminophen 650 mg Q6HP PRN PO 09/03/24 16:00 Levothyroxine Sodium 50 mcg QAM@0600 PO 09/04/24 06:00 09/07/24 06:09 50 MCG Nitroglycerin 0.4 mg Q5MINP PRN SL 09/03/24 17:30 Morphine Sulfate 2 mg Q30M PRN IV 09/03/24 17:30 objective HEENT: No evidence of JVD, no oral ulcers. Pulmonary: Lungs are clear on auscultation bilaterally Cardiovascular S1-S2, no S3 or S4 Abdomen: Bowel sounds positive, soft no rebound tenderness Skin: No rash Neurological: Alert, oriented, no focal weakness Hemodialysis access right upper chest tunneled line. Right upper extremity with a dressing were previous AV graft was Extremities left hand dorsal aspect with induration mobile rubbery in texture and about half a cm in diameter nontender. No evidence of skin lesion except for dry skin range of motion of the fingers is complete. laboratory and microbiology Laboratory Tests 09/07/24 06:29 09/04/24 05:38 Test 09/04/24 05:38 Range/Units Serum Glucose 94 74-106 mg/dL Assessment/Plan Assessment: 1. End-stage renal disease on hemodialysis via right IJ tunneled line 2. Epistaxis 3. Rule out GI bleed 4. Anemia of acute blood loss and end-stage renal disease. 5. Hypertension 6. CAD 7. Status post pacemaker placement 8. 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 9. Left-hand subcutaneous lesion Plan and recommendations: Hemodialysis TTS. Being transfuse one PRBC Ultrasound reviewed defer management to primary team. Oxygen supplementation keep pulse ox more than 90% High doses of OSMEL Would hold off on antihypertensive meds until blood pressure more than 150 then resume PPI GI consult Monitor H&H and transfuse as needed Consult vascular surgery to follow up on the right upper arm if available other cohen f/u outpatient. Thank you very much for allowing us to participate in the care of this patient Dietary Evaluation Review Comments: 1) Advance pt diet when medically feasible to a Renal Standard diet 2) Continue current plan of care Expected Outcomes/Goals: F/U in 2-3 days Plan discussed with: Patient CC Plasma Assessment Blood Product Administration S: 20:34 MELQUIADES REYES MD Sep 07, 2024 13:41
[2024-09-07 15:47] LABS: Alanine Aminotransferase 11 U/L (7-40); Alkaline Phosphatase 61 U/L (46-116); Anion Gap 8 (5-15); Aspartate Aminotransferase 25 U/L (13-40); BUN/Creatinine Ratio 15.1 (10.0-20.0); Carbon Dioxide 26 mmol/L (20-31); Chloride 102 mmol/L (98-107); Glucose 81 mg/dL (74-106); Potassium 3.5 mmol/L (3.5-5.1); Sodium 136 mmol/L (136-145)
[2024-09-07 15:58] LABS: Bilirubin, Total 0.2 mg/dL (0.2-1.0); Calcium 8.7 mg/dL (8.7-10.4)
[2024-09-07 15:59] LABS: Total Protein 5.1 g/dL (5.7-8.2)
[2024-09-07 16:03] LABS: Blood Urea Nitrogen 101 mg/dL (9-23)
--- NOTE | 2024-09-07 17:46 | DVHPN2 ---
Progress Note Date Seen: Sep 07, 2024 Resident Creating Document: MAC AGUILAR RESIDENT Has the PT tested + for MRSA If YES, has PT been informed?: Yes Medical Necessity Reason Pt with a Central, PICC or Fol: Yes Subjective Review of Systems 73-year-old Yakut-speaking male presented to ER with shortness of breath and generalized weakness , patient denies abdominal pain. Nausea and vomiting x3 yesterday, no hematemesis. No red blood in stool Patient admits to melena for three months. Patient also having nosebleeds and hemoptysis last eight days MIx5 treated with Eliqureece Diagnosed with anemia six years ago, had intestinal bleeding one year ago treated at [facility] Patient recently admitted at [place] six weeks ago, SP EGD/colonoscopy, unremarkable per patient, records pending SP bone marrow aspiration, results pending History of ESRD on dialysis Patient was examined at bedside, patient had an episode of epistaxis last night. The bleeding was significant and noted to be related to underlying severe anemia, with a hemoglobin level of 6.7 g per dL. Patient was transfused with 1 unit of packed red blood cells to address the severe anemia and stabilize his condition. Further transfusion are under consideration based on follow-up hemoglobin levels and clinical status. An esophagogastroduodenoscopy was initial plan to evaluate for a potential source of gastrointestinal bleeding contributing to the anemia. However the procedure was deferred due to the severity of the anemia, and it will be performed after the patient received further transfusion and stabilization . Given the patient condition it is recommended to temporarily hold any anticoagulation or antiplatelet therapy to reduce the risk of further bleeding. Additional workup is planned to identify and address the underlying cause of the severe anemia and bleeding episode. Patient reports: No new complaints Changes from previous H/P or p: No Changes Objective vital signs Vital Sign Date Time Temp Pulse Resp B/P (MAP) Pulse Ox O2 Delivery O2 Flow Rate FiO2 09/07/24 15:10 98.1 61 14 168/72 98.1 09/07/24 12:27 100 09/06/24 20:00 Room Air* 0 21 Total Intake and Output 09/06/24 09/06/24 09/07/24 15:00 23:00 07:00 Intake Total 720 ml 500 ml Output Total 400 ml 0 ml Balance 320 ml 500 ml medications Current Medications Medications Dose Ordered Sig/Melva Route Start Time Stop Time Status Last Admin Dose Admin Famotidine 10 mg DAILY IV 09/03/24 22:00 09/07/24 08:42 10 MG Albuterol 2.5 mg Q4HPRN PRN NEB 09/03/24 16:00 Cancel Ipratropium [place] 0.5 mg Q4HPRN PRN NEB 09/03/24 16:00 Cancel Sevelamer HCl 800 mg TIDWM PO 09/03/24 18:00 09/07/24 13:00 800 MG Multivit/Ca Carb/ B Cmplx/FA/Prenat 1 tab DAILY PO 09/04/24 10:00 09/07/24 08:42 1 TAB Atorvastatin Calcium 20 mg HS PO 09/03/24 22:00 09/06/24 21:57 20 MG Diagnostic Test (Pha) 1 strip ACHS 09/03/24 17:00 09/07/24 17:10 1 STRIP Insulin Human Regular ACHS SC 09/03/24 17:00 09/06/24 22:05 3 UNITS Dextrose 50 ml UD PRN IV 09/03/24 16:00 Sodium Chloride 10 ml Q8HR IV 09/03/24 22:00 09/07/24 14:00 10 ML Acetaminophen/ Hydrocodone Bitart 1 tab Q4HP PRN PO 09/03/24 16:00 Ondansetron HCl 4 mg Q4HP PRN IV 09/03/24 16:00 Docusate Sodium 100 mg BIDPRN PRN PO 09/03/24 16:00 Acetaminophen 650 mg Q6HP PRN PO 09/03/24 16:00 Levothyroxine Sodium 50 mcg QAM@0600 PO 09/04/24 06:00 09/07/24 06:09 50 MCG Nitroglycerin 0.4 mg Q5MINP PRN SL 09/03/24 17:30 Morphine Sulfate 2 mg Q30M PRN IV 09/03/24 17:30 Examination: GENERAL:Abnormal, HEENT:Normal, NECK:Normal, LUNGS:Normal, CVS:Normal, ABDOMEN:Normal, MSK:Normal, SKIN:Normal, NEURO:Normal, :Normal laboratory and microbiology Laboratory Tests 09/07/24 08:10 09/07/24 06:29 Test 09/07/24 08:10 Range/Units Serum Glucose 81 74-106 mg/dL Microbiology Date/Time Source Procedure Growth Status 09/03/24 23:30 Nose MRSA Screen - Final Complete 09/03/24 12:00 Blood Blood Culture - Preliminary NO GROWTH AFTER 72 HOURS OF INCUBATION. Resulted Problem List/Assessment/Plan Problem List/Assessment/Plan Severe anemia status post transfusion Possible GI bleed Pancytopenia ESRD History of GI bleed in past Plan: Monitor labs Monitor H&H Hold blood thinners EGD differ after transfusion Thank you for allowing us participate in this case, we will continue follow-up on this patient. Case discussed with Dr. Chin Critical care, time spent: 36 minutes. Plan discussed with: Patient Dietary Evaluation Review Comments: 1) Advance pt diet when medically feasible to a Renal Standard diet 2) Continue current plan of care Expected Outcomes/Goals: F/U in 2-3 days CC Plasma Assessment Blood Product Administration S: 20:34 MAC AGUILAR RESIDENT Sep 07, 2024 17:46
--- NOTE | 2024-09-07 21:49 | DVHPN2 ---
Progress Note - Dictate Date Seen: Sep 07, 2024 Has the PT tested + for MRSA If YES, has PT been informed?: Yes Medical Necessity Reason Pt with a Central, PICC or Fol: Yes Subjective Patient was seen and evaluated in follow up. Patient is complaining of generalized weakness. Stool occult blood returned positive. WBC 3.9, HGB 6.7, HCT 19.8. KACEY screen is pending. CT ABD PEL shows a small amount of ascites and edematous changes in the mesentery, moderate prostatomegaly with likely chronic bladder outlet obstruction and small bilateral pleural effusions. Telemetry reviewed. vital signs Vital Sign Date Time Temp Pulse Resp B/P (MAP) Pulse Ox O2 Delivery O2 Flow Rate FiO2 09/07/24 09:00 98.2 63 19 151/63 (92) 100 98.2 09/06/24 20:00 Room Air* 0 21 Total Intake and Output 09/06/24 09/06/24 09/07/24 15:00 23:00 07:00 Intake Total 720 ml 500 ml Output Total 400 ml 0 ml Balance 320 ml 500 ml medications Current Medications Medications Dose Ordered Sig/Melva Route Start Time Stop Time Status Last Admin Dose Admin Famotidine 10 mg DAILY IV 09/03/24 22:00 09/07/24 08:42 10 MG Albuterol 2.5 mg Q4HPRN PRN NEB 09/03/24 16:00 Cancel Ipratropium [place] 0.5 mg Q4HPRN PRN NEB 09/03/24 16:00 Cancel Sevelamer HCl 800 mg TIDWM PO 09/03/24 18:00 09/07/24 08:42 800 MG Multivit/Ca Carb/ B Cmplx/FA/Prenat 1 tab DAILY PO 09/04/24 10:00 09/07/24 08:42 1 TAB Atorvastatin Calcium 20 mg HS PO 09/03/24 22:00 09/06/24 21:57 20 MG Diagnostic Test (Pha) 1 strip ACHS 09/03/24 17:00 09/07/24 06:09 1 STRIP Insulin Human Regular ACHS SC 09/03/24 17:00 09/06/24 22:05 3 UNITS Dextrose 50 ml UD PRN IV 09/03/24 16:00 Sodium Chloride 10 ml Q8HR IV 09/03/24 22:00 09/07/24 06:09 10 ML Acetaminophen/ Hydrocodone Bitart 1 tab Q4HP PRN PO 09/03/24 16:00 Ondansetron HCl 4 mg Q4HP PRN IV 09/03/24 16:00 Docusate Sodium 100 mg BIDPRN PRN PO 09/03/24 16:00 Acetaminophen 650 mg Q6HP PRN PO 09/03/24 16:00 Levothyroxine Sodium 50 mcg QAM@0600 PO 09/04/24 06:00 09/07/24 06:09 50 MCG Nitroglycerin 0.4 mg Q5MINP PRN SL 09/03/24 17:30 Morphine Sulfate 2 mg Q30M PRN IV 09/03/24 17:30 objective GENERAL: Awake, alert, oriented. LUNGS: Clear. CARDIOVASCULAR: Heart sounds are good. ABDOMEN: Soft. laboratory and microbiology Laboratory Tests 09/07/24 06:29 09/04/24 05:38 Test 09/04/24 05:38 Range/Units Serum Glucose 94 74-106 mg/dL Problem List Symptomatic anemia. Pancytopenia. Elevated troponin. Acute generalized weakness. ESRD on hemodialysis. Diabetes. Hypertension. Hypercholesterolemia. History of [place]. Peripheral arterial disease. History of pacemaker. Anemia of chronic disease. Assessment/Plan Continued all current supportive medical care. Morphine and [place] for pain management. Eliquis. Aspirin, Lipitor. Nitro SL. Additional plan as per the hospital course. Dietary Evaluation Review Comments: 1) Advance pt diet when medically feasible to a Renal Standard diet 2) Continue current plan of care Expected Outcomes/Goals: F/U in 2-3 days Plan discussed with: Patient CC Plasma Assessment Blood Product Administration S: 20:34 ROSARIO BRAUN MD Sep 07, 2024 11:51
[2024-09-08] VITALS (8 sets, daily range): BP systolic 151–176; BP diastolic 61–86; PULSE 60–66; RESP 16–19; TEMP 97.6–98.9; O2SAT 100
[2024-09-08 06:49] LABS: Anion Gap 10 (5-15); Carbon Dioxide 23 mmol/L (20-31); Chloride 98 mmol/L (98-107)
[2024-09-08 06:55] LABS: BUN/Creatinine Ratio 14.1 (10.0-20.0)
[2024-09-08 07:00] LABS: Glucose 72 mg/dL (74-106); Sodium 131 mmol/L (136-145)
[2024-09-08] MEDS: SODIUM CHL 0.9% 1000 ML BAG XX ONE (07:00)
[2024-09-08 07:03] LABS: Blood Urea Nitrogen 103 mg/dL (9-23)
--- NOTE | 2024-09-08 11:18 | DVHPN2 ---
Reviewed: Care Plan, H&P, Labs, Medications, Previous Orders, Radiology Changes from previous H/P or p: No Changes Eyes: No Pain, No Vision change, No Conjunctivae inflammation, No Eyelid inflammation, No Other, No Redness ENT: No Ear pain, No Ear discharge, No Nose pain, No Nose discharge, No Nose congestion, No Mouth pain, No Mouth swelling, No Throat pain, No Throat swelling; Other (Nose bleeding) Cardiovascular: No Chest Pain, No Palpitations, No Orthopnea, No Paroxysmal Noc. Dyspnea, No Edema, No Lt Headedness, No Other Respiratory: Cough; No Dry; Shortness of breath, SOB with excertion; No Wheezing; Hemoptysis; No Pleuritic Pain, No Sputum; Other (SOB at rest) Gastrointestinal: No Nausea, No Vomiting, No Abdominal Pain, No Diarrhea, No Constipation, No Melena, No Hematochezia, No Other Genitourinary: No Dysuria, No Frequency, No Incontinence, No Hematuria, No Retention, No Other Musculoskeletal: No other, No neck pain, No shoulder pain, No arm pain, No back pain, No hand pain, No leg pain, No foot pain Skin: No Rash, No Lesions, No Jaundice, No Bruising, No Other Objective Vitals Vital Signs Date Time Temp Pulse Resp B/P (MAP) Pulse Ox O2 Delivery O2 Flow Rate FiO2 09/08/24 09:00 97.9 97.9 09/08/24 05:00 64 18 176/77 (110) 100 09/07/24 20:00 Room Air* 0 21 Intake/Output Intake and Output 09/08/24 07:00 Intake Total 950 ml Output Total 200 ml Balance 750 ml Intake Oral 400 ml Blood Product 550 ml Output Urine Total 200 ml # Voids 1 Medications Current Medications Medications Dose Ordered Sig/Melva Route Start Time Stop Time Status Last Admin Dose Admin Famotidine 10 mg DAILY IV 09/03/24 22:00 09/08/24 09:45 10 MG Albuterol 2.5 mg Q4HPRN PRN NEB 09/03/24 16:00 Cancel Ipratropium [place] 0.5 mg Q4HPRN PRN NEB 09/03/24 16:00 Cancel Sevelamer HCl 800 mg TIDWM PO 09/03/24 18:00 09/08/24 09:45 800 MG Multivit/Ca Carb/ B Cmplx/FA/Prenat 1 tab DAILY PO 09/04/24 10:00 09/08/24 09:45 1 TAB Atorvastatin Calcium 20 mg HS PO 09/03/24 22:00 09/07/24 21:37 20 MG Diagnostic Test (Pha) 1 strip ACHS 09/03/24 17:00 09/08/24 06:06 1 STRIP Insulin Human Regular ACHS SC 09/03/24 17:00 09/07/24 21:42 3 UNITS Dextrose 50 ml UD PRN IV 09/03/24 16:00 Sodium Chloride 10 ml Q8HR IV 09/03/24 22:00 09/08/24 06:06 10 ML Acetaminophen/ Hydrocodone Bitart 1 tab Q4HP PRN PO 09/03/24 16:00 Ondansetron HCl 4 mg Q4HP PRN IV 09/03/24 16:00 Docusate Sodium 100 mg BIDPRN PRN PO 09/03/24 16:00 Acetaminophen 650 mg Q6HP PRN PO 09/03/24 16:00 Levothyroxine Sodium 50 mcg QAM@0600 PO 09/04/24 06:00 09/08/24 06:05 50 MCG Nitroglycerin 0.4 mg Q5MINP PRN SL 09/03/24 17:30 Morphine Sulfate 2 mg Q30M PRN IV 09/03/24 17:30 Laboratory Results Laboratory Tests 09/07/24 06:29 09/08/24 04:50 Chemistry Test 09/08/24 04:50 Calcium Level 9.0 mg/dL (8.7-10.4) Microbiology Microbiology Date/Time Source Procedure Growth Status 09/03/24 23:30 Nose MRSA Screen - Final Complete 09/03/24 12:00 Blood Blood Culture - Preliminary NO GROWTH AFTER 72 HOURS OF INCUBATION. Resulted Labs and/or images reviewed: Labs reviewed by me, Image(s) reviewed by me Assessment/Plan Assessment/Plan Symptomatic anemia hemoglobin 4.3 improved to 6.0 after 4 units RBC transfusion, hemoglobin fdown to 6.7, we will recheck and transfuse as needed Consult by Dr. Jason Chin, we will hold aspirin and Eliquis , patient getting endoscopy by GI Dr. Jason Chin Pancytopenia: Consult for Dr. Michelle appreciated bone marrow biopsy report pending. Elevated Troponin consult for Dr. Cano appreciated Acute Generalized weakness ESRD on hemodialysis consult by Dr. Delgadillo appreciated Diabetes Hypertension Hypercholesterolemia History of [place] Peripheral arterial disease History of pacemaker Anemia of Chronic disease Time spent 55 minutes Patient is full code Advanced care planning time 20 minutes Patient was recently seen in hospital in [place] and [facility] Examined through the help of bulk folder Daughter at the bedside. Plan discussed with: Patient Date of Service: Sep 08, 2024 Billing Provider: EKATERINA ROBERTSON MD Common Visit Codes: [id number] INP/OBS CARE(HIGH) EKATERINA ROBERTSON MD Sep 08, 2024 11:18
[2024-09-08 11:42] LABS: Basophils # (auto) 0 10 ^3/uL (0-0.2); Basophils % (auto) 0.3 % (0.0-2.0); Eosinophils # (auto) 0.1 10 ^3/uL (0-0.8); Eosinophils % (auto) 2.8 % (0.0-7.0); Hematocrit 26.8 % (41.0-53.0); Hemoglobin 9.1 g/dL (13.5-17.5); Lymphocytes # (auto) 0.6 10 ^3/uL (0.4-5.4); Lymphocytes % (auto) 15.2 % (10.0-50.0); Mean Corpuscular Hemoglobin 30.1 pg (28.0-32.0); Mean Corpuscular Hgb Conc. 33.8 g/dL (32.0-36.0); Mean Corpuscular Volume 88.9 fL (80.0-100.0); Monocytes # (auto) 0.4 10 ^3/uL (0-1.3); Neutrophils # (auto) 2.8 10 ^3/uL (1.6-8.6); Neutrophils % (auto) 70.7 % (37.0-80.0); Nucleated Red Blood Cells % 0.2 %; Platelet Count (auto) 73 10^3/uL (140-450); Red Blood Cells 3.01 10^6/uL (4.5-5.90); Red Cell Distribution Width 17.7 % (11.8-14.3)
--- NOTE | 2024-09-08 14:51 | DVHPN2 ---
Progress Note - Dictate Date Seen: Sep 08, 2024 Has the PT tested + for MRSA If YES, has PT been informed?: Yes Medical Necessity Reason Pt with a Central, PICC or Fol: Yes Subjective No evidence of bleeding. HEMODIALYSIS UNEVENTFULLY TODAY. vital signs Vital Sign Date Time Temp Pulse Resp B/P (MAP) Pulse Ox O2 Delivery O2 Flow Rate FiO2 09/08/24 10:00 100 Room Air 0.0 09/08/24 10:00 21 09/08/24 09:00 97.9 97.9 09/08/24 08:00 65 09/08/24 08:00 16 09/08/24 05:00 176/77 (110) Total Intake and Output 09/07/24 09/07/24 09/08/24 15:00 23:00 07:00 Intake Total 250 ml 400 ml 300 ml Output Total 200 ml Balance 250 ml 400 ml 100 ml medications Current Medications Medications Dose Ordered Sig/Melva Route Start Time Stop Time Status Last Admin Dose Admin Famotidine 10 mg DAILY IV 09/03/24 22:00 09/08/24 09:45 10 MG Albuterol 2.5 mg Q4HPRN PRN NEB 09/03/24 16:00 Cancel Ipratropium [place] 0.5 mg Q4HPRN PRN NEB 09/03/24 16:00 Cancel Sevelamer HCl 800 mg TIDWM PO 09/03/24 18:00 09/08/24 12:06 800 MG Multivit/Ca Carb/ B Cmplx/FA/Prenat 1 tab DAILY PO 09/04/24 10:00 09/08/24 09:45 1 TAB Atorvastatin Calcium 20 mg HS PO 09/03/24 22:00 09/07/24 21:37 20 MG Diagnostic Test (Pha) 1 strip ACHS 09/03/24 17:00 09/08/24 11:30 1 STRIP Insulin Human Regular ACHS SC 09/03/24 17:00 09/07/24 21:42 3 UNITS Dextrose 50 ml UD PRN IV 09/03/24 16:00 Sodium Chloride 10 ml Q8HR IV 09/03/24 22:00 09/08/24 06:06 10 ML Acetaminophen/ Hydrocodone Bitart 1 tab Q4HP PRN PO 09/03/24 16:00 Ondansetron HCl 4 mg Q4HP PRN IV 09/03/24 16:00 Docusate Sodium 100 mg BIDPRN PRN PO 09/03/24 16:00 Acetaminophen 650 mg Q6HP PRN PO 09/03/24 16:00 Levothyroxine Sodium 50 mcg QAM@0600 PO 09/04/24 06:00 09/08/24 06:05 50 MCG Nitroglycerin 0.4 mg Q5MINP PRN SL 09/03/24 17:30 Morphine Sulfate 2 mg Q30M PRN IV 09/03/24 17:30 objective HEENT: No evidence of JVD, no oral ulcers. Pulmonary: Lungs are clear on auscultation bilaterally Cardiovascular S1-S2, no S3 or S4 Abdomen: Bowel sounds positive, soft no rebound tenderness Skin: No rash Neurological: Alert, oriented, no focal weakness Hemodialysis access right upper chest tunneled line. Right upper extremity with a dressing were previous AV graft was Extremities left hand dorsal aspect with induration mobile rubbery in texture and about half a cm in diameter nontender. No evidence of skin lesion except for dry skin range of motion of the fingers is complete. laboratory and microbiology Laboratory Tests 09/08/24 04:50 Test 09/08/24 04:50 Range/Units Serum Glucose 72 L 74-106 mg/dL Assessment/Plan Assessment: 1. End-stage renal disease on hemodialysis via right IJ tunneled line 2. Epistaxis 3. Rule out GI bleed 4. Anemia of acute blood loss and end-stage renal disease. 5. Hypertension 6. CAD 7. Status post pacemaker placement 8. 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 9. Left-hand subcutaneous lesion Plan and recommendations: Continue Hemodialysis TTS. Transfuse PRBC as needed, minimize use Status post bone marrow biopsy results pending, GI evaluation ongoing pending EGD Oxygen supplementation keep pulse ox more than 90% Higher doses of OSMEL PPI Consult vascular surgery to follow up on the right upper arm if available other cohen f/u outpatient. Thank you very much for allowing us to participate in the care of this patient Dietary Evaluation Review Comments: 1) Advance pt diet when medically feasible to a Renal Standard diet 2) Continue current plan of care Expected Outcomes/Goals: F/U in 2-3 days Plan discussed with: Patient CC Plasma Assessment Blood Product Administration S: 20:34 MELQUIADES REYES MD Sep 08, 2024 14:51
--- NOTE | 2024-09-08 15:13 | DVHPN2 ---
Progress Note - Dictate Date Seen: Sep 08, 2024 Has the PT tested + for MRSA If YES, has PT been informed?: Yes Medical Necessity Reason Pt with a Central, PICC or Fol: Yes Subjective Patient was seen and evaluated in follow up. Patient is complaining of generalized weakness. WBC 4, HGB 9.1, HCT 26.8, NA 131, BUN 103, CERTIFIED FAMILY MEDIATOR 7.31. KACEY screen returned negative. Telemetry reviewed. vital signs Vital Sign Date Time Temp Pulse Resp B/P (MAP) Pulse Ox O2 Delivery O2 Flow Rate FiO2 09/08/24 09:00 97.9 97.9 09/08/24 05:00 64 18 176/77 (110) 100 09/07/24 20:00 Room Air* 0 21 Total Intake and Output 09/07/24 09/07/24 09/08/24 14:59 22:59 06:59 Intake Total 250 ml 400 ml 300 ml Output Total 200 ml Balance 250 ml 400 ml 100 ml medications Current Medications Medications Dose Ordered Sig/Melva Route Start Time Stop Time Status Last Admin Dose Admin Famotidine 10 mg DAILY IV 09/03/24 22:00 09/08/24 09:45 10 MG Albuterol 2.5 mg Q4HPRN PRN NEB 09/03/24 16:00 Cancel Ipratropium [place] 0.5 mg Q4HPRN PRN NEB 09/03/24 16:00 Cancel Sevelamer HCl 800 mg TIDWM PO 09/03/24 18:00 09/08/24 12:06 800 MG Multivit/Ca Carb/ B Cmplx/FA/Prenat 1 tab DAILY PO 09/04/24 10:00 09/08/24 09:45 1 TAB Atorvastatin Calcium 20 mg HS PO 09/03/24 22:00 09/07/24 21:37 20 MG Diagnostic Test (Pha) 1 strip ACHS 09/03/24 17:00 09/08/24 11:30 1 STRIP Insulin Human Regular ACHS SC 09/03/24 17:00 09/07/24 21:42 3 UNITS Dextrose 50 ml UD PRN IV 09/03/24 16:00 Sodium Chloride 10 ml Q8HR IV 09/03/24 22:00 09/08/24 06:06 10 ML Acetaminophen/ Hydrocodone Bitart 1 tab Q4HP PRN PO 09/03/24 16:00 Ondansetron HCl 4 mg Q4HP PRN IV 09/03/24 16:00 Docusate Sodium 100 mg BIDPRN PRN PO 09/03/24 16:00 Acetaminophen 650 mg Q6HP PRN PO 09/03/24 16:00 Levothyroxine Sodium 50 mcg QAM@0600 PO 09/04/24 06:00 09/08/24 06:05 50 MCG Nitroglycerin 0.4 mg Q5MINP PRN SL 09/03/24 17:30 Morphine Sulfate 2 mg Q30M PRN IV 09/03/24 17:30 objective GENERAL: Awake, alert, oriented. LUNGS: Clear. CARDIOVASCULAR: Heart sounds are good. ABDOMEN: Soft. laboratory and microbiology Laboratory Tests 09/08/24 04:50 Test 09/08/24 04:50 Range/Units Serum Glucose 72 L 74-106 mg/dL Problem List Symptomatic anemia. Pancytopenia. Elevated troponin. Acute generalized weakness. ESRD on hemodialysis. Diabetes. Hypertension. Hypercholesterolemia. History of [place]. Peripheral arterial disease. History of pacemaker. Anemia of chronic disease. Assessment/Plan Continued all current supportive medical care. Morphine and [place] for pain management. Eliquis. Aspirin, Lipitor. Nitro SL. Additional plan as per the hospital course. Dietary Evaluation Review Comments: 1) Advance pt diet when medically feasible to a Renal Standard diet 2) Continue current plan of care Expected Outcomes/Goals: F/U in 2-3 days Plan discussed with: Patient CC Plasma Assessment Blood Product Administration S: 20:34 ROSARIO BRAUN MD Sep 08, 2024 12:10
--- NOTE | 2024-09-08 16:15 | DVHPN2 ---
Progress Note - Dictate Date Seen: Sep 08, 2024 Has the PT tested + for MRSA If YES, has PT been informed?: Yes Medical Necessity Reason Pt with a Central, PICC or Fol: Yes Subjective No new complaints Patient has had no further nosebleeds or GI bleed He is tolerating a clear liquid diet Hemoglobin has improved to 9.1 Patient got dialyzed vital signs Vital Sign Date Time Temp Pulse Resp B/P (MAP) Pulse Ox O2 Delivery O2 Flow Rate FiO2 09/08/24 13:00 98.9 65 19 175/86 (115) 100 98.9 09/08/24 10:00 Room Air 0.0 09/08/24 10:00 21 Total Intake and Output 09/07/24 09/07/24 09/08/24 15:00 23:00 07:00 Intake Total 250 ml 400 ml 300 ml Output Total 200 ml Balance 250 ml 400 ml 100 ml medications Current Medications Medications Dose Ordered Sig/Melva Route Start Time Stop Time Status Last Admin Dose Admin Famotidine 10 mg DAILY IV 09/03/24 22:00 09/08/24 09:45 10 MG Albuterol 2.5 mg Q4HPRN PRN NEB 09/03/24 16:00 Cancel Ipratropium [place] 0.5 mg Q4HPRN PRN NEB 09/03/24 16:00 Cancel Sevelamer HCl 800 mg TIDWM PO 09/03/24 18:00 09/08/24 12:06 800 MG Multivit/Ca Carb/ B Cmplx/FA/Prenat 1 tab DAILY PO 09/04/24 10:00 09/08/24 09:45 1 TAB Atorvastatin Calcium 20 mg HS PO 09/03/24 22:00 09/07/24 21:37 20 MG Diagnostic Test (Pha) 1 strip ACHS 09/03/24 17:00 09/08/24 11:30 1 STRIP Insulin Human Regular ACHS SC 09/03/24 17:00 09/07/24 21:42 3 UNITS Dextrose 50 ml UD PRN IV 09/03/24 16:00 Sodium Chloride 10 ml Q8HR IV 09/03/24 22:00 09/08/24 06:06 10 ML Acetaminophen/ Hydrocodone Bitart 1 tab Q4HP PRN PO 09/03/24 16:00 Ondansetron HCl 4 mg Q4HP PRN IV 09/03/24 16:00 Docusate Sodium 100 mg BIDPRN PRN PO 09/03/24 16:00 Acetaminophen 650 mg Q6HP PRN PO 09/03/24 16:00 Levothyroxine Sodium 50 mcg QAM@0600 PO 09/04/24 06:00 09/08/24 06:05 50 MCG Nitroglycerin 0.4 mg Q5MINP PRN SL 09/03/24 17:30 Morphine Sulfate 2 mg Q30M PRN IV 09/03/24 17:30 objective HEENT: No evidence of JVD, no oral ulcers. Pulmonary: Lungs are clear on auscultation bilaterally Cardiovascular S1-S2, no S3 or S4 Abdomen: Bowel sounds positive, soft no rebound tenderness Skin: No rash Neurological: Alert, oriented, no focal weakness Hemodialysis access right upper chest tunneled line. Right upper extremity with a dressing were previous AV graft was Extremities left hand dorsal aspect with induration mobile rubbery in texture and about half a cm in diameter nontender. laboratory and microbiology Laboratory Tests 09/08/24 04:50 Test 09/08/24 04:50 Range/Units Serum Glucose 72 L 74-106 mg/dL Problems(with codes): (1) End stage renal failure on dialysis (2) Generalized weakness (3) Symptomatic anemia (4) Pancytopenia (5) Nasal bleeding Prognosis Plan I believe his anemia was likely related to anticoagulation therapy and recurrent nosebleeds Patient will need to see ENT physician as an outpatient Advance to full liquid diet If he is stable we will advance to soft renal diet tomorrow Monitor labs and check his CBC tomorrow Currently his Eliquis and aspirin are on hold Since the patient is already end-stage renal disease he likely has platelet dysfunction He may not need double anticoagulant therapy in the future;, discontinue aspirin We will discuss with loop puller Dietary Evaluation Review Comments: 1) Advance pt diet when medically feasible to a Renal Standard diet 2) Continue current plan of care Expected Outcomes/Goals: F/U in 2-3 days Plan discussed with: Patient, Other (Nurse) CC Plasma Assessment Blood Product Administration S: 20:34 SAI DEL RIO MD Sep 08, 2024 16:14
[2024-09-08] MEDS: ACETAMINOPHEN 325 MG TAB PO PRN (20:02)
[2024-09-08] MEDS: EPOETIN ALFA-EPBX 10,000 UNIT/1ML VIAL SC ONE (21:42)
[2024-09-09] VITALS (9 sets, daily range): BP systolic 144–167; BP diastolic 62–79; PULSE 60–77; RESP 16–19; TEMP 97.6–98.9; O2SAT 100
[2024-09-09 07:01] LABS: Anion Gap 7 (5-15); Carbon Dioxide 26 mmol/L (20-31); Potassium 4.5 mmol/L (3.5-5.1)
[2024-09-09 07:02] LABS: Calcium 8.8 mg/dL (8.7-10.4)
[2024-09-09 07:05] LABS: Chloride 98 mmol/L (98-107); Sodium 131 mmol/L (136-145)
[2024-09-09 07:06] LABS: Basophils # (auto) 0 10 ^3/uL (0-0.2); Hemoglobin 7.6 g/dL (13.5-17.5); Lymphocytes # (auto) 0.7 10 ^3/uL (0.4-5.4); Monocytes # (auto) 0.3 10 ^3/uL (0-1.3); Neutrophils # (auto) 2.1 10 ^3/uL (1.6-8.6); White Blood Cell 3.2 10^3/uL (4.4-10.8)
[2024-09-09 07:07] LABS: BUN/Creatinine Ratio 11.9 (10.0-20.0); Blood Urea Nitrogen 70 mg/dL (9-23); Glucose 102 mg/dL (74-106)
[2024-09-09 07:10] LABS: % Iron Saturation 26.5 % (20-55); Basophils % (auto) 0.7 % (0.0-2.0); Eosinophils # (auto) 0.2 10 ^3/uL (0-0.8); Ferritin 740.6 ng/mL (22-322); Hematocrit 22.2 % (41.0-53.0); Lymphocytes % (auto) 21.7 % (10.0-50.0); Mean Corpuscular Hemoglobin 30.5 pg (28.0-32.0); Mean Corpuscular Hgb Conc. 34.2 g/dL (32.0-36.0); Monocytes % (auto) 9.2 % (0.0-12.0); Neutrophils % (auto) 63.4 % (37.0-80.0); Nucleated Red Blood Cells % 0.2 %; Platelet Count (auto) 79 10^3/uL (140-450); Red Blood Cells 2.49 10^6/uL (4.5-5.90); Red Cell Distribution Width 17.7 % (11.8-14.3)
--- NOTE | 2024-09-09 09:53 | DVHCONRES ---
Date Seen: Sep 09, 2024 Resident Creating Document: ARABELLA ESPINAL Jr., MD Referring Physician hospitalist Reason for Consultation right arm wound s/p right avg placement History of Present Illness 73-year-old patient with significant history of end-stage renal disease on hemodialysis pacemaker placement, hypothyroidism, hypertension, [place], history of cardiac arrest who presents to the hospital with shortness of breath associated with generalized weakness upon exertion as well as posterior headache nausea and vomiting. Patient also endorses hemoptysis and epistaxis epistaxis which is significant. He is on hemodialysis TTS. Evaluation in the emergency room revealed severe anemia with hemoglobin around four. Patient denies fever chills Patient completed IV vancomycin at the dialysis unit and currently on Levaquin 500 mg daily for a right AV graft infection. Patient states he had revision of his right arm AV graft about a month ago. Developed a wound infection and was bleeding significantly at home. Bandage has not been changed in 4-5 days he states. No fevers or chills. Past Medical History End-stage renal disease on dialysis, hyperlipidemia, hypertension, Past Surgical History Right AV graft placement, pacemaker placement, right IJ PermCath. Family History: Cardiovascular disease G8 FATHER Cerebrovascular accident (CVA) G8 FATHER Family history: Diabetes in Family history: Diabetes mellitus G8 MOTHER, Onset:Unknown G8 FATHER, Onset:Unknown Family history: Hypertension G8 MOTHER, Onset:Unknown G8 FATHER, Onset:Unknown Social History Nonsmoker nondrinker Allergies: Coded Allergies: Ibuprofen (Verified Allergy, Unknown, 09/12/17) Penicillins (Verified Allergy, Unknown, 04/13/16) Home Meds Active Scripts Amiodarone Hcl (Amiodarone Hcl) 200 Mg Tab, 1 TAB PO DAILY for 60 Days, #60 TAB 1 Refill Prov:MARYBETH NASSAR PRODUCT DEMONSTRATOR 10/11/23 Reported Medications Torsemide Injection (Torsemide) 20 Mg Tab, 1 TAB PO MWF 09/03/24 Ciprofloxacin Hcl (Ciprofloxacin Hcl) 500 Mg Tab, 1 TAB PO DAILY 09/03/24 Pantoprazole Sodium Sesquihydr (Protonix) 40 Mg Tab, 40 MG PO DAILY, TAB 07/27/24 Albuterol Sulfate (Albuterol Sulfate Hfa) 108 Mcg/Act Aer, 90 MCG IN Q4HPRN PRN for SHORTNESS OF BREATH, AER 07/27/24 Apixaban Base (ELIQUIS) 5 Mg Tab, 5 MG PO BID, TAB 07/27/24 Folic Acid (Folic Acid) 1 Mg Tab, 1 TAB PO DAILY, MG 09/29/23 Furosemide (Furosemide) 40 Mg Tab, 1 TAB PO DAILY 09/29/23 Finasteride (Finasteride) 5 Mg Tab, 1 TAB PO DAILY 08/04/23 Tamsulosin Hcl (Tamsulosin Hcl) 0.4 Mg Cap, 1 CAP PO DAILY 08/04/23 Sevelamer Carbonate (Renvela) 800 Mg Tab, 3 TAB PO TID, #810 TAB 3 Refills TAKE 3 TABS EACH MEAL AND 1 TAB AT NIGHT. 10/17/21 Levothyroxine Sodium (SYNTHROID TABLET) 50 Mcg Tb, 1 TAB PO QAM, TAB 07/28/18 Atorvastatin Calcium (Lipitor) 40 Mg Tab, 1 TAB PO DAILY 02/18/16 Discontinued Reported Medications Aspirin (Aspir-Low) 81 Mg Tab, 81 MG PO DAILY, MG 07/27/24 Review of Systems All systems reviewed otherwise negative other than what was in the HPI. Vital Signs Vital Signs Date Time Temp Pulse Resp B/P (MAP) Pulse Ox O2 Delivery O2 Flow Rate FiO2 09/09/24 09:00 97.6 68 18 162/79 (106) 100 97.6 09/08/24 20:00 Room Air* 0 21 Physical Exam Head eyes ears nose and throat exam eyes are nonicteric conjunctiva is pink neck was supple no JVD no lymphadenopathy no carotid bruits lungs are clear to auscultation heart was regular rate and rhythm abdomen is soft nontender with no pulsatile abdominal mass or bruits his upper extremities in a right upper arm AV graft which had multiple sutures in place as well as marissa. There was a large superficial wound in the area just above the antecubital fossa which we had healthy granulating tissue with some fibrinous material. This wound was dressed with Medihoney and Kerlix. Labs/Diagnostic Data Labs Test 09/09/24 06:31 09/09/24 05:45 09/08/24 04:50 09/07/24 08:10 Range/Units White Blood Count 3.2 L 4.4-10.8 10^3/uL Red Blood Count 2.49 L 4.5-5.90 10^6/uL Hemoglobin 7.6 #L 13.5-17.5 g/dL Hematocrit 22.2 #L 41.0-53.0 % Mean Corpuscular Volume 89.0 80.0-100.0 fL Mean Corpuscular Hemoglobin 30.5 28.0-32.0 pg Mean Corpuscular Hemoglobin Concent 34.2 32.0-36.0 g/dL Red Cell Distribution Width 17.7 H 11.8-14.3 % Platelet Count 79 L 140-450 10^3/uL Mean Platelet Volume 8.8 6.9-10.8 fL Neutrophils (%) (Auto) 63.4 37.0-80.0 % Lymphocytes (%) (Auto) 21.7 10.0-50.0 % Monocytes (%) (Auto) 9.2 0.0-12.0 % Eosinophils (%) (Auto) 5.0 0.0-7.0 % Basophils (%) (Auto) 0.7 0.0-2.0 % Neutrophils # (Auto) 2.1 1.6-8.6 10 ^3/uL Lymphocytes # (Auto) 0.7 0.4-5.4 10 ^3/uL Monocytes # (Auto) 0.3 0-1.3 10 ^3/uL Eosinophils # (Auto) 0.2 0-0.8 10 ^3/uL Basophils # (Auto) 0 0-0.2 10 ^3/uL Nucleated Red Blood Cells 0.2 % Sodium Level 131 L 136-145 mmol/L Potassium Level 4.5 3.5-5.1 mmol/L Chloride Level 98 98-107 mmol/L Carbon Dioxide Level 26 20-31 mmol/L Anion Gap 7 5-15 Blood Urea Nitrogen 70 #H 9-23 mg/dL Creatinine 5.88 H 0.700-1.30 mg/dL Glomerular Filtration Rate Calc 10 >90 mL/min BUN/Creatinine Ratio 11.9 10.0-20.0 Serum Glucose 102 74-106 mg/dL Calcium Level 8.8 8.7-10.4 mg/dL Iron Level 59 L 65-175 ug/dL Total Iron Binding Capacity 223 L 250-425 ug/dL Percent Iron Saturation 26.5 20-55 % Ferritin 740.6 H 22-322 ng/mL Vitamin B12 Level 878 211-911 pg/mL POC Glucose 80 70-106 mg/dl Total Bilirubin 0.2 0.2-1.0 mg/dL Aspartate Amino Transferase (AST) 25 13-40 U/L Alanine Aminotransferase (ALT) 11 7-40 U/L Alkaline Phosphatase 61 46-116 U/L Total Protein 5.1 L 5.7-8.2 g/dL Albumin 3.0 L 3.2-4.8 g/dL Test 09/07/24 06:29 09/06/24 15:47 09/06/24 13:33 09/06/24 05:45 Range/Units Prothrombin Time 11.6 9.3-11.8 sec Prothrombin Time INR 1.11 0.9-1.15 Anti-Nuclear Antibody Screen Negative Negative Stool Occult Blood Positive Negative Stool Occult Blood Sample #3 Negative Lactate Dehydrogenase 239 120-246 U/L Reticulocyte Count (auto) 4.46 H 0.5-1.5 % Haptoglobin 66 34-355 mg/dL Test 09/03/24 14:46 09/03/24 12:00 Range/Units Troponin I High Sensitivity 63 *H </=54 ng/L Lactic Acid Level 0.6 0.4-2.0 mmol/L B-Type Natriuretic Peptide 754.57 0-100 pg/mL Thyroid Stimulating Hormone (TSH) 14.87 H 0.55-4.78 uIU/mL Microbiology Date/Time Source Procedure Growth Status 09/03/24 23:30 Nose MRSA Screen - Final Complete 09/03/24 12:00 Blood Blood Culture - Final NO GROWTH AFTER 5 DAYS OF INCUBATION. Complete Assessment Superficial wound in of status post AV graft. Medihoney to the wound. The AV graft is nonfunctional. We will need to follow up with his primary surgeon once discharged. Plan/Recommendation Superficial wound in of status post AV graft. Medihoney to the wound. The AV graft is nonfunctional. We will need to follow up with his primary surgeon once discharged. Plan discussed with: Patient ARABELLA ESPINAL Jr., MD Sep 09, 2024 09:53
--- NOTE | 2024-09-09 10:24 | DVHPN2 ---
Reviewed: Care Plan, H&P, Labs, Medications, Previous Orders, Radiology Changes from previous H/P or p: No Changes Eyes: No Pain, No Vision change, No Conjunctivae inflammation, No Eyelid inflammation, No Other, No Redness ENT: No Ear pain, No Ear discharge, No Nose pain, No Nose discharge, No Nose congestion, No Mouth pain, No Mouth swelling, No Throat pain, No Throat swelling; Other (Nose bleeding) Cardiovascular: No Chest Pain, No Palpitations, No Orthopnea, No Paroxysmal Noc. Dyspnea, No Edema, No Lt Headedness, No Other Respiratory: Cough; No Dry; Shortness of breath, SOB with excertion; No Wheezing; Hemoptysis; No Pleuritic Pain, No Sputum; Other (SOB at rest) Gastrointestinal: No Nausea, No Vomiting, No Abdominal Pain, No Diarrhea, No Constipation, No Melena, No Hematochezia, No Other Genitourinary: No Dysuria, No Frequency, No Incontinence, No Hematuria, No Retention, No Other Musculoskeletal: No other, No neck pain, No shoulder pain, No arm pain, No back pain, No hand pain, No leg pain, No foot pain Skin: No Rash, No Lesions, No Jaundice, No Bruising, No Other Objective Vitals Vital Signs Date Time Temp Pulse Resp B/P (MAP) Pulse Ox O2 Delivery O2 Flow Rate FiO2 09/09/24 09:00 97.6 68 18 162/79 (106) 100 97.6 09/08/24 20:00 Room Air* 0 21 Intake/Output Intake and Output 09/09/24 07:00 Intake Total 1960 ml Balance 1960 ml Intake Oral 1960 ml # Voids 5 # Bowel Movements 3 Medications Current Medications Medications Dose Ordered Sig/Melva Route Start Time Stop Time Status Last Admin Dose Admin Famotidine 10 mg DAILY IV 09/03/24 22:00 09/08/24 09:45 10 MG Albuterol 2.5 mg Q4HPRN PRN NEB 09/03/24 16:00 Cancel Ipratropium [place] 0.5 mg Q4HPRN PRN NEB 09/03/24 16:00 Cancel Sevelamer HCl 800 mg TIDWM PO 09/03/24 18:00 09/09/24 08:24 800 MG Multivit/Ca Carb/ B Cmplx/FA/Prenat 1 tab DAILY PO 09/04/24 10:00 09/08/24 09:45 1 TAB Atorvastatin Calcium 20 mg HS PO 09/03/24 22:00 09/08/24 21:42 20 MG Diagnostic Test (Pha) 1 strip ACHS 09/03/24 17:00 09/09/24 06:31 1 STRIP Insulin Human Regular ACHS SC 09/03/24 17:00 09/07/24 21:42 3 UNITS Dextrose 50 ml UD PRN IV 09/03/24 16:00 Sodium Chloride 10 ml Q8HR IV 09/03/24 22:00 09/09/24 05:47 10 ML Acetaminophen/ Hydrocodone Bitart 1 tab Q4HP PRN PO 09/03/24 16:00 Ondansetron HCl 4 mg Q4HP PRN IV 09/03/24 16:00 Docusate Sodium 100 mg BIDPRN PRN PO 09/03/24 16:00 Acetaminophen 650 mg Q6HP PRN PO 09/03/24 16:00 09/08/24 20:02 650 MG Levothyroxine Sodium 50 mcg QAM@0600 PO 09/04/24 06:00 09/09/24 05:42 50 MCG Nitroglycerin 0.4 mg Q5MINP PRN SL 09/03/24 17:30 Morphine Sulfate 2 mg Q30M PRN IV 09/03/24 17:30 Laboratory Results Laboratory Tests 09/09/24 06:31 Chemistry Test 09/09/24 06:31 Calcium Level 8.8 mg/dL (8.7-10.4) Microbiology Microbiology Date/Time Source Procedure Growth Status 09/03/24 23:30 Nose MRSA Screen - Final Complete 09/03/24 12:00 Blood Blood Culture - Final NO GROWTH AFTER 5 DAYS OF INCUBATION. Complete Labs and/or images reviewed: Labs reviewed by me, Image(s) reviewed by me Assessment/Plan Assessment/Plan Symptomatic anemia hemoglobin 4.3 improved to 7.6 after 7 units RBC transfusion, Consult by Dr. Jason Chin, we will hold aspirin and Eliquis , for possible endoscopy by GI Pancytopenia: Consult for Dr. Michelle appreciated bone marrow biopsy report pending. Elevated Troponin consult for Dr. Cano appreciated Acute Generalized weakness ESRD on hemodialysis consult by Dr. Delgadillo appreciated Diabetes Hypertension Hypercholesterolemia History of [place] Peripheral arterial disease History of pacemaker Anemia of Chronic disease Time spent 55 minutes Patient is full code Advanced care planning time 20 minutes Patient was recently seen in hospital in [facility] Examined through the help of lard tub washer Daughter at the bedside. Plan discussed with: Patient My Orders Orders - EKATERINA ROBERTSON MD Procedure Category Date Status Time Communication Order ORDERS 09/08/24 Transmitted 11:18 Date of Service: Sep 09, 2024 Billing Provider: EKATERINA ROBERTSON MD Common Visit Codes: [id number] INP/OBS CARE(HIGH) EKATERINA ROBERTSON MD Sep 09, 2024 10:24
--- NOTE | 2024-09-09 16:02 | DVHPN2 ---
Progress Note - Dictate Date Seen: Sep 09, 2024 Has the PT tested + for MRSA If YES, has PT been informed?: Yes Medical Necessity Reason Pt with a Central, PICC or Fol: Yes Subjective Patient denies epistaxis. He complains of a burning sensation in the abdominal area. He did not have bowel movements for two days then today has had two bowel movements which have been melanotic. vital signs Vital Sign Date Time Temp Pulse Resp B/P (MAP) Pulse Ox O2 Delivery O2 Flow Rate FiO2 09/09/24 13:00 97.9 63 16 158/76 (103) 100 97.9 09/08/24 20:00 Room Air* 0 21 Total Intake and Output 09/08/24 09/08/24 09/09/24 15:00 23:00 07:00 Intake Total 625 ml 685 ml 650 ml Balance 625 ml 685 ml 650 ml medications Current Medications Medications Dose Ordered Sig/Melva Route Start Time Stop Time Status Last Admin Dose Admin Famotidine 10 mg DAILY IV 09/03/24 22:00 09/09/24 11:16 10 MG Albuterol 2.5 mg Q4HPRN PRN NEB 09/03/24 16:00 Cancel Ipratropium [place] 0.5 mg Q4HPRN PRN NEB 09/03/24 16:00 Cancel Sevelamer HCl 800 mg TIDWM PO 09/03/24 18:00 09/09/24 12:47 800 MG Multivit/Ca Carb/ B Cmplx/FA/Prenat 1 tab DAILY PO 09/04/24 10:00 09/09/24 11:16 1 TAB Atorvastatin Calcium 20 mg HS PO 09/03/24 22:00 09/08/24 21:42 20 MG Diagnostic Test (Pha) 1 strip ACHS 09/03/24 17:00 09/09/24 11:30 1 STRIP Insulin Human Regular ACHS SC 09/03/24 17:00 09/07/24 21:42 3 UNITS Dextrose 50 ml UD PRN IV 09/03/24 16:00 Sodium Chloride 10 ml Q8HR IV 09/03/24 22:00 09/09/24 14:00 10 ML Acetaminophen/ Hydrocodone Bitart 1 tab Q4HP PRN PO 09/03/24 16:00 Ondansetron HCl 4 mg Q4HP PRN IV 09/03/24 16:00 Docusate Sodium 100 mg BIDPRN PRN PO 09/03/24 16:00 Acetaminophen 650 mg Q6HP PRN PO 09/03/24 16:00 09/08/24 20:02 650 MG Levothyroxine Sodium 50 mcg QAM@0600 PO 09/04/24 06:00 09/09/24 05:42 50 MCG Nitroglycerin 0.4 mg Q5MINP PRN SL 09/03/24 17:30 Morphine Sulfate 2 mg Q30M PRN IV 09/03/24 17:30 objective HEENT: No evidence of JVD, no oral ulcers. Pulmonary: Lungs are clear on auscultation bilaterally Cardiovascular S1-S2, no S3 or S4 Abdomen: Bowel sounds positive, soft no rebound tenderness Skin: No rash Neurological: Alert, oriented, no focal weakness Hemodialysis access right upper chest tunneled line. Right upper extremity with a dressing were previous AV graft was Extremities left hand dorsal aspect with induration mobile rubbery in texture and about half a cm in diameter nontender. No evidence of skin lesion except for dry skin range of motion of the fingers is complete. laboratory and microbiology Laboratory Tests 09/09/24 06:31 Test 09/09/24 06:31 Range/Units Serum Glucose 102 74-106 mg/dL Assessment/Plan Assessment: 1. End-stage renal disease on hemodialysis via right IJ tunneled line 2. Epistaxis, resolved 3. Concern for GI bleed 4. Anemia of acute blood loss and end-stage renal disease. 5. Hypertension 6. CAD 7. Status post pacemaker placement 8. 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 9. Left-hand subcutaneous lesion Plan and recommendations: Plan for HD Tuesday to help with uremic bleeding potentially. Given the drop hemoglobin melanotic stools discontinue Pepcid start Protonix 40 mg IV twice a day. I have asked RN to and also notify GI. Monitor H&H Transfuse PRBC as needed Discontinue phosphate binders Status post bone marrow biopsy results pending, GI evaluation ongoing pending EGD Oxygen supplementation keep pulse ox more than 90% Higher doses of OSMEL Vascular surgery evaluation appreciated Thank you very much for allowing us to participate in the care of this patient Dietary Evaluation Review Comments: 1) Advance pt diet when medically feasible to a Renal Standard diet 2) Continue current plan of care Expected Outcomes/Goals: F/U in 2-3 days Plan discussed with: Patient CC Plasma Assessment Blood Product Administration S: 20:34 MELQUIADES REYES MD Sep 09, 2024 16:02
[2024-09-09 16:33] LABS: Basophils # (auto) 0 10 ^3/uL (0-0.2); Basophils % (auto) 0.4 % (0.0-2.0); Eosinophils # (auto) 0.1 10 ^3/uL (0-0.8); Lymphocytes # (auto) 0.6 10 ^3/uL (0.4-5.4); Monocytes # (auto) 0.3 10 ^3/uL (0-1.3); Monocytes % (auto) 9.7 % (0.0-12.0); Neutrophils # (auto) 2.3 10 ^3/uL (1.6-8.6)
[2024-09-09 16:35] LABS: Eosinophils % (auto) 3.7 % (0.0-7.0); Hematocrit 23.6 % (41.0-53.0); Lymphocytes % (auto) 16.9 % (10.0-50.0); Mean Corpuscular Hemoglobin 30.4 pg (28.0-32.0); Mean Corpuscular Hgb Conc. 33.9 g/dL (32.0-36.0); Mean Corpuscular Volume 89.7 fL (80.0-100.0); Neutrophils % (auto) 69.3 % (37.0-80.0); Platelet Count (auto) 84 10^3/uL (140-450); Red Blood Cells 2.64 10^6/uL (4.5-5.90); Red Cell Distribution Width 18.1 % (11.8-14.3); White Blood Cell 3.3 10^3/uL (4.4-10.8)
[2024-09-09] MEDS: PANTOPRAZOLE 40 MG/10 ML VIAL INJ IV SCH (18:26)
--- NOTE | 2024-09-09 23:11 | DVHPN2 ---
Progress Note - Dictate Date Seen: Sep 09, 2024 Has the PT tested + for MRSA If YES, has PT been informed?: Yes Medical Necessity Reason Pt with a Central, PICC or Fol: Yes Subjective Patient was seen and evaluated in follow up. Patient is complaining of generalized weakness. WBC 3.2, HGB 7.6, HCT 22.2, NA 131, BUN 70, ACCOUNTING GENERALIST 5.88. Telemetry reviewed. vital signs Vital Sign Date Time Temp Pulse Resp B/P (MAP) Pulse Ox O2 Delivery O2 Flow Rate FiO2 09/09/24 09:00 97.6 68 18 162/79 (106) 100 97.6 09/08/24 20:00 Room Air* 0 21 Total Intake and Output 09/08/24 09/08/24 09/09/24 15:00 23:00 07:00 Intake Total 625 ml 685 ml 650 ml Balance 625 ml 685 ml 650 ml medications Current Medications Medications Dose Ordered Sig/Melva Route Start Time Stop Time Status Last Admin Dose Admin Famotidine 10 mg DAILY IV 09/03/24 22:00 09/09/24 11:16 10 MG Albuterol 2.5 mg Q4HPRN PRN NEB 09/03/24 16:00 Cancel Ipratropium [place] 0.5 mg Q4HPRN PRN NEB 09/03/24 16:00 Cancel Sevelamer HCl 800 mg TIDWM PO 09/03/24 18:00 09/09/24 08:24 800 MG Multivit/Ca Carb/ B Cmplx/FA/Prenat 1 tab DAILY PO 09/04/24 10:00 09/09/24 11:16 1 TAB Atorvastatin Calcium 20 mg HS PO 09/03/24 22:00 09/08/24 21:42 20 MG Diagnostic Test (Pha) 1 strip ACHS 09/03/24 17:00 09/09/24 06:31 1 STRIP Insulin Human Regular ACHS SC 09/03/24 17:00 09/07/24 21:42 3 UNITS Dextrose 50 ml UD PRN IV 09/03/24 16:00 Sodium Chloride 10 ml Q8HR IV 09/03/24 22:00 09/09/24 05:47 10 ML Acetaminophen/ Hydrocodone Bitart 1 tab Q4HP PRN PO 09/03/24 16:00 Ondansetron HCl 4 mg Q4HP PRN IV 09/03/24 16:00 Docusate Sodium 100 mg BIDPRN PRN PO 09/03/24 16:00 Acetaminophen 650 mg Q6HP PRN PO 09/03/24 16:00 09/08/24 20:02 650 MG Levothyroxine Sodium 50 mcg QAM@0600 PO 09/04/24 06:00 09/09/24 05:42 50 MCG Nitroglycerin 0.4 mg Q5MINP PRN SL 09/03/24 17:30 Morphine Sulfate 2 mg Q30M PRN IV 09/03/24 17:30 objective GENERAL: Awake, alert, oriented. LUNGS: Clear. CARDIOVASCULAR: Heart sounds are good. ABDOMEN: Soft. laboratory and microbiology Laboratory Tests 09/09/24 06:31 Test 09/09/24 06:31 Range/Units Serum Glucose 102 74-106 mg/dL Problem List Symptomatic anemia. Pancytopenia. Elevated troponin. Acute generalized weakness. ESRD on hemodialysis. Diabetes. Hypertension. Hypercholesterolemia. History of [place]. Peripheral arterial disease. History of pacemaker. Anemia of chronic disease. Assessment/Plan Continued all current supportive medical care. Morphine and [place] for pain management. Eliquis. Aspirin, Lipitor. Nitro SL. Additional plan as per the hospital course. Dietary Evaluation Review Comments: 1) Advance pt diet when medically feasible to a Renal Standard diet 2) Continue current plan of care Expected Outcomes/Goals: F/U in 2-3 days Plan discussed with: Patient CC Plasma Assessment Blood Product Administration S: 20:34 ROSARIO BRAUN MD Sep 09, 2024 12:47
[2024-09-10] VITALS (8 sets, daily range): BP systolic 127–161; BP diastolic 60–84; PULSE 60–86; RESP 16–18; TEMP 97.5–97.8; O2SAT 98–100
[2024-09-10 06:32] LABS: Basophils # (auto) 0 10 ^3/uL (0-0.2); Eosinophils # (auto) 0.1 10 ^3/uL (0-0.8); Hemoglobin 7.5 g/dL (13.5-17.5); Lymphocytes # (auto) 0.6 10 ^3/uL (0.4-5.4); Monocytes # (auto) 0.3 10 ^3/uL (0-1.3); Red Cell Distribution Width 17.9 % (11.8-14.3)
[2024-09-10 06:34] LABS: Basophils % (auto) 0.4 % (0.0-2.0); Eosinophils % (auto) 4.4 % (0.0-7.0); Hematocrit 21.8 % (41.0-53.0); Lymphocytes % (auto) 20.2 % (10.0-50.0); Mean Corpuscular Hemoglobin 31.1 pg (28.0-32.0); Mean Corpuscular Hgb Conc. 34.5 g/dL (32.0-36.0); Mean Corpuscular Volume 90.3 fL (80.0-100.0); Monocytes % (auto) 8.7 % (0.0-12.0); Neutrophils # (auto) 2.1 10 ^3/uL (1.6-8.6); Neutrophils % (auto) 66.3 % (37.0-80.0); Platelet Count (auto) 85 10^3/uL (140-450); Red Blood Cells 2.41 10^6/uL (4.5-5.90); White Blood Cell 3.1 10^3/uL (4.4-10.8)
[2024-09-10 06:49] LABS: Alanine Aminotransferase 11 U/L (7-40); Alkaline Phosphatase 80 U/L (46-116); Anion Gap 7 (5-15); Aspartate Aminotransferase 26 U/L (13-40); BUN/Creatinine Ratio 10.6 (10.0-20.0); Carbon Dioxide 24 mmol/L (20-31); Glucose 78 mg/dL (74-106); Potassium 4.8 mmol/L (3.5-5.1)
[2024-09-10 06:53] LABS: Albumin 2.9 g/dL (3.2-4.8); Bilirubin, Total 0.2 mg/dL (0.2-1.0); Blood Urea Nitrogen 72 mg/dL (9-23); Chloride 96 mmol/L (98-107); Sodium 127 mmol/L (136-145); Total Protein 5.1 g/dL (5.7-8.2)
[2024-09-10 09:31] LABS: Hepatitis B Surface Antigen Negative (Negative)
[2024-09-10 10:08] LABS: Hepatitis A Ab IgM Negative; Hepatitis B Core IgM Negative (Negative); Hepatitis C Antibody Negative (Negative)
--- NOTE | 2024-09-10 11:23 | DVHPN2 ---
Reviewed: Care Plan, H&P, Labs, Medications, Previous Orders, Radiology Changes from previous H/P or p: No Changes Eyes: No Pain, No Vision change, No Conjunctivae inflammation, No Eyelid inflammation, No Other, No Redness ENT: No Ear pain, No Ear discharge, No Nose pain, No Nose discharge, No Nose congestion, No Mouth pain, No Mouth swelling, No Throat pain, No Throat swelling; Other (Nose bleeding) Cardiovascular: No Chest Pain, No Palpitations, No Orthopnea, No Paroxysmal Noc. Dyspnea, No Edema, No Lt Headedness, No Other Respiratory: Cough; No Dry; Shortness of breath, SOB with excertion; No Wheezing; Hemoptysis; No Pleuritic Pain, No Sputum; Other (SOB at rest) Gastrointestinal: No Nausea, No Vomiting, No Abdominal Pain, No Diarrhea, No Constipation, No Melena, No Hematochezia, No Other Genitourinary: No Dysuria, No Frequency, No Incontinence, No Hematuria, No Retention, No Other Musculoskeletal: No other, No neck pain, No shoulder pain, No arm pain, No back pain, No hand pain, No leg pain, No foot pain Skin: No Rash, No Lesions, No Jaundice, No Bruising, No Other Objective Vitals Vital Signs Date Time Temp Pulse Resp B/P (MAP) Pulse Ox O2 Delivery O2 Flow Rate FiO2 09/10/24 10:00 100 Room Air 0.0 09/10/24 10:00 21 09/10/24 09:00 97.5 61 18 154/65 (94) 97.5 Intake/Output Intake and Output 09/10/24 07:00 Intake Total 2080 ml Balance 2080 ml Intake Oral 2080 ml # Voids 4 # Bowel Movements 3 Medications Current Medications Medications Dose Ordered Sig/Melva Route Start Time Stop Time Status Last Admin Dose Admin Albuterol 2.5 mg Q4HPRN PRN NEB 09/03/24 16:00 Cancel Ipratropium [place] 0.5 mg Q4HPRN PRN NEB 09/03/24 16:00 Cancel Multivit/Ca Carb/ B Cmplx/FA/Prenat 1 tab DAILY PO 09/04/24 10:00 09/10/24 10:10 1 TAB Atorvastatin Calcium 20 mg HS PO 09/03/24 22:00 09/09/24 21:33 20 MG Diagnostic Test (Pha) 1 strip ACHS 09/03/24 17:00 09/10/24 06:20 1 STRIP Insulin Human Regular ACHS SC 09/03/24 17:00 09/07/24 21:42 3 UNITS Dextrose 50 ml UD PRN IV 09/03/24 16:00 Sodium Chloride 10 ml Q8HR IV 09/03/24 22:00 09/10/24 06:18 10 ML Acetaminophen/ Hydrocodone Bitart 1 tab Q4HP PRN PO 09/03/24 16:00 Ondansetron HCl 4 mg Q4HP PRN IV 09/03/24 16:00 Docusate Sodium 100 mg BIDPRN PRN PO 09/03/24 16:00 Acetaminophen 650 mg Q6HP PRN PO 09/03/24 16:00 09/08/24 20:02 650 MG Levothyroxine Sodium 50 mcg QAM@0600 PO 09/04/24 06:00 09/10/24 06:18 50 MCG Nitroglycerin 0.4 mg Q5MINP PRN SL 09/03/24 17:30 Morphine Sulfate 2 mg Q30M PRN IV 09/03/24 17:30 Pantoprazole Sodium 40 mg BID IV 09/09/24 16:00 09/10/24 10:10 40 MG Laboratory Results Laboratory Tests 09/10/24 05:50 Chemistry Test 09/10/24 05:50 Albumin 2.9 g/dL (3.2-4.8) L Calcium Level 9.0 mg/dL (8.7-10.4) Total Protein 5.1 g/dL (5.7-8.2) L LFT Test 09/10/24 05:50 Alanine Aminotransferase (ALT) 11 U/L (7-40) Alkaline Phosphatase 80 U/L (46-116) Aspartate Amino Transferase (AST) 26 U/L (13-40) Total Bilirubin 0.2 mg/dL (0.2-1.0) Microbiology Microbiology Date/Time Source Procedure Growth Status 09/03/24 23:30 Nose MRSA Screen - Final Complete 09/03/24 12:00 Blood Blood Culture - Final NO GROWTH AFTER 5 DAYS OF INCUBATION. Complete Labs and/or images reviewed: Labs reviewed by me, Image(s) reviewed by me Assessment/Plan Assessment/Plan Symptomatic anemia hemoglobin 4.3 improved to 7.6 after 7 units RBC transfusion, Consult by Dr. Jason Chin, we will hold aspirin and Eliquis , for possible endoscopy by GI Pancytopenia: Consult for Dr. Michlele appreciated bone marrow biopsy report pending. Elevated Troponin consult for Dr. Cano appreciated Acute Generalized weakness ESRD on hemodialysis consult by Dr. Delgadillo appreciated Diabetes Hypertension Hypercholesterolemia History of [place] Peripheral arterial disease History of pacemaker Anemia of Chronic disease Time spent 55 minutes Patient is full code Patient was recently seen in hospital in [place] and [facility] Examined through the help of tape recorder mechanic Daughter [facility] [phone] at the bedside. Plan discussed with: Patient Date of Service: Sep 10, 2024 Billing Provider: EKATERINA ROBERTSON MD Common Visit Codes: 81541-[id number] CARE 30-74 MIN EKATERINA ROBERTSON MD Sep 10, 2024 11:23
--- NOTE | 2024-09-10 12:44 | DVHPN2 ---
Progress Note - Dictate Date Seen: Sep 10, 2024 Has the PT tested + for MRSA If YES, has PT been informed?: Yes Medical Necessity Reason Pt with a Central, PICC or Fol: Yes Subjective no acute issues overnight vital signs Vital Sign Date Time Temp Pulse Resp B/P (MAP) Pulse Ox O2 Delivery O2 Flow Rate FiO2 09/10/24 10:00 100 Room Air 0.0 09/10/24 10:00 21 09/10/24 09:00 97.5 61 18 154/65 (94) 97.5 Total Intake and Output 09/09/24 09/09/24 09/10/24 15:00 23:00 07:00 Intake Total 830 ml 1250 ml Balance 830 ml 1250 ml medications Current Medications Medications Dose Ordered Sig/Melva Route Start Time Stop Time Status Last Admin Dose Admin Albuterol 2.5 mg Q4HPRN PRN NEB 09/03/24 16:00 Cancel Ipratropium [place] 0.5 mg Q4HPRN PRN NEB 09/03/24 16:00 Cancel Multivit/Ca Carb/ B Cmplx/FA/Prenat 1 tab DAILY PO 09/04/24 10:00 09/10/24 10:10 1 TAB Atorvastatin Calcium 20 mg HS PO 09/03/24 22:00 09/09/24 21:33 20 MG Diagnostic Test (Pha) 1 strip ACHS 09/03/24 17:00 09/10/24 11:52 1 STRIP Insulin Human Regular ACHS SC 09/03/24 17:00 09/10/24 11:54 2 UNITS Dextrose 50 ml UD PRN IV 09/03/24 16:00 Sodium Chloride 10 ml Q8HR IV 09/03/24 22:00 09/10/24 06:18 10 ML Acetaminophen/ Hydrocodone Bitart 1 tab Q4HP PRN PO 09/03/24 16:00 Ondansetron HCl 4 mg Q4HP PRN IV 09/03/24 16:00 Docusate Sodium 100 mg BIDPRN PRN PO 09/03/24 16:00 Acetaminophen 650 mg Q6HP PRN PO 09/03/24 16:00 09/08/24 20:02 650 MG Levothyroxine Sodium 50 mcg QAM@0600 PO 09/04/24 06:00 09/10/24 06:18 50 MCG Nitroglycerin 0.4 mg Q5MINP PRN SL 09/03/24 17:30 Morphine Sulfate 2 mg Q30M PRN IV 09/03/24 17:30 Pantoprazole Sodium 40 mg BID IV 09/09/24 16:00 09/10/24 10:10 40 MG Clonidine HCl 0.2 mg Q6HP PRN PO 09/10/24 12:45 UNV objective HEENT: No evidence of JVD, no oral ulcers. Pulmonary: Lungs are clear on auscultation bilaterally Cardiovascular S1-S2, no S3 or S4 Abdomen: Bowel sounds positive, soft no rebound tenderness Skin: No rash Neurological: Alert, oriented, no focal weakness Hemodialysis access right upper chest tunneled line. Right upper extremity with a dressing where previous AV graft was laboratory and microbiology Laboratory Tests 09/10/24 05:50 Test 09/10/24 05:50 Range/Units Serum Glucose 78 74-106 mg/dL Problem List 1. End-stage renal disease on hemodialysis via right IJ tunneled line 2. Epistaxis, resolved 3. Concern for GI bleed 4. Anemia of acute blood loss and end-stage renal disease.s/p transfusion 5. Hypertension 6. CAD 7. Status post pacemaker placement 8. 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 9. Left-hand subcutaneous lesion Assessment/Plan Plan and recommendations: Plan for HD Tuesday GI evaluation Status post bone marrow biopsy results pending, GI evaluation ongoing pending EGD Thank you very much for allowing us to participate in the care of this patient Dietary Evaluation Review Comments: 1) Advance pt diet when medically feasible to a Renal Standard diet 2) Continue current plan of care Expected Outcomes/Goals: F/U in 2-3 days Plan discussed with: Patient CC Plasma Assessment Blood Product Administration S: 20:34 TOM SMITH MD Sep 10, 2024 12:44
[2024-09-10] MEDS: cloNIDine HCL 0.1 MG TAB PO PRN (12:56)
--- NOTE | 2024-09-10 14:50 | DVHPN2 ---
Progress Note - Dictate Date Seen: Sep 10, 2024 Has the PT tested + for MRSA If YES, has PT been informed?: Yes Medical Necessity Reason Pt with a Central, PICC or Fol: Yes Subjective Patient was seen and evaluated in follow up. No overnight events. RBC 2.4, HGB 7.5, HCT 21.8, NA 127, BUN 72, TRIM DIE MAKER 6.78. Telemetry reviewed. vital signs Vital Sign Date Time Temp Pulse Resp B/P (MAP) Pulse Ox O2 Delivery O2 Flow Rate FiO2 09/10/24 13:00 97.8 60 16 161/84 (109) 100 97.8 09/10/24 10:00 Room Air 0.0 09/10/24 10:00 21 Total Intake and Output 09/09/24 09/09/24 09/10/24 15:00 23:00 07:00 Intake Total 830 ml 1250 ml Balance 830 ml 1250 ml medications Current Medications Medications Dose Ordered Sig/Melva Route Start Time Stop Time Status Last Admin Dose Admin Albuterol 2.5 mg Q4HPRN PRN NEB 09/03/24 16:00 Cancel Ipratropium [place] 0.5 mg Q4HPRN PRN NEB 09/03/24 16:00 Cancel Multivit/Ca Carb/ B Cmplx/FA/Prenat 1 tab DAILY PO 09/04/24 10:00 09/10/24 10:10 1 TAB Atorvastatin Calcium 20 mg HS PO 09/03/24 22:00 09/09/24 21:33 20 MG Diagnostic Test (Pha) 1 strip ACHS 09/03/24 17:00 09/10/24 11:52 1 STRIP Insulin Human Regular ACHS SC 09/03/24 17:00 09/10/24 11:54 2 UNITS Dextrose 50 ml UD PRN IV 09/03/24 16:00 Sodium Chloride 10 ml Q8HR IV 09/03/24 22:00 09/10/24 14:00 10 ML Acetaminophen/ Hydrocodone Bitart 1 tab Q4HP PRN PO 09/03/24 16:00 Ondansetron HCl 4 mg Q4HP PRN IV 09/03/24 16:00 Docusate Sodium 100 mg BIDPRN PRN PO 09/03/24 16:00 Acetaminophen 650 mg Q6HP PRN PO 09/03/24 16:00 09/08/24 20:02 650 MG Levothyroxine Sodium 50 mcg QAM@0600 PO 09/04/24 06:00 09/10/24 06:18 50 MCG Nitroglycerin 0.4 mg Q5MINP PRN SL 09/03/24 17:30 Morphine Sulfate 2 mg Q30M PRN IV 09/03/24 17:30 Pantoprazole Sodium 40 mg BID IV 09/09/24 16:00 09/10/24 10:10 40 MG Clonidine HCl 0.2 mg Q6HP PRN PO 09/10/24 12:45 09/10/24 12:56 0.2 MG objective GENERAL: Awake, alert, oriented. LUNGS: Clear. CARDIOVASCULAR: Heart sounds are good. ABDOMEN: Soft. laboratory and microbiology Laboratory Tests 09/10/24 05:50 Test 09/10/24 05:50 Range/Units Serum Glucose 78 74-106 mg/dL Problem List Symptomatic anemia. Pancytopenia. Elevated troponin. Acute generalized weakness. ESRD on hemodialysis. Diabetes. Hypertension. Hypercholesterolemia. History of [place]. Peripheral arterial disease. History of pacemaker. Anemia of chronic disease. Assessment/Plan Continued all current supportive medical care. Morphine and [place] for pain management. Lipitor. Clonidine. Nitro SL. GI prophylactics. Additional plan as per the hospital course. Dietary Evaluation Review Comments: 1) Advance pt diet when medically feasible to a Renal Standard diet 2) Continue current plan of care Expected Outcomes/Goals: F/U in 2-3 days Plan discussed with: Patient CC Plasma Assessment Blood Product Administration S: 20:34 ROSARIO RBAUN MD Sep 10, 2024 14:50
[2024-09-10 15:54] LABS: Folate (Folic Acid) 6.07 ng/mL (>5.38)
[2024-09-10] MEDS: EPOETIN ALFA-EPBX 10,000 UNIT/1ML VIAL SC ONE (21:38)
--- NOTE | 2024-09-10 23:02 | DVHPN2 ---
Progress Note - Dictate Date Seen: Sep 10, 2024 Has the PT tested + for MRSA If YES, has PT been informed?: Yes Medical Necessity Reason Pt with a Central, PICC or Fol: Yes Subjective No new complaints Patient has had no further nosebleeds or GI bleed He is tolerating a soft diet Hemoglobin has drifted down to 7.5 Patient got dialyzed vital signs Vital Sign Date Time Temp Pulse Resp B/P (MAP) Pulse Ox O2 Delivery O2 Flow Rate FiO2 09/10/24 21:00 97.5 60 18 129/60 (83) 98 97.5 09/10/24 20:00 Nasal Cannula* 2 28 Total Intake and Output 09/09/24 09/09/24 09/10/24 15:00 23:00 07:00 Intake Total 830 ml 1250 ml Balance 830 ml 1250 ml medications Current Medications Medications Dose Ordered Sig/Melva Route Start Time Stop Time Status Last Admin Dose Admin Albuterol 2.5 mg Q4HPRN PRN NEB 09/03/24 16:00 Cancel Ipratropium [place] 0.5 mg Q4HPRN PRN NEB 09/03/24 16:00 Cancel Multivit/Ca Carb/ B Cmplx/FA/Prenat 1 tab DAILY PO 09/04/24 10:00 09/10/24 10:10 1 TAB Atorvastatin Calcium 20 mg HS PO 09/03/24 22:00 09/10/24 21:38 20 MG Diagnostic Test (Pha) 1 strip ACHS 09/03/24 17:00 09/10/24 21:38 1 STRIP Insulin Human Regular ACHS SC 09/03/24 17:00 09/10/24 21:45 2 UNITS Dextrose 50 ml UD PRN IV 09/03/24 16:00 Sodium Chloride 10 ml Q8HR IV 09/03/24 22:00 09/10/24 21:38 10 ML Acetaminophen/ Hydrocodone Bitart 1 tab Q4HP PRN PO 09/03/24 16:00 Ondansetron HCl 4 mg Q4HP PRN IV 09/03/24 16:00 Docusate Sodium 100 mg BIDPRN PRN PO 09/03/24 16:00 Acetaminophen 650 mg Q6HP PRN PO 09/03/24 16:00 09/08/24 20:02 650 MG Levothyroxine Sodium 50 mcg QAM@0600 PO 09/04/24 06:00 09/10/24 06:18 50 MCG Nitroglycerin 0.4 mg Q5MINP PRN SL 09/03/24 17:30 Morphine Sulfate 2 mg Q30M PRN IV 09/03/24 17:30 Pantoprazole Sodium 40 mg BID IV 09/09/24 16:00 09/10/24 21:37 40 MG Clonidine HCl 0.2 mg Q6HP PRN PO 09/10/24 12:45 09/10/24 12:56 0.2 MG objective HEENT: No evidence of JVD, no oral ulcers. Pulmonary: Lungs are clear on auscultation bilaterally Cardiovascular S1-S2, no S3 or S4 Abdomen: Bowel sounds positive, soft no rebound tenderness Skin: No rash Neurological: Alert, oriented, no focal weakness Hemodialysis access right upper chest tunneled line. Right upper extremity with a dressing were previous AV graft was Extremities left hand dorsal aspect with induration mobile rubbery in texture and about half a cm in diameter nontender. laboratory and microbiology Laboratory Tests 09/10/24 05:50 Test 09/10/24 05:50 Range/Units Serum Glucose 78 74-106 mg/dL Problems(with codes): (1) Nasal bleeding (2) End stage renal failure on dialysis (3) Generalized weakness (4) Elevated troponin (5) Symptomatic anemia (6) Pancytopenia Prognosis Plan I believe his anemia was likely related to anticoagulation therapy and recurrent nosebleeds Patient will need to see ENT physician as an outpatient Pt was on soft renal diet Monitor labs and check his CBC tomorrow Currently his Eliquis and aspirin are on hold Since the patient is already end-stage renal disease he likely has platelet dysfunction He may not need double anticoagulant therapy in the future;, discontinue aspirin We will discuss with tablet making machine operator helper Possible EGD tomorrow as the patient is now more clinically stable Dietary Evaluation Review Comments: 1) Advance pt diet when medically feasible to a Renal Standard diet 2) Continue current plan of care Expected Outcomes/Goals: F/U in 2-3 days Plan discussed with: Patient, Other (Dr Rice) CC Plasma Assessment Blood Product Administration S: 20:34 SAI DEL RIO MD Sep 10, 2024 23:02
[2024-09-11] VITALS (13 sets, daily range): BP systolic 116–140; BP diastolic 46–71; PULSE 60–81; RESP 14–73; TEMP 97.4–98.4; O2SAT 95–100
[2024-09-11 00:24] LABS: Urine Bacteria None Seen /hpf (None Seen)
[2024-09-11 00:50] LABS: Urine Blood Negative /uL (Negative); Urine Clarity Clear (Clear); Urine Color Light-Yellow (Yellow); Urine Protein, UAD 2+ (Negative); Urine Specific Gravity 1.009 (1.001-1.035); Urine Squamous Epithelial Cell None Seen /hpf (<5); Urine Urobilinogen Normal (Negative); Urine WBC 1 /hpf (0 - 3); Urine pH 7.5 (5.0-9.0)
[2024-09-11 06:36] LABS: Basophils # (auto) 0 10 ^3/uL (0-0.2); Eosinophils # (auto) 0.1 10 ^3/uL (0-0.8); Lymphocytes # (auto) 0.4 10 ^3/uL (0.4-5.4); Monocytes # (auto) 0.2 10 ^3/uL (0-1.3); Neutrophils # (auto) 2.2 10 ^3/uL (1.6-8.6); Platelet Count (auto) 89 10^3/uL (140-450)
[2024-09-11 06:40] LABS: Basophils % (auto) 0.5 % (0.0-2.0); Eosinophils % (auto) 3.4 % (0.0-7.0); Hematocrit 20.1 % (41.0-53.0); Lymphocytes % (auto) 12.7 % (10.0-50.0); Mean Corpuscular Hemoglobin 30.8 pg (28.0-32.0); Mean Corpuscular Hgb Conc. 34.4 g/dL (32.0-36.0); Mean Corpuscular Volume 89.5 fL (80.0-100.0); Monocytes % (auto) 8.4 % (0.0-12.0); Red Blood Cells 2.25 10^6/uL (4.5-5.90); Red Cell Distribution Width 18.2 % (11.8-14.3)
[2024-09-11 06:48] LABS: INR 1.02 (0.9-1.15); Prothrombin Time 10.8 sec (9.3-11.8)
[2024-09-11 06:49] LABS: Hemoglobin 6.9 g/dL (13.5-17.5)
[2024-09-11 06:53] LABS: Alanine Aminotransferase 12 U/L (7-40); Alkaline Phosphatase 84 U/L (46-116); Anion Gap 4 (5-15); Aspartate Aminotransferase 26 U/L (13-40); BUN/Creatinine Ratio 9.6 (10.0-20.0); Carbon Dioxide 29 mmol/L (20-31); Chloride 99 mmol/L (98-107); Potassium 4.3 mmol/L (3.5-5.1)
[2024-09-11 06:54] LABS: Albumin 2.8 g/dL (3.2-4.8); Bilirubin, Total 0.2 mg/dL (0.2-1.0); Blood Urea Nitrogen 48 mg/dL (9-23); Calcium 8.3 mg/dL (8.7-10.4); Glucose 70 mg/dL (74-106); Sodium 132 mmol/L (136-145); Total Protein 4.9 g/dL (5.7-8.2)
--- NOTE | 2024-09-11 11:10 | DVHPN2 ---
Reviewed: Care Plan, H&P, Labs, Medications, Previous Orders, Radiology Changes from previous H/P or p: No Changes Eyes: No Pain, No Vision change, No Conjunctivae inflammation, No Eyelid inflammation, No Other, No Redness ENT: No Ear pain, No Ear discharge, No Nose pain, No Nose discharge, No Nose congestion, No Mouth pain, No Mouth swelling, No Throat pain, No Throat swelling; Other (Nose bleeding) Cardiovascular: No Chest Pain, No Palpitations, No Orthopnea, No Paroxysmal Noc. Dyspnea, No Edema, No Lt Headedness, No Other Respiratory: Cough; No Dry; Shortness of breath, SOB with excertion; No Wheezing; Hemoptysis; No Pleuritic Pain, No Sputum; Other (SOB at rest) Gastrointestinal: No Nausea, No Vomiting, No Abdominal Pain, No Diarrhea, No Constipation, No Melena, No Hematochezia, No Other Genitourinary: No Dysuria, No Frequency, No Incontinence, No Hematuria, No Retention, No Other Musculoskeletal: No other, No neck pain, No shoulder pain, No arm pain, No back pain, No hand pain, No leg pain, No foot pain Skin: No Rash, No Lesions, No Jaundice, No Bruising, No Other Objective Vitals Vital Signs Date Time Temp Pulse Resp B/P (MAP) Pulse Ox O2 Delivery O2 Flow Rate FiO2 09/11/24 09:00 97.5 73 18 116/60 (78) 100 97.5 09/10/24 20:00 Nasal Cannula* 2 28 Intake/Output Intake and Output 09/11/24 07:00 Intake Total 600 ml Output Total 150 ml Balance 450 ml Intake Oral 600 ml Output Urine Total 150 ml # Voids 2 # Bowel Movements 1 Medications Current Medications Medications Dose Ordered Sig/Melva Route Start Time Stop Time Status Last Admin Dose Admin Albuterol 2.5 mg Q4HPRN PRN NEB 09/03/24 16:00 Cancel Ipratropium [place] 0.5 mg Q4HPRN PRN NEB 09/03/24 16:00 Cancel Multivit/Ca Carb/ B Cmplx/FA/Prenat 1 tab DAILY PO 09/04/24 10:00 09/10/24 10:10 1 TAB Atorvastatin Calcium 20 mg HS PO 09/03/24 22:00 09/10/24 21:38 20 MG Diagnostic Test (Pha) 1 strip ACHS 09/03/24 17:00 09/11/24 06:36 1 STRIP Insulin Human Regular ACHS SC 09/03/24 17:00 09/10/24 21:45 2 UNITS Dextrose 50 ml UD PRN IV 09/03/24 16:00 Sodium Chloride 10 ml Q8HR IV 09/03/24 22:00 09/11/24 06:36 10 ML Acetaminophen/ Hydrocodone Bitart 1 tab Q4HP PRN PO 09/03/24 16:00 Ondansetron HCl 4 mg Q4HP PRN IV 09/03/24 16:00 Docusate Sodium 100 mg BIDPRN PRN PO 09/03/24 16:00 Acetaminophen 650 mg Q6HP PRN PO 09/03/24 16:00 09/08/24 20:02 650 MG Levothyroxine Sodium 50 mcg QAM@0600 PO 09/04/24 06:00 09/11/24 06:36 50 MCG Nitroglycerin 0.4 mg Q5MINP PRN SL 09/03/24 17:30 Morphine Sulfate 2 mg Q30M PRN IV 09/03/24 17:30 Pantoprazole Sodium 40 mg BID IV 09/09/24 16:00 09/11/24 09:38 40 MG Clonidine HCl 0.2 mg Q6HP PRN PO 09/10/24 12:45 09/10/24 12:56 0.2 MG Laboratory Results Laboratory Tests 09/11/24 05:50 Chemistry Test 09/11/24 05:50 Albumin 2.8 g/dL (3.2-4.8) L Calcium Level 8.3 mg/dL (8.7-10.4) L Total Protein 4.9 g/dL (5.7-8.2) L Coagulation Test 09/11/24 05:50 Prothrombin Time 10.8 sec (9.3-11.8) Prothrombin Time INR 1.02 (0.9-1.15) Activated Partial Thromboplast Time 26.0 SEC (24.5-34.5) LFT Test 09/11/24 05:50 Alanine Aminotransferase (ALT) 12 U/L (7-40) Alkaline Phosphatase 84 U/L (46-116) Aspartate Amino Transferase (AST) 26 U/L (13-40) Total Bilirubin 0.2 mg/dL (0.2-1.0) Urinalysis Test 09/11/24 00:20 Urine Color Light-yellow (Yellow) Urine Clarity Clear (Clear) Urine pH 7.5 (5.0-9.0) Urine Specific [place] 1.009 (1.001-1.035) Urine Protein 2+ (Negative) H Urine Ketones Negative (Negative) Urine Blood Negative /uL (Negative) Urine Nitrite Negative (Negative) Urine Bilirubin Negative (Negative) Urine Urobilinogen Normal mg/dL (Negative) Urine Leukocyte Esterase Negative /uL (Negative) Urine RBC 1 /hpf (0 - 3) Urine WBC 1 /hpf (0 - 3) Urine Squamous Epithelial Cells None seen /hpf (<5) Urine Bacteria None seen /hpf (None Seen) Urine Glucose 2+ mg/dL (Normal) H Microbiology Microbiology Date/Time Source Procedure Growth Status 09/03/24 23:30 Nose MRSA Screen - Final Complete 09/03/24 12:00 Blood Blood Culture - Final NO GROWTH AFTER 5 DAYS OF INCUBATION. Complete Labs and/or images reviewed: Labs reviewed by me, Image(s) reviewed by me Assessment/Plan Assessment/Plan Symptomatic anemia hemoglobin 4.3 improved to 7.6 after 7 units RBC transfusion, hemoglobin today 6.9, getting one more unit RBC Consult by Dr. Jason Chin, we will hold aspirin and Eliquis , getting EGD today Pancytopenia: Consult for Dr. Michelle appreciated bone marrow biopsy report pending. Elevated Troponin consult for Dr. Cano appreciated Acute Generalized weakness ESRD on hemodialysis consult by Dr. Delgadillo appreciated Diabetes Hypertension Hypercholesterolemia History of [place] Peripheral arterial disease History of pacemaker Anemia of Chronic disease Time spent 55 minutes Patient is full code Patient was recently seen in hospital in [place] and [facility] Examined through the help of language therapist Daughter [facility] [phone] at the bedside. Plan discussed with: Patient My Orders Orders - EKATERINA ROBERTSON MD Procedure Category Date Status Time Clonidine Hcl Tablet PHA 09/10/24 In Process (Catapres Tablet) 12:45 Cleanse Wound With ALANNA 09/10/24 In Process Wound Clean 10:15 Cover Wound With Foam ALANNA 09/10/24 In Process Dressing 10:15 Chest Portable XY 09/11/24 Taken 04:00 Date of Service: Sep 11, 2024 Billing Provider: EKATERINA ROBERTSON MD Common Visit Codes: [id number] INP/OBS CARE(HIGH) EKATERINA ROBERTSON MD Sep 11, 2024 11:10
[2024-09-11] MEDS ORDERED: LIDOCAINE 2% (LOCAL ANESTH.) PF 5ml SDV ONE (14:06)
[2024-09-11] MEDS ORDERED: MIDAZOLAM HCL 2MG/2ML 2ml VIAL (1mg/ml) ONE (14:06)
[2024-09-11] MEDS ORDERED: fentaNYL CITRATE 100 MCG/2 ML VL ONE (14:06)
[2024-09-11] MEDS ORDERED: ONDANSETRON HCL 4 MG/2 ML VIAL ONE (14:06)
[2024-09-11] MEDS ORDERED: PROPOFOL 10 MG/ML 20 ML IV ONE (14:06)
[2024-09-11] MEDS ORDERED: GLYCOPYRROLATE 0.2 MG/ML 1ML VIAL ONE (14:06)
[2024-09-11] MEDS ORDERED: EPINEPHrine HCL 1 MG/10 ML SYRG ONE (14:22)
--- NOTE | 2024-09-11 14:36 | DVHOP2 ---
Operative Report DATE OF OPERATION: 09/11/24 PROCEDURE: Upper Endoscopy with biopsy and epinephrine injection. PREOPERATIVE INDICATION: The patient is a 73 -year-old male undergoing endoscopy for severe anemia and history of melena POSTOPERATIVE DIAGNOSES: 1. There was a fresh clot noted in the antrum of the stomach and after irrigation patient was noted to have underlying gastropathy, gastritis with some pinpoint erosions that were oozing This area was injected with 8 mL of [id number] epinephrine with the resolution of the oozing. There is a suspicion that patient may have mild gastric antral vascular ectasia 2. Minimal gastritis otherwise normal examination up to the 2nd and 3rd part of the duodenal PROCEDURE PERFORMED BY: Sai Chin GI NURSE: Adam SCOPE: Olympus videoendoscope. ASA CLASS: 4. PREOPERATIVE MEDICATIONS: Dr. Aldo Man PROCEDURE IN DETAIL: After obtaining an informed consent, the patient was placed on left lateral decubitus position. The patient was then sedated with the above medications. A bite block was placed between his teeth. The endoscope was then passed through the oropharynx, into the esophagus, and through the stomach and pylorus up to the second and third part of the duodenum. The endoscope was then withdrawn. The 2nd and 3rd part of the duodenum and the duodenal bulb were normal. Duodenal biopsies were obtained. In the pre-pyloric area and antrum there was some fresh clot and oozing noted. This was irrigated. There was underlying pinpoint oozing from gastritis and erosions or possible early gastric vascular ectasia This area was injected with 8 mL of [id number] epinephrine with apparent resolution of oozing Gastric biopsies were obtained. On retroflexion the fundus and cardia were normal. The endoscope was then withdrawn into the distal esophagus where he had a 1 cm sliding-type hiatal hernia There was minimal grade a erosive esophagitis . The remaining distal and proximal esophagus were unremarkable The patient tolerated the procedure well without difficulty. COMPLICATIONS : None SPECIMENS: Duodenal biopsies Gastric biopsies DISPOSITION: Transfer back to the floor Stable PLAN: 1. Await for biopsy result 2. Will place pt on Protonix 40 mg bid 3. Carafate suspension 1 g p.o. 4 times a day 4. Please discontinue aspirin and NSAIDs on this patient 5. If the patient continues to have recurrent bleeding then we will consider repeat endoscopy with argon plasma coagulation SAI CHIN MD Sep 11, 2024 14:36
[2024-09-11] MEDS: SODIUM CHL 0.9% 1000 ML BAG XX ONE ×3 (17:30)
--- NOTE | 2024-09-11 17:33 | DVHPN2 ---
Progress Note - Dictate Date Seen: Sep 11, 2024 Has the PT tested + for MRSA If YES, has PT been informed?: Yes Medical Necessity Reason Pt with a Central, PICC or Fol: Yes Subjective s/p EGD today which showed a gastric ulcer vital signs Vital Sign Date Time Temp Pulse Resp B/P (MAP) Pulse Ox O2 Delivery O2 Flow Rate FiO2 09/11/24 17:00 97.4 60 17 138/68 (91) 99 97.4 09/11/24 15:02 Room Air 0 99 Total Intake and Output 09/10/24 09/10/24 09/11/24 15:00 23:00 07:00 Intake Total 400 ml 200 ml Output Total 150 ml Balance 400 ml 50 ml medications Current Medications Medications Dose Ordered Sig/Melva Route Start Time Stop Time Status Last Admin Dose Admin Albuterol 2.5 mg Q4HPRN PRN NEB 09/03/24 16:00 Cancel Ipratropium [place] 0.5 mg Q4HPRN PRN NEB 09/03/24 16:00 Cancel Multivit/Ca Carb/ B Cmplx/FA/Prenat 1 tab DAILY PO 09/04/24 10:00 09/10/24 10:10 1 TAB Atorvastatin Calcium 20 mg HS PO 09/03/24 22:00 09/10/24 21:38 20 MG Diagnostic Test (Pha) 1 strip ACHS 09/03/24 17:00 09/11/24 12:37 1 STRIP Insulin Human Regular ACHS SC 09/03/24 17:00 09/10/24 21:45 2 UNITS Dextrose 50 ml UD PRN IV 09/03/24 16:00 Sodium Chloride 10 ml Q8HR IV 09/03/24 22:00 09/11/24 06:36 10 ML Acetaminophen/ Hydrocodone Bitart 1 tab Q4HP PRN PO 09/03/24 16:00 Ondansetron HCl 4 mg Q4HP PRN IV 09/03/24 16:00 Docusate Sodium 100 mg BIDPRN PRN PO 09/03/24 16:00 Acetaminophen 650 mg Q6HP PRN PO 09/03/24 16:00 09/08/24 20:02 650 MG Levothyroxine Sodium 50 mcg QAM@0600 PO 09/04/24 06:00 09/11/24 06:36 50 MCG Nitroglycerin 0.4 mg Q5MINP PRN SL 09/03/24 17:30 Morphine Sulfate 2 mg Q30M PRN IV 09/03/24 17:30 Pantoprazole Sodium 40 mg BID IV 09/09/24 16:00 09/11/24 09:38 40 MG Clonidine HCl 0.2 mg Q6HP PRN PO 09/10/24 12:45 09/10/24 12:56 0.2 MG Sucralfate 1 gm QID@0600,1130,1700,2200 PO 09/11/24 17:00 objective HEENT: No evidence of JVD, no oral ulcers. Pulmonary: Lungs are clear on auscultation bilaterally Cardiovascular S1-S2, no S3 or S4 Abdomen: Bowel sounds positive, soft no rebound tenderness Skin: No rash Neurological: Alert, oriented, no focal weakness Hemodialysis access right upper chest tunneled line. Right upper extremity with a dressing where previous AV graft was laboratory and microbiology Laboratory Tests 09/11/24 05:50 Test 09/11/24 05:50 Range/Units Serum Glucose 70 L 74-106 mg/dL Problem List 1. End-stage renal disease on hemodialysis via right IJ tunneled line 2. Epistaxis, resolved 3. Gastric ulcer 4. Anemia of acute blood loss and end-stage renal disease.s/p transfusion 5. Hypertension 6. CAD 7. Status post pacemaker placement 8. 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 9. Left-hand subcutaneous lesion Assessment/Plan Plan and recommendations: HD on MWF schedule s/p EGD and control of bleeding Status post bone marrow biopsy results pending, GI evaluation ongoing pending EGD Thank you very much for allowing us to participate in the care of this patient Dietary Evaluation Review Comments: 1) Advance pt diet when medically feasible to a Renal Standard diet 2) Continue current plan of care Expected Outcomes/Goals: F/U in 2-3 days Plan discussed with: Patient CC Plasma Assessment Blood Product Administration S: 20:34 TOM SMITH MD Sep 11, 2024 17:33
[2024-09-11] MEDS: SUCRALFATE 1 GM/10 ML ORAL SUSP PO SCH (17:40)
[2024-09-11 18:30] LABS: Hematocrit 25.4 % (41.0-53.0); Hemoglobin 8.5 g/dL (13.5-17.5)
--- NOTE | 2024-09-11 22:30 | DVHPN2 ---
Progress Note - Dictate Date Seen: Sep 11, 2024 Has the PT tested + for MRSA If YES, has PT been informed?: Yes Medical Necessity Reason Pt with a Central, PICC or Fol: Yes Subjective Patient was seen and evaluated in follow up. Patient is on 2 LPM NC. Patient underwent EGD today which showed fresh clot noted in the antrum of the stomach and after irrigation patient was noted to have underlying gastropathy, gastritis with some pinpoint erosions that were oozing. There is a suspicion that patient may have mild gastric antral vascular ectasia. Minimal gastritis otherwise normal examination up to the 2nd and 3rd part of the duodenal. Patient received PRBC with improvement in H&H. Telemetry reviewed. vital signs Vital Sign Date Time Temp Pulse Resp B/P (MAP) Pulse Ox O2 Delivery O2 Flow Rate FiO2 09/11/24 21:00 98.2 65 19 126/59 (81) 100 98.2 09/11/24 20:00 Nasal Cannula* 2 28 Total Intake and Output 09/10/24 09/10/24 09/11/24 15:00 23:00 07:00 Intake Total 400 ml 200 ml Output Total 150 ml Balance 400 ml 50 ml medications Current Medications Medications Dose Ordered Sig/Melva Route Start Time Stop Time Status Last Admin Dose Admin Albuterol 2.5 mg Q4HPRN PRN NEB 09/03/24 16:00 Cancel Ipratropium [place] 0.5 mg Q4HPRN PRN NEB 09/03/24 16:00 Cancel Multivit/Ca Carb/ B Cmplx/FA/Prenat 1 tab DAILY PO 09/04/24 10:00 09/10/24 10:10 1 TAB Atorvastatin Calcium 20 mg HS PO 09/03/24 22:00 09/11/24 21:51 20 MG Diagnostic Test (Pha) 1 strip ACHS 09/03/24 17:00 09/11/24 21:51 1 STRIP Insulin Human Regular ACHS SC 09/03/24 17:00 09/11/24 21:57 3 UNITS Dextrose 50 ml UD PRN IV 09/03/24 16:00 Sodium Chloride 10 ml Q8HR IV 09/03/24 22:00 09/11/24 21:51 10 ML Acetaminophen/ Hydrocodone Bitart 1 tab Q4HP PRN PO 09/03/24 16:00 Ondansetron HCl 4 mg Q4HP PRN IV 09/03/24 16:00 Docusate Sodium 100 mg BIDPRN PRN PO 09/03/24 16:00 Acetaminophen 650 mg Q6HP PRN PO 09/03/24 16:00 09/08/24 20:02 650 MG Levothyroxine Sodium 50 mcg QAM@0600 PO 09/04/24 06:00 09/11/24 06:36 50 MCG Nitroglycerin 0.4 mg Q5MINP PRN SL 09/03/24 17:30 Morphine Sulfate 2 mg Q30M PRN IV 09/03/24 17:30 Pantoprazole Sodium 40 mg BID IV 09/09/24 16:00 09/11/24 21:51 40 MG Clonidine HCl 0.2 mg Q6HP PRN PO 09/10/24 12:45 09/10/24 12:56 0.2 MG Sucralfate 1 gm QID@0600,1130,1700,2200 PO 09/11/24 17:00 09/11/24 21:51 1 GM objective GENERAL: Awake, alert, oriented. LUNGS: Clear. CARDIOVASCULAR: Heart sounds are good. ABDOMEN: Soft. laboratory and microbiology Laboratory Tests 09/11/24 18:10 09/11/24 05:50 Test 09/11/24 05:50 Range/Units Serum Glucose 70 L 74-106 mg/dL Problem List Symptomatic anemia. Pancytopenia. Elevated troponin. Acute generalized weakness. ESRD on hemodialysis. Diabetes. Hypertension. Hypercholesterolemia. History of [place]. Peripheral arterial disease. History of pacemaker. Anemia of chronic disease. Assessment/Plan Continued all current supportive medical care. Morphine and Nerinx for pain management. Lipitor. Clonidine. Nitro SL. GI prophylactics. Additional plan as per the hospital course. Dietary Evaluation Review Comments: 1) Advance pt diet when medically feasible to a Renal Standard diet 2) Continue current plan of care Expected Outcomes/Goals: F/U in 2-3 days Plan discussed with: Patient CC Plasma Assessment Blood Product Administration S: 20:34 ROSARIO BRAUN MD Sep 11, 2024 22:30
[2024-09-12] VITALS (11 sets, daily range): BP systolic 126–161; BP diastolic 41–82; PULSE 59–82; RESP 15–19; TEMP 97.2–99.3; O2SAT 98–100
[2024-09-12 06:40] LABS: Basophils # (auto) 0 10 ^3/uL (0-0.2); Eosinophils # (auto) 0.1 10 ^3/uL (0-0.8); Hemoglobin 8.1 g/dL (13.5-17.5); Lymphocytes # (auto) 0.4 10 ^3/uL (0.4-5.4); Monocytes # (auto) 0.3 10 ^3/uL (0-1.3); Monocytes % (auto) 6.4 % (0.0-12.0); Neutrophils # (auto) 3.5 10 ^3/uL (1.6-8.6); White Blood Cell 4.3 10^3/uL (4.4-10.8)
[2024-09-12 06:42] LABS: Basophils % (auto) 0.6 % (0.0-2.0); Eosinophils % (auto) 1.8 % (0.0-7.0); Hematocrit 23.7 % (41.0-53.0); Lymphocytes % (auto) 10.3 % (10.0-50.0); Mean Corpuscular Hemoglobin 31.3 pg (28.0-32.0); Mean Corpuscular Hgb Conc. 34.3 g/dL (32.0-36.0); Mean Corpuscular Volume 91.1 fL (80.0-100.0); Neutrophils % (auto) 80.9 % (37.0-80.0); Platelet Count (auto) 102 10^3/uL (140-450); Red Blood Cells 2.61 10^6/uL (4.5-5.90); Red Cell Distribution Width 18.1 % (11.8-14.3)
[2024-09-12 07:42] LABS: Alanine Aminotransferase 15 U/L (7-40); Alkaline Phosphatase 88 U/L (46-116); Anion Gap 4 (5-15); Aspartate Aminotransferase 27 U/L (13-40); BUN/Creatinine Ratio 9.4 (10.0-20.0); Carbon Dioxide 25 mmol/L (20-31); Chloride 101 mmol/L (98-107)
[2024-09-12 07:43] LABS: Albumin 2.9 g/dL (3.2-4.8); Bilirubin, Total 0.2 mg/dL (0.2-1.0); Blood Urea Nitrogen 57 mg/dL (9-23); Calcium 8.2 mg/dL (8.7-10.4); Sodium 130 mmol/L (136-145); Total Protein 5.1 g/dL (5.7-8.2)
[2024-09-12 07:46] LABS: Glucose 45 mg/dL (74-106); Potassium 6.2 mmol/L (3.5-5.1)
--- NOTE | 2024-09-12 10:43 | DVHPN2 ---
Progress Note - Dictate Date Seen: Sep 12, 2024 Has the PT tested + for MRSA If YES, has PT been informed?: Yes Medical Necessity Reason Pt with a Central, PICC or Fol: Yes Subjective s/p EGD on 09/11 which showed a gastric ulcer . Bleeding controlled with epinephrine vital signs Vital Sign Date Time Temp Pulse Resp B/P (MAP) Pulse Ox O2 Delivery O2 Flow Rate FiO2 09/12/24 09:56 98 Nasal Cannula* 3 32 09/12/24 08:30 97.9 63 15 141/56 (84) 97.9 Total Intake and Output 09/11/24 09/11/24 09/12/24 15:00 23:00 07:00 Intake Total 100 ml 500 ml 118 ml Output Total 50 ml Balance 100 ml 500 ml 68 ml medications Current Medications Medications Dose Ordered Sig/Melva Route Start Time Stop Time Status Last Admin Dose Admin Albuterol 2.5 mg Q4HPRN PRN NEB 09/03/24 16:00 Cancel Ipratropium [place] 0.5 mg Q4HPRN PRN NEB 09/03/24 16:00 Cancel Multivit/Ca Carb/ B Cmplx/FA/Prenat 1 tab DAILY PO 09/04/24 10:00 09/12/24 08:53 1 TAB Atorvastatin Calcium 20 mg HS PO 09/03/24 22:00 09/11/24 21:51 20 MG Diagnostic Test (Pha) 1 strip ACHS 09/03/24 17:00 09/12/24 06:18 1 STRIP Insulin Human Regular ACHS SC 09/03/24 17:00 09/11/24 21:57 3 UNITS Dextrose 50 ml UD PRN IV 09/03/24 16:00 Sodium Chloride 10 ml Q8HR IV 09/03/24 22:00 09/12/24 06:18 10 ML Acetaminophen/ Hydrocodone Bitart 1 tab Q4HP PRN PO 09/03/24 16:00 Ondansetron HCl 4 mg Q4HP PRN IV 09/03/24 16:00 Docusate Sodium 100 mg BIDPRN PRN PO 09/03/24 16:00 Acetaminophen 650 mg Q6HP PRN PO 09/03/24 16:00 09/08/24 20:02 650 MG Levothyroxine Sodium 50 mcg QAM@0600 PO 09/04/24 06:00 09/12/24 06:16 50 MCG Nitroglycerin 0.4 mg Q5MINP PRN SL 09/03/24 17:30 Morphine Sulfate 2 mg Q30M PRN IV 09/03/24 17:30 Pantoprazole Sodium 40 mg BID IV 09/09/24 16:00 09/12/24 08:54 40 MG Clonidine HCl 0.2 mg Q6HP PRN PO 09/10/24 12:45 09/10/24 12:56 0.2 MG Sucralfate 1 gm QID@0600,1130,1700,2200 PO 09/11/24 17:00 09/12/24 06:17 1 GM objective HEENT: No evidence of JVD, no oral ulcers. Pulmonary: Lungs are clear on auscultation bilaterally Cardiovascular S1-S2, no S3 or S4 Abdomen: Bowel sounds positive, soft no rebound tenderness Skin: No rash Neurological: Alert, oriented, no focal weakness Hemodialysis access right upper chest tunneled line. Right upper extremity with a dressing where previous AV graft was laboratory and microbiology Laboratory Tests 09/12/24 06:09 Test 09/12/24 06:09 Range/Units Serum Glucose 45 *L 74-106 mg/dL Problem List 1. End-stage renal disease on hemodialysis via right IJ tunneled line 2. Epistaxis, resolved 3. Gastric ulcer 4. Anemia of acute blood loss and end-stage renal disease.s/p transfusion 5. Hypertension 6. CAD 7. Status post pacemaker placement 8. 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 9. Left-hand subcutaneous lesion Assessment/Plan Plan and recommendations: HD on MWF schedule . Patient will be dialysed today with a 1 k bath s/p EGD and control of bleeding Status post bone marrow biopsy results pending Thank you very much for allowing us to participate in the care of this patient Dietary Evaluation Review Comments: 1) Advance pt diet when medically feasible to a Renal Standard diet 2) Continue current plan of care Expected Outcomes/Goals: F/U in 2-3 days Plan discussed with: Patient CC Plasma Assessment Blood Product Administration S: 20:34 TOM SMITH MD Sep 12, 2024 10:43
--- NOTE | 2024-09-12 11:08 | DVHPN2 ---
Reviewed: Care Plan, H&P, Labs, Medications, Previous Orders, Radiology Changes from previous H/P or p: No Changes Eyes: No Pain, No Vision change, No Conjunctivae inflammation, No Eyelid inflammation, No Other, No Redness ENT: No Ear pain, No Ear discharge, No Nose pain, No Nose discharge, No Nose congestion, No Mouth pain, No Mouth swelling, No Throat pain, No Throat swelling; Other (Nose bleeding) Cardiovascular: No Chest Pain, No Palpitations, No Orthopnea, No Paroxysmal Noc. Dyspnea, No Edema, No Lt Headedness, No Other Respiratory: Cough; No Dry; Shortness of breath, SOB with excertion; No Wheezing; Hemoptysis; No Pleuritic Pain, No Sputum; Other (SOB at rest) Gastrointestinal: No Nausea, No Vomiting, No Abdominal Pain, No Diarrhea, No Constipation, No Melena, No Hematochezia, No Other Genitourinary: No Dysuria, No Frequency, No Incontinence, No Hematuria, No Retention, No Other Musculoskeletal: No other, No neck pain, No shoulder pain, No arm pain, No back pain, No hand pain, No leg pain, No foot pain Skin: No Rash, No Lesions, No Jaundice, No Bruising, No Other Objective Vitals Vital Signs Date Time Temp Pulse Resp B/P (MAP) Pulse Ox O2 Delivery O2 Flow Rate FiO2 09/12/24 09:56 98 Nasal Cannula* 3 32 09/12/24 08:30 97.9 63 15 141/56 (84) 97.9 Intake/Output Intake and Output 09/12/24 07:00 Intake Total 718 ml Output Total 50 ml Balance 668 ml Intake Oral 118 ml IV Total 100 ml Blood Product 250 ml Other 250 ml Output Urine Total 50 ml Medications Current Medications Medications Dose Ordered Sig/Melva Route Start Time Stop Time Status Last Admin Dose Admin Albuterol 2.5 mg Q4HPRN PRN NEB 09/03/24 16:00 Cancel Ipratropium [place] 0.5 mg Q4HPRN PRN NEB 09/03/24 16:00 Cancel Multivit/Ca Carb/ B Cmplx/FA/Prenat 1 tab DAILY PO 09/04/24 10:00 09/12/24 08:53 1 TAB Atorvastatin Calcium 20 mg HS PO 09/03/24 22:00 09/11/24 21:51 20 MG Diagnostic Test (Pha) 1 strip ACHS 09/03/24 17:00 09/12/24 06:18 1 STRIP Insulin Human Regular ACHS SC 09/03/24 17:00 09/11/24 21:57 3 UNITS Dextrose 50 ml UD PRN IV 09/03/24 16:00 Sodium Chloride 10 ml Q8HR IV 09/03/24 22:00 09/12/24 06:18 10 ML Acetaminophen/ Hydrocodone Bitart 1 tab Q4HP PRN PO 09/03/24 16:00 Ondansetron HCl 4 mg Q4HP PRN IV 09/03/24 16:00 Docusate Sodium 100 mg BIDPRN PRN PO 09/03/24 16:00 Acetaminophen 650 mg Q6HP PRN PO 09/03/24 16:00 09/08/24 20:02 650 MG Levothyroxine Sodium 50 mcg QAM@0600 PO 09/04/24 06:00 09/12/24 06:16 50 MCG Nitroglycerin 0.4 mg Q5MINP PRN SL 09/03/24 17:30 Morphine Sulfate 2 mg Q30M PRN IV 09/03/24 17:30 Pantoprazole Sodium 40 mg BID IV 09/09/24 16:00 09/12/24 08:54 40 MG Clonidine HCl 0.2 mg Q6HP PRN PO 09/10/24 12:45 09/10/24 12:56 0.2 MG Sucralfate 1 gm QID@0600,1130,1700,2200 PO 09/11/24 17:00 09/12/24 06:17 1 GM Laboratory Results Laboratory Tests 09/12/24 06:09 Chemistry Test 09/12/24 06:09 Albumin 2.9 g/dL (3.2-4.8) L Calcium Level 8.2 mg/dL (8.7-10.4) L Total Protein 5.1 g/dL (5.7-8.2) L LFT Test 09/12/24 06:09 Alanine Aminotransferase (ALT) 15 U/L (7-40) Alkaline Phosphatase 88 U/L (46-116) Aspartate Amino Transferase (AST) 27 U/L (13-40) Total Bilirubin 0.2 mg/dL (0.2-1.0) Urinalysis Test 09/11/24 00:20 Urine Color Light-yellow (Yellow) Urine Clarity Clear (Clear) Urine pH 7.5 (5.0-9.0) Urine Specific [place] 1.009 (1.001-1.035) Urine Protein 2+ (Negative) H Urine Ketones Negative (Negative) Urine Blood Negative /uL (Negative) Urine Nitrite Negative (Negative) Urine Bilirubin Negative (Negative) Urine Urobilinogen Normal mg/dL (Negative) Urine Leukocyte Esterase Negative /uL (Negative) Urine RBC 1 /hpf (0 - 3) Urine WBC 1 /hpf (0 - 3) Urine Squamous Epithelial Cells None seen /hpf (<5) Urine Bacteria None seen /hpf (None Seen) Urine Glucose 2+ mg/dL (Normal) H Microbiology Microbiology Date/Time Source Procedure Growth Status 09/03/24 23:30 Nose MRSA Screen - Final Complete 09/03/24 12:00 Blood Blood Culture - Final NO GROWTH AFTER 5 DAYS OF INCUBATION. Complete Labs and/or images reviewed: Labs reviewed by me, Image(s) reviewed by me Assessment/Plan Assessment/Plan Symptomatic anemia hemoglobin 4.3 improved to 8.1 after 7 units RBC transfusion, hemoglobin today 6.9, getting one more unit RBC Consult by Dr. Jason Chin, we will hold aspirin and Eliquis , getting EGD today Pancytopenia: Consult for Dr. Michelle appreciated bone marrow biopsy report in the chart Dr. Michelle will be informed Elevated Troponin consult for Dr. Cano appreciated Acute Generalized weakness ESRD on hemodialysis consult by Dr. Delgadillo appreciated EGD by Dr. Jason Chin Gastropathy gastritis with pinpoint erosions with oozing injected with epinephrine by GI Dr. Jason Chin, minimal gastritis Diabetes Hypertension Hypercholesterolemia History of [place] Peripheral arterial disease History of pacemaker Anemia of Chronic disease Time spent 55 minutes Patient is full code Patient was recently seen in hospital in [place] and [facility] Examined through the help of worm farmer Daughter [facility] [phone] at the bedside. Plan discussed with: Patient My Orders Orders - EKATERINA ROBERTSON MD Procedure Category Date Status Time * Swallow Request ST 09/11/24 Transmitted 15:55 Date of Service: Sep 12, 2024 Billing Provider: EKATERINA ROBERTSON MD Common Visit Codes: [id number] INP/OBS CARE(HIGH) EKATERINA ROBERTSON MD Sep 12, 2024 11:08
[2024-09-12] MEDS: SODIUM CHL 0.9% 1000 ML BAG XX ONE (13:00)
--- NOTE | 2024-09-12 14:28 | ECG ---
[facility] Test Date: 2024-09-10 Test Time: 20:27:07 Pat Name: JUSTINE MATHEW Department: Respiratoy Room: 0245T B Gender: M Project Eng: keven for procedure : 1950 Requested By: ROSARIO BRAUN Order Number: [id number] Reading MD: Matthew Alaniz Measurements Intervals [place] Rate: 63 P: -86 TX: 162 QRS: -58 QRSD: 118 T: 85 QT: 499 QTc: 511 Interpretive Statements Sinus or ectopic atrial rhythm Left anterior fascicular block LVH with secondary repolarization abnormality Electronically Signed On 09-13-2024 8:02:36 PST by Matthew Alaniz Please click the below link to view image of tracing.
--- NOTE | 2024-09-12 20:32 | DVHPN2 ---
Progress Note - Dictate Date Seen: Sep 12, 2024 Has the PT tested + for MRSA If YES, has PT been informed?: Yes Medical Necessity Reason Pt with a Central, PICC or Fol: Yes Subjective Patient was seen and evaluated in follow up. Patient is on 3 LPM NC. Patient underwent bone marrow biopsy. Patient's pacemaker was interrogated today. Patient is planned for HD today. WBC 4.3, HGB 8.1, HCT 23.7, K 6.2, BUN 57, COMMUNICATIONS PROGRAMMER 6.05. Telemetry reviewed. vital signs Vital Sign Date Time Temp Pulse Resp B/P (MAP) Pulse Ox O2 Delivery O2 Flow Rate FiO2 09/12/24 12:28 97.6 60 15 157/67 (97) 100 97.6 09/12/24 09:56 Nasal Cannula* 3 32 Total Intake and Output 09/11/24 09/11/24 09/12/24 15:00 23:00 07:00 Intake Total 100 ml 500 ml 118 ml Output Total 50 ml Balance 100 ml 500 ml 68 ml medications Current Medications Medications Dose Ordered Sig/Melva Route Start Time Stop Time Status Last Admin Dose Admin Albuterol 2.5 mg Q4HPRN PRN NEB 09/03/24 16:00 Cancel Ipratropium [place] 0.5 mg Q4HPRN PRN NEB 09/03/24 16:00 Cancel Multivit/Ca Carb/ B Cmplx/FA/Prenat 1 tab DAILY PO 09/04/24 10:00 09/12/24 08:53 1 TAB Atorvastatin Calcium 20 mg HS PO 09/03/24 22:00 09/11/24 21:51 20 MG Sodium Chloride 10 ml Q8HR IV 09/03/24 22:00 09/12/24 06:18 10 ML Acetaminophen/ Hydrocodone Bitart 1 tab Q4HP PRN PO 09/03/24 16:00 Ondansetron HCl 4 mg Q4HP PRN IV 09/03/24 16:00 Docusate Sodium 100 mg BIDPRN PRN PO 09/03/24 16:00 Acetaminophen 650 mg Q6HP PRN PO 09/03/24 16:00 09/08/24 20:02 650 MG Levothyroxine Sodium 50 mcg QAM@0600 PO 09/04/24 06:00 09/12/24 06:16 50 MCG Nitroglycerin 0.4 mg Q5MINP PRN SL 09/03/24 17:30 Morphine Sulfate 2 mg Q30M PRN IV 09/03/24 17:30 Pantoprazole Sodium 40 mg BID IV 09/09/24 16:00 09/12/24 08:54 40 MG Clonidine HCl 0.2 mg Q6HP PRN PO 09/10/24 12:45 09/10/24 12:56 0.2 MG Sucralfate 1 gm QID@0600,1130,1700,2200 PO 09/11/24 17:00 09/12/24 11:56 1 GM objective GENERAL: Awake, alert, oriented. LUNGS: Clear. CARDIOVASCULAR: Heart sounds are good. ABDOMEN: Soft. laboratory and microbiology Laboratory Tests 09/12/24 06:09 Test 09/12/24 06:09 Range/Units Serum Glucose 45 *L 74-106 mg/dL Problem List Symptomatic anemia. Pancytopenia. Elevated troponin. Acute generalized weakness. ESRD on hemodialysis. Diabetes. Hypertension. Hypercholesterolemia. History of [place]. Peripheral arterial disease. History of pacemaker. Anemia of chronic disease. Assessment/Plan Continued all current supportive medical care. Morphine and [place] for pain management. Lipitor. Clonidine. Nitro SL. GI prophylactics. Additional plan as per the hospital course. Dietary Evaluation Review Comments: 1) Advance pt diet when medically feasible to a Renal Standard diet 2) Continue current plan of care Expected Outcomes/Goals: F/U in 2-3 days Plan discussed with: Patient CC Plasma Assessment Blood Product Administration S: 20:34 ROSARIO BRAUN MD Sep 12, 2024 13:38
--- NOTE | 2024-09-12 21:48 | DVHPN2 ---
Progress Note - Dictate Date Seen: Sep 12, 2024 Has the PT tested + for MRSA If YES, has PT been informed?: Yes Medical Necessity Reason Pt with a Central, PICC or Fol: Yes Subjective No new complaints ; getting hemodialysis Patient has had no further nosebleeds or GI bleed He is tolerating a soft diet Hemoglobin at 8.1 vital signs Vital Sign Date Time Temp Pulse Resp B/P (MAP) Pulse Ox O2 Delivery O2 Flow Rate FiO2 09/12/24 16:33 99.1 67 15 126/62 (83) 100 99.1 09/12/24 09:56 Nasal Cannula* 3 32 Total Intake and Output 09/11/24 09/11/24 09/12/24 15:00 23:00 07:00 Intake Total 100 ml 500 ml 118 ml Output Total 50 ml Balance 100 ml 500 ml 68 ml medications Current Medications Medications Dose Ordered Sig/Melva Route Start Time Stop Time Status Last Admin Dose Admin Albuterol 2.5 mg Q4HPRN PRN NEB 09/03/24 16:00 Cancel Ipratropium [place] 0.5 mg Q4HPRN PRN NEB 09/03/24 16:00 Cancel Multivit/Ca Carb/ B Cmplx/FA/Prenat 1 tab DAILY PO 09/04/24 10:00 09/12/24 08:53 1 TAB Atorvastatin Calcium 20 mg HS PO 09/03/24 22:00 09/12/24 21:24 20 MG Sodium Chloride 10 ml Q8HR IV 09/03/24 22:00 09/12/24 21:25 10 ML Ondansetron HCl 4 mg Q4HP PRN IV 09/03/24 16:00 Docusate Sodium 100 mg BIDPRN PRN PO 09/03/24 16:00 Acetaminophen 650 mg Q6HP PRN PO 09/03/24 16:00 09/08/24 20:02 650 MG Levothyroxine Sodium 50 mcg QAM@0600 PO 09/04/24 06:00 09/12/24 06:16 50 MCG Nitroglycerin 0.4 mg Q5MINP PRN SL 09/03/24 17:30 Pantoprazole Sodium 40 mg BID IV 09/09/24 16:00 09/12/24 21:24 40 MG Clonidine HCl 0.2 mg Q6HP PRN PO 09/10/24 12:45 09/10/24 12:56 0.2 MG Sucralfate 1 gm QID@0600,1130,1700,2200 PO 09/11/24 17:00 09/12/24 21:24 1 GM objective HEENT: No evidence of JVD, no oral ulcers. Pulmonary: Lungs are clear on auscultation bilaterally Cardiovascular S1-S2, no S3 or S4 Abdomen: Bowel sounds positive, soft no rebound tenderness Skin: No rash Neurological: Alert, oriented, no focal weakness Hemodialysis access right upper chest tunneled line. Right upper extremity with a dressing were previous AV graft was Extremities left hand dorsal aspect with induration mobile rubbery in texture and about half a cm in diameter nontender. laboratory and microbiology Laboratory Tests 09/12/24 06:09 Test 09/12/24 06:09 Range/Units Serum Glucose 45 *L 74-106 mg/dL Problems(with codes): (1) Gastritis and gastroduodenitis with hemorrhage (2) Nasal bleeding (3) End stage renal failure on dialysis (4) Generalized weakness (5) Symptomatic anemia (6) Pancytopenia Prognosis Plan Protonix 40 mg p.o. twice a day Carafate 1 g p.o. twice a day Full liquid diet advance to soft renal Monitor labs I will follow up Dietary Evaluation Review Comments: 1) Advance pt diet when medically feasible to a Renal Standard diet 2) Continue current plan of care Expected Outcomes/Goals: F/U in 2-3 days Plan discussed with: Patient CC Plasma Assessment Blood Product Administration S: 20:34 SAI DEL RIO MD Sep 12, 2024 21:48
[2024-09-13 04:51] VITALS: BP 129/53; PULSE 60; RESP 17; TEMP 97.3; O2SAT 99
[2024-09-13] MEDS: EPOETIN ALFA-EPBX 10,000 UNIT/1ML VIAL SC ONE (07:39)
[2024-09-13 08:00] VITALS: PULSE 60; PULSE 62; RESP 18; O2SAT 98
[2024-09-13 08:24] LABS: Basophils # (auto) 0 10 ^3/uL (0-0.2); Eosinophils # (auto) 0.1 10 ^3/uL (0-0.8); Hematocrit 22.7 % (41.0-53.0); Lymphocytes # (auto) 0.5 10 ^3/uL (0.4-5.4); Nucleated Red Blood Cells % 0.1 %; Red Blood Cells 2.48 10^6/uL (4.5-5.90); Red Cell Distribution Width 18.3 % (11.8-14.3); White Blood Cell 2.8 10^3/uL (4.4-10.8)
[2024-09-13 08:27] LABS: Basophils % (auto) 0.7 % (0.0-2.0); Hemoglobin 7.7 g/dL (13.5-17.5); Lymphocytes % (auto) 16.3 % (10.0-50.0); Mean Corpuscular Hgb Conc. 33.8 g/dL (32.0-36.0); Mean Corpuscular Volume 91.6 fL (80.0-100.0); Monocytes # (auto) 0.3 10 ^3/uL (0-1.3); Monocytes % (auto) 9.3 % (0.0-12.0); Neutrophils % (auto) 70.7 % (37.0-80.0); Platelet Count (auto) 92 10^3/uL (140-450)
[2024-09-13 08:47] LABS: Alanine Aminotransferase 15 U/L (7-40); Alkaline Phosphatase 90 U/L (46-116); Anion Gap 3 (5-15); Aspartate Aminotransferase 25 U/L (13-40); BUN/Creatinine Ratio 7.4 (10.0-20.0); Chloride 101 mmol/L (98-107); Glucose 80 mg/dL (74-106); Potassium 4.3 mmol/L (3.5-5.1)
[2024-09-13 08:51] LABS: Albumin 3.1 g/dL (3.2-4.8); Bilirubin, Total 0.2 mg/dL (0.2-1.0); Blood Urea Nitrogen 37 mg/dL (9-23); Calcium 8.4 mg/dL (8.7-10.4); Carbon Dioxide 31 mmol/L (20-31); Sodium 135 mmol/L (136-145); Total Protein 5.2 g/dL (5.7-8.2)
[2024-09-13 09:00] VITALS: BP 151/68; PULSE 60; RESP 16; TEMP 97.8; O2SAT 98
[2024-09-13] MEDS ORDERED: PANT40T PO (09:48)
[2024-09-13] MEDS ORDERED: SUCR1TAB31 PO (09:48)
--- NOTE | 2024-09-13 09:51 | DVHPN2 ---
Reviewed: Care Plan, H&P, Labs, Medications, Previous Orders, Radiology Changes from previous H/P or p: No Changes Eyes: No Pain, No Vision change, No Conjunctivae inflammation, No Eyelid inflammation, No Other, No Redness ENT: No Ear pain, No Ear discharge, No Nose pain, No Nose discharge, No Nose congestion, No Mouth pain, No Mouth swelling, No Throat pain, No Throat swelling; Other (Nose bleeding) Cardiovascular: No Chest Pain, No Palpitations, No Orthopnea, No Paroxysmal Noc. Dyspnea, No Edema, No Lt Headedness, No Other Respiratory: Cough; No Dry; Shortness of breath, SOB with excertion; No Wheezing; Hemoptysis; No Pleuritic Pain, No Sputum; Other (SOB at rest) Gastrointestinal: No Nausea, No Vomiting, No Abdominal Pain, No Diarrhea, No Constipation, No Melena, No Hematochezia, No Other Genitourinary: No Dysuria, No Frequency, No Incontinence, No Hematuria, No Retention, No Other Musculoskeletal: No other, No neck pain, No shoulder pain, No arm pain, No back pain, No hand pain, No leg pain, No foot pain Skin: No Rash, No Lesions, No Jaundice, No Bruising, No Other Objective Vitals Vital Signs Date Time Temp Pulse Resp B/P (MAP) Pulse Ox O2 Delivery O2 Flow Rate FiO2 09/13/24 09:00 97.8 60 16 151/68 (95) 98 97.8 09/13/24 08:00 Nasal Cannula* 3 32 Intake/Output Intake and Output 09/13/24 07:00 Intake Total 200 ml Output Total 560 ml Balance -360 ml Intake Oral 200 ml Output Urine Total 560 ml Medications Current Medications Medications Dose Ordered Sig/Melva Route Start Time Stop Time Status Last Admin Dose Admin Albuterol 2.5 mg Q4HPRN PRN NEB 09/03/24 16:00 Cancel Ipratropium [place] 0.5 mg Q4HPRN PRN NEB 09/03/24 16:00 Cancel Multivit/Ca Carb/ B Cmplx/FA/Prenat 1 tab DAILY PO 09/04/24 10:00 09/13/24 09:05 1 TAB Atorvastatin Calcium 20 mg HS PO 09/03/24 22:00 09/12/24 21:24 20 MG Sodium Chloride 10 ml Q8HR IV 09/03/24 22:00 09/13/24 06:18 10 ML Ondansetron HCl 4 mg Q4HP PRN IV 09/03/24 16:00 Docusate Sodium 100 mg BIDPRN PRN PO 09/03/24 16:00 Acetaminophen 650 mg Q6HP PRN PO 09/03/24 16:00 09/08/24 20:02 650 MG Levothyroxine Sodium 50 mcg QAM@0600 PO 09/04/24 06:00 09/13/24 06:18 50 MCG Nitroglycerin 0.4 mg Q5MINP PRN SL 09/03/24 17:30 Pantoprazole Sodium 40 mg BID IV 09/09/24 16:00 09/13/24 09:05 40 MG Clonidine HCl 0.2 mg Q6HP PRN PO 09/10/24 12:45 09/10/24 12:56 0.2 MG Sucralfate 1 gm QID@0600,1130,1700,2200 PO 09/11/24 17:00 09/13/24 06:18 1 GM Laboratory Results Laboratory Tests 09/13/24 07:00 Chemistry Test 09/13/24 07:00 Albumin 3.1 g/dL (3.2-4.8) L Calcium Level 8.4 mg/dL (8.7-10.4) L Total Protein 5.2 g/dL (5.7-8.2) L LFT Test 09/13/24 07:00 Alanine Aminotransferase (ALT) 15 U/L (7-40) Alkaline Phosphatase 90 U/L (46-116) Aspartate Amino Transferase (AST) 25 U/L (13-40) Total Bilirubin 0.2 mg/dL (0.2-1.0) Urinalysis Test 09/11/24 00:20 Urine Color Light-yellow (Yellow) Urine Clarity Clear (Clear) Urine pH 7.5 (5.0-9.0) Urine Specific [place] 1.009 (1.001-1.035) Urine Protein 2+ (Negative) H Urine Ketones Negative (Negative) Urine Blood Negative /uL (Negative) Urine Nitrite Negative (Negative) Urine Bilirubin Negative (Negative) Urine Urobilinogen Normal mg/dL (Negative) Urine Leukocyte Esterase Negative /uL (Negative) Urine RBC 1 /hpf (0 - 3) Urine WBC 1 /hpf (0 - 3) Urine Squamous Epithelial Cells None seen /hpf (<5) Urine Bacteria None seen /hpf (None Seen) Urine Glucose 2+ mg/dL (Normal) H Microbiology Microbiology Date/Time Source Procedure Growth Status 09/03/24 23:30 Nose MRSA Screen - Final Complete 09/03/24 12:00 Blood Blood Culture - Final NO GROWTH AFTER 5 DAYS OF INCUBATION. Complete Labs and/or images reviewed: Labs reviewed by me, Image(s) reviewed by me Assessment/Plan Assessment/Plan Symptomatic anemia hemoglobin 4.3 improved to 8.1 after 7 units RBC transfusion, hemoglobin today 6.9, getting one more unit RBC Consult by Dr. Jason Chin, we will hold aspirin and Eliquis , getting EGD today Pancytopenia: Consult for Dr. Michelle appreciated bone marrow biopsy report in the chart Dr. Michelle on vacation the patient will follow up as an outpatient Elevated Troponin consult for Dr. Cano appreciated Acute Generalized weakness ESRD on hemodialysis consult by Dr. Delgadillo appreciated EGD by Dr. Jason Chin Gastropathy gastritis with pinpoint erosions with oozing injected with epinephrine by GI Dr. Jason Chin, minimal gastritis Diabetes Hypertension Hypercholesterolemia History of [place] Peripheral arterial disease History of pacemaker Anemia of Chronic disease Time spent 55 minutes Patient is full code Patient was recently seen in hospital in [place] and [facility] Examined through the help of flat locker Daughter Fiorella [phone] at the bedside. Plan discussed with: Patient My Orders Orders - EKATERINA ROBERTSON MD Procedure Category Date Status Time Soft Diet DIET 09/12/24 Transmitted Dinner Mechanical Soft Diet DIET 09/12/24 Transmitted Dinner Date of Service: Sep 13, 2024 Billing Provider: EKATERINA ROBERTSON MD Common Visit Codes: [id number] INP/OBS CARE(HIGH) EKATERINA ROBERTSON MD Sep 13, 2024 09:51
[2024-09-13 09:55] VITALS: O2SAT 95
--- NOTE | 2024-09-13 09:58 | DVHDS2 ---
Discharge Summary Date of Admission Sep 03, 2024 at 17:17 Date of Discharge: Sep 13, 2024 Admitting Diagnosis Shortness of breath and generalized weakness Wounds: EGD Labs/Diagnostic Data: Laboratory Results Test 09/13/24 07:00 09/12/24 07:54 09/11/24 05:50 09/11/24 00:20 White Blood Count 2.8 10^3/uL (4.4-10.8) Red Blood Count 2.48 10^6/uL (4.5-5.90) Hemoglobin 7.7 g/dL (13.5-17.5) Hematocrit 22.7 % (41.0-53.0) Mean Corpuscular Volume 91.6 fL (80.0-100.0) Mean Corpuscular Hemoglobin 31.0 pg (28.0-32.0) Mean Corpuscular Hemoglobin Concent 33.8 g/dL (32.0-36.0) Red Cell Distribution Width 18.3 % (11.8-14.3) Platelet Count 92 10^3/uL (140-450) Mean Platelet Volume 8.7 fL (6.9-10.8) Neutrophils (%) (Auto) 70.7 % (37.0-80.0) Lymphocytes (%) (Auto) 16.3 % (10.0-50.0) Monocytes (%) (Auto) 9.3 % (0.0-12.0) Eosinophils (%) (Auto) 3.0 % (0.0-7.0) Basophils (%) (Auto) 0.7 % (0.0-2.0) Neutrophils # (Auto) 2.0 10 ^3/uL (1.6-8.6) Lymphocytes # (Auto) 0.5 10 ^3/uL (0.4-5.4) Monocytes # (Auto) 0.3 10 ^3/uL (0-1.3) Eosinophils # (Auto) 0.1 10 ^3/uL (0-0.8) Basophils # (Auto) 0 10 ^3/uL (0-0.2) Nucleated Red Blood Cells 0.1 % Sodium Level 135 mmol/L (136-145) Potassium Level 4.3 mmol/L (3.5-5.1) Chloride Level 101 mmol/L (98-107) Carbon Dioxide Level 31 mmol/L (20-31) Anion Gap 3 (5-15) Blood Urea Nitrogen 37 mg/dL (9-23) Creatinine 4.99 mg/dL (0.700-1.30) Glomerular Filtration Rate Calc 12 mL/min (>90) BUN/Creatinine Ratio 7.4 (10.0-20.0) Serum Glucose 80 mg/dL (74-106) Calcium Level 8.4 mg/dL (8.7-10.4) Total Bilirubin 0.2 mg/dL (0.2-1.0) Aspartate Amino Transferase (AST) 25 U/L (13-40) Alanine Aminotransferase (ALT) 15 U/L (7-40) Alkaline Phosphatase 90 U/L (46-116) Total Protein 5.2 g/dL (5.7-8.2) Albumin 3.1 g/dL (3.2-4.8) POC Glucose 77 mg/dl (70-106) Prothrombin Time 10.8 sec (9.3-11.8) Prothrombin Time INR 1.02 (0.9-1.15) Activated Partial Thromboplast Time 26.0 SEC (24.5-34.5) Urine Color Light-yellow (Yellow) Urine Clarity Clear (Clear) Urine pH 7.5 (5.0-9.0) Urine Specific [place] 1.009 (1.001-1.035) Urine Protein 2+ (Negative) Urine Ketones Negative (Negative) Urine Blood Negative /uL (Negative) Urine Nitrite Negative (Negative) Urine Bilirubin Negative (Negative) Urine Urobilinogen Normal mg/dL (Negative) Urine Leukocyte Esterase Negative /uL (Negative) Urine RBC 1 /hpf (0 - 3) Urine WBC 1 /hpf (0 - 3) Urine Squamous Epithelial Cells None seen /hpf (<5) Urine Bacteria None seen /hpf (None Seen) Urine Glucose 2+ mg/dL (Normal) Test 09/09/24 06:31 09/08/24 04:50 09/07/24 06:29 09/06/24 15:47 Iron Level 59 ug/dL (65-175) Total Iron Binding Capacity 223 ug/dL (250-425) Percent Iron Saturation 26.5 % (20-55) Ferritin 740.6 ng/mL (22-322) Vitamin B12 Level 878 pg/mL (211-911) Folic Acid 6.07 ng/mL (>5.38) Hepatitis A IgM Antibody Negative Hepatitis B Surface Antigen Negative (Negative) Hepatitis B Core IgM Antibody Negative (Negative) Hepatitis C Antibody Negative (Negative) Anti-Nuclear Antibody Screen Negative (Negative) Stool Occult Blood Positive (Negative) Stool Occult Blood Sample #3 (Negative) Test 09/06/24 13:33 09/06/24 05:45 09/03/24 14:46 09/03/24 12:00 Lactate Dehydrogenase 239 U/L (120-246) Reticulocyte Count (auto) 4.46 % (0.5-1.5) Haptoglobin 66 mg/dL (34-355) Troponin I High Sensitivity 63 ng/L (</=54) Lactic Acid Level 0.6 mmol/L (0.4-2.0) B-Type Natriuretic Peptide 754.57 pg/mL (0-100) Thyroid Stimulating Hormone (TSH) 14.87 uIU/mL (0.55-4.78) Other Laboratory Tests 09/13/24 07:00 Brief Hx & Hospital Course: 73-year-old male with a ESRD on hemodialysis hypertension hypercholesterolemia history of [place] peripheral artery disease history of pacemaker anemia of chronic disease came in for shortness of breaths and generalized weakness found to be having symptomatic anemia with hemoglobin 4.3 7 units RBC transfusion given improved to 7.7 at the time of discharge received hemodialysis by Dr. Delgadillo EGD by Dr. Jason Chin showed gastropathy and gastritis and pinpoint erosions with oozing injected with epinephrine. Placed on pantoprazole and Carafate. Patient being discharged home time medications transmitted to the pharmacy he will follow up with the Nephrology for dialysis and with the GI Dr. Jason Chin. He was advised to follow up with the Hematology Dr. Michelle for the bone marrow biopsy report as he is on vacation for two weeks at the present time. General Condition poor at the time of discharge but stable. Consults/Reason for consult GI Dr. Jason Chin Nephrology Dr. Delgadillo Operations or Procedures EGD RBC transfusion Hemodialysis Condition at Discharge: Fair Final Diagnosis/Problems List Symptomatic anemia hemoglobin 4.3 improved to 8.1 after 7 units RBC transfusion, hemoglobin today 6.9, getting one more unit RBC Consult by Dr. Jason hCin, we will hold aspirin and Eliquis , getting EGD today Pancytopenia: Consult for Dr. Michelle appreciated bone marrow biopsy report in the chart Dr. Michelle on vacation the patient will follow up as an outpatient Elevated Troponin consult for Dr. Cano appreciated Acute Generalized weakness ESRD on hemodialysis consult by Dr. Delgadillo appreciated EGD by Dr. Jason Chin Gastropathy gastritis with pinpoint erosions with oozing injected with epinephrine by GI Dr. Jason Chin, minimal gastritis Diabetes Hypertension Hypercholesterolemia History of [place] Peripheral arterial disease History of pacemaker Anemia of Chronic disease Discharge Disposition: Home Discharge Instruct/Medications Diet: Renal Activity: Light activity Follow Up/Referral: Resume all previous home medications Follow up with your pulverizing and sifting operator for dialysis Follow up with GI Dr. Jason Chin in two weeks Follow up with hematology Dr. Michelle in two weeks for the bone marrow biopsy report Medications: Pantoprazole Sucralfate Sent to the [facility] 39 (Time taken for discharge summary 39 minutes) Discharge Statement: "Patient was advised to return to the ER or call 911 if any headaches, dizziness, shortness of breath, chest pain, abdominal pain, bleeding, fevers, or worsening of medical condition. Patient was counseled about treatment plan, medications, possible side effects, patientverbalized understanding. All questions were answered to the best of my ability. This discharge took greater then 30 minutes in planning, reviewing documentation, counseling the patient, and discussing with other team members." ASSESSMENT ASSESSMENT Hospital Course Marginal improvement Assessment Symptomatic anemia hemoglobin 4.3 improved to 8.1 after 7 units RBC transfusion, hemoglobin today 6.9, getting one more unit RBC Consult by Dr. Jason Chin, we will hold aspirin and Eliquis , getting EGD today Pancytopenia: Consult for Dr. Michelle appreciated bone marrow biopsy report in the chart Dr. Michelle on vacation the patient will follow up as an outpatient Elevated Troponin consult for Dr. Cano appreciated Acute Generalized weakness ESRD on hemodialysis consult by Dr. Delgadillo appreciated EGD by Dr. Jason Chin Gastropathy gastritis with pinpoint erosions with oozing injected with epinephrine by GI Dr. Jason Chin, minimal gastritis Diabetes Hypertension Hypercholesterolemia History of [place] Peripheral arterial disease History of pacemaker Anemia of Chronic disease Date of Service: Sep 13, 2024 Billing Provider: EKATERINA ROBERTSON MD Common Visit Codes: [id number] DISCH DAY >30min EKATERINA ROBERTSON MD Sep 13, 2024 09:58
[2024-09-13 10:49] VITALS: BP 127/64
--- NOTE | 2024-09-13 11:22 | DVHPN2 ---
Progress Note - Dictate Date Seen: Sep 13, 2024 Has the PT tested + for MRSA If YES, has PT been informed?: Yes Medical Necessity Reason Pt with a Central, PICC or Fol: Yes Subjective s/p EGD on 09/11 which showed a gastric ulcer . Bleeding controlled with epinephrine no acute issues overnight vital signs Vital Sign Date Time Temp Pulse Resp B/P (MAP) Pulse Ox O2 Delivery O2 Flow Rate FiO2 09/13/24 09:55 95 Room Air 09/13/24 09:55 0 21 09/13/24 09:00 97.8 60 16 151/68 (95) 97.8 Total Intake and Output 09/12/24 09/12/24 09/13/24 15:00 23:00 07:00 Intake Total 200 ml Output Total 110 ml 450 ml Balance 90 ml -450 ml medications Current Medications Medications Dose Ordered Sig/Melva Route Start Time Stop Time Status Last Admin Dose Admin Albuterol 2.5 mg Q4HPRN PRN NEB 09/03/24 16:00 Cancel Ipratropium [place] 0.5 mg Q4HPRN PRN NEB 09/03/24 16:00 Cancel Multivit/Ca Carb/ B Cmplx/FA/Prenat 1 tab DAILY PO 09/04/24 10:00 09/13/24 09:05 1 TAB Atorvastatin Calcium 20 mg HS PO 09/03/24 22:00 09/12/24 21:24 20 MG Sodium Chloride 10 ml Q8HR IV 09/03/24 22:00 09/13/24 06:18 10 ML Ondansetron HCl 4 mg Q4HP PRN IV 09/03/24 16:00 Docusate Sodium 100 mg BIDPRN PRN PO 09/03/24 16:00 Acetaminophen 650 mg Q6HP PRN PO 09/03/24 16:00 09/08/24 20:02 650 MG Levothyroxine Sodium 50 mcg QAM@0600 PO 09/04/24 06:00 09/13/24 06:18 50 MCG Nitroglycerin 0.4 mg Q5MINP PRN SL 09/03/24 17:30 Pantoprazole Sodium 40 mg BID IV 09/09/24 16:00 09/13/24 09:05 40 MG Clonidine HCl 0.2 mg Q6HP PRN PO 09/10/24 12:45 09/10/24 12:56 0.2 MG Sucralfate 1 gm QID@0600,1130,1700,2200 PO 09/11/24 17:00 09/13/24 06:18 1 GM objective HEENT: No evidence of JVD, no oral ulcers. Pulmonary: Lungs are clear on auscultation bilaterally Cardiovascular S1-S2, no S3 or S4 Abdomen: Bowel sounds positive, soft no rebound tenderness Skin: No rash Neurological: Alert, oriented, no focal weakness Hemodialysis access right upper chest tunneled line. Right upper extremity with a dressing where previous AV graft was laboratory and microbiology Laboratory Tests 09/13/24 07:00 Test 09/13/24 07:00 Range/Units Serum Glucose 80 74-106 mg/dL Problem List 1. End-stage renal disease on hemodialysis via right IJ tunneled line 2. Epistaxis, resolved 3. Gastric ulcer 4. Anemia of acute blood loss and end-stage renal disease.s/p transfusion 5. Hypertension 6. CAD 7. Status post pacemaker placement 8. 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 9. Left-hand subcutaneous lesion Assessment/Plan Plan and recommendations: Dialysed yesterday . K level with improvement s/p EGD and control of bleeding Status post bone marrow biopsy results pending Being discharged home today . Thank you very much for allowing us to participate in the care of this patient Dietary Evaluation Review Comments: 1) Advance pt diet when medically feasible to a Renal Standard diet 2) Continue current plan of care Expected Outcomes/Goals: F/U in 2-3 days Plan discussed with: Patient CC Plasma Assessment Blood Product Administration S: 20:34 TOM SMITH MD Sep 13, 2024 11:22
--- NOTE | 2024-09-13 13:02 | DVHPN2 ---
Progress Note - Dictate Date Seen: Sep 13, 2024 Has the PT tested + for MRSA If YES, has PT been informed?: Yes Medical Necessity Reason Pt with a Central, PICC or Fol: Yes Subjective Patient was seen and evaluated in follow up. No overnight events. The patient is on 3 LPM NC. Patient passed swallow eval and was is tolerating current diet. WBC 2.8, HGB 7.7, HCT 22.7, BUN 37, SIDEROGRAPHER 4.99. Telemetry reviewed. vital signs Vital Sign Date Time Temp Pulse Resp B/P (MAP) Pulse Ox O2 Delivery O2 Flow Rate FiO2 09/13/24 09:55 95 Room Air 09/13/24 09:55 0 21 09/13/24 09:00 97.8 60 16 151/68 (95) 97.8 Total Intake and Output 09/12/24 09/12/24 09/13/24 15:00 23:00 07:00 Intake Total 200 ml Output Total 110 ml 450 ml Balance 90 ml -450 ml medications Current Medications Medications Dose Ordered Sig/Melva Route Start Time Stop Time Status Last Admin Dose Admin Albuterol 2.5 mg Q4HPRN PRN NEB 09/03/24 16:00 Cancel Ipratropium Kiln 0.5 mg Q4HPRN PRN NEB 09/03/24 16:00 Cancel Multivit/Ca Carb/ B Cmplx/FA/Prenat 1 tab DAILY PO 09/04/24 10:00 09/13/24 09:05 1 TAB Atorvastatin Calcium 20 mg HS PO 09/03/24 22:00 09/12/24 21:24 20 MG Sodium Chloride 10 ml Q8HR IV 09/03/24 22:00 09/13/24 06:18 10 ML Ondansetron HCl 4 mg Q4HP PRN IV 09/03/24 16:00 Docusate Sodium 100 mg BIDPRN PRN PO 09/03/24 16:00 Acetaminophen 650 mg Q6HP PRN PO 09/03/24 16:00 09/08/24 20:02 650 MG Levothyroxine Sodium 50 mcg QAM@0600 PO 09/04/24 06:00 09/13/24 06:18 50 MCG Nitroglycerin 0.4 mg Q5MINP PRN SL 09/03/24 17:30 Pantoprazole Sodium 40 mg BID IV 09/09/24 16:00 09/13/24 09:05 40 MG Clonidine HCl 0.2 mg Q6HP PRN PO 09/10/24 12:45 09/10/24 12:56 0.2 MG Sucralfate 1 gm QID@0600,1130,1700,2200 PO 09/11/24 17:00 09/13/24 06:18 1 GM objective GENERAL: Awake, alert, oriented. LUNGS: Clear. CARDIOVASCULAR: Heart sounds are good. ABDOMEN: Soft. laboratory and microbiology Laboratory Tests 09/13/24 07:00 Test 09/13/24 07:00 Range/Units Serum Glucose 80 74-106 mg/dL Problem List Symptomatic anemia. Pancytopenia. Elevated troponin. Acute generalized weakness. ESRD on hemodialysis. Diabetes. Hypertension. Hypercholesterolemia. History of MS. Peripheral arterial disease. History of pacemaker. Anemia of chronic disease. Assessment/Plan Continued all current supportive medical care. Morphine and Rodeo for pain management. Lipitor. Clonidine. Nitro SL. GI prophylactics. Additional plan as per the hospital course. Dietary Evaluation Review Comments: 1) Advance pt diet when medically feasible to a Renal Standard diet 2) Continue current plan of care Expected Outcomes/Goals: F/U in 2-3 days Plan discussed with: Patient CC Plasma Assessment Blood Product Administration S: 20:34 ROSARIO BRAUN MD Sep 13, 2024 12:08
== END 2024-09-13 13:30 | disposition home or self-care (01) | DRG 241 ==
LOC: ER 10:53 → EDBD 10:53 → TELE 17:17 → TELE-EAST 22:05
PROVIDERS: ADMIT Family Medicine; ATTEND Family Medicine
PROC: 30233N1 Transfusion of Nonautologous Red Blood Cells into Peripheral Vein, Percutaneous Approach (ICD-10-PCS; principal; 2024-09-03)
PROC: 05HC33Z Insertion of Infusion Device into Left Basilic Vein, Percutaneous Approach (ICD-10-PCS; 2024-09-03)
PROC: B54NZZA Ultrasonography of Left Upper Extremity Veins, Guidance (ICD-10-PCS; 2024-09-03)
PROC: 5A1D70Z Performance of Urinary Filtration, Intermittent, Less than 6 Hours Per Day (ICD-10-PCS; 2024-09-04)
PROC: 079T3ZX Drainage of Bone Marrow, Percutaneous Approach, Diagnostic (ICD-10-PCS; 2024-09-05)
PROC: 07DT3ZX Extraction of Bone Marrow, Percutaneous Approach, Diagnostic (ICD-10-PCS; 2024-09-05)
PROC: 5A1D70Z Performance of Urinary Filtration, Intermittent, Less than 6 Hours Per Day (ICD-10-PCS; 2024-09-06)
PROC: 5A1D70Z Performance of Urinary Filtration, Intermittent, Less than 6 Hours Per Day (ICD-10-PCS; 2024-09-08)
PROC: 5A1D70Z Performance of Urinary Filtration, Intermittent, Less than 6 Hours Per Day (ICD-10-PCS; 2024-09-10)
PROC: 0DB68ZX Excision of Stomach, Via Natural or Artificial Opening Endoscopic, Diagnostic (ICD-10-PCS; 2024-09-11)
PROC: 0DB98ZX Excision of Duodenum, Via Natural or Artificial Opening Endoscopic, Diagnostic (ICD-10-PCS; 2024-09-11)
PROC: 3E0G8GC Introduction of Other Therapeutic Substance into Upper GI, Via Natural or Artificial Opening Endoscopic (ICD-10-PCS; 2024-09-11)
PROC: 5A1D70Z Performance of Urinary Filtration, Intermittent, Less than 6 Hours Per Day (ICD-10-PCS; 2024-09-12)
PROC: 4B02XSZ Measurement of Cardiac Pacemaker, External Approach (ICD-10-PCS; 2024-09-12)
DX: K29.70 Gastritis, unspecified, without bleeding (principal); D61.818 Other pancytopenia; I12.0 Hypertensive chronic kidney disease with stage 5 chronic kidney disease or end stage renal disease; N18.6 End stage renal disease; D62 Acute posthemorrhagic anemia; E11.22 Type 2 diabetes mellitus with diabetic chronic kidney disease; D63.8 Anemia in other chronic diseases classified elsewhere; K31.819 Angiodysplasia of stomach and duodenum without bleeding; K22.10 Ulcer of esophagus without bleeding; K25.9 Gastric ulcer, unspecified as acute or chronic, without hemorrhage or perforation; I25.10 Atherosclerotic heart disease of native coronary artery without angina pectoris; E78.00 Pure hypercholesterolemia, unspecified; R04.0 Epistaxis; E11.51 Type 2 diabetes mellitus with diabetic peripheral angiopathy without gangrene; E03.9 Hypothyroidism, unspecified; K31.9 Disease of stomach and duodenum, unspecified; K44.9 Diaphragmatic hernia without obstruction or gangrene; Z99.2 Dependence on renal dialysis; I25.2 Old myocardial infarction; Z95.0 Presence of cardiac pacemaker; Z90.49 Acquired absence of other specified parts of digestive tract; Z88.6 Allergy status to analgesic agent; Z88.0 Allergy status to penicillin; Z79.899 Other long term (current) drug therapy; Z82.3 Family history of stroke; Z83.3 Family history of diabetes mellitus; Z82.49 Family history of ischemic heart disease and other diseases of the circulatory system; Z87.11 Personal history of peptic ulcer disease; Z80.1 Family history of malignant neoplasm of trachea, bronchus and lung; Z86.74 Personal history of sudden cardiac arrest
CPT/HCPCS: 10005; 36415; 70450; 71045; 72192; 74176; 76881; 77012; 80048; 80053; 80074; 81001; 82270; 82607; 82728; 82746; 82962; 83010; 83540; 83550; 83605; 83615; 83880; 84443; 84484; 85014; 85018; 85025; 85045; 85610; 85730; 86038; 86850; 86880; 86900; 86901; 86920; 87040; 87081; 90935; 92610; 93005; 94640; G0378; J1642; J1815; J2003; J2250; J2405; J2470; J2704; J3490

== ENCOUNTER 2025-01-31 11:56 | Inpatient (IN) | payer MEDICAID ==
[~2025-01-31] VITALS: Ht 170.2 cm; Wt 78.5 kg
[2025-01-31] VITALS (8 sets, daily range): BP systolic 127–148; BP diastolic 59–72; PULSE 59–79; RESP 12–18; TEMP 97.9–98.5; O2SAT 99
[~2025-01-31 11:56] MED LIST changes: -ASPI-543 PO; -B CO PO; +CIPR500T4 PO; -LEVO500T91 PO; -NIFE1TAB31 PO; +PANT40T PO; +SUCR1TAB31 PO; +TORS20TA19 PO
--- NOTE | 2025-01-31 13:13 | ED.PDOC ---
History of Present Illness HPI Comments This is a 74 year old male presenting to the ED with chief complaint of abnormal labs. Patient's reports that the patient had recent blood work performed on 01/29 and results showed a hemoglobin of 5.8. Patient relays that he is only experiencing some fatigue at this time. Patient denies any N/V/D, headache, dizziness, chills, chest pain, SOB, or fever. Chief Complaint: Abnormal LAB's Time Seen by MD: 13:11 Primary Care Provider: RAMYA Reviewed Notes: Nurses Notes, Medications, Allergies Allergies: Coded Allergies: Ibuprofen (Verified Allergy, Unknown, 09/12/17) Penicillins (Verified Allergy, Unknown, 04/13/16) Home Meds Active Scripts Sucralfate (CARAFATE) 1 Gm Tab, 1 GM PO QID, #120 TAB Prov:EKATERINA ROBERTSON MD 09/13/24 Pantoprazole Sodium Sesquihydr (Pantoprazole Sodium) 40 Mg Tab, 40 MG PO BID, #60 TAB Prov:EKATERINA ROBERTSON MD 09/13/24 Amiodarone Hcl (Amiodarone Hcl) 200 Mg Tab, 1 TAB PO DAILY for 60 Days, #60 TAB 1 Refill Prov:MARYBETH NASSAR NEPHROLOGY SOCIAL WORKER 10/11/23 Reported Medications Torsemide Injection (Torsemide) 20 Mg Tab, 1 TAB PO MWF 09/03/24 Ciprofloxacin Hcl (Ciprofloxacin Hcl) 500 Mg Tab, 1 TAB PO DAILY 09/03/24 Pantoprazole Sodium Sesquihydr (Protonix) 40 Mg Tab, 40 MG PO DAILY, TAB 07/27/24 Albuterol Sulfate (Albuterol Sulfate Hfa) 108 Mcg/Act Aer, 90 MCG IN Q4HPRN PRN for SHORTNESS OF BREATH, AER 07/27/24 Apixaban Base (ELIQUIS) 5 Mg Tab, 5 MG PO BID, TAB 07/27/24 Folic Acid (Folic Acid) 1 Mg Tab, 1 TAB PO DAILY, MG 09/29/23 Furosemide (Furosemide) 40 Mg Tab, 1 TAB PO DAILY 09/29/23 Finasteride (Finasteride) 5 Mg Tab, 1 TAB PO DAILY 08/04/23 Tamsulosin Hcl (Tamsulosin Hcl) 0.4 Mg Cap, 1 CAP PO DAILY 08/04/23 Sevelamer Carbonate (Renvela) 800 Mg Tab, 3 TAB PO TID, #810 TAB 3 Refills TAKE 3 TABS EACH MEAL AND 1 TAB AT NIGHT. 10/17/21 Levothyroxine Sodium (SYNTHROID TABLET) 50 Mcg Tb, 1 TAB PO QAM, TAB 07/28/18 Atorvastatin Calcium (Lipitor) 40 Mg Tab, 1 TAB PO DAILY 02/18/16 Information Source: Patient, Spouse Mode of Arrival: Ambulatory Severity: Moderate Timing: Days Duration: Since onset Prehospital treatment: None Past Medical History PAST MEDICAL HISTORY: DM, ESRD, High Lipids, HTN, [place], PAD, Thyroid Past Medical History (Other): Neuropathy Surgical History: Cholecystectomy, Pacemaker Surgical History (Other): Cataract surgery Family History Family History: No family hx of DM, No family hx of HTN, Unobtainable Social History Smoker: Non-Smoker Alcohol: Denies ETOH Use Drugs: Denies Drug Use Lives In: Home Constitutional: reports: fatigue; denies: chills, diaphoresis, fever, malaise, sweats, weakness, others EENTM: denies: blurred vision, double vision, ear bleeding, ear discharge, ear drainage, ear pain, ear ringing, eye pain, eye redness, hearing loss, mouth pain, mouth swelling, nasal discharge, nose bleeding, nose congestion, nose pain, photophobia, tearing, throat pain, throat swelling, voice changes, others Respiratory: denies: cough, hemoptysis, orthopnea, SOB at rest, shortness of breath, SOB with excertion, stridor, wheezing, others Cardiovascular: denies: chest pain, dizzy spells, diaphoresis, Dyspnea on exertion, edema, irregular heart beat, left arm pain, lightheadedness, palpitations, PND, syncope, others Gastrointestinal: denies: abdomen distended, abdominal pain, blood streaked bowels, constipated, diarrhea, dysphagia, difficulty swallowing, hematemesis, melena, nausea, poor appetite, poor fluid intake, rectal bleeding, rectal pain, vomiting, others Genitourinary: denies: burning, dysuria, flank pain, frequency, hematuria, incontinence, penile discharge, penile sore, pain, testicle pain, testicle swelling, urgency, others Neurological: denies: dizziness, fainting, headache, left sided numbness, left sided weakness, numbness, paresthesia, pre-existing deficit, right sided numbness, right sided weakness, seizure, speech problems, tingling, tremors, weakness, others Musculoskeletal: denies: back pain, gout, joint pain, joint swelling, muscle pain, muscle stiffness, neck pain, others Integumetry: denies: bruises, change in color, change in hair/nails, dryness, laceration, lesions, lumps, rash, wounds, others Allergic/Immunocompromised: denies: Difficulty Healing, Frequent Infections, Hives, Itching, others Hematologic/Lymphatic: denies: anemia, blood clots, easy bleeding, easy bruising, swollen glands, others Endocrine: denies: excessive hunger, excessive sweating, excessive thirst, excessive urination, flushing, intolerance to cold, intolerance to heat, unexpl ained weight gain, unexplained weight loss, others Psychiatric: denies: anxiety, bipolar disorder, depression, hopeless, panic disorder, schizophrenia, sleepless, suicidal, others All Other Systems: Reviewed and Negative Physical Exam General Appearance: Moderate Distress HEENT: Normal ENT Inspection, Pharynx Normal, TMs Normal Neck: Full Range of Motion, Non-Tender, Normal, Normal Inspection Respiratory: Chest Non-Tender, Lungs Clear, No Accessory Muscle Use, No Respiratory Distress, Normal Breath Sounds Cardiovascular: No Edema, No JVD, No Murmur, No Gallop, Normal Peripheral Pulses, Regular Rate/Rhythm, Other (The patient has a Stanislaw catheter to the right chest) Breast Exam: Deferred Gastrointestinal: No Organomegaly, Non Tender, No Pulsatile Mass, Normal Bowel Sounds, Soft Genitalia: Deferred Pelvic: Deferred Rectal: Deferred Extremities: No calf tenderness, Normal capillary refill, No pedal edema Musculoskeletal : Apperance: Normal Neurologic: Alert, body care manager II-XII nml as Tested, Motor Weakness, Normal Affect, Normal Mood, No Sensory Deficits Cerebellar Function: Normal Reflexes: Normal Skin: Dry, Pallor, Warm Lymphatic: No Adenopathy Was a procedure done? Was a procedure done?: No Differential Dx Considerations may include: Severe anemia, generalized weakness, dehydration, renal failure X-Ray, Labs, Meds, VS Vital Signs Date Time Temp Pulse Resp B/P (MAP) Pulse Ox O2 Delivery O2 Flow Rate FiO2 01/31/25 18:15 97.9 59 14 127/59 97.9 01/31/25 18:00 98.0 60 18 135/61 98.0 01/31/25 18:00 60 01/31/25 17:05 61 14 99 Room Air* 0 21 01/31/25 17:05 98.1 61 14 144/64 (90) 99 98.1 01/31/25 14:33 97.7 60 16 197/81 (119) 100 97.7 01/31/25 14:33 60 16 100 Room Air 01/31/25 12:23 97.1 80 18 115/63 (80) 99 97.1 Lab Test 01/31/25 13:31 Range/Units White Blood Count 2.7 L 4.4-10.8 10^3/uL Red Blood Count 2.05 L 4.5-5.90 10^6/uL Hemoglobin 6.8 *L 13.5-17.5 g/dL Hematocrit 19.9 L 41.0-53.0 % Mean Corpuscular Volume 97.1 80.0-100.0 fL Mean Corpuscular Hemoglobin 33.2 H 28.0-32.0 pg Mean Corpuscular Hemoglobin Concent 34.2 32.0-36.0 g/dL Red Cell Distribution Width 15.3 H 11.8-14.3 % Platelet Count 78 L 140-450 10^3/uL Mean Platelet Volume 9.1 6.9-10.8 fL Neutrophils (%) (Auto) 70.9 37.0-80.0 % Lymphocytes (%) (Auto) 15.6 10.0-50.0 % Monocytes (%) (Auto) 9.3 0.0-12.0 % Eosinophils (%) (Auto) 3.8 0.0-7.0 % Basophils (%) (Auto) 0.4 0.0-2.0 % Neutrophils # (Auto) 1.9 1.6-8.6 10 ^3/uL Lymphocytes # (Auto) 0.4 0.4-5.4 10 ^3/uL Monocytes # (Auto) 0.2 0-1.3 10 ^3/uL Eosinophils # (Auto) 0.1 0-0.8 10 ^3/uL Basophils # (Auto) 0 0-0.2 10 ^3/uL Nucleated Red Blood Cells 0.1 % Sodium Level 140 136-145 mmol/L Potassium Level 3.0 L 3.5-5.1 mmol/L Chloride Level 98 98-107 mmol/L Carbon Dioxide Level 29 20-31 mmol/L Anion Gap 13 5-15 Blood Urea Nitrogen 40 H 9-23 mg/dL Creatinine 4.18 H 0.700-1.30 mg/dL Glomerular Filtration Rate Calc 14 >90 mL/min BUN/Creatinine Ratio 9.6 L 10.0-20.0 Serum Glucose 61 L 74-106 mg/dL Calcium Level 9.4 8.7-10.4 mg/dL The CBC shows anemia with a hemoglobin of 6.8 and hematocrit of 19.9 The patient has leukopenia at 2.7 The chemistry panel shows hypokalemia at 3.0 The BUN is 40 and the creatinine is 4.18 At this time, the patient will be admitted to the hospitalist The patient was typed and screened in his being given 2 units of packed red bl ood cells The patient understands and agrees with the management. Time of 1ST Reevaluation: 18:55 Reevaluation 1ST: Unchanged Patient Education/Counseling: Diagnosis, Treatment, Prognosis Family Education/Counseling: Diagnosis, Treatment, Prognosis Departure 1 Departure Time of Disposition: 18:55 Impression: Primary Impression: Severe anemia Additional Impression: ESRD on dialysis Disposition: ADMITTED INPATIENT Admit to: Tele Condition: Fair Critical Care Note Critical Care Time?: Yes (45 min-critical care time only) Stability Stability form required: Yes Unstable for transfer: Telemetry monitoring (Telemetry monitoring required), ED Physician Assesment (Clinical assesment) Heart Score Heart Score: Heart Score Response (Comments) Value History N/A 0 EKG N/A 0 Age N/A 0 Risk Factors N/A 0 Troponin N/A 0 Total 0 I personally scribed for NICOLE MÁRQUEZ MD ([email or web address]) on 01/31/25 at 13:13. Electronically submitted by Josh Pederson ([email or web address]). NICOLE MÁRQUEZ MD Jan 31, 2025 13:13
[2025-01-31 13:49] LABS: Basophils # (auto) 0 10 ^3/uL (0-0.2); Eosinophils # (auto) 0.1 10 ^3/uL (0-0.8); Eosinophils % (auto) 3.8 % (0.0-7.0); Hematocrit 19.9 % (41.0-53.0); Lymphocytes # (auto) 0.4 10 ^3/uL (0.4-5.4); Monocytes # (auto) 0.2 10 ^3/uL (0-1.3); Nucleated Red Blood Cells % 0.1 %; Platelet Count (auto) 78 10^3/uL (140-450); Red Blood Cells 2.05 10^6/uL (4.5-5.90); Red Cell Distribution Width 15.3 % (11.8-14.3)
[2025-01-31 13:51] LABS: Basophils % (auto) 0.4 % (0.0-2.0); Lymphocytes % (auto) 15.6 % (10.0-50.0); Mean Corpuscular Hemoglobin 33.2 pg (28.0-32.0); Mean Corpuscular Hgb Conc. 34.2 g/dL (32.0-36.0); Mean Corpuscular Volume 97.1 fL (80.0-100.0); Monocytes % (auto) 9.3 % (0.0-12.0); Neutrophils # (auto) 1.9 10 ^3/uL (1.6-8.6); Neutrophils % (auto) 70.9 % (37.0-80.0); White Blood Cell 2.7 10^3/uL (4.4-10.8)
[2025-01-31 13:57] LABS: Hemoglobin 6.8 g/dL (13.5-17.5)
[2025-01-31 14:48] LABS: Carbon Dioxide 29 mmol/L (20-31)
[2025-01-31 14:49] LABS: Anion Gap 13 (5-15)
[2025-01-31 14:53] LABS: BUN/Creatinine Ratio 9.6 (10.0-20.0)
[2025-01-31 14:56] LABS: Blood Urea Nitrogen 40 mg/dL (9-23); Calcium 9.4 mg/dL (8.7-10.4); Chloride 98 mmol/L (98-107); Glucose 61 mg/dL (74-106); Sodium 140 mmol/L (136-145)
[2025-01-31] MEDS: cloNIDine HCL 0.1 MG TAB PO ONE (15:01)
[2025-01-31] MEDS ORDERED: DOCUSATE SOD 100 MG CAP PO PRN (21:00)
[2025-01-31] MEDS ORDERED: HYDROcodone-ACET 5/325MG TAB PO PRN (21:00)
[2025-01-31] MEDS ORDERED: ACETAMINOPHEN 325 MG TAB PO PRN (21:00)
[2025-01-31] MEDS ORDERED: hydrALAZINE HCL 20 MG/ML VL IV PRN (21:00)
[2025-01-31] MEDS ORDERED: DEXTROSE (50%) 50ML SYRG IV PRN (21:00)
[2025-01-31] MEDS ORDERED: ONDANSETRON HCL 4 MG/2 ML VIAL IV PRN (21:00)
[2025-01-31] MEDS: METOPROLOL TARTRATE 25 MG TAB PO SCH (22:00)
[2025-01-31] MEDS: SODIUM CHLOR 0.9% PF (SALINE LOCK) 10ML VIAL/SYR IV SCH (22:00)
[2025-01-31] MEDS: InsuLIN REG 1unit/0.01ml Soln (100units/ml) SC SCH (22:00)
[2025-01-31] MEDS: APIXABAN 5 MG TAB PO SCH (22:08)
[2025-01-31] MEDS: ATORVASTATIN 20 MG TAB PO SCH (22:08)
[2025-01-31] MEDS: ACCU-CHEK COMFORT CURVE STRIP VI SCH (22:14)
--- NOTE | 2025-01-31 23:06 | DVHHP2 ---
History of Present Illness Reason for Visit: Severe anemia History of Present Illness The patient is a 74-year-old male with multiple past medical history including ESRD on hemodialysis, DM, hyperlipidemia, and hypertension who presented to [facility] ED for evaluation of abnormal labs. Patient's reports that the patient had recent routine blood work performed on 01/29/25 and results showed a hemoglobin of 5.8. Patient states that he is experiencing some fatigue and weakness. Patient was seen and evaluated in the ED, laboratory data shows WBC 2.7, hemoglobin 6.8, hematocrit 19.9, platelets 22126, sodium 140, potassium 3.0, BUN 40, creatinine 4.18, glucose 61, calcium 9.4, blood pressure 141/67, heart rate 64, temperature 98.5 F, O2 saturation 99% on oxygen. Patient will receive 1 units of PRBC, please see medication orders section in the computer. On my assessment, patient denied chest pain, no headache, no dizziness, no diaphoresis, currently on oxygen, no nausea, no vomiting, no fever, no chills. Patient was admitted for further evaluation and medical management. Past Medical History DM, ESRD, High Lipids, HTN, [place], PAD, Thyroid, Neuropathy Past Surgical History Cholecystectomy, Pacemaker, Cataract surgery Family History Reviewed, noncontributory to the management of this case. Past Social History The patient lives at home, denies smoking, alcohol or illicit drugs abuse. Review of Systems Constitutional: Yes: Weakness, Other (Fatigue); No: Fever, Chills, Sweats, Malaise Eyes: No: Pain, Vision change, Conjunctivae inflammation, Eyelid inflammation, Other, Redness ENT: No: Ear pain, Ear discharge, Nose pain, Nose discharge, Nose congestion, Mouth pain, Mouth swelling, Throat pain, Throat swelling, Other Respiratory: No: Cough, Dry, Shortness of breath, SOB with excertion, Wheezing, Hemoptysis, Pleuritic Pain, Sputum, Wheezing, Other Cardiovascular: No: Chest Pain, Palpitations, Orthopnea, Paroxysmal Noc. Dyspnea, Edema, Lt Headedness, Other Gastrointestinal: No: Nausea, Vomiting, Abdominal Pain, Diarrhea, Constipation, Melena, Hematochezia, Other Genitourinary: No Dysuria, No Frequency, No Incontinence, No Hematuria, No Retention; Other (On hemodialysis) Musculoskeletal: No: other, neck pain, shoulder pain, arm pain, back pain, hand pain, leg pain, foot pain Skin: No: Rash, Lesions, Jaundice, Bruising, Other Neurological: No: Weakness, Numbness, Incoordination, Change in speech, Confusion, Seizures, Other Allergies: Coded Allergies: Ibuprofen (Verified Allergy, Unknown, 09/12/17) Penicillins (Verified Allergy, Unknown, 04/13/16) Medications Current Medications Medications Dose Ordered Sig/Melva Route Start Time Stop Time Status Last Admin Dose Admin Hydralazine HCl 10 mg Q6HP PRN IV 01/31/25 21:00 Levothyroxine Sodium 50 mcg QAM@0600 PO 02/01/25 06:00 Atorvastatin Calcium 10 mg HS PO 01/31/25 22:00 01/31/25 22:08 10 MG Tamsulosin HCl 0.4 mg QPM PO 02/01/25 18:00 Multivit/Ca Carb/ B Cmplx/FA/Prenat 1 tab DAILY PO 02/01/25 10:00 Sevelamer HCl 800 mg TIDWM PO 02/01/25 08:00 Metoprolol Tartrate 12.5 mg BID PO 01/31/25 22:00 Apixaban 5 mg BID PO 01/31/25 22:00 01/31/25 22:08 5 MG Diagnostic Test (Pha) 1 strip ACHS 01/31/25 22:00 01/31/25 22:14 1 STRIP Insulin Human Regular ACHS SC 01/31/25 22:00 Dextrose 50 ml UD PRN IV 01/31/25 21:00 Sodium Chloride 10 ml Q8HR IV 01/31/25 22:00 Acetaminophen/ Hydrocodone Bitart 1 tab Q4HP PRN PO 01/31/25 21:00 Ondansetron HCl 4 mg Q4HP PRN IV 01/31/25 21:00 Docusate Sodium 100 mg BIDPRN PRN PO 01/31/25 21:00 Acetaminophen 650 mg Q6HP PRN PO 01/31/25 21:00 Exam Vital Signs Vital Signs Date Time Temp Pulse Resp B/P (MAP) Pulse Ox O2 Delivery O2 Flow Rate FiO2 01/31/25 22:00 68 135/47 01/31/25 21:17 16 99 01/31/25 20:47 98.0 98.0 01/31/25 19:36 Room Air* 0 21 General Appearance: Alert, Oriented X3, Cooperative, No acute distress HEENT: Atraumatic, PERRLA, EOMI, Mucous membr. moist/pink Respiratory: Normal air movement Cardiovascular: Regular rate, Normal S1, Normal S2, No murmurs Abdominal: Normal bowel sounds, Soft, No tenderness, No hepatospenomegaly, No masses Extremities: No clubbing, No cyanosis, No edema, Normal pulses, No t enderness/swelling Skin: No rashes, No breakdown, No significant lesion Neuro: Normal speech, Normal tone, Sensation intact, Cranial nerves 3-12 NL, Reflexes 2+, Other (Generalized weakness) Psych/Mental Status: Mental status NL, Mood NL Labs/Xrays Labs Test 01/31/25 22:26 01/31/25 13:31 Range/Units POC Glucose 84 70-106 mg/dl White Blood Count 2.7 L 4.4-10.8 10^3/uL Red Blood Count 2.05 L 4.5-5.90 10^6/uL Hemoglobin 6.8 *L 13.5-17.5 g/dL Hematocrit 19.9 L 41.0-53.0 % Mean Corpuscular Volume 97.1 80.0-100.0 fL Mean Corpuscular Hemoglobin 33.2 H 28.0-32.0 pg Mean Corpuscular Hemoglobin Concent 34.2 32.0-36.0 g/dL Red Cell Distribution Width 15.3 H 11.8-14.3 % Platelet Count 78 L 140-450 10^3/uL Mean Platelet Volume 9.1 6.9-10.8 fL Neutrophils (%) (Auto) 70.9 37.0-80.0 % Lymphocytes (%) (Auto) 15.6 10.0-50.0 % Monocytes (%) (Auto) 9.3 0.0-12.0 % Eosinophils (%) (Auto) 3.8 0.0-7.0 % Basophils (%) (Auto) 0.4 0.0-2.0 % Neutrophils # (Auto) 1.9 1.6-8.6 10 ^3/uL Lymphocytes # (Auto) 0.4 0.4-5.4 10 ^3/uL Monocytes # (Auto) 0.2 0-1.3 10 ^3/uL Eosinophils # (Auto) 0.1 0-0.8 10 ^3/uL Basophils # (Auto) 0 0-0.2 10 ^3/uL Nucleated Red Blood Cells 0.1 % Sodium Level 140 136-145 mmol/L Potassium Level 3.0 L 3.5-5.1 mmol/L Chloride Level 98 98-107 mmol/L Carbon Dioxide Level 29 20-31 mmol/L Anion Gap 13 5-15 Blood Urea Nitrogen 40 H 9-23 mg/dL Creatinine 4.18 H 0.700-1.30 mg/dL Glomerular Filtration Rate Calc 14 >90 mL/min BUN/Creatinine Ratio 9.6 L 10.0-20.0 Serum Glucose 61 L 74-106 mg/dL Calcium Level 9.4 8.7-10.4 mg/dL Assessment/Plan Assessment/Plan Severe anemia Pancytopenia ESRD on dialysis Hypokalemia Generalized weakness Diabetes mellitus with hypoglycemia Plan 1. Admit to telemetry unit 2. Breathing treatment 3. Pain control management 4. Management of fluids and electrolytes 5. Consultation for Hematology/Oncology 6. Diagnostic tests chest x-ray 7. DVT prophylaxis-on SCDs 8. Repeat labs CBC, CMP in a.m. 9. Continue with current medical management 10. Treatment plan discussed with patient and RN. Patient verbalized understanding. Plan discussed with: Patient, Other (RN) My Orders Orders - ROBERTO ZENG DNP Procedure Category Date Status Time Hydralazine Injection PHA 01/31/25 In Process (Apresoline Inject 21:00 Levothyroxine Tablet PHA 02/01/25 In Process (Synthroid Tablet) 06:00 Atorvastatin (Lipitor) PHA 01/31/25 In Process 22:00 Tamsulosin PHA 02/01/25 In Process Hydrochloride (Flomax) 18:00 B-Complex W/ C & PHA 02/01/25 In Process Folic Tablet 10:00 Sevelamer (Renagel) PHA 02/01/25 In Process 08:00 Metoprolol Tartrate PHA 01/31/25 In Process Tablet (Lopressor Ta 22:00 Consistent DIET 02/01/25 Transmitted Carb(Ccho)Diabetes Breakfast Apixaban (Eliquis) PHA 01/31/25 In Process 22:00 Glucose Blood PHA 01/31/25 In Process (Accu-Chek Comfort 22:00 Insulin R (Human) PHA 01/31/25 In Process (Insulin R) 22:00 Dextrose 50% Syringe PHA 01/31/25 In Process 21:00 Allergies ALANNA 01/31/25 In Process 20:46 Code Status CODE 01/31/25 Transmitted 20:46 Renal DIET 02/01/25 Transmitted Standard(2gna,3gk,Lopho) Breakfast Sodium Chloride Lock PHA 01/31/25 In Process (Saline Lock Ns) 22:00 Oxygen Per Hour RT 01/31/25 Transmitted 20:46 Hydrocodone-Acet PHA 01/31/25 In Process 5/325mg Tab ([place] 21:00 Ondansetron Hcl PHA 01/31/25 In Process (Zofran) 21:00 Docusate Sodium PHA 01/31/25 In Process Capsule (Colace 21:00 Fall Risk Precautions ALANNA 01/31/[address] 20:46 Complete Blood Count LAB 02/01/25 Verified 04:00 Comprehensive LAB 02/01/25 Verified Metabolic Panel 04:00 Condition: Serious ALANNA 01/31/25 In Process 20:46 Acetaminophen Tablet PHA 01/31/25 In Process (Tylenol Tablet) 21:00 Maintain Bed Rest ALANNA 01/31/25 In Process 20:46 Sequential ALANNA 01/31/25 In Process Compression Device *[facility]. [facility] CONS 01/31/25 Transmitted -[place] 20:46 Problem List: (1) Severe anemia (2) Pancytopenia (3) ESRD on dialysis (4) Hypokalemia (5) Generalized weakness (6) Diabetes mellitus with hypoglycemia Date of Service: Jan 31, 2025 Billing Provider: ROBERTO ZENG DNP Common Visit Codes: 21083-MUTMNKO INP/OBS CARE (HIGH) ROBERTO ZENG DNP Jan 31, 2025 23:06
[2025-01-31] MEDS ORDERED: MORPHINE SULFATE INJ 2 MG/ml SYRG IV PRN (23:15)
[2025-01-31] MEDS ORDERED: NITROGLYCERIN 0.4 MG SL TAB SL PRN (23:15)
[2025-02-01] VITALS (8 sets, daily range): BP systolic 124–155; BP diastolic 64–90; PULSE 60–74; RESP 15–18; TEMP 97.5–98; O2SAT 99–100
[2025-02-01] MEDS: POTASSIUM CHL 20 Meq TABLET PO ONE (00:52)
[2025-02-01] MEDS: LEVOTHYROXINE SODIUM 50 MCG TAB PO SCH (05:45)
[2025-02-01 09:07] LABS: Basophils # (auto) 0 10 ^3/uL (0-0.2); Basophils % (auto) 0.4 % (0.0-2.0); Eosinophils # (auto) 0.1 10 ^3/uL (0-0.8); Eosinophils % (auto) 4.2 % (0.0-7.0); Hematocrit 26.4 % (41.0-53.0); Lymphocytes # (auto) 0.5 10 ^3/uL (0.4-5.4); Lymphocytes % (auto) 15.5 % (10.0-50.0); Mean Corpuscular Hemoglobin 32.5 pg (28.0-32.0); Mean Corpuscular Hgb Conc. 34.2 g/dL (32.0-36.0); Monocytes # (auto) 0.3 10 ^3/uL (0-1.3); Monocytes % (auto) 8.4 % (0.0-12.0); Neutrophils # (auto) 2.1 10 ^3/uL (1.6-8.6); Neutrophils % (auto) 71.5 % (37.0-80.0); Nucleated Red Blood Cells % 0.2 %; Platelet Count (auto) 77 10^3/uL (140-450); Red Blood Cells 2.78 10^6/uL (4.5-5.90); Red Cell Distribution Width 16.3 % (11.8-14.3)
[2025-02-01 09:31] LABS: Alanine Aminotransferase 26 U/L (7-40); Albumin 4.4 g/dL (3.2-4.8); Alkaline Phosphatase 82 U/L (46-116); Anion Gap 13 (5-15); Aspartate Aminotransferase 33 U/L (<34); BUN/Creatinine Ratio 10.1 (10.0-20.0); Bilirubin, Total 0.8 mg/dL (0.2-1.0); Carbon Dioxide 29 mmol/L (20-31); Chloride 100 mmol/L (98-107); Glucose 80 mg/dL (74-106); Potassium 4.1 mmol/L (3.5-5.1); Sodium 142 mmol/L (136-145); Total Protein 7.3 g/dL (5.7-8.2)
[2025-02-01 09:35] LABS: Blood Urea Nitrogen 61 mg/dL (9-23); Calcium 10.6 mg/dL (8.7-10.4)
[2025-02-01] MEDS: SEVELAMER 800 MG TAB PO SCH (10:07)
[2025-02-01] MEDS: B-COMPLEX W/ C & FOLIC ACID(NEPHROVITE TAB) PO SCH (10:07)
--- NOTE | 2025-02-01 10:55 | DVHINCON2 ---
DATE OF CONSULTATION: 02/01/2025 CONSULTING PHYSICIAN: Dr. Hastings. REASON FOR CONSULTATION: Management of dialysis. HISTORY OF PRESENT ILLNESS: The patient is a 74-year-old gentleman who is a chronic patient of mine, who undergoes dialysis treatments at the clinic. He was on dialysis yesterday. We found in the blood work there that his hemoglobin was 5.8, so we asked him to come to the hospital to get admitted for gastrointestinal evaluation and blood transfusion. Now, he is here. He received 2 units of blood overnight. Hemoglobin is up to 9. He is asymptomatic and he is awaiting gastroenterology consultation. PAST MEDICAL HISTORY: Significant for longstanding hypertension, diabetes, end-stage renal disease, coronary artery disease, , neuropathy. PAST SURGICAL HISTORY: He also has a history of cholecystectomy and a pacemaker. SOCIAL HISTORY: Denies smoking cigarettes and drinking alcohol. MEDICATIONS: Medications at home include multivitamins, tamsulosin, sevelamer, levothyroxine, insulin, metoprolol, apixaban, atorvastatin, and docusate. PHYSICAL EXAMINATION: VITAL SIGNS: Blood pressure is 124/64, heart rate 74, respirations 18, temperature 97.9. GENERAL: The patient is an elderly gentleman who appears to be chronically ill, in no acute distress. Alert and oriented x 3. HEENT: Unremarkable. NECK: There is no jugular venous distention. No palpable thyroid. No lymphadenopathy. LUNGS: Clear to auscultation. CARDIOVASCULAR: Regular rate and 1/6 systolic murmur. ABDOMEN: Soft, nontender. No organomegaly. EXTREMITIES: No clubbing, cyanosis or edema. NEUROLOGIC: Nonfocal. LABORATORY FINDINGS: Sodium 142, potassium 4.1, bicarbonate 29, creatinine 6. Hemoglobin 9 after blood transfusion, platelet count 77, and white blood cell count 3. ASSESSMENT AND PLAN: * End-stage renal disease. No current electrocautery imbalances. The patient will be scheduled to have dialysis tomorrow. * Anemia in the setting of pancytopenia. He also has low white blood cell and low platelets. I suggest Hematology consultation as well. He also needs gastroenterology consultation for possible GI bleed. * Controlled hypertension. * Controlled diabetes. We will follow him closely. Thank you for the consultation. MD STEFANIA Goldstein/RIGO/NAMAN TID: [id number] RECEIPT: [id number]
--- NOTE | 2025-02-01 13:32 | DVHPN2 ---
Reviewed: Care Plan, H&P, Labs, Medications, Previous Orders, Radiology Changes from previous H/P or p: No Changes Eyes: No Pain, No Vision change, No Conjunctivae inflammation, No Eyelid inflammation, No Other, No Redness ENT: No Ear pain, No Ear discharge, No Nose pain, No Nose discharge, No Nose congestion, No Mouth pain, No Mouth swelling, No Throat pain, No Throat swelling, No Other Cardiovascular: No Chest Pain, No Palpitations, No Orthopnea, No Paroxysmal Noc. Dyspnea, No Edema, No Lt Headedness, No Other Respiratory: No Cough, No Dry, No Shortness of breath, No SOB with excertion, No Wheezing, No Hemoptysis, No Pleuritic Pain, No Sputum, No Other Gastrointestinal: No Nausea, No Vomiting, No Abdominal Pain, No Diarrhea, No Constipation, No Melena, No Hematochezia, No Other Genitourinary: Other Musculoskeletal: No other, No neck pain, No shoulder pain, No arm pain, No back pain, No hand pain, No leg pain, No foot pain Skin: No Rash, No Lesions, No Jaundice, No Bruising, No Other Objective Vitals Vital Signs Date Time Temp Pulse Resp B/P (MAP) Pulse Ox O2 Delivery O2 Flow Rate FiO2 02/01/25 11:09 61 153/76 02/01/25 09:00 97.5 18 100 97.5 02/01/25 08:00 Room Air* 0 21 Intake/Output Intake and Output 02/01/25 07:00 Intake Total 2400 ml Output Total 0 ml Balance 2400 ml Intake Oral 900 ml Blood Product 1200 ml Other 300 ml Output Urine Total 0 ml Medications Current Medications Medications Dose Ordered Sig/Melva Route Start Time Stop Time Status Last Admin Dose Admin Hydralazine HCl 10 mg Q6HP PRN IV 01/31/25 21:00 Levothyroxine Sodium 50 mcg QAM@0600 PO 02/01/25 06:00 02/01/25 05:45 50 MCG Atorvastatin Calcium 10 mg HS PO 01/31/25 22:00 01/31/25 22:08 10 MG Tamsulosin HCl 0.4 mg QPM PO 02/01/25 18:00 Multivit/Ca Carb/ B Cmplx/FA/Prenat 1 tab DAILY PO 02/01/25 10:00 02/01/25 10:07 1 TAB Sevelamer HCl 800 mg TIDWM PO 02/01/25 08:00 02/01/25 13:08 800 MG Metoprolol Tartrate 12.5 mg BID PO 01/31/25 22:00 02/01/25 10:09 12.5 MG Apixaban 5 mg BID PO 01/31/25 22:00 02/01/25 10:07 5 MG Diagnostic Test (Pha) 1 strip ACHS 01/31/25 22:00 02/01/25 11:53 1 STRIP Insulin Human Regular ACHS SC 01/31/25 22:00 Dextrose 50 ml UD PRN IV 01/31/25 21:00 Sodium Chloride 10 ml Q8HR IV 01/31/25 22:00 02/01/25 05:45 10 ML Acetaminophen/ Hydrocodone Bitart 1 tab Q4HP PRN PO 01/31/25 21:00 Ondansetron HCl 4 mg Q4HP PRN IV 01/31/25 21:00 Docusate Sodium 100 mg BIDPRN PRN PO 01/31/25 21:00 Acetaminophen 650 mg Q6HP PRN PO 01/31/25 21:00 Nitroglycerin 0.4 mg Q5MINP PRN SL 01/31/25 23:15 Morphine Sulfate 2 mg Q30M PRN IV 01/31/25 23:15 Laboratory Results Laboratory Tests 02/01/25 08:28 Chemistry Test 01/31/25 13:31 02/01/25 08:28 Calcium Level 9.4 mg/dL (8.7-10.4) 10.6 mg/dL (8.7-10.4) H Albumin 4.4 g/dL (3.2-4.8) Total Protein 7.3 g/dL (5.7-8.2) LFT Test 02/01/25 08:28 Alanine Aminotransferase (ALT) 26 U/L (7-40) Alkaline Phosphatase 82 U/L (46-116) Aspartate Amino Transferase (AST) 33 U/L (<34) Total Bilirubin 0.8 mg/dL (0.2-1.0) Microbiology Microbiology Date/Time Source Procedure Growth Status 02/01/25 05:45 Nose MRSA Screen - Final Complete Labs and/or images reviewed: Labs reviewed by me, Image(s) reviewed by me Assessment/Plan Assessment/Plan Severe anemia hemoglobin 6.8 improved to 9 after 1 unit RBC transfusion Pancytopenia ESRD on dialysis, consult by Dr. Anderson appreciated Hypokalemia Diabetes Hypercholesterolemia Peripheral arterial disease History of [place] Hypothyroidism Generalized weakness Diabetes mellitus with hypoglycemia Anemia of chronic disease Time spent 70 minutes Advanced care planning time 20 minutes Patient is full code Plan discussed with: Patient Date of Service: Feb 01, 2025 Billing Provider: EKATERINA ROBERTSON MD Common Visit Codes: [id number] CARE 30-74 MIN EKATERINA ROBERTSON MD Feb 01, 2025 13:32
[2025-02-01] MEDS: TAMSULOSIN HYDROCHLORIDE 0.4 MG CAP PO SCH (17:14)
[2025-02-01] MEDS: diphenhdrAMINE HCL 50 MG/1 ML VL IV PRN (22:55)
[2025-02-02 01:00] VITALS: BP 145/80; PULSE 69; RESP 16; TEMP 97.8; O2SAT 99
[2025-02-02 05:00] VITALS: BP 119/51; PULSE 63; RESP 16; TEMP 97.8; O2SAT 99
[2025-02-02 06:17] LABS: Basophils # (auto) 0 10 ^3/uL (0-0.2); Basophils % (auto) 0.6 % (0.0-2.0); Eosinophils # (auto) 0.2 10 ^3/uL (0-0.8); Eosinophils % (auto) 4.6 % (0.0-7.0); Hematocrit 24.8 % (41.0-53.0); Hemoglobin 8.5 g/dL (13.5-17.5); Lymphocytes # (auto) 0.7 10 ^3/uL (0.4-5.4); Lymphocytes % (auto) 21.4 % (10.0-50.0); Mean Corpuscular Hemoglobin 32.9 pg (28.0-32.0); Mean Corpuscular Hgb Conc. 34.3 g/dL (32.0-36.0); Monocytes # (auto) 0.3 10 ^3/uL (0-1.3); Monocytes % (auto) 9.6 % (0.0-12.0); Neutrophils # (auto) 2.1 10 ^3/uL (1.6-8.6); Neutrophils % (auto) 63.8 % (37.0-80.0); Nucleated Red Blood Cells % 0.2 %; Platelet Count (auto) 79 10^3/uL (140-450); Red Blood Cells 2.59 10^6/uL (4.5-5.90); Red Cell Distribution Width 16.7 % (11.8-14.3); White Blood Cell 3.3 10^3/uL (4.4-10.8)
[2025-02-02 06:30] LABS: Anion Gap 11 (5-15); Carbon Dioxide 29 mmol/L (20-31); Chloride 100 mmol/L (98-107); Potassium 4.5 mmol/L (3.5-5.1); Sodium 140 mmol/L (136-145)
[2025-02-02 06:31] LABS: Calcium 10.4 mg/dL (8.7-10.4)
[2025-02-02 06:35] LABS: Glucose 75 mg/dL (74-106)
[2025-02-02 06:36] LABS: BUN/Creatinine Ratio 10.6 (10.0-20.0)
[2025-02-02 06:38] LABS: Blood Urea Nitrogen 81 mg/dL (9-23)
[2025-02-02] MEDS ORDERED: SODIUM CHL 0.9% 1000 ML BAG XX ONE (07:00)
[2025-02-02 08:00] VITALS: PULSE 60
[2025-02-02 09:00] VITALS: BP 137/69; PULSE 62; RESP 17; TEMP 97.5; O2SAT 100
--- NOTE | 2025-02-02 10:01 | DVHPN2 ---
Reviewed: Care Plan, H&P, Labs, Medications, Previous Orders, Radiology Changes from previous H/P or p: No Changes Eyes: No Pain, No Vision change, No Conjunctivae inflammation, No Eyelid inflammation, No Other, No Redness ENT: No Ear pain, No Ear discharge, No Nose pain, No Nose discharge, No Nose congestion, No Mouth pain, No Mouth swelling, No Throat pain, No Throat swelling, No Other Cardiovascular: No Chest Pain, No Palpitations, No Orthopnea, No Paroxysmal Noc. Dyspnea, No Edema, No Lt Headedness, No Other Respiratory: No Cough, No Dry, No Shortness of breath, No SOB with excertion, No Wheezing, No Hemoptysis, No Pleuritic Pain, No Sputum, No Other Gastrointestinal: No Nausea, No Vomiting, No Abdominal Pain, No Diarrhea, No Constipation, No Melena, No Hematochezia, No Other Genitourinary: Other Musculoskeletal: No other, No neck pain, No shoulder pain, No arm pain, No back pain, No hand pain, No leg pain, No foot pain Skin: No Rash, No Lesions, No Jaundice, No Bruising, No Other Objective Vitals Vital Signs Date Time Temp Pulse Resp B/P (MAP) Pulse Ox O2 Delivery O2 Flow Rate FiO2 02/02/25 09:00 97.5 62 17 137/69 (91) 100 97.5 02/02/25 08:00 Room Air* 0 21 Intake/Output Intake and Output 02/02/25 07:00 Intake Total 1140 ml Balance 1140 ml Intake Oral 1140 ml # Voids 2 # Bowel Movements 2 Medications Current Medications Medications Dose Ordered Sig/Melva Route Start Time Stop Time Status Last Admin Dose Admin Hydralazine HCl 10 mg Q6HP PRN IV 01/31/25 21:00 Levothyroxine Sodium 50 mcg QAM@0600 PO 02/01/25 06:00 02/02/25 06:17 50 MCG Atorvastatin Calcium 10 mg HS PO 01/31/25 22:00 02/01/25 21:17 10 MG Tamsulosin HCl 0.4 mg QPM PO 02/01/25 18:00 02/01/25 17:14 0.4 MG Multivit/Ca Carb/ B Cmplx/FA/Prenat 1 tab DAILY PO 02/01/25 10:00 02/02/25 08:47 1 TAB Sevelamer HCl 800 mg TIDWM PO 02/01/25 08:00 02/02/25 08:46 800 MG Metoprolol Tartrate 12.5 mg BID PO 01/31/25 22:00 02/02/25 08:47 12.5 MG Apixaban 5 mg BID PO 01/31/25 22:00 02/02/25 08:47 5 MG Diagnostic Test (Pha) 1 strip ACHS 01/31/25 22:00 02/02/25 06:16 1 STRIP Insulin Human Regular ACHS SC 01/31/25 22:00 Dextrose 50 ml UD PRN IV 01/31/25 21:00 Sodium Chloride 10 ml Q8HR IV 01/31/25 22:00 02/02/25 06:17 10 ML Acetaminophen/ Hydrocodone Bitart 1 tab Q4HP PRN PO 01/31/25 21:00 Ondansetron HCl 4 mg Q4HP PRN IV 01/31/25 21:00 Docusate Sodium 100 mg BIDPRN PRN PO 01/31/25 21:00 Acetaminophen 650 mg Q6HP PRN PO 01/31/25 21:00 Nitroglycerin 0.4 mg Q5MINP PRN SL 01/31/25 23:15 Morphine Sulfate 2 mg Q30M PRN IV 01/31/25 23:15 Diphenhydramine HCl 25 mg Q4HP PRN IV 02/01/25 22:45 02/01/25 22:55 25 MG Laboratory Results Laboratory Tests 02/02/25 05:44 Chemistry Test 02/02/25 05:44 Calcium Level 10.4 mg/dL (8.7-10.4) Microbiology Microbiology Date/Time Source Procedure Growth Status 02/01/25 05:45 Nose MRSA Screen - Final Complete Labs and/or images reviewed: Labs reviewed by me, Image(s) reviewed by me Assessment/Plan Assessment/Plan Severe anemia hemoglobin 6.8 improved to 9 after 1 unit RBC transfusion Pancytopenia ESRD on dialysis, consult by Dr. Anderson appreciated patient getting dialysis today 02-02-25 Hypokalemia Diabetes Hypercholesterolemia Peripheral arterial disease History of [place] Hypothyroidism Generalized weakness Diabetes mellitus with hypoglycemia Anemia of chronic disease Time spent 50 minutes Advanced care planning time 20 minutes Patient is full code Plan discussed with: Patient Date of Service: Feb 02, 2025 Billing Provider: EKATERINA ROBERTSON MD Common Visit Codes: [id number] INP/OBS CARE(HIGH) EKATERINA ROBERTSON MD Feb 02, 2025 10:01
--- NOTE | 2025-02-02 10:05 | DVHDS2 ---
Discharge Summary Date of Admission Jan 31, 2025 at 23:04 Date of Discharge: Feb 02, 2025 Admitting Diagnosis Generalized weakness Wounds: None Labs/Diagnostic Data: Laboratory Results Test 02/02/25 05:44 02/01/25 21:12 02/01/25 08:28 White Blood Count 3.3 10^3/uL (4.4-10.8) Red Blood Count 2.59 10^6/uL (4.5-5.90) Hemoglobin 8.5 g/dL (13.5-17.5) Hematocrit 24.8 % (41.0-53.0) Mean Corpuscular Volume 96.0 fL (80.0-100.0) Mean Corpuscular Hemoglobin 32.9 pg (28.0-32.0) Mean Corpuscular Hemoglobin Concent 34.3 g/dL (32.0-36.0) Red Cell Distribution Width 16.7 % (11.8-14.3) Platelet Count 79 10^3/uL (140-450) Mean Platelet Volume 9.2 fL (6.9-10.8) Neutrophils (%) (Auto) 63.8 % (37.0-80.0) Lymphocytes (%) (Auto) 21.4 % (10.0-50.0) Monocytes (%) (Auto) 9.6 % (0.0-12.0) Eosinophils (%) (Auto) 4.6 % (0.0-7.0) Basophils (%) (Auto) 0.6 % (0.0-2.0) Neutrophils # (Auto) 2.1 10 ^3/uL (1.6-8.6) Lymphocytes # (Auto) 0.7 10 ^3/uL (0.4-5.4) Monocytes # (Auto) 0.3 10 ^3/uL (0-1.3) Eosinophils # (Auto) 0.2 10 ^3/uL (0-0.8) Basophils # (Auto) 0 10 ^3/uL (0-0.2) Nucleated Red Blood Cells 0.2 % Sodium Level 140 mmol/L (136-145) Potassium Level 4.5 mmol/L (3.5-5.1) Chloride Level 100 mmol/L (98-107) Carbon Dioxide Level 29 mmol/L (20-31) Anion Gap 11 (5-15) Blood Urea Nitrogen 81 mg/dL (9-23) Creatinine 7.62 mg/dL (0.700-1.30) Glomerular Filtration Rate Calc 7 mL/min (>90) BUN/Creatinine Ratio 10.6 (10.0-20.0) Serum Glucose 75 mg/dL (74-106) Calcium Level 10.4 mg/dL (8.7-10.4) POC Glucose 116 mg/dl (70-106) Total Bilirubin 0.8 mg/dL (0.2-1.0) Aspartate Amino Transferase (AST) 33 U/L (<34) Alanine Aminotransferase (ALT) 26 U/L (7-40) Alkaline Phosphatase 82 U/L (46-116) Total Protein 7.3 g/dL (5.7-8.2) Albumin 4.4 g/dL (3.2-4.8) Other Laboratory Tests 02/02/25 05:44 Brief Hx & Hospital Course: 74-year-old male with a history of diabetes hypercholesterolemia AMI peripheral arterial disease hypothyroidism anemia of chronic disease came in for generalized weakness. Hemoglobin 6.8 improved to nine after 1 unit RBC transfusion and stable patient receiving dialysis by Dr. Anderson today and being discharged home in stable condition. Consults/Reason for consult Nephrology Dr. Anderson Operations or Procedures RBC transfusion Dialysis Condition at Discharge: Fair Final Diagnosis/Problems List Severe anemia hemoglobin 6.8 improved to 9 after 1 unit RBC transfusion Pancytopenia ESRD on dialysis, consult by Dr. Anderson appreciated patient getting dialysis today 02-02-25 Hypokalemia Diabetes Hypercholesterolemia Peripheral arterial disease History of [place] Hypothyroidism Generalized weakness Diabetes mellitus with hypoglycemia Anemia of chronic disease Discharge Disposition: Home Discharge Instruct/Medications Diet: Renal Activity: Light activity Follow Up/Referral: Resume all previous home medications Follow up with the primary Dr Follow up with Dr. Anderson for dialysis Medications: none 39 (Time taken for discharge summary 39 minutes) Discharge Statement: "Patient was advised to return to the ER or call 911 if any headaches, dizziness, shortness of breath, chest pain, abdominal pain, bleeding, fevers, or worsening of medical condition. Patient was counseled about treatment plan, medications, possible side effects, patientverbalized understanding. All questions were answered to the best of my ability. This discharge took greater then 30 minutes in planning, reviewing documentation, counseling the patient, and discussing with other team members." ASSESSMENT ASSESSMENT Hospital Course Improved Assessment Severe anemia hemoglobin 6.8 improved to 9 after 1 unit RBC transfusion Pancytopenia ESRD on dialysis, consult by Dr. Anderson appreciated patient getting dialysis today 02-02-25 Hypokalemia Diabetes Hypercholesterolemia Peripheral arterial disease History of [place] Hypothyroidism Generalized weakness Diabetes mellitus with hypoglycemia Anemia of chronic disease Date of Service: Feb 02, 2025 Billing Provider: EKATERINA ROBERTSON MD Common Visit Codes: [id number] DISCH DAY >30min EKATERINA ROBERTSON MD Feb 02, 2025 10:05
--- NOTE | 2025-02-02 10:32 | DVHPN2 ---
Progress Note - Dictate Date Seen: Feb 02, 2025 Has the PT tested + for MRSA If YES, has PT been informed?: No Medical Necessity Reason Pt with a Central, PICC or Fol: No Subjective No new complaints vital signs Vital Sign Date Time Temp Pulse Resp B/P (MAP) Pulse Ox O2 Delivery O2 Flow Rate FiO2 02/02/25 09:00 97.5 62 17 137/69 (91) 100 97.5 02/02/25 08:00 Room Air* 0 21 Total Intake and Output 02/01/25 02/01/25 02/02/25 15:00 23:00 07:00 Intake Total 640 ml 500 ml Balance 640 ml 500 ml medications Current Medications Medications Dose Ordered Sig/Melva Route Start Time Stop Time Status Last Admin Dose Admin Hydralazine HCl 10 mg Q6HP PRN IV 01/31/25 21:00 Levothyroxine Sodium 50 mcg QAM@0600 PO 02/01/25 06:00 02/02/25 06:17 50 MCG Atorvastatin Calcium 10 mg HS PO 01/31/25 22:00 02/01/25 21:17 10 MG Tamsulosin HCl 0.4 mg QPM PO 02/01/25 18:00 02/01/25 17:14 0.4 MG Multivit/Ca Carb/ B Cmplx/FA/Prenat 1 tab DAILY PO 02/01/25 10:00 02/02/25 08:47 1 TAB Sevelamer HCl 800 mg TIDWM PO 02/01/25 08:00 02/02/25 08:46 800 MG Metoprolol Tartrate 12.5 mg BID PO 01/31/25 22:00 02/02/25 08:47 12.5 MG Apixaban 5 mg BID PO 01/31/25 22:00 02/02/25 08:47 5 MG Diagnostic Test (Pha) 1 strip ACHS 01/31/25 22:00 02/02/25 06:16 1 STRIP Insulin Human Regular ACHS SC 01/31/25 22:00 Dextrose 50 ml UD PRN IV 01/31/25 21:00 Sodium Chloride 10 ml Q8HR IV 01/31/25 22:00 02/02/25 06:17 10 ML Acetaminophen/ Hydrocodone Bitart 1 tab Q4HP PRN PO 01/31/25 21:00 Ondansetron HCl 4 mg Q4HP PRN IV 01/31/25 21:00 Docusate Sodium 100 mg BIDPRN PRN PO 01/31/25 21:00 Acetaminophen 650 mg Q6HP PRN PO 01/31/25 21:00 Nitroglycerin 0.4 mg Q5MINP PRN SL 01/31/25 23:15 Morphine Sulfate 2 mg Q30M PRN IV 01/31/25 23:15 Diphenhydramine HCl 25 mg Q4HP PRN IV 02/01/25 22:45 02/01/25 22:55 25 MG objective GENERAL: The patient is an elderly gentleman who appears to be chronically ill, in no acute distress. Alert and oriented x 3. HEENT: Unremarkable. NECK: There is no jugular venous distention. No palpable thyroid. No lymphadenopathy. LUNGS: Clear to auscultation. CARDIOVASCULAR: Regular rate and 1/6 systolic murmur. ABDOMEN: Soft, nontender. No organomegaly. EXTREMITIES: No clubbing, cyanosis or edema. NEUROLOGIC: Nonfocal. laboratory and microbiology Laboratory Tests 02/02/25 05:44 Test 02/02/25 05:44 Range/Units Serum Glucose 75 74-106 mg/dL Problem List ASSESSMENT AND PLAN: * End-stage renal disease. No current electrolyte imbalances. * Anemia in the setting of pancytopenia. He also has low white blood cell and low platelets. I suggest Hematology consultation as well. He also needs gastroenterology consultation for possible GI bleed. * Controlled hypertension. * Controlled diabetes. HD scheduled for today Blood transfusion to keep Hb > 7 g/dL We will follow him closely. Thank you for the consultation. Plan discussed with: Patient CC Plasma Assessment Blood Product Administration S: 1800 JEAN SILVERIO MD Feb 02, 2025 10:32
[2025-02-02 10:52] VITALS: BP 137/69; PULSE 62; RESP 18; TEMP 98.2; O2SAT 95
[2025-02-02 13:00] VITALS: BP 122/68; PULSE 60; RESP 18; TEMP 97.5; O2SAT 99
[2025-02-02] MEDS ORDERED: EPOETIN ALFA-EPBX 10,000 UNIT/1ML VIAL SC ONE (21:00)
== END 2025-02-02 15:55 | disposition home or self-care (01) | DRG 660 ==
LOC: ER 12:06 → OVERFLOW 23:04 → TELE-EAST 02-01 03:02
PROVIDERS: ADMIT Family Medicine; ATTEND Family Medicine
PROC: 30233N1 Transfusion of Nonautologous Red Blood Cells into Peripheral Vein, Percutaneous Approach (ICD-10-PCS; principal; 2025-01-31)
DX: D61.818 Other pancytopenia (principal); E11.649 Type 2 diabetes mellitus with hypoglycemia without coma; I12.0 Hypertensive chronic kidney disease with stage 5 chronic kidney disease or end stage renal disease; D63.8 Anemia in other chronic diseases classified elsewhere; D63.1 Anemia in chronic kidney disease; N18.6 End stage renal disease; E11.22 Type 2 diabetes mellitus with diabetic chronic kidney disease; E11.40 Type 2 diabetes mellitus with diabetic neuropathy, unspecified; E03.9 Hypothyroidism, unspecified; E78.00 Pure hypercholesterolemia, unspecified; E87.6 Hypokalemia; I25.10 Atherosclerotic heart disease of native coronary artery without angina pectoris; E11.51 Type 2 diabetes mellitus with diabetic peripheral angiopathy without gangrene; Z99.2 Dependence on renal dialysis; Z88.6 Allergy status to analgesic agent; Z88.0 Allergy status to penicillin; Z79.899 Other long term (current) drug therapy; Z79.01 Long term (current) use of anticoagulants; Z90.49 Acquired absence of other specified parts of digestive tract; Z95.0 Presence of cardiac pacemaker; I25.2 Old myocardial infarction
CPT/HCPCS: 36415; 80048; 80053; 82962; 85025; 86850; 86900; 86901; 86920; 87040; 87081; 99291; G0378; J1642; J1815

== ENCOUNTER 2025-02-04 14:06 | Inpatient (IN) | payer MEDICAID ==
[~2025-02-04] VITALS: Ht 177.8 cm; Wt 67.3 kg
[~2025-02-04 14:06] MED LIST changes: +CETI-120 PO; +CLON0.1D7 TOP; +LEVO75TA6 PO
--- NOTE | 2025-02-04 14:49 | ED.PDOC ---
History of Present Illness HPI Comments 74-year-old male was referred to this ER for further evaluation of his anemia. Reports generalized weakness. Patient had a blood transfusion 3 days ago and was discharged home. Patient was sent by his oncologist for further tests and treatment. Chief Complaint: General Weakness Time Seen by MD: 14:21 Primary Care Provider: UNKNOWN Reviewed Notes: Medications, Allergies Allergies: Coded Allergies: Ibuprofen (Verified Allergy, Unknown, 09/12/17) Penicillins (Verified Allergy, Unknown, 04/13/16) Home Meds Active Scripts Sucralfate (CARAFATE) 1 Gm Tab, 1 GM PO QID, #120 TAB Prov:EKATERINA ROBERTSON MD 09/13/24 Pantoprazole Sodium Sesquihydr (Pantoprazole Sodium) 40 Mg Tab, 40 MG PO BID, #60 TAB Prov:EKATERINA ROBERTSON MD 09/13/24 Amiodarone Hcl (Amiodarone Hcl) 200 Mg Tab, 1 TAB PO DAILY for 60 Days, #60 TAB 1 Refill Prov:MARYBETH NASSAR DESIGN VERIFICATION ENGINEER 10/11/23 Reported Medications Torsemide Injection (Torsemide) 20 Mg Tab, 1 TAB PO MWF 09/03/24 Ciprofloxacin Hcl (Ciprofloxacin Hcl) 500 Mg Tab, 1 TAB PO DAILY 09/03/24 Pantoprazole Sodium Sesquihydr (Protonix) 40 Mg Tab, 40 MG PO DAILY, TAB 07/27/24 Albuterol Sulfate (Albuterol Sulfate Hfa) 108 Mcg/Act Aer, 90 MCG IN Q4HPRN PRN for SHORTNESS OF BREATH, AER 07/27/24 Apixaban Base (ELIQUIS) 5 Mg Tab, 5 MG PO BID, TAB 07/27/24 Folic Acid (Folic Acid) 1 Mg Tab, 1 TAB PO DAILY, MG 09/29/23 Furosemide (Furosemide) 40 Mg Tab, 1 TAB PO DAILY 09/29/23 Finasteride (Finasteride) 5 Mg Tab, 1 TAB PO DAILY 08/04/23 Tamsulosin Hcl (Tamsulosin Hcl) 0.4 Mg Cap, 1 CAP PO DAILY 08/04/23 Sevelamer Carbonate (Renvela) 800 Mg Tab, 3 TAB PO TID, #810 TAB 3 Refills TAKE 3 TABS EACH MEAL AND 1 TAB AT NIGHT. 10/17/21 Levothyroxine Sodium (SYNTHROID TABLET) 50 Mcg Tb, 1 TAB PO QAM, TAB 07/28/18 Atorvastatin Calcium (Lipitor) 40 Mg Tab, 1 TAB PO DAILY 02/18/16 Information Source: Patient Mode of Arrival: Ambulatory Severity: Moderate Timing: Days Duration: Since onset Prehospital treatment: None Past Medical History PAST MEDICAL HISTORY: DM, ESRD, High Lipids, HTN, NH, PAD, Thyroid Surgical History: Cholecystectomy, Pacemaker Family History Family History: No family hx of DM, No family hx of HTN, Unobtainable Social History Smoker: Non-Smoker Alcohol: Denies ETOH Use Drugs: Denies Drug Use Lives In: Home Constitutional: reports: weakness; denies: chills, diaphoresis, fatigue, fever, malaise, sweats, others EENTM: denies: blurred vision, double vision, ear bleeding, ear discharge, ear drainage, ear pain, ear ringing, eye pain, eye redness, hearing loss, mouth pain, mouth swelling, nasal discharge, nose bleeding, nose congestion, nose pain, photophobia, tearing, throat pain, throat swelling, voice changes, others Respiratory: denies: cough, hemoptysis, orthopnea, SOB at rest, shortness of breath, SOB with excertion, stridor, wheezing, others Cardiovascular: denies: chest pain, dizzy spells, diaphoresis, Dyspnea on exertion, edema, irregular heart beat, left arm pain, lightheadedness, palpitations, PND, syncope, others Gastrointestinal: denies: abdomen distended, abdominal pain, blood streaked bowels, constipated, diarrhea, dysphagia, difficulty swallowing, hematemesis, melena, nausea, poor appetite, poor fluid intake, rectal bleeding, rectal pain, vomiting, others Genitourinary: denies: burning, dysuria, flank pain, frequency, hematuria, incontinence, penile discharge, penile sore, pain, testicle pain, testicle swelling, urgency, others Neurological: denies: dizziness, fainting, headache, left sided numbness, left sided weakness, numbness, paresthesia, pre-existing deficit, right sided numbness, right sided weakness, seizure, speech problems, tingling, tremors, weakness, others Musculoskeletal: denies: back pain, gout, joint pain, joint swelling, muscle pain, muscle stiffness, neck pain, others Integumetry: denies: bruises, change in color, change in hair/nails, dryness, laceration, lesions, lumps, rash, wounds, others Allergic/Immunocompromised: denies: Difficulty Healing, Frequent Infections, Hives, Itching, others Hematologic/Lymphatic: denies: anemia, blood clots, easy bleeding, easy bruising, swollen glands, others Endocrine: denies: excessive hunger, excessive sweating, excessive thirst, excessive urination, flushing, intolerance to cold, intolerance to heat, unexplained weight gain, unexplained weight loss, others Psychiatric: denies: anxiety, bipolar disorder, depression, hopeless, panic disorder, schizophrenia, sleepless, suicidal, others Physical Exam General Appearance: No Apparent Distress, Normal HEENT: Normal ENT Inspection, Pharynx Normal, TMs Normal Neck: Full Range of Motion, Non-Tender, Normal, Normal Inspection Respiratory: Chest Non-Tender, Lungs Clear, No Accessory Muscle Use, No Respiratory Distress, Normal Breath Sounds Cardiovascular: No Edema, No JVD, No Murmur, No Gallop, Normal Peripheral Pulses, Regular Rate/Rhythm Breast Exam: Deferred Gastrointestinal: No Organomegaly, Non Tender, No Pulsatile Mass, Normal Bowel Sounds, Soft Genitalia: Deferred Pelvic: Deferred Rectal: Deferred Extremities: No calf tenderness, Normal capillary refill, Normal inspection, Normal range of motion, Non-tender, No pedal edema Musculoskeletal : Apperance: Normal Neurologic: Alert, consumer services consultant II-XII nml as Tested, No Motor Deficits, Normal Affect, Normal Mood, No Sensory Deficits Cerebellar Function: Normal Reflexes: Normal Skin: Dry, Normal Color, Warm Lymphatic: No Adenopathy Was a procedure done? Was a procedure done?: No Differential Dx Considerations may include: ACS, CVA, symptomatic anemia, urinary tract infection, infectious etiology X-Ray, Labs, Meds, VS Vital Signs Date Time Temp Pulse Resp B/P (MAP) Pulse Ox O2 Delivery O2 Flow Rate FiO2 02/04/25 14:30 98.0 82 16 144/75 (98) 99 98.0 02/04/25 14:28 65 Lab Test 02/04/25 15:25 02/04/25 14:36 Range/Units Troponin I High Sensitivity 32 31 </=54 ng/L White Blood Count 2.7 L 4.4-10.8 10^3/uL Red Blood Count 2.27 L 4.5-5.90 10^6/uL Hemoglobin 7.4 L 13.5-17.5 g/dL Hematocrit 22.5 L 41.0-53.0 % Mean Corpuscular Volume 98.8 80.0-100.0 fL Mean Corpuscular Hemoglobin 32.5 H 28.0-32.0 pg Mean Corpuscular Hemoglobin Concent 32.9 32.0-36.0 g/dL Red Cell Distribution Width 17.2 H 11.8-14.3 % Platelet Count 74 L 140-450 10^3/uL Mean Platelet Volume 9.0 6.9-10.8 fL Neutrophils (%) (Auto) 72.5 37.0-80.0 % Lymphocytes (%) (Auto) 15.1 10.0-50.0 % Monocytes (%) (Auto) 7.2 0.0-12.0 % Eosinophils (%) (Auto) 4.9 0.0-7.0 % Basophils (%) (Auto) 0.3 0.0-2.0 % Neutrophils # (Auto) 2.0 1.6-8.6 10 ^3/uL Lymphocytes # (Auto) 0.4 0.4-5.4 10 ^3/uL Monocytes # (Auto) 0.2 0-1.3 10 ^3/uL Eosinophils # (Auto) 0.1 0-0.8 10 ^3/uL Basophils # (Auto) 0 0-0.2 10 ^3/uL Nucleated Red Blood Cells 0.1 % Sodium Level 142 136-145 mmol/L Potassium Level 4.8 3.5-5.1 mmol/L Chloride Level 106 98-107 mmol/L Carbon Dioxide Level 26 20-31 mmol/L Anion Gap 10 5-15 Blood Urea Nitrogen 103 *H 9-23 mg/dL Creatinine 8.64 H 0.700-1.30 mg/dL Glomerular Filtration Rate Calc 6 >90 mL/min BUN/Creatinine Ratio 11.9 10.0-20.0 Serum Glucose 144 H 74-106 mg/dL Calcium Level 10.1 8.7-10.4 mg/dL Time of 1ST Reevaluation: 14:51 Reevaluation 1ST: Unchanged Patient Education/Counseling: Diagnosis, Treatment, Need For Follow Up Family Education/Counseling: No Family Present Departure 1 Departure Time of Disposition: 17:27 (Patient with worsening weakness likely secondary to symptomatic anemia. Patient has a dialysis patient. We will admit patient for further workup and expert consultation) Impression: Primary Impression: Symptomatic anemia Additional Impressions: Generalized weakness Shortness of breath Disposition: 09 ADMITTED INPATIENT Admit to: Med Surg Condition: Serious Critical Care Note Critical Care Time?: Yes Critical care comment: Symptomatic anemia Authorized and Performed by: Sabine Rod MD Total critical care time: Approximately 39 minutes Due to a high probability of clinically significant, life threatening deterioration, the patient required my highest level of preparedness to intervene emergently and I personally spent this critical care time directly and personally managing the patient. This critical care time included obtaining a history; examining the patient; pulse oximetry; ordering and review of studies; arranging urgent treatment with development of a management plan; evaluation of patient's response to treatment; frequent reassessment; and, discussions with other providers. This critical care time was performed to assess and manage the high probability of imminent, life-threatening deterioration that could result in multi-organ failure. It was exclusive of separately billable procedures and treating other patients and teaching time. Please see my other sections and the rest of the note for further information on patient assessment and treatment. Stability Stability form required: No Heart Score Heart Score: Heart Score Response (Comments) Value History N/A 0 EKG N/A 0 Age N/A 0 Risk Factors N/A 0 Troponin N/A 0 Total 0 I personally scribed for SABINE ROD MD ([email or web address]) on 02/04/25 at 14:49. Electronically submitted by Andrew Moser ([email or web address]). SABINE ROD MD Feb 04, 2025 14:49
[2025-02-04 15:04] LABS: Basophils # (auto) 0 10 ^3/uL (0-0.2); Basophils % (auto) 0.3 % (0.0-2.0); Chloride 106 mmol/L (98-107); Eosinophils # (auto) 0.1 10 ^3/uL (0-0.8); Hemoglobin 7.4 g/dL (13.5-17.5); Lymphocytes # (auto) 0.4 10 ^3/uL (0.4-5.4); Mean Corpuscular Hgb Conc. 32.9 g/dL (32.0-36.0); Monocytes # (auto) 0.2 10 ^3/uL (0-1.3); Potassium 4.8 mmol/L (3.5-5.1); Sodium 142 mmol/L (136-145)
[2025-02-04 15:05] LABS: Anion Gap 10 (5-15); Carbon Dioxide 26 mmol/L (20-31)
--- NOTE | 2025-02-04 15:05 | DVH ---
CHEST RADIOGRAPH Indication: gen weakness Technique: Single frontal view of the chest was obtained Comparison: XY CHEST PORTABLE on DOS: 09/11/24, XY CHEST PORTABLE on DOS: 09/03/24, XY CHEST PORTABLE o n DOS: 07/24/24, XY CHEST PORTABLE on DOS: 10/09/23, XY CHEST PORTABLE on DOS: 10/06/23, XY CHEST PORTAB LE on DOS: 09/03/24 FINDINGS: Lines and tubes: There is a cardiac pacer. Left hemodialysis catheter with tip in the cavoatrial junc tion. Right axillary venous stent. Cardiomediastinal silhouette: normal Pulmonary vasculature: Prominent Lung expansion: normal Lung airspace: normal Lung interstitium: normal Pleura: normal Pneumothorax: no Bones: Unremarkable Other: A vascular stent is visualized. IMPRESSION: Mild pulmonary congestion.
[2025-02-04 15:06] LABS: Calcium 10.1 mg/dL (8.7-10.4); Eosinophils % (auto) 4.9 % (0.0-7.0); Hematocrit 22.5 % (41.0-53.0); Lymphocytes % (auto) 15.1 % (10.0-50.0); Mean Corpuscular Hemoglobin 32.5 pg (28.0-32.0); Mean Corpuscular Volume 98.8 fL (80.0-100.0); Monocytes % (auto) 7.2 % (0.0-12.0); Neutrophils % (auto) 72.5 % (37.0-80.0); Nucleated Red Blood Cells % 0.1 %; Platelet Count (auto) 74 10^3/uL (140-450); Red Blood Cells 2.27 10^6/uL (4.5-5.90); Red Cell Distribution Width 17.2 % (11.8-14.3); White Blood Cell 2.7 10^3/uL (4.4-10.8)
[2025-02-04 15:10] LABS: BUN/Creatinine Ratio 11.9 (10.0-20.0)
[2025-02-04 15:11] LABS: Glucose 144 mg/dL (74-106)
[2025-02-04 15:12] LABS: Blood Urea Nitrogen 103 mg/dL (9-23)
[2025-02-04] MEDS ORDERED: ONDANSETRON HCL 4 MG/2 ML VIAL IV PRN (20:00)
[2025-02-04] MEDS ORDERED: DEXTROSE (50%) 50ML SYRG IV PRN (20:00)
[2025-02-04 20:13] VITALS: BP 139/68; PULSE 78; RESP 20; TEMP 97.4; O2SAT 100
[2025-02-04] MEDS: InsuLIN REG 1unit/0.01ml Soln (100units/ml) SC SCH (22:00)
[2025-02-04 22:38] VITALS: BP 146/85; PULSE 62; RESP 17; TEMP 97.8; O2SAT 99
[2025-02-04 22:45] VITALS: BP 146/85; PULSE 62; RESP 17; TEMP 97.8; O2SAT 99
[2025-02-04] MEDS: APIXABAN 5 MG TAB PO SCH (23:15)
[2025-02-04] MEDS: ATORVASTATIN 20 MG TAB PO SCH (23:15)
[2025-02-04] MEDS: ACCU-CHEK COMFORT CURVE STRIP VI SCH (23:20)
[2025-02-05] VITALS (15 sets, daily range): BP systolic 113–161; BP diastolic 63–87; PULSE 60–79; RESP 16–20; TEMP 96.9–98; O2SAT 97–100
--- NOTE | 2025-02-05 04:31 | DVHHP2 ---
History of Present Illness Reason for Visit: Abnormal lab results History of Present Illness 74-year-old male presents for evaluation of abnormal lab results. Patient was referred by his oncologist for possible blood transfusion. Patient also relays having dark stools over the past two days. Denies dizziness or shortness for breath. Denies any other acute complaints. Past Medical History End-stage renal disease, dyslipidemia, hypertension, mi, thyroid, diabetes mellitus Past Surgical History Pacemaker, dialysis access, cholecystectomy Family History Noncontributory Smoke: No ALCOHOL: none Drugs: None Lives: with Family Review of Systems Review of Systems Review of systems are currently negative otherwise addressed in HPI. Allergies: Coded Allergies: Ibuprofen (Verified Allergy, Unknown, 09/12/17) Penicillins (Verified Allergy, Unknown, 04/13/16) Medications Current Medications Medications Dose Ordered Sig/Melva Route Start Time Stop Time Status Last Admin Dose Admin Albuterol 2.5 mg Q6HPRN PRN NEB 02/04/25 20:00 Levothyroxine Sodium 75 mcg QAM@0600 PO 02/05/25 06:00 Sevelamer HCl 800 mg TIDWM PO 02/05/25 08:00 Apixaban 5 mg BID PO 02/04/25 22:00 02/04/25 23:15 5 MG Atorvastatin Calcium 40 mg HS PO 02/04/25 22:00 02/04/25 23:15 40 MG Furosemide 40 mg DAILY PO 02/05/25 10:00 Diagnostic Test (Pha) 1 strip ACHS 02/04/25 22:00 02/04/25 23:20 1 STRIP Insulin Human Regular ACHS SC 02/04/25 22:00 Dextrose 50 ml UD PRN IV 02/04/25 20:00 Ondansetron HCl 4 mg Q4HP PRN IV 02/04/25 20:00 Exam Vital Signs Vital Signs Date Time Temp Pulse Resp B/P (MAP) Pulse Ox O2 Delivery O2 Flow Rate FiO2 02/05/25 04:17 97.7 61 17 151/63 97.7 02/05/25 01:10 100 02/04/25 22:38 Room Air* 0 21 Exam Gen: 74-year-old male in no apparent distress. Skin: Warm, dry, normal color and texture, no rash. HEENT: Normocephalic atraumatic, mucous membranes moist and pink. Neck: Cervical and supraclavicular nodes normal without enlargement, trachea is midline, thyroid gland is normal without masses. Pulmonary: Clear to auscultation and percussion bilaterally. Cardiac: Regular rate and rhythm. No murmur Abdomen: Soft, nontender, nondistended, bowel sounds present all 4 quadrants, no guarding, no rigidity, no organomegaly. Extremities: No cyanosis, clubbing, no edema Neuro: Cranial nerves II through XII grossly intact, normal affect and speech, no focal motor deficits. Labs/Xrays ORDERING PHYSICIAN: SABINE ROD MD PROCEDURE(s): CXRP - CHEST PORTABLE REASON: gen weakness ORDER NUMBER(s): [id number], ACCESSION NUMBER(s): [id number] CHEST RADIOGRAPH Indication: gen weakness Technique: Single frontal view of the chest was obtained Comparison: XY CHEST PORTABLE on DOS: 09/11/24, XY CHEST PORTABLE on DOS: 09/03/24, XY CHEST PORTABLE on DOS: 07/24/24, XY CHEST PORTABLE on DOS: 10/09/23, XY CHEST PORTABLE on DOS: 10/06/23, XY CHEST PORTABLE on DOS: 09/03/24 FINDINGS: Lines and tubes: There is a cardiac pacer. Left hemodialysis catheter with tip in the cavoatrial junction. Right axillary venous stent. Cardiomediastinal silhouette: normal Pulmonary vasculature: Prominent Lung expansion: normal Lung airspace: normal Lung interstitium: normal Pleura: normal Pneumothorax: no Bones: Unremarkable Other: A vascular stent is visualized. IMPRESSION: Mild pulmonary congestion. Labs Test 02/04/25 23:18 02/04/25 17:36 02/04/25 14:36 Range/Units POC Glucose 112 H 70-106 mg/dl Troponin I High Sensitivity 31 </=54 ng/L White Blood Count 2.7 L 4.4-10.8 10^3/uL Red Blood Count 2.27 L 4.5-5.90 10^6/uL Hemoglobin 7.4 L 13.5-17.5 g/dL Hematocrit 22.5 L 41.0-53.0 % Mean Corpuscular Volume 98.8 80.0-100.0 fL Mean Corpuscular Hemoglobin 32.5 H 28.0-32.0 pg Mean Corpuscular Hemoglobin Concent 32.9 32.0-36.0 g/dL Red Cell Distribution Width 17.2 H 11.8-14.3 % Platelet Count 74 L 140-450 10^3/uL Mean Platelet Volume 9.0 6.9-10.8 fL Neutrophils (%) (Auto) 72.5 37.0-80.0 % Lymphocytes (%) (Auto) 15.1 10.0-50.0 % Monocytes (%) (Auto) 7.2 0.0-12.0 % Eosinophils (%) (Auto) 4.9 0.0-7.0 % Basophils (%) (Auto) 0.3 0.0-2.0 % Neutrophils # (Auto) 2.0 1.6-8.6 10 ^3/uL Lymphocytes # (Auto) 0.4 0.4-5.4 10 ^3/uL Monocytes # (Auto) 0.2 0-1.3 10 ^3/uL Eosinophils # (Auto) 0.1 0-0.8 10 ^3/uL Basophils # (Auto) 0 0-0.2 10 ^3/uL Nucleated Red Blood Cells 0.1 % Sodium Level 142 136-145 mmol/L Potassium Level 4.8 3.5-5.1 mmol/L Chloride Level 106 98-107 mmol/L Carbon Dioxide Level 26 20-31 mmol/L Anion Gap 10 5-15 Blood Urea Nitrogen 103 *H 9-23 mg/dL Creatinine 8.64 H 0.700-1.30 mg/dL Glomerular Filtration Rate Calc 6 >90 mL/min BUN/Creatinine Ratio 11.9 10.0-20.0 Serum Glucose 144 H 74-106 mg/dL Calcium Level 10.1 8.7-10.4 mg/dL Assessment/Plan Assessment/Plan Assessment Symptomatic anemia Possible GI bleed End-stage renal disease, diabetes mellitus Status post pacemaker Plan Admit the patient to [facility] to the hospitalist GI consult Nephrology consultation Transfuse 1 unit of packed red cells Continue treatment per orders. Plan discussed with: Patient My Orders Orders - KAMERON NICHOLSON AGACNP Procedure Category Date Status Time Admit ADMIT 02/04/25 Transmitted 19:45 Albuterol Medneb PHA 02/04/25 In Process (Ventolin Medneb) 20:00 Levothyroxine Tablet PHA 02/05/25 In Process (Synthroid Tablet) 06:00 Sevelamer (Renagel) PHA 02/05/25 In Process 08:00 Apixaban (Eliquis) PHA 02/04/25 In Process 22:00 Atorvastatin (Lipitor) PHA 02/04/25 In Process 22:00 Furosemide Tablet PHA 02/05/25 In Process (Lasix Tablet) 10:00 *Dr. Monica Obrien CONS 02/04/25 Transmitted [place] 19:48 Stool Occult Blood LAB 02/04/25 Logged 19:48 Basic Metabolic Panel LAB 02/05/25 Logged 04:00 Glucose Blood PHA 02/04/25 In Process (Accu-Chek Comfort 22:00 Insulin R (Human) PHA 02/04/25 In Process (Insulin R) 22:00 Dextrose 50% Syringe PHA 02/04/25 In Process 20:00 Ondansetron Hcl PHA 02/04/25 In Process (Zofran) 20:00 Complete Blood Count LAB 02/05/25 Logged 04:00 Condition: Stable ALANNA 02/04/25 In Process 19:48 Bedrest With Bathroom ALANNA 02/04/25 In Process Privileg 19:48 Mrsa Screen [place] 02/05/25 In Process 03:38 * [facility] Change Management Specialist CONS 02/05/25 Transmitted 04:26 Clear Liq Diet DIET 02/05/25 Transmitted Breakfast PTPTT LAB 02/05/25 Transmitted 04:26 Date of Service: Feb 04, 2025 Billing Provider: KAMERON NICHOLSON Common Visit Codes: [id number] INP/OBS CARE (HIGH) KAMERON NICHOLSON Feb 05, 2025 04:31
[2025-02-05] MEDS: LEVOTHYROXINE SODIUM 25 MCG TAB PO SCH (05:27)
--- NOTE | 2025-02-05 06:49 | ECG ---
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
[2025-02-05] MEDS: PANTOPRAZOLE 40 MG/10 ML VIAL INJ IV SCH (08:46)
[2025-02-05] MEDS: FUROSEMIDE 40 MG TAB PO SCH (08:46)
[2025-02-05] MEDS: SEVELAMER 800 MG TAB PO SCH (08:46)
[2025-02-05 09:07] LABS: Potassium 4.9 mmol/L (3.5-5.1); Sodium 144 mmol/L (136-145)
[2025-02-05 09:08] LABS: Anion Gap 14 (5-15); Carbon Dioxide 22 mmol/L (20-31)
[2025-02-05 09:09] LABS: Calcium 10.3 mg/dL (8.7-10.4); Chloride 108 mmol/L (98-107)
[2025-02-05 09:13] LABS: Glucose 77 mg/dL (74-106)
[2025-02-05] MEDS: ALBUTEROL SULF 2.5 MG/0.5ML(0.5%) NEB SOLN NEB PRN (09:15)
[2025-02-05 09:18] LABS: BUN/Creatinine Ratio 10.1 (10.0-20.0); Blood Urea Nitrogen 93 mg/dL (9-23)
[2025-02-05 09:25] LABS: Basophils # (auto) 0 10 ^3/uL (0-0.2); Basophils % (auto) 0.3 % (0.0-2.0); Eosinophils # (auto) 0.2 10 ^3/uL (0-0.8); Eosinophils % (auto) 4.5 % (0.0-7.0); Hematocrit 27.5 % (41.0-53.0); Hemoglobin 9.2 g/dL (13.5-17.5); Lymphocytes # (auto) 0.5 10 ^3/uL (0.4-5.4); Lymphocytes % (auto) 12.6 % (10.0-50.0); Mean Corpuscular Hemoglobin 32.3 pg (28.0-32.0); Mean Corpuscular Hgb Conc. 33.5 g/dL (32.0-36.0); Mean Corpuscular Volume 96.6 fL (80.0-100.0); Monocytes # (auto) 0.3 10 ^3/uL (0-1.3); Monocytes % (auto) 7.5 % (0.0-12.0); Neutrophils # (auto) 2.9 10 ^3/uL (1.6-8.6); Neutrophils % (auto) 75.1 % (37.0-80.0); Nucleated Red Blood Cells % 0.3 %; Platelet Count (auto) 83 10^3/uL (140-450); Red Blood Cells 2.85 10^6/uL (4.5-5.90); White Blood Cell 3.9 10^3/uL (4.4-10.8)
[2025-02-05 11:24] LABS: INR 1.15 (0.9-1.15); Partial Thromboplastin Time 27.9 SEC (24.5-34.5)
--- NOTE | 2025-02-05 11:25 | DVHPN2 ---
Subjective Had black stools x few days c/o itching Hb 7.4, given 1 RBCs, went up to 9.2 Changes from previous H/P or p: Changes Objective Vitals Vital Signs Date Time Temp Pulse Resp B/P (MAP) Pulse Ox O2 Delivery O2 Flow Rate FiO2 02/05/25 09:18 79 18 100 02/05/25 09:09 Room Air 02/05/25 09:09 0 21 02/05/25 09:00 97.2 161/86 (111) 97.2 Intake/Output Intake and Output 02/05/25 07:00 Intake Total 300 ml Balance 300 ml Intake Oral 0 ml Blood Product 300 ml General Appearance: Alert, Oriented X3, Cooperative, No acute distress Lungs: Clear to auscultation, Normal air movement Cardiovascular: Regular rate, Normal S1, Normal S2 Extremities: No edema Medications Current Medications Medications Dose Ordered Sig/Melva Route Start Time Stop Time Status Last Admin Dose Admin Albuterol 2.5 mg Q6HPRN PRN NEB 02/04/25 20:00 02/05/25 09:15 2.5 MG Levothyroxine Sodium 75 mcg QAM@0600 PO 02/05/25 06:00 02/05/25 05:27 75 MCG Sevelamer HCl 800 mg TIDWM PO 02/05/25 08:00 02/05/25 08:46 800 MG Atorvastatin Calcium 40 mg HS PO 02/04/25 22:00 02/04/25 23:15 40 MG Furosemide 40 mg DAILY PO 02/05/25 10:00 02/05/25 08:46 40 MG Diagnostic Test (Pha) 1 strip ACHS 02/04/25 22:00 02/05/25 05:35 1 STRIP Insulin Human Regular ACHS SC 02/04/25 22:00 Dextrose 50 ml UD PRN IV 02/04/25 20:00 Ondansetron HCl 4 mg Q4HP PRN IV 02/04/25 20:00 Pantoprazole Sodium 40 mg DAILY IV 02/05/25 10:00 02/05/25 08:46 40 MG Laboratory Results Laboratory Tests 02/05/25 08:37 Chemistry Test 02/04/25 14:36 02/05/25 08:37 Calcium Level 10.1 mg/dL (8.7-10.4) 10.3 mg/dL (8.7-10.4) Coagulation Test 02/05/25 10:55 Prothrombin Time Pending Prothrombin Time INR Pending Activated Partial Thromboplast Time Pending Assessment/Plan Assessment/Plan Rectal bleed Melena Acute on chronic anemia Rule out GI bleeding ESRD on HD HTN DM CHF, last EF 45% h/o afib? on Eliquis and amiodarone Hypopthyroidism PLAN: Hold Eliquis GI consult s/p transfusion, monitor Hb IV Protonix Nephrology for HD Full code Advanced directives discussed x 22 minutes Resume amiodarone po Cardiology consult Plan discussed with: Patient Date of Service: Feb 05, 2025 Billing Provider: MARICEL MORIN MD Common Visit Codes: [id number] INP/OBS CARE(HIGH) Secondary Visit Codes: [id number] CARE PLAN 30 MINUTES MARICEL MORIN MD Feb 05, 2025 11:25
[2025-02-05] MEDS: AMIODARONE HCL 200 MG TAB PO ONE (11:30)
[2025-02-05] MEDS ORDERED: diphenhdrAMINE HCL 25 MG CAP PO PRN (11:30)
[2025-02-05] MEDS: SODIUM CHL 0.9% 1000 ML BAG XX ONE (12:45)
--- NOTE | 2025-02-05 13:29 | DVHINCON2 ---
GI Consult Consult Note GI consult note Date of Consultation: 02/05/2025 Chief Complaint: GI bleed Referring Physician: Nishant PRIEST H&P: 74-year-old Zimbabwean-speaking male presented to ER for evaluation of abnormal lab results for possible blood transfusion. Paulina guillen. Patient complaining of black stool, for the past two days. Also complaining of periumbilical epigastric pain. No nausea or vomiting. Denies weight loss. Patient takes Eliquis last dose was yesterday. Patient uses thickeners otherwise chokes on his food and liquids also. Status post EGD colonoscopy eight months ago at [facility]. And treated for hemorrhoids Patient will have dialysis today Past Medical History: End-stage renal disease, dyslipidemia, hypertension, mi, thyroid, diabetes mellitus Past Surgical History: Pacemaker, dialysis access, cholecystectomy Social History: NO smoking, drinking ETOH and use of illegal drugs. Family History: Noncontributory Review of Systems: Constitutional: no fever, chill, weight loss HEENT: no eye pain, no hearing loss, no oral lesion, no scleral icterus Heart: no chest pain, no chest pressure Lung: no cough, no dyspnea with exertion Abdomen: see HPI Physical exam: General: NAD, AAOX3 Chest: lung christopher clear to auscultation Heart: RRR, no murmur Abdomen: non-distended, no tenderness to palpation, +BS Labs: Labs Test 02/05/25 11:36 02/05/25 10:55 02/05/25 08:51 02/05/25 08:37 Range/Units POC Glucose 94 70-106 mg/dl Prothrombin Time 12.0 H 9.3-11.8 sec Prothrombin Time INR 1.15 0.9-1.15 Activated Partial Thromboplast Time 27.9 24.5-34.5 SEC Stool Occult Blood Negative Negative Stool Occult Blood Sample #3 Negative White Blood Count 3.9 #L 4.4-10.8 10^3/uL Red Blood Count 2.85 L 4.5-5.90 10^6/uL Hemoglobin 9.2 #L 13.5-17.5 g/dL Hematocrit 27.5 #L 41.0-53.0 % Mean Corpuscular Volume 96.6 80.0-100.0 fL Mean Corpuscular Hemoglobin 32.3 H 28.0-32.0 pg Mean Corpuscular Hemoglobin Concent 33.5 32.0-36.0 g/dL Red Cell Distribution Width 18.0 H 11.8-14.3 % Platelet Count 83 L 140-450 10^3/uL Mean Platelet Volume 9.0 6.9-10.8 fL Neutrophils (%) (Auto) 75.1 37.0-80.0 % Lymphocytes (%) (Auto) 12.6 10.0-50.0 % Monocytes (%) (Auto) 7.5 0.0-12.0 % Eosinophils (%) (Auto) 4.5 0.0-7.0 % Basophils (%) (Auto) 0.3 0.0-2.0 % Neutrophils # (Auto) 2.9 1.6-8.6 10 ^3/uL Lymphocytes # (Auto) 0.5 0.4-5.4 10 ^3/uL Monocytes # (Auto) 0.3 0-1.3 10 ^3/uL Eosinophils # (Auto) 0.2 0-0.8 10 ^3/uL Basophils # (Auto) 0 0-0.2 10 ^3/uL Nucleated Red Blood Cells 0.3 % Sodium Level 144 136-145 mmol/L Potassium Level 4.9 3.5-5.1 mmol/L Chloride Level 108 H 98-107 mmol/L Carbon Dioxide Level 22 20-31 mmol/L Anion Gap 14 5-15 Blood Urea Nitrogen 93 #*H 9-23 mg/dL Creatinine 9.17 H 0.700-1.30 mg/dL Glomerular Filtration Rate Calc 6 >90 mL/min BUN/Creatinine Ratio 10.1 10.0-20.0 Serum Glucose 77 74-106 mg/dL Calcium Level 10.3 8.7-10.4 mg/dL Test 02/04/25 17:36 Range/Units Troponin I High Sensitivity 31 </=54 ng/L Imaging: Assessment: GI bleed Severe anemia ESRD on HD History of AFib on Eliquis Plan: Discussed with Dr. Chin - Pt will be scheduled for an EGD tomorrow 02/06/2025. Pt was informed of the risks (bleeding, infection, perforation, reaction to sedation medications and cardiopulmonary arrest) and benefit and is agreeable to undergo the procedures. monitor labs, transfuse if hgb less than 7 protonix hold blood thinners Discussed plan with patient and RN Thank you for this consult Date of Service: Feb 05, 2025 Billing Provider: ADELINA ROBERTSON Common Visit Codes: CONSULT ONLY Consultation Codes: [id number] CONSULT <60MIN ADELINA ROBERTSON Feb 05, 2025 13:29
--- NOTE | 2025-02-05 16:45 | DVHINCON2 ---
Date of service: Feb 05, 2025 Referring Physician Nishant PRIEST. Reason for Consultation End-stage renal disease management. History of Present Illness 74-year-old patient with significant history of end-stage renal disease on hemodialysis Tuesday with last hemodialysis on Tuesday, hypertension, CAD, hyperlipidemia, hypothyroidism, diabetes type 2 who presented to the hospital for generalized weakness and as well as melanotic stool for the last couple of days without dizziness chest pain or shortness of breath. Patient endorses previous episodes of GI bleed with similar symptoms. Patient was sent by oncologist for further testing. He was found to have hemoglobin of 7.4 received one PRBC with good response. Past Medical History Diabetes type 2, hypertension, end-stage renal disease, hyperlipidemia, hypothyroidism , CAD. Past Surgical History Av fistula creation Allergies: Coded Allergies: Ibuprofen (Verified Allergy, Unknown, 09/12/17) Penicillins (Verified Allergy, Unknown, 04/13/16) Home Meds Active Scripts Sucralfate (CARAFATE) 1 Gm Tab, 1 GM PO QID, #120 TAB Prov:EKATERINA ROBERTSON MD 09/13/24 Pantoprazole Sodium Sesquihydr (Pantoprazole Sodium) 40 Mg Tab, 40 MG PO BID, #60 TAB Prov:EKATERINA ROBERTSON MD 09/13/24 Amiodarone Hcl (Amiodarone Hcl) 200 Mg Tab, 1 TAB PO DAILY for 60 Days, #60 TAB 1 Refill Prov:MARYBETH NASSAR NP 10/11/23 Reported Medications Torsemide Injection (Torsemide) 20 Mg Tab, 1 TAB PO MWF 09/03/24 Ciprofloxacin Hcl (Ciprofloxacin Hcl) 500 Mg Tab, 1 TAB PO DAILY 09/03/24 Pantoprazole Sodium Sesquihydr (Protonix) 40 Mg Tab, 40 MG PO DAILY, TAB 07/27/24 Albuterol Sulfate (Albuterol Sulfate Hfa) 108 Mcg/Act Aer, 90 MCG IN Q4HPRN PRN for SHORTNESS OF BREATH, AER 07/27/24 Apixaban Base (ELIQUIS) 5 Mg Tab, 5 MG PO BID, TAB 07/27/24 Folic Acid (Folic Acid) 1 Mg Tab, 1 TAB PO DAILY, MG 09/29/23 Furosemide (Furosemide) 40 Mg Tab, 1 TAB PO DAILY 09/29/23 Finasteride (Finasteride) 5 Mg Tab, 1 TAB PO DAILY 08/04/23 Tamsulosin Hcl (Tamsulosin Hcl) 0.4 Mg Cap, 1 CAP PO DAILY 08/04/23 Sevelamer Carbonate (Renvela) 800 Mg Tab, 3 TAB PO TID, #810 TAB 3 Refills TAKE 3 TABS EACH MEAL AND 1 TAB AT NIGHT. 10/17/21 Levothyroxine Sodium (SYNTHROID TABLET) 50 Mcg Tb, 1 TAB PO QAM, TAB 07/28/18 Atorvastatin Calcium (Lipitor) 40 Mg Tab, 1 TAB PO DAILY 02/18/16 Current Medications Current Medications Medications (Trade) Dose Ordered Sig/Melva Route PRN Reason Start Time Stop Time Status Last Admin Albuterol (Ventolin Medneb) 2.5 mg Q6HPRN PRN NEB SHORTNESS OF BREATH 02/04/25 20:00 02/05/25 09:15 Levothyroxine Sodium (Synthroid Tablet) 75 mcg QAM@0600 PO 02/05/25 06:00 02/05/25 05:27 Sevelamer HCl (Renagel) 800 mg TIDWM PO 02/05/25 08:00 02/05/25 08:46 Apixaban (Eliquis) 5 mg BID PO 02/04/25 22:00 02/05/25 04:28 DC 02/04/25 23:15 Atorvastatin Calcium (Lipitor) 40 mg HS PO 02/04/25 22:00 02/04/25 23:15 Furosemide (Lasix Tablet) 40 mg DAILY PO 02/05/25 10:00 02/05/25 08:46 Diagnostic Test (Pha) (Accu-Chek Comfort Curve T) 1 strip ACHS 02/04/25 22:00 02/05/25 11:52 Insulin Human Regular (InsuLIN R) ACHS SC 02/04/25 22:00 Dextrose 50 ml UD PRN IV Blood Sugar LESS THAN 60 02/04/25 20:00 Ondansetron HCl (Zofran) 4 mg Q4HP PRN IV NAUSEA / VOMITING 02/04/25 20:00 Pantoprazole Sodium (Protonix) 40 mg DAILY IV 02/05/25 10:00 02/05/25 08:46 Diphenhydramine HCl (Benadryl Capsule) 25 mg Q6HP PRN PO FOR ITCHING 02/05/25 11:30 Amiodarone HCl (Cordarone Tablet) 200 mg DAILY PO 02/06/25 10:00 Family History: Cardiovascular disease G8 FATHER Cerebrovascular accident (CVA) G8 FATHER Family history: Diabetes in Family history: Diabetes mellitus G8 MOTHER, Onset:Unknown G8 FATHER, Onset:Unknown Family history: Hypertension G8 MOTHER, Onset:Unknown G8 FATHER, Onset:Unknown Social History He denies smoking alcohol or drug abuse. Review of Systems HEENT: Oral mucosa dry Neck no JVD Cardiovascular: Denies for chest pain denies orthopnea or PND Respiratory: Denies cough or shortness of breath Gastrointestinal: Denies for nausea vomiting Positive for melanotic stools. Musculoskeletal: Denies myalgias Neurological: Denies focal weakness Dermatological: Denies any rash The rest of the review of systems were reviewed pertinent positives and pertinent negatives are as per HPI up to 12 points review of systems H&P Exam Vital Signs/I&O Vital Sign Date Time Temp Pulse Resp B/P (MAP) Pulse Ox O2 Delivery O2 Flow Rate FiO2 02/05/25 13:00 97.3 66 16 144/79 (100) 99 97.3 02/05/25 10:00 Room Air* 0 21 Intake and Output 02/04/25 02/05/25 19:00 07:00 Intake Total 300 ml Balance 300 ml Intake Oral 0 ml Blood Product 300 ml Physical Exam HEENT: No evidence of JVD, no oral ulcers. Pulmonary: Lungs are clear on auscultation bilaterally Cardiovascular S1-S2, no S3 or S4 Abdomen: Bowel sounds positive, soft no rebound tenderness Skin: No rash Neurological: Alert, oriented, no focal weakness Access right upper chest CVC Labs/Diagnostic Data Labs/Diagnostic Data Laboratory Tests Test 02/05/25 11:36 02/05/25 10:55 02/05/25 08:51 02/05/25 08:37 Range/Units POC Glucose 94 70-106 mg/dl Prothrombin Time 12.0 H 9.3-11.8 sec Prothrombin Time INR 1.15 0.9-1.15 Activated Partial Thromboplast Time 27.9 24.5-34.5 SEC Stool Occult Blood Negative Negative Stool Occult Blood Sample #3 Negative White Blood Count 3.9 #L 4.4-10.8 10^3/uL Red Blood Count 2.85 L 4.5-5.90 10^6/uL Hemoglobin 9.2 #L 13.5-17.5 g/dL Hematocrit 27.5 #L 41.0-53.0 % Mean Corpuscular Volume 96.6 80.0-100.0 fL Mean Corpuscular Hemoglobin 32.3 H 28.0-32.0 pg Mean Corpuscular Hemoglobin Concent 33.5 32.0-36.0 g/dL Red Cell Distribution Width 18.0 H 11.8-14.3 % Platelet Count 83 L 140-450 10^3/uL Mean Platelet Volume 9.0 6.9-10.8 fL Neutrophils (%) (Auto) 75.1 37.0-80.0 % Lymphocytes (%) (Auto) 12.6 10.0-50.0 % Monocytes (%) (Auto) 7.5 0.0-12.0 % Eosinophils (%) (Auto) 4.5 0.0-7.0 % Basophils (%) (Auto) 0.3 0.0-2.0 % Neutrophils # (Auto) 2.9 1.6-8.6 10 ^3/uL Lymphocytes # (Auto) 0.5 0.4-5.4 10 ^3/uL Monocytes # (Auto) 0.3 0-1.3 10 ^3/uL Eosinophils # (Auto) 0.2 0-0.8 10 ^3/uL Basophils # (Auto) 0 0-0.2 10 ^3/uL Nucleated Red Blood Cells 0.3 % Sodium Level 144 136-145 mmol/L Potassium Level 4.9 3.5-5.1 mmol/L Chloride Level 108 H 98-107 mmol/L Carbon Dioxide Level 22 20-31 mmol/L Anion Gap 14 5-15 Blood Urea Nitrogen 93 #*H 9-23 mg/dL Creatinine 9.17 H 0.700-1.30 mg/dL Glomerular Filtration Rate Calc 6 >90 mL/min BUN/Creatinine Ratio 10.1 10.0-20.0 Serum Glucose 77 74-106 mg/dL Calcium Level 10.3 8.7-10.4 mg/dL Test 02/05/25 05:31 02/04/25 23:18 02/04/25 17:36 02/04/25 15:25 Range/Units POC Glucose 79 112 H 70-106 mg/dl Troponin I High Sensitivity 31 32 </=54 ng/L Test 02/04/25 14:36 Range/Units White Blood Count 2.7 L 4.4-10.8 10^3/uL Red Blood Count 2.27 L 4.5-5.90 10^6/uL Hemoglobin 7.4 L 13.5-17.5 g/dL Hematocrit 22.5 L 41.0-53.0 % Mean Corpuscular Volume 98.8 80.0-100.0 fL Mean Corpuscular Hemoglobin 32.5 H 28.0-32.0 pg Mean Corpuscular Hemoglobin Concent 32.9 32.0-36.0 g/dL Red Cell Distribution Width 17.2 H 11.8-14.3 % Platelet Count 74 L 140-450 10^3/uL Mean Platelet Volume 9.0 6.9-10.8 fL Neutrophils (%) (Auto) 72.5 37.0-80.0 % Lymphocytes (%) (Auto) 15.1 10.0-50.0 % Monocytes (%) (Auto) 7.2 0.0-12.0 % Eosinophils (%) (Auto) 4.9 0.0-7.0 % Basophils (%) (Auto) 0.3 0.0-2.0 % Neutrophils # (Auto) 2.0 1.6-8.6 10 ^3/uL Lymphocytes # (Auto) 0.4 0.4-5.4 10 ^3/uL Monocytes # (Auto) 0.2 0-1.3 10 ^3/uL Eosinophils # (Auto) 0.1 0-0.8 10 ^3/uL Basophils # (Auto) 0 0-0.2 10 ^3/uL Nucleated Red Blood Cells 0.1 % Sodium Level 142 136-145 mmol/L Potassium Level 4.8 3.5-5.1 mmol/L Chloride Level 106 98-107 mmol/L Carbon Dioxide Level 26 20-31 mmol/L Anion Gap 10 5-15 Blood Urea Nitrogen 103 *H 9-23 mg/dL Creatinine 8.64 H 0.700-1.30 mg/dL Glomerular Filtration Rate Calc 6 >90 mL/min BUN/Creatinine Ratio 11.9 10.0-20.0 Serum Glucose 144 H 74-106 mg/dL Calcium Level 10.1 8.7-10.4 mg/dL Troponin I High Sensitivity 31 </=54 ng/L Microbiology Date/Time Source Procedure Growth Status 02/05/25 03:35 Nose MRSA Screen - Final Complete Chest x-ray shows mild pulmonary vascular congestion. Assessment Assessment: End-stage renal disease on hemodialysis TTS Hyperkalemia Anemia of end-stage renal disease and blood loss Hypertension CAD Diabetes type 2 Plan: Dialysis today and TTS. Scott for goal hemoglobin 10 to 11 grams/deciliter PPI GI consult Fluid restriction less than 1 L per day CMP and CBC in a.m. Thank you very much Plan discussed with: Patient MELQUIADES REYES MD Feb 05, 2025 16:45
[2025-02-06] VITALS (11 sets, daily range): BP systolic 129–148; BP diastolic 69–89; PULSE 59–75; RESP 16–20; TEMP 97–98.3; O2SAT 98–100
[2025-02-06 06:03] LABS: Basophils # (auto) 0 10 ^3/uL (0-0.2); Basophils % (auto) 0.3 % (0.0-2.0); Eosinophils # (auto) 0.2 10 ^3/uL (0-0.8); Hematocrit 27.2 % (41.0-53.0); Hemoglobin 9.2 g/dL (13.5-17.5); Lymphocytes # (auto) 0.4 10 ^3/uL (0.4-5.4); Lymphocytes % (auto) 10.6 % (10.0-50.0); Mean Corpuscular Hemoglobin 32.3 pg (28.0-32.0); Mean Corpuscular Hgb Conc. 33.7 g/dL (32.0-36.0); Mean Corpuscular Volume 95.7 fL (80.0-100.0); Monocytes # (auto) 0.3 10 ^3/uL (0-1.3); Monocytes % (auto) 6.7 % (0.0-12.0); Neutrophils # (auto) 3.3 10 ^3/uL (1.6-8.6); Neutrophils % (auto) 78.4 % (37.0-80.0); Nucleated Red Blood Cells % 0.1 %; Platelet Count (auto) 76 10^3/uL (140-450); Red Blood Cells 2.84 10^6/uL (4.5-5.90); Red Cell Distribution Width 18.2 % (11.8-14.3); White Blood Cell 4.2 10^3/uL (4.4-10.8)
[2025-02-06 06:26] LABS: Alanine Aminotransferase 21 U/L (7-40); Albumin 3.8 g/dL (3.2-4.8); Alkaline Phosphatase 77 U/L (46-116); Anion Gap 11 (5-15); Aspartate Aminotransferase 28 U/L (<34); Bilirubin, Total 0.8 mg/dL (0.2-1.0); Calcium 8.9 mg/dL (8.7-10.4); Carbon Dioxide 27 mmol/L (20-31); Chloride 99 mmol/L (98-107); Potassium 4.3 mmol/L (3.5-5.1); Sodium 137 mmol/L (136-145); Total Protein 6.7 g/dL (5.7-8.2)
[2025-02-06 06:27] LABS: Blood Urea Nitrogen 54 mg/dL (9-23); Glucose 73 mg/dL (74-106)
[2025-02-06] MEDS: AMIODARONE HCL 200 MG TAB PO SCH (08:33)
--- NOTE | 2025-02-06 10:19 | DVHPN2 ---
Subjective No active bleeding Hemoglobin stable at 9.2 Changes from previous H/P or p: Changes Objective Vitals Vital Signs Date Time Temp Pulse Resp B/P (MAP) Pulse Ox O2 Delivery O2 Flow Rate FiO2 02/06/25 10:14 98 Room Air* 0 21 02/06/25 09:30 97.3 59 16 97.3 02/06/25 08:37 129/70 (89) Intake/Output Intake and Output 02/06/25 07:00 Intake Total 490 ml Balance 490 ml Intake Oral 490 ml # Voids 2 General Appearance: Alert, Oriented X3, Cooperative, No acute distress Lungs: Clear to auscultation, Normal air movement Cardiovascular: Regular rate, Normal S1, Normal S2 Extremities: No edema Medications Current Medications Medications Dose Ordered Sig/Melva Route Start Time Stop Time Status Last Admin Dose Admin Albuterol 2.5 mg Q6HPRN PRN NEB 02/04/25 20:00 02/05/25 09:15 2.5 MG Levothyroxine Sodium 75 mcg QAM@0600 PO 02/05/25 06:00 02/05/25 05:27 75 MCG Sevelamer HCl 800 mg TIDWM PO 02/05/25 08:00 02/05/25 17:29 800 MG Atorvastatin Calcium 40 mg HS PO 02/04/25 22:00 02/05/25 22:53 40 MG Furosemide 40 mg DAILY PO 02/05/25 10:00 02/06/25 08:33 40 MG Diagnostic Test (Pha) 1 strip ACHS 02/04/25 22:00 02/06/25 06:32 1 STRIP Insulin Human Regular ACHS SC 02/04/25 22:00 Dextrose 50 ml UD PRN IV 02/04/25 20:00 Ondansetron HCl 4 mg Q4HP PRN IV 02/04/25 20:00 Pantoprazole Sodium 40 mg DAILY IV 02/05/25 10:00 02/06/25 08:33 40 MG Diphenhydramine HCl 25 mg Q6HP PRN PO 02/05/25 11:30 Amiodarone HCl 200 mg DAILY PO 02/06/25 10:00 02/06/25 08:33 200 MG Laboratory Results Laboratory Tests 02/06/25 05:30 Chemistry Test 02/06/25 05:30 Albumin 3.8 g/dL (3.2-4.8) Calcium Level 8.9 mg/dL (8.7-10.4) Magnesium Level 2.0 mg/dL (1.6-2.6) Total Protein 6.7 g/dL (5.7-8.2) Coagulation Test 02/05/25 10:55 Prothrombin Time 12.0 sec (9.3-11.8) H Prothrombin Time INR 1.15 (0.9-1.15) Activated Partial Thromboplast Time 27.9 SEC (24.5-34.5) LFT Test 02/06/25 05:30 Alanine Aminotransferase (ALT) 21 U/L (7-40) Alkaline Phosphatase 77 U/L (46-116) Aspartate Amino Transferase (AST) 28 U/L (<34) Total Bilirubin 0.8 mg/dL (0.2-1.0) Microbiology Microbiology Date/Time Source Procedure Growth Status 02/05/25 03:35 Nose MRSA Screen - Final Complete Assessment/Plan Assessment/Plan Rectal bleed Melena Acute on chronic anemia Rule out GI bleeding ESRD on HD HTN DM CHF, last EF 45% h/o afib? on Eliquis and amiodarone Hypopthyroidism PLAN: Hold Eliquis GI consult s/p transfusion, monitor Hb IV Protonix Nephrology for HD Full code Advanced directives discussed x 22 minutes Resume amiodarone po Cardiology consult 02/06/2025: EGD today Hemoglobin is stable Hemodialysis per nephrology Monitor closely PPI IV Plan discussed with: Patient My Orders Orders - MARICEL MORIN MD Procedure Category Date Status Time Diphenhdramine PHA 02/05/25 In Process Capsule (Benadryl 11:30 Amiodarone Tablet PHA 02/06/25 In Process (Cordarone Tablet) 10:00 Date of Service: Feb 06, 2025 Billing Provider: MARICEL MORIN MD Common Visit Codes: [id number] INP/OBS CARE(HIGH) MARICEL MORIN MD Feb 06, 2025 10:19
[2025-02-06 11:12] LABS: Urine Bacteria None Seen /hpf (None Seen)
[2025-02-06 11:20] LABS: Urine Blood Negative /uL (Negative); Urine Clarity Clear (Clear); Urine Color Colorless (Yellow); Urine Mucus FEW (None Seen); Urine Protein, UAD 2+ (Negative); Urine Specific Gravity 1.008 (1.001-1.035); Urine Squamous Epithelial Cell FEW /hpf (<5); Urine Urobilinogen Normal (Negative); Urine WBC 1 /HPF (0-3)
[2025-02-06 11:41] LABS: Hepatitis A Ab IgM Negative; Hepatitis B Core IgM Negative (Negative); Hepatitis B Surface Antigen Negative (Negative); Hepatitis C Antibody Negative (Negative)
[2025-02-06] MEDS ORDERED: SODIUM CHLORIDE LOCK 10 ML ONE (11:50)
[2025-02-06] MEDS ORDERED: LIDOCAINE 1% INJ PF 5ML AMP ONE (11:50)
[2025-02-06] MEDS ORDERED: fentaNYL CITRATE 100 MCG/2 ML VL ONE (11:50)
[2025-02-06] MEDS ORDERED: MIDAZOLAM HCL 2MG/2ML 2ml VIAL (1mg/ml) ONE (11:50)
[2025-02-06] MEDS ORDERED: KETAMINE 50mg/ML 1ml syringe ONE (11:50)
[2025-02-06] MEDS ORDERED: PROPOFOL 10 MG/ML 20 ML IV ONE (11:50)
[2025-02-06] MEDS ORDERED: ONDANSETRON HCL 4 MG/2 ML VIAL ONE (11:50)
[2025-02-06] MEDS ORDERED: fentaNYL CITRATE 100 MCG/2 ML VL IV PRN (12:30)
[2025-02-06] MEDS ORDERED: MORPHINE SULFATE 4 MG/ML SYR/VIAL IV PRN (12:30)
[2025-02-06] MEDS: ACCU-CHEK COMFORT CURVE STRIP VI ONE (12:30)
[2025-02-06] MEDS: METOCLOPRAMIDE HCL 5MG/ml INJ 2ml VIAL IV ONE (12:30)
[2025-02-06] MEDS ORDERED: MORPHINE SULFATE INJ 2 MG/ml SYRG IV PRN (12:30)
[2025-02-06] MEDS ORDERED: HYDROmorphone HCL 2 MG/ML VL/or syr IV PRN ×2 (12:30)
--- NOTE | 2025-02-06 13:26 | DVHOP2 ---
Operative Report DATE OF OPERATION: 02/06/25 PROCEDURE: Upper Endoscopy with biopsy. PREOPERATIVE INDICATION: The patient is a 74 -year-old male undergoing endoscopy for anemia and previous history of oozing from the gastric antrum POSTOPERATIVE DIAGNOSES: 1. [id number] antral gastritis and gastropathy with some petechial like areas suggestive of mild vascular ectasia but no active bleedings and no fresh or old blood in the upper GI tract 2. 0.5 cm sliding-type hiatal hernia otherwise normal examination up to the 2nd and 3rd part of the duodenum PROCEDURE PERFORMED BY: Sai Chin GI NURSE: Zhang SCOPE: Olympus videoendoscope. ASA CLASS: 3 PREOPERATIVE MEDICATIONS: Sedation, Dr. Howe PROCEDURE IN DETAIL: After obtaining an informed consent, the patient was placed on left lateral decubitus position. The patient was then sedated with the above medications. A bite block was placed between his teeth. The endoscope was then passed through the oropharynx, into the esophagus, and through the stomach and pylorus up to the second and third part of the duodenum. The endoscope was then withdrawn. Second and 3rd part of the duodenum and the duodenal bulb were normal. The The pre-pyloric area and antrum showed [id number] gastritis and gastropathy with some petechial like areas suggestive of mild vascular ectasia There was no vascular bleeding and no fresh or old blood in the upper GI tract. On retroflexion the fundus and cardia were normal. Gastric biopsies were obtained. The endoscope was then withdrawn into the dis talha esophagus where the patient had a 5 mm extension of columnar epithelium into the distal esophagus The remaining distal and proximal esophagus and oropharynx were unremarkable The patient tolerated the procedure well without difficulty. COMPLICATIONS : None SPECIMENS: Gastric biopsies DISPOSITION: Transfer back to the floor Stable PLAN: 1. Await for biopsy result 2. Will place pt on Protonix 40 mg bid 3. Carafate 1 g p.o. twice a day 4. Recommend patient be maintained on Protonix and Carafate as an outpatient especially if he has to resume his anticoagulants 5. Outpatient follow up with me to discuss possible elective repeat colonoscopy, last colonoscopy was negative in 2018 SAI CHIN MD Feb 06, 2025 13:26
--- NOTE | 2025-02-06 16:47 | DVHPN2 ---
Progress Note - Dictate Date Seen: Feb 06, 2025 Medical Necessity Reason Pt with a Central, PICC or Fol: Yes Subjective Patient feels well denies any acute events overnight. vital signs Vital Sign Date Time Temp Pulse Resp B/P (MAP) Pulse Ox O2 Delivery O2 Flow Rate FiO2 02/06/25 13:35 60 12 151/71 (97) 100 02/06/25 13:34 Room Air 0 100 02/06/25 13:00 98.1 98.1 Total Intake and Output 02/05/25 02/05/25 02/06/25 15:00 23:00 07:00 Intake Total 250 ml 240 ml Balance 250 ml 240 ml medications Current Medications Medications Dose Ordered Sig/Melva Route Start Time Stop Time Status Last Admin Dose Admin Albuterol 2.5 mg Q6HPRN PRN NEB 02/04/25 20:00 02/05/25 09:15 2.5 MG Levothyroxine Sodium 75 mcg QAM@0600 PO 02/05/25 06:00 02/05/25 05:27 75 MCG Sevelamer HCl 800 mg TIDWM PO 02/05/25 08:00 02/05/25 17:29 800 MG Atorvastatin Calcium 40 mg HS PO 02/04/25 22:00 02/05/25 22:53 40 MG Furosemide 40 mg DAILY PO 02/05/25 10:00 02/06/25 08:33 40 MG Diagnostic Test (Pha) 1 strip ACHS 02/04/25 22:00 02/06/25 11:05 1 STRIP Insulin Human Regular ACHS SC 02/04/25 22:00 Dextrose 50 ml UD PRN IV 02/04/25 20:00 Ondansetron HCl 4 mg Q4HP PRN IV 02/04/25 20:00 Pantoprazole Sodium 40 mg DAILY IV 02/05/25 10:00 02/06/25 08:33 40 MG Diphenhydramine HCl 25 mg Q6HP PRN PO 02/05/25 11:30 Amiodarone HCl 200 mg DAILY PO 02/06/25 10:00 02/06/25 08:33 200 MG objective HEENT: No evidence of JVD, no oral ulcers. Pulmonary: Lungs are clear on auscultation bilaterally Cardiovascular S1-S2, no S3 or S4 Abdomen: Bowel sounds positive, soft no rebound tenderness Skin: No rash Neurological: Alert, oriented, no focal weakness Dialysis access CVC laboratory and microbiology Laboratory Tests 02/06/25 05:30 Test 02/06/25 05:30 Range/Units Serum Glucose 73 L 74-106 mg/dL Assessment/Plan Assessment: End-stage renal disease on hemodialysis TTS Hyperkalemia Anemia of end-stage renal disease and blood loss Acute erosive gastritis Hypertension CAD Diabetes type 2 Plan: Dialysis today and TTS. Scott for goal hemoglobin 10 to 11 grams/deciliter PPI GI consult Fluid restriction less than 1 L per day CMP and CBC in a.m. From Nephrology perspective cleared to go home Thank you very much for allowing us to participate in the care of this patient Dietary Evaluation Review Comments: Follow CCHO-Renal Standard texture as tolerated diet when medically feasible Expected Outcomes/Goals: contolled blood glucose, prevent uremic syndrome, gradual wt gain Plan discussed with: Patient MELQUIADES REYES MD Feb 06, 2025 16:47
[2025-02-07] VITALS (11 sets, daily range): BP systolic 120–150; BP diastolic 67–87; PULSE 57–68; RESP 15–18; TEMP 97.4–99.3; O2SAT 97–100
[2025-02-07 06:48] LABS: Chloride 101 mmol/L (98-107); Sodium 136 mmol/L (136-145)
[2025-02-07 06:54] LABS: BUN/Creatinine Ratio 8.7 (10.0-20.0)
[2025-02-07 06:55] LABS: Blood Urea Nitrogen 62 mg/dL (9-23); Calcium 8.5 mg/dL (8.7-10.4); Glucose 65 mg/dL (74-106); Potassium 5.3 mmol/L (3.5-5.1)
[2025-02-07 06:56] LABS: Anion Gap 10 (5-15); Carbon Dioxide 25 mmol/L (20-31)
[2025-02-07 06:57] LABS: Basophils # (auto) 0 10 ^3/uL (0-0.2); Basophils % (auto) 0.4 % (0.0-2.0); Eosinophils # (auto) 0.1 10 ^3/uL (0-0.8); Eosinophils % (auto) 5.3 % (0.0-7.0); Hematocrit 25.9 % (41.0-53.0); Hemoglobin 8.8 g/dL (13.5-17.5); Lymphocytes # (auto) 0.4 10 ^3/uL (0.4-5.4); Lymphocytes % (auto) 14.8 % (10.0-50.0); Mean Corpuscular Hemoglobin 32.7 pg (28.0-32.0); Mean Corpuscular Volume 96.3 fL (80.0-100.0); Monocytes # (auto) 0.2 10 ^3/uL (0-1.3); Monocytes % (auto) 8.4 % (0.0-12.0); Neutrophils % (auto) 71.1 % (37.0-80.0); Nucleated Red Blood Cells % 0.4 %; Platelet Count (auto) 65 10^3/uL (140-450); Red Blood Cells 2.68 10^6/uL (4.5-5.90); Red Cell Distribution Width 18.8 % (11.8-14.3); White Blood Cell 2.8 10^3/uL (4.4-10.8)
--- NOTE | 2025-02-07 11:35 | DVHPN2 ---
Subjective The patient is seen and examined at bedside. No complaint today. Reviewed: Care Plan, H&P, Labs, Medications, Previous Orders, Radiology Changes from previous H/P or p: No Changes Objective Vitals Vital Signs Date Time Temp Pulse Resp B/P (MAP) Pulse Ox O2 Delivery O2 Flow Rate FiO2 02/07/25 09:53 120/74 02/07/25 09:37 98 Room Air 0.0 02/07/25 09:37 21 02/07/25 09:30 98.7 65 16 98.7 Intake/Output Intake and Output 02/07/25 07:00 Intake Total 160 ml Output Total 0 ml Balance 160 ml Intake Oral 150 ml IV Total 10 ml Output Urine Total 0 ml # Voids 2 # Bowel Movements 1 General Appearance: Alert, Oriented X3, Cooperative, No acute distress HEENT: Atraumatic, PERRLA, EOMI, Mucous membr. moist/pink Lungs: Clear to auscultation, Normal air movement Cardiovascular: Regular rate, Normal S1, Normal S2, No murmurs, Gallops, Rubs Abdomen: Normal bowel sounds, Soft Extremities: No edema Neuro: Cranial nerves 3-12 NL Psych/Mental Status: Mental status NL Medications Current Medications Medications Dose Ordered Sig/Melva Route Start Time Stop Time Status Last Admin Dose Admin Albuterol 2.5 mg Q6HPRN PRN NEB 02/04/25 20:00 02/05/25 09:15 2.5 MG Levothyroxine Sodium 75 mcg QAM@0600 PO 02/05/25 06:00 02/07/25 06:28 75 MCG Sevelamer HCl 800 mg TIDWM PO 02/05/25 08:00 02/07/25 08:12 800 MG Atorvastatin Calcium 40 mg HS PO 02/04/25 22:00 02/06/25 21:52 40 MG Furosemide 40 mg DAILY PO 02/05/25 10:00 02/07/25 09:53 40 MG Diagnostic Test (Pha) 1 strip ACHS 02/04/25 22:00 02/07/25 11:07 1 STRIP Insulin Human Regular ACHS SC 02/04/25 22:00 Dextrose 50 ml UD PRN IV 02/04/25 20:00 Ondansetron HCl 4 mg Q4HP PRN IV 02/04/25 20:00 Pantoprazole Sodium 40 mg DAILY IV 02/05/25 10:00 02/07/25 09:52 40 MG Diphenhydramine HCl 25 mg Q6HP PRN PO 02/05/25 11:30 Amiodarone HCl 200 mg DAILY PO 02/06/25 10:00 02/07/25 09:53 200 MG Laboratory Results Laboratory Tests 02/07/25 06:00 Chemistry Test 02/07/25 06:00 Calcium Level 8.5 mg/dL (8.7-10.4) L Magnesium Level 2.0 mg/dL (1.6-2.6) Urinalysis Test 02/06/25 05:55 Urine Color Colorless (Yellow) Urine Clarity Clear (Clear) Urine pH 8.0 (5.0-9.0) Urine Specific [place] 1.008 (1.001-1.035) Urine Protein 2+ (Negative) H Urine Ketones Negative (Negative) Urine Blood Negative /uL (Negative) Urine Nitrite Negative (Negative) Urine Bilirubin Negative (Negative) Urine Urobilinogen Normal mg/dL (Negative) Urine Leukocyte Esterase Negative /uL (Negative) Urine RBC 1 /hpf (0 - 3) Urine Microscopic WBC 1 /HPF (0-3) Urine Squamous Epithelial Cells Few /hpf (<5) Urine Bacteria None seen /hpf (None Seen) Urine Mucus Few (None Seen) Urine Glucose 1+ mg/dL (Normal) H Microbiology Microbiology Date/Time Source Procedure Growth Status 02/05/25 03:35 Nose MRSA Screen - Final Complete Labs and/or images reviewed: Labs reviewed by me Assessment/Plan Assessment/Plan Rectal bleed Melena Acute on chronic anemia Rule out GI bleeding ESRD on HD HTN DM CHF, last EF 45% h/o afib? on Eliquis and amiodarone Hypopthyroidism PLAN: Hold Eliquis GI consult s/p transfusion, monitor Hb IV Protonix Nephrology for HD Full code Resume amiodarone po Cardiology consult Plan discussed with: Patient Date of Service: Feb 07, 2025 Billing Provider: ISIAH JEFFERS MD Common Visit Codes: [id number] INP/OBS CARE(HIGH) ISIAH JEFFERS MD Feb 07, 2025 11:35
[2025-02-07] MEDS ORDERED: SEVE800T8 PO (13:41)
[2025-02-07] MEDS ORDERED: PANT40T PO (13:41)
--- NOTE | 2025-02-07 13:42 | DVHDS2 ---
Discharge Summary Date of Admission Feb 04, 2025 at 19:45 Date of Discharge: Feb 07, 2025 Labs/Diagnostic Data: Laboratory Results Test 02/07/25 11:06 02/07/25 06:00 02/06/25 05:55 02/06/25 05:30 POC Glucose 93 mg/dl (70-106) White Blood Count 2.8 10^3/uL (4.4-10.8) Red Blood Count 2.68 10^6/uL (4.5-5.90) Hemoglobin 8.8 g/dL (13.5-17.5) Hematocrit 25.9 % (41.0-53.0) Mean Corpuscular Volume 96.3 fL (80.0-100.0) Mean Corpuscular Hemoglobin 32.7 pg (28.0-32.0) Mean Corpuscular Hemoglobin Concent 34.0 g/dL (32.0-36.0) Red Cell Distribution Width 18.8 % (11.8-14.3) Platelet Count 65 10^3/uL (140-450) Mean Platelet Volume 8.7 fL (6.9-10.8) Neutrophils (%) (Auto) 71.1 % (37.0-80.0) Lymphocytes (%) (Auto) 14.8 % (10.0-50.0) Monocytes (%) (Auto) 8.4 % (0.0-12.0) Eosinophils (%) (Auto) 5.3 % (0.0-7.0) Basophils (%) (Auto) 0.4 % (0.0-2.0) Neutrophils # (Auto) 2.0 10 ^3/uL (1.6-8.6) Lymphocytes # (Auto) 0.4 10 ^3/uL (0.4-5.4) Monocytes # (Auto) 0.2 10 ^3/uL (0-1.3) Eosinophils # (Auto) 0.1 10 ^3/uL (0-0.8) Basophils # (Auto) 0 10 ^3/uL (0-0.2) Nucleated Red Blood Cells 0.4 % Sodium Level 136 mmol/L (136-145) Potassium Level 5.3 mmol/L (3.5-5.1) Chloride Level 101 mmol/L (98-107) Carbon Dioxide Level 25 mmol/L (20-31) Anion Gap 10 (5-15) Blood Urea Nitrogen 62 mg/dL (9-23) Creatinine 7.09 mg/dL (0.700-1.30) Glomerular Filtration Rate Calc 8 mL/min (>90) BUN/Creatinine Ratio 8.7 (10.0-20.0) Serum Glucose 65 mg/dL (74-106) Calcium Level 8.5 mg/dL (8.7-10.4) Magnesium Level 2.0 mg/dL (1.6-2.6) Urine Color Colorless (Yellow) Urine Clarity Clear (Clear) Urine pH 8.0 (5.0-9.0) Urine Specific [place] 1.008 (1.001-1.035) Urine Protein 2+ (Negative) Urine Ketones Negative (Negative) Urine Blood Negative /uL (Negative) Urine Nitrite Negative (Negative) Urine Bilirubin Negative (Negative) Urine Urobilinogen Normal mg/dL (Negative) Urine Leukocyte Esterase Negative /uL (Negative) Urine RBC 1 /hpf (0 - 3) Urine Microscopic WBC 1 /HPF (0-3) Urine Squamous Epithelial Cells Few /hpf (<5) Urine Bacteria None seen /hpf (None Seen) Urine Mucus Few (None Seen) Urine Glucose 1+ mg/dL (Normal) Total Bilirubin 0.8 mg/dL (0.2-1.0) Aspartate Amino Transferase (AST) 28 U/L (<34) Alanine Aminotransferase (ALT) 21 U/L (7-40) Alkaline Phosphatase 77 U/L (46-116) Total Protein 6.7 g/dL (5.7-8.2) Albumin 3.8 g/dL (3.2-4.8) Test 02/05/25 10:55 02/05/25 08:51 02/05/25 08:37 02/04/25 17:36 Prothrombin Time 12.0 sec (9.3-11.8) Prothrombin Time INR 1.15 (0.9-1.15) Activated Partial Thromboplast Time 27.9 SEC (24.5-34.5) Stool Occult Blood Negative (Negative) Stool Occult Blood Sample #3 (Negative) Hepatitis A IgM Antibody Negative Hepatitis B Surface Antigen Negative (Negative) Hepatitis B Core IgM Antibody Negative (Negative) Hepatitis C Antibody Negative (Negative) Troponin I High Sensitivity 31 ng/L (</=54) Other Laboratory Tests 02/07/25 06:00 Final Diagnosis/Problems List gi bleed Discharge Disposition: Home Discharge Instruct/Medications Diet: Renal Activity: No Restrictions, As Tolerated Follow Up/Referral: pcp 1-2 weeks GI per schedule Medications: Resume meds Discharge Statement: "Patient was advised to return to the ER or call 911 if any headaches, dizziness, shortness of breath, chest pain, abdominal pain, bleeding, fevers, or worsening of medical condition. Patient was counseled about treatment plan, medications, possible side effects, patientverbalized understanding. All questions were answered to the best of my ability. This discharge took greater then 30 minutes in planning, reviewing documentation, counseling the patient, and discussing with other team members." ASSESSMENT ASSESSMENT Assessment gi bleed ISIAH JEFFERS MD Feb 07, 2025 13:42
[2025-02-07] MEDS ORDERED: VANCOMYCIN PER PHARMACY 0 MG IV SCH (14:45)
[2025-02-07] MEDS ORDERED: VANCOMYCIN 1GM/200ML PM 200 ML IV ONE (14:45)
--- NOTE | 2025-02-07 15:16 | DVHPN2 ---
Progress Note - Dictate Date Seen: Feb 07, 2025 Medical Necessity Reason Pt with a Central, PICC or Fol: Yes Subjective Patient complains of itchiness around the right upper chest HD catheter. Several months ago he had an infection in the right upper arm AV graft status post surgery and antibiotics. vital signs Vital Sign Date Time Temp Pulse Resp B/P (MAP) Pulse Ox O2 Delivery O2 Flow Rate FiO2 02/07/25 12:30 97.4 60 16 144/87 (106) 100 97.4 02/07/25 09:37 Room Air 0.0 02/07/25 09:37 21 Total Intake and Output 02/06/25 02/06/25 02/07/25 15:00 23:00 07:00 Intake Total 10 ml 150 ml Output Total 0 ml Balance 10 ml 150 ml medications Current Medications Medications Dose Ordered Sig/Melva Route Start Time Stop Time Status Last Admin Dose Admin Albuterol 2.5 mg Q6HPRN PRN NEB 02/04/25 20:00 02/05/25 09:15 2.5 MG Levothyroxine Sodium 75 mcg QAM@0600 PO 02/05/25 06:00 02/07/25 06:28 75 MCG Sevelamer HCl 800 mg TIDWM PO 02/05/25 08:00 02/07/25 11:53 800 MG Atorvastatin Calcium 40 mg HS PO 02/04/25 22:00 02/06/25 21:52 40 MG Furosemide 40 mg DAILY PO 02/05/25 10:00 02/07/25 09:53 40 MG Diagnostic Test (Pha) 1 strip ACHS 02/04/25 22:00 02/07/25 11:07 1 STRIP Insulin Human Regular ACHS SC 02/04/25 22:00 Dextrose 50 ml UD PRN IV 02/04/25 20:00 Ondansetron HCl 4 mg Q4HP PRN IV 02/04/25 20:00 Pantoprazole Sodium 40 mg DAILY IV 02/05/25 10:00 02/07/25 09:52 40 MG Diphenhydramine HCl 25 mg Q6HP PRN PO 02/05/25 11:30 Amiodarone HCl 200 mg DAILY PO 02/06/25 10:00 02/07/25 09:53 200 MG Vancomycin HCl 0 ml @ 0 mls/hr UD IV 02/07/25 14:45 objective HEENT: No evidence of JVD, no oral ulcers. Pulmonary: Lungs are clear on auscultation bilaterally Cardiovascular S1-S2, no S3 or S4 Abdomen: Bowel sounds positive, soft no rebound tenderness Skin: No rash Neurological: Alert, oriented, no focal weakness Dialysis access CVC with signs of excoriation of the skin and irritation from scratching as well as the tape. No evidence of purulent drainage at this time but some serous fluid from the irritated skin. Thickening of the skin where sutures are as well as the exit site. Right upper extremity dressing was removed there is no evidence of ulceration no bruit or thrill. laboratory and microbiology Laboratory Tests 02/07/25 06:00 Test 02/07/25 06:00 Range/Units Serum Glucose 65 L 74-106 mg/dL Assessment/Plan Assessment: End-stage renal disease on hemodialysis TTS Hyperkalemia Concern for exit site infection, versus allergic dermatitis History of right upper arm AV fistula infection status post surgery Anemia of end-stage renal disease and blood loss Acute erosive gastritis Hypertension CAD Diabetes type 2 Plan: Dialysis today Consult vascular surgery to evaluate exit site irritation in addition to right upper arm and consider alternate access Exit site culture Vancomycin with dialysis pharmacy to dose Dress with a gauze Scott for goal hemoglobin 10 to 11 grams/deciliter PPI GI consult Fluid restriction less than 1 L per day CMP and CBC in a.m. Thank you very much for allowing us to participate in the care of this patient Dietary Evaluation Review Comments: Follow CCHO-Renal Standard texture as tolerated diet when medically feasible Expected Outcomes/Goals: contolled blood glucose, prevent uremic syndrome, gradual wt gain Plan discussed with: Patient MELQUIADES REYES MD Feb 07, 2025 15:16
[2025-02-07] MEDS: VANCOMYCIN 750MG KIT 100 ML IV ONE (21:56)
[2025-02-07] MEDS: EPOETIN ALFA-EPBX 10,000 UNIT/1ML VIAL SC ONE (21:56)
--- NOTE | 2025-02-07 22:44 | DVHPN2 ---
Progress Note - Dictate Date Seen: Feb 07, 2025 Medical Necessity Reason Pt with a Central, PICC or Fol: Yes Subjective No new complaints No active bleeding vital signs Vital Sign Date Time Temp Pulse Resp B/P (MAP) Pulse Ox O2 Delivery O2 Flow Rate FiO2 02/07/25 21:00 98.3 63 15 123/82 (96) 98 98.3 02/07/25 09:37 Room Air 0.0 02/07/25 09:37 21 Total Intake and Output 02/06/25 02/06/25 02/07/25 15:00 23:00 07:00 Intake Total 10 ml 150 ml Output Total 0 ml Balance 10 ml 150 ml medications Current Medications Medications Dose Ordered Sig/Melva Route Start Time Stop Time Status Last Admin Dose Admin Albuterol 2.5 mg Q6HPRN PRN NEB 02/04/25 20:00 02/05/25 09:15 2.5 MG Levothyroxine Sodium 75 mcg QAM@0600 PO 02/05/25 06:00 02/07/25 06:28 75 MCG Sevelamer HCl 800 mg TIDWM PO 02/05/25 08:00 02/07/25 17:57 800 MG Atorvastatin Calcium 40 mg HS PO 02/04/25 22:00 02/07/25 22:11 40 MG Furosemide 40 mg DAILY PO 02/05/25 10:00 02/07/25 09:53 40 MG Diagnostic Test (Pha) 1 strip ACHS 02/04/25 22:00 02/07/25 22:12 1 STRIP Insulin Human Regular ACHS SC 02/04/25 22:00 02/07/25 22:12 2 UNITS Dextrose 50 ml UD PRN IV 02/04/25 20:00 Ondansetron HCl 4 mg Q4HP PRN IV 02/04/25 20:00 Pantoprazole Sodium 40 mg DAILY IV 02/05/25 10:00 02/07/25 09:52 40 MG Diphenhydramine HCl 25 mg Q6HP PRN PO 02/05/25 11:30 Amiodarone HCl 200 mg DAILY PO 02/06/25 10:00 02/07/25 09:53 200 MG Vancomycin HCl 0 ml @ 0 mls/hr UD IV 02/07/25 14:45 objective General: NAD, AAOX3 Chest: lung christopher clear to auscultation Heart: RRR, no murmur Abdomen: non-distended, no tenderness to palpation, +BS laboratory and microbiology Laboratory Tests 02/07/25 06:00 Test 02/07/25 06:00 Range/Units Serum Glucose 65 L 74-106 mg/dL Problems(with codes): (1) Symptomatic anemia (2) Generalized weakness (3) Gastritis and gastroduodenitis with hemorrhage (4) End stage renal failure on dialysis Prognosis Plan Continue PPI and Carafate Advance diet as tolerated Avoid aspirin NSAIDs Discharge planning in progress Elective outpatient colonoscopy Dietary Evaluation Review Comments: Follow CCHO-Renal Standard texture as tolerated diet when medically feasible Expected Outcomes/Goals: contolled blood glucose, prevent uremic syndrome, gradual wt gain Plan discussed with: Patient SAI DEL RIO MD Feb 07, 2025 22:43
[2025-02-08] VITALS (11 sets, daily range): BP systolic 113–163; BP diastolic 69–90; PULSE 59–71; RESP 14–19; TEMP 36.7; O2SAT 97–100
--- NOTE | 2025-02-08 11:46 | DVHPN2 ---
Subjective The patient is seen and examined at bedside. No complaint today. Reviewed: Care Plan, H&P, Labs, Medications, Previous Orders, Radiology Objective Vitals Vital Signs Date Time Temp Pulse Resp B/P (MAP) Pulse Ox O2 Delivery O2 Flow Rate FiO2 02/08/25 10:47 100 Room Air* 0 21 02/08/25 09:44 113/71 02/08/25 09:00 98.0 61 19 98.0 Intake/Output Intake and Output 02/08/25 07:00 Intake Total 500 ml Output Total 0 ml Balance 500 ml Intake Oral 400 ml IV Total 100 ml Output Urine Total 0 ml # Voids 3 # Bowel Movements 1 General Appearance: Alert, Oriented X3, Cooperative, No acute distress HEENT: Atraumatic, PERRLA, EOMI, Mucous membr. moist/pink Lungs: Clear to auscultation, Normal air movement Cardiovascular: Regular rate, Normal S1, Normal S2, No murmurs, Gallops, Rubs Abdomen: Normal bowel sounds, Soft Extremities: No edema Neuro: Cranial nerves 3-12 NL Psych/Mental Status: Mental status NL Medications Current Medications Medications Dose Ordered Sig/Melva Route Start Time Stop Time Status Last Admin Dose Admin Albuterol 2.5 mg Q6HPRN PRN NEB 02/04/25 20:00 02/05/25 09:15 2.5 MG Levothyroxine Sodium 75 mcg QAM@0600 PO 02/05/25 06:00 02/08/25 05:38 75 MCG Sevelamer HCl 800 mg TIDWM PO 02/05/25 08:00 02/08/25 08:38 800 MG Atorvastatin Calcium 40 mg HS PO 02/04/25 22:00 02/07/25 22:11 40 MG Furosemide 40 mg DAILY PO 02/05/25 10:00 02/08/25 09:44 40 MG Diagnostic Test (Pha) 1 strip ACHS 02/04/25 22:00 02/08/25 11:05 1 STRIP Insulin Human Regular ACHS SC 02/04/25 22:00 02/07/25 22:12 2 UNITS Dextrose 50 ml UD PRN IV 02/04/25 20:00 Ondansetron HCl 4 mg Q4HP PRN IV 02/04/25 20:00 Pantoprazole Sodium 40 mg DAILY IV 02/05/25 10:00 02/08/25 09:42 40 MG Diphenhydramine HCl 25 mg Q6HP PRN PO 02/05/25 11:30 Amiodarone HCl 200 mg DAILY PO 02/06/25 10:00 02/08/25 09:42 200 MG Vancomycin HCl 0 ml @ 0 mls/hr UD IV 02/07/25 14:45 Laboratory Results Laboratory Tests 02/07/25 06:00 02/08/25 05:41 Urinalysis Test 02/06/25 05:55 Urine Color Colorless (Yellow) Urine Clarity Clear (Clear) Urine pH 8.0 (5.0-9.0) Urine Specific [place] 1.008 (1.001-1.035) Urine Protein 2+ (Negative) H Urine Ketones Negative (Negative) Urine Blood Negative /uL (Negative) Urine Nitrite Negative (Negative) Urine Bilirubin Negative (Negative) Urine Urobilinogen Normal mg/dL (Negative) Urine Leukocyte Esterase Negative /uL (Negative) Urine RBC 1 /hpf (0 - 3) Urine Microscopic WBC 1 /HPF (0-3) Urine Squamous Epithelial Cells Few /hpf (<5) Urine Bacteria None seen /hpf (None Seen) Urine Mucus Few (None Seen) Urine Glucose 1+ mg/dL (Normal) H Microbiology Microbiology Date/Time Source Procedure Growth Status 02/05/25 03:35 Nose MRSA Screen - Final Complete Assessment/Plan Assessment/Plan Rectal bleed Melena Acute on chronic anemia Rule out GI bleeding ESRD on HD HTN DM CHF, last EF 45% h/o afib? on Eliquis and amiodarone Hypopthyroidism PLAN: Hold Eliquis GI consult s/p transfusion, monitor Hb IV Protonix Nephrology for HD Full code Resume amiodarone po Cardiology consult My Orders Orders - ISIAH JEFFERS MD Procedure Category Date Status Time Discharge DISCHARGE 02/07/25 Transmitted 13:41 ISIAH EJFFERS MD Feb 08, 2025 11:46
--- NOTE | 2025-02-08 15:02 | DVHPN2 ---
Progress Note - Dictate Date Seen: Feb 08, 2025 Medical Necessity Reason Pt with a Central, PICC or Fol: Yes Subjective Patient complains of itchiness around the right upper chest HD catheter per patient is ongoing for at least 8-10 days. vital signs Vital Sign Date Time Temp Pulse Resp B/P (MAP) Pulse Ox O2 Delivery O2 Flow Rate FiO2 02/08/25 10:47 100 Room Air* 0 21 02/08/25 09:44 113/71 02/08/25 09:00 98.0 61 19 98.0 Total Intake and Output 02/07/25 02/07/25 02/08/25 15:00 23:00 07:00 Intake Total 100 ml 400 ml Output Total 0 ml Balance 100 ml 400 ml medications Current Medications Medications Dose Ordered Sig/Melva Route Start Time Stop Time Status Last Admin Dose Admin Albuterol 2.5 mg Q6HPRN PRN NEB 02/04/25 20:00 02/05/25 09:15 2.5 MG Levothyroxine Sodium 75 mcg QAM@0600 PO 02/05/25 06:00 02/08/25 05:38 75 MCG Sevelamer HCl 800 mg TIDWM PO 02/05/25 08:00 02/08/25 12:02 800 MG Atorvastatin Calcium 40 mg HS PO 02/04/25 22:00 02/07/25 22:11 40 MG Furosemide 40 mg DAILY PO 02/05/25 10:00 02/08/25 09:44 40 MG Diagnostic Test (Pha) 1 strip ACHS 02/04/25 22:00 02/08/25 11:05 1 STRIP Insulin Human Regular ACHS SC 02/04/25 22:00 02/07/25 22:12 2 UNITS Dextrose 50 ml UD PRN IV 02/04/25 20:00 Ondansetron HCl 4 mg Q4HP PRN IV 02/04/25 20:00 Pantoprazole Sodium 40 mg DAILY IV 02/05/25 10:00 02/08/25 09:42 40 MG Diphenhydramine HCl 25 mg Q6HP PRN PO 02/05/25 11:30 Amiodarone HCl 200 mg DAILY PO 02/06/25 10:00 02/08/25 09:42 200 MG Vancomycin HCl 0 ml @ 0 mls/hr UD IV 02/07/25 14:45 objective HEENT: No evidence of JVD, no oral ulcers. Pulmonary: Lungs are clear on auscultation bilaterally Cardiovascular S1-S2, no S3 or S4 Abdomen: Bowel sounds positive, soft no rebound tenderness Skin: No rash Neurological: Alert, oriented, no focal weakness Dialysis access CVC with signs of excoriation of the skin and irritation from scratching as well as the tape. No evidence of purulent drainage at this time but some serous fluid from the irritated skin. Thickening/lichenification of the skin where sutures are as well as the exit site. Right upper extremity dressing was removed there is no evidence of ulceration no bruit or thrill. laboratory and microbiology Laboratory Tests 02/08/25 05:41 02/07/25 06:00 Test 02/07/25 06:00 Range/Units Serum Glucose 65 L 74-106 mg/dL Assessment/Plan Assessment: End-stage renal disease on hemodialysis TTS Hyperkalemia Concern for exit site infection, versus chronic allergic dermatitis History of right upper arm AV fistula infection status post surgery Anemia of end-stage renal disease and blood loss Acute erosive gastritis Hypertension CAD Diabetes type 2 Plan: Dialysis was completed yesterday Consult vascular surgery could not eat completed inpatient because no available vascular surgeon goal at this facility. Referral to vascular surgery as an outpatient is in the works Blood cultures were obtain here so far no growth. Continue vancomycin with dialysis x1 week Exit site culture at the dialysis unit I hear no growth so far. Use Tegaderm instead and difference cleaning solution from now on Vancomycin with dialysis pharmacy to dose Scott for goal hemoglobin 10 to 11 grams/deciliter PPI GI consult Fluid restriction less than 1 L per day CMP and CBC in a.m. Okay to discharge from Nephrology perspective. Thank you very much for allowing us to participate in the care of this patient Dietary Evaluation Review Comments: Follow CCHO-Renal Standard texture as tolerated diet when medically feasible Expected Outcomes/Goals: contolled blood glucose, prevent uremic syndrome, gradual wt gain Plan discussed with: Patient MELQUIADES REYES MD Feb 08, 2025 15:02
[2025-02-08] MEDS: methylPREDNISolone SOD SUCC 40 MG/ML VL IV ONE (16:02)
[2025-02-08] MEDS: VANCOMYCIN 500mg/100mL 100 ML IV ONE (18:05)
--- NOTE | 2025-02-08 21:46 | DVHPN2 ---
Progress Note - Dictate Date Seen: Feb 08, 2025 (Late entry Time of visit 3:00 p.m.) Medical Necessity Reason Pt with a Central, PICC or Fol: Yes Subjective No new complaints No active bleeding Patient awake and resting comfortably He is tolerating a diet vital signs Vital Sign Date Time Temp Pulse Resp B/P (MAP) Pulse Ox O2 Delivery O2 Flow Rate FiO2 02/08/25 19:41 100 Room Air 02/08/25 19:41 0 21 02/08/25 17:09 97.9 61 17 163/90 (114) 97.9 Total Intake and Output 02/07/25 02/07/25 02/08/25 15:00 23:00 07:00 Intake Total 100 ml 400 ml Output Total 0 ml Balance 100 ml 400 ml objective General: NAD, AAOX3 Chest: lung christopher clear to auscultation Heart: RRR, no murmur Abdomen: non-distended, no tenderness to palpation, +BS laboratory and microbiology Laboratory Tests 02/08/25 05:41 02/07/25 06:00 Test 02/07/25 06:00 Range/Units Serum Glucose 65 L 74-106 mg/dL Problems(with codes): (1) Chronic anemia (2) Chronic renal disease, stage 4, severely decreased glomerular filtration rate (GFR) between 15-29 mL/min/1.73 square meter (3) Gastritis and gastroduodenitis with hemorrhage (4) Generalized weakness (5) Symptomatic anemia Prognosis Plan Discharge planning to home Avoid aspirin NSAIDs Maintained on PPI and [place] Outpatient follow up with GI Services Review recent colonoscopy report Dietary Evaluation Review Comments: Follow CCHO-Renal Standard texture as tolerated diet when medically feasible Expected Outcomes/Goals: contolled blood glucose, prevent uremic syndrome, gradual wt gain Plan discussed with: Patient SAI DEL RIO MD Feb 08, 2025 21:46
--- NOTE | 2025-02-13 23:11 | DVHDS2 ---
Discharge Summary Date of Admission Feb 04, 2025 at 19:45 Date of Discharge: Feb 08, 2025 Admitting Diagnosis Rectal bleed Melena Acute on chronic anemia Rule out GI bleeding ESRD on HD HTN DM CHF, last EF 45% h/o afib on Eliquis and amiodarone Hypopthyroidism Labs/Diagnostic Data: Laboratory Results Test 02/08/25 11:04 02/08/25 05:41 02/07/25 06:00 02/06/25 05:55 POC Glucose 105 mg/dl (70-106) Creatinine 5.08 mg/dL (0.700-1.30) Glomerular Filtration Rate Calc 11 mL/min (>90) Random Vancomycin Level 10.1 ug/mL (5-10) White Blood Count 2.8 10^3/uL (4.4-10.8) Red Blood Count 2.68 10^6/uL (4.5-5.90) Hemoglobin 8.8 g/dL (13.5-17.5) Hematocrit 25.9 % (41.0-53.0) Mean Corpuscular Volume 96.3 fL (80.0-100.0) Mean Corpuscular Hemoglobin 32.7 pg (28.0-32.0) Mean Corpuscular Hemoglobin Concent 34.0 g/dL (32.0-36.0) Red Cell Distribution Width 18.8 % (11.8-14.3) Platelet Count 65 10^3/uL (140-450) Mean Platelet Volume 8.7 fL (6.9-10.8) Neutrophils (%) (Auto) 71.1 % (37.0-80.0) Lymphocytes (%) (Auto) 14.8 % (10.0-50.0) Monocytes (%) (Auto) 8.4 % (0.0-12.0) Eosinophils (%) (Auto) 5.3 % (0.0-7.0) Basophils (%) (Auto) 0.4 % (0.0-2.0) Neutrophils # (Auto) 2.0 10 ^3/uL (1.6-8.6) Lymphocytes # (Auto) 0.4 10 ^3/uL (0.4-5.4) Monocytes # (Auto) 0.2 10 ^3/uL (0-1.3) Eosinophils # (Auto) 0.1 10 ^3/uL (0-0.8) Basophils # (Auto) 0 10 ^3/uL (0-0.2) Nucleated Red Blood Cells 0.4 % Sodium Level 136 mmol/L (136-145) Potassium Level 5.3 mmol/L (3.5-5.1) Chloride Level 101 mmol/L (98-107) Carbon Dioxide Level 25 mmol/L (20-31) Anion Gap 10 (5-15) Blood Urea Nitrogen 62 mg/dL (9-23) BUN/Creatinine Ratio 8.7 (10.0-20.0) Serum Glucose 65 mg/dL (74-106) Calcium Level 8.5 mg/dL (8.7-10.4) Magnesium Level 2.0 mg/dL (1.6-2.6) Urine Color Colorless (Yellow) Urine Clarity Clear (Clear) Urine pH 8.0 (5.0-9.0) Urine Specific [place]y 1.008 (1.001-1.035) Urine Protein 2+ (Negative) Urine Ketones Negative (Negative) Urine Blood Negative /uL (Negative) Urine Nitrite Negative (Negative) Urine Bilirubin Negative (Negative) Urine Urobilinogen Normal mg/dL (Negative) Urine Leukocyte Esterase Negative /uL (Negative) Urine RBC 1 /hpf (0 - 3) Urine Microscopic WBC 1 /HPF (0-3) Urine Squamous Epithelial Cells Few /hpf (<5) Urine Bacteria None seen /hpf (None Seen) Urine Mucus Few (None Seen) Urine Glucose 1+ mg/dL (Normal) Test 02/06/25 05:30 02/05/25 10:55 02/05/25 08:51 02/05/25 08:37 Total Bilirubin 0.8 mg/dL (0.2-1.0) Aspartate Amino Transferase (AST) 28 U/L (<34) Alanine Aminotransferase (ALT) 21 U/L (7-40) Alkaline Phosphatase 77 U/L (46-116) Total Protein 6.7 g/dL (5.7-8.2) Albumin 3.8 g/dL (3.2-4.8) Prothrombin Time 12.0 sec (9.3-11.8) Prothrombin Time INR 1.15 (0.9-1.15) Activated Partial Thromboplast Time 27.9 SEC (24.5-34.5) Stool Occult Blood Negative (Negative) Stool Occult Blood Sample #3 (Negative) Hepatitis A IgM Antibody Negative Hepatitis B Surface Antigen Negative (Negative) Hepatitis B Core IgM Antibody Negative (Negative) Hepatitis C Antibody Negative (Negative) Test 02/04/25 17:36 Troponin I High Sensitivity 31 ng/L (</=54) Other Laboratory Tests 02/08/25 05:41 02/07/25 06:00 Brief Hx & Hospital Course: This is a 74 years old male come to emergency department because he was visit his shop technician/ oncologists and was sent for possible blood transfusions. Patient apparently had dark stool for couple day. He had blood transfusions before. He was found to have hemoglobin of 7.4. He was given one packed red blood cell. Subsequently GI specialist see the patient and did an EGD. EGD showed: [id number] antral gastritis and gastropathy with some petechial like areas suggestive of mild vascular ectasia but no active bleedings and no fresh or old blood in the upper GI tract. 0.5 cm sliding-type hiatal hernia otherwise normal examination up to the 2nd and 3rd part of the duodenum. Dr. Chin recommend avoid aspirin and NSAIDs. Follow up outpatient GI per schedule. The patient just recently had colonoscopy done in per patient it was normal. Today his hemoglobin stable I will discharge him home. Follow up with Dr. Chin per schedule. Follow up with his primary care physician 1-2 weeks. Follow up with his oncologist/shop technician per schedule. Physical exam: HEENT: Normocephalic atraumatic pupils equal react to light and accommodation. Extraocular muscles intact, conjunctiva pink, oropharynx moist, no thrush, no exudate. Lymphatic: No lymphadenopathy Cardiovascular exam: S1, S2 was heard. No murmurs, rubs, gallops Lung: Clear on auscultation bilaterally, no wheeze, rale, rhonchi. GI: Abdominal soft, nondistended, nontenderness, positive bowel sounds. Extremity: No crepitus, cyanosis, edema. Pedal pulses present bilateral. Full range of motion. Skin: Normal turgor, no rash. Psych: Alert, oriented x3. Neurology: No focal deficits, cranial nerve II to XII grossly intact. This medical document was created using an electronic medical record system with [employer] direct computerized dictation system. Although this document has been carefully reviewed, there may still be some phonetic and typographical errors. These areas are purely typographical due to imperfections of the software programs, and do not reflect any compromise in the patient's medical care. Condition at Discharge: Stable Final Diagnosis/Problems List Rectal bleed Melena Acute on chronic anemia Rule out GI bleeding ESRD on HD HTN DM CHF, last EF 45% h/o afib? on Eliquis and amiodarone Hypopthyroidism Discharge Disposition: Home Discharge Instruct/Medications Diet: Renal Activity: No Restrictions, As Tolerated Follow Up/Referral: pcp 1-2 weeks GI per schedule Medications: Resume meds Discharge Statement: "Patient was advised to return to the ER or call 911 if any headaches, dizziness, shortness of breath, chest pain, abdominal pain, bleeding, fevers, or worsening of medical condition. Patient was counseled about treatment plan, medications, possible side effects, patientverbalized understanding. All questions were answered to the best of my ability. This discharge took greater then 30 minutes in planning, reviewing documentation, counseling the patient, and discussing with other team members." ASSESSMENT ASSESSMENT Assessment gi bleed Date of Service: Feb 08, 2025 Billing Provider: ISIAH JEFFERS MD Common Visit Codes: 16867-UPR/OBS DISCH DAY >30min ISIAH JEFFERS MD Feb 13, 2025 23:11
== END 2025-02-08 20:25 | disposition home or self-care (01) | DRG 241 ==
LOC: ER 14:06 → OVERFLOW 19:45 → EAST 22:28
PROVIDERS: ADMIT Internal Medicine; ATTEND Internal Medicine
PROC: 5A1D70Z Performance of Urinary Filtration, Intermittent, Less than 6 Hours Per Day (ICD-10-PCS; principal; 2025-02-05)
PROC: 30233N1 Transfusion of Nonautologous Red Blood Cells into Peripheral Vein, Percutaneous Approach (ICD-10-PCS; 2025-02-05)
PROC: 0DB68ZX Excision of Stomach, Via Natural or Artificial Opening Endoscopic, Diagnostic (ICD-10-PCS; 2025-02-06)
PROC: 5A1D70Z Performance of Urinary Filtration, Intermittent, Less than 6 Hours Per Day (ICD-10-PCS; 2025-02-07)
DX: K29.01 Acute gastritis with bleeding (principal); I13.2 Hypertensive heart and chronic kidney disease with heart failure and with stage 5 chronic kidney disease, or end stage renal disease; N18.6 End stage renal disease; D63.1 Anemia in chronic kidney disease; E11.22 Type 2 diabetes mellitus with diabetic chronic kidney disease; I50.9 Heart failure, unspecified; Z99.2 Dependence on renal dialysis; E03.9 Hypothyroidism, unspecified; E78.5 Hyperlipidemia, unspecified; K44.9 Diaphragmatic hernia without obstruction or gangrene; E87.5 Hyperkalemia; I25.10 Atherosclerotic heart disease of native coronary artery without angina pectoris; K31.9 Disease of stomach and duodenum, unspecified; I48.91 Unspecified atrial fibrillation; L23.9 Allergic contact dermatitis, unspecified cause; Z95.0 Presence of cardiac pacemaker; Z83.3 Family history of diabetes mellitus; Z82.49 Family history of ischemic heart disease and other diseases of the circulatory system; Z82.3 Family history of stroke; Z90.49 Acquired absence of other specified parts of digestive tract; Z79.01 Long term (current) use of anticoagulants; Z88.6 Allergy status to analgesic agent; Z88.0 Allergy status to penicillin
CPT/HCPCS: 36415; 36430; 71045; 80048; 80053; 80074; 80202; 81001; 82270; 82565; 82962; 83735; 84484; 85025; 85610; 85730; 86850; 86900; 86901; 86920; 87040; 87081; 90935; 93005; 94640; 99291; G0378; J1642; J1815; J2250; J2405; J2470; J2704